=== PATIENT | male | born 1945 | race Caucasian/White ===

== ENCOUNTER → 2020-12-17 07:43 | Outpatient (CLI) | payer OTHER, MEDICARE, SELFPAY ==
--- NOTE | 2020-12-17 07:46 | CT_ITS ---
STUDY: CT SOFT TISSUE NECK WITH CONTRAST REASON FOR EXAM: Male, 75 years old. RIGHT VOCAL CORD JAKE BASE TO AP WINDOW. History of prior laryngeal carcinoma with chemotherapy and radiation. RADIATION DOSAGE (If Supplied By Facility): CTDIvol = ( 9.80 ) mGy, DLP = ( 303.67 ) mGycm TECHNIQUE: The patient was scanned in a multi-detector CT scanner. High resolution transaxial imaging was performed following intravenous administration of IV 100mL [id number]-300. Sagittal and coronal images were reconstructed. Individualized dose optimization techniques were used for this CT. COMPARISON: None. FINDINGS: Normal bilateral parotid glands. Normal bilateral solar fabrication technician spaces. Normal bilateral parapharyngeal spaces. Normal bilateral carotid spaces. Normal bilateral sublingual and submandibular glands and spaces. Normal visualized nasopharynx. Normal retropharyngeal space. Normal perivertebral space. Normal visualized bilateral faucial tonsils. The visualized tongue, tongue base and oropharynx are normal. The visualized cervical lymph nodes (levels I-) are within normal size limits, and maintain normal morphology. There is no demonstrated solid or cystic mass lesion. There is no abnormal contrast enhancement. There is a 1.2 cm x 0.9 cm nodule within the right vocal cord. A recurrent neoplastic process should be ruled out. This extends superiorly into the right piriform sinus. Normal subglottic trachea. Normal bilateral lobes of the thyroid gland. Findings suggestive of scarring in the medial right lung apex most likely secondary to prior radiation. Right stenosis at the carotid bifurcation on the right side. Normal visualized paranasal sinuses. There is multilevel degenerative changes of the cervical spine. CT/Soft Tissue Neck WITH Contrast IMPRESSION: 1.2 cm x 0.9 cm nodule in the right vocal cord with extension into the right piriform sinus. Marked degree of the sclerotic plaque and stenosis at the right carotid bifurcation. Electronically Signed: Lazaro Freedman MD at 15:37 EDT , Service support ,
[2020-12-17 08:00] LABS: CREATININE FINGERSTICK < 0.6 mg/dL (0.70-1.30); EGFR FINGERSTICK > 60.0000 mL/min (>60)
== END ==
PROVIDERS: Referring Provider Otolaryngology; Visit Provider Otolaryngology
DX: J38.01 Paralysis of vocal cords and larynx, unilateral (principal)
CPT/HCPCS: 70491; Q9967

== ENCOUNTER → 2021-01-27 14:56 | Outpatient (CLI) | payer OTHER, MEDICARE, SELFPAY ==
--- NOTE | 2021-01-27 15:00 | PET_ITS ---
EXAMINATION: FDG PET-CT INDICATIONS: A 75-year-old male with a reported history of head and neck carcinoma and evaluation of pulmonary nodularity. COMPARISON EXAMINATION: CT of the chest report dated 01/03/21. INDEX LESION SIZE SUV INTERPRETATION Right lower lung-right lower lobe 1.9 max Quantitative criteria for viable neoplasm are not fulfilled. Sequential radiologic investigation is recommended. NON-INDEX LESION SIZE SUV INTERPRETATION Right thoracic perihilum 1.9 Quantitative criteria for viable neoplasm are not fulfilled. TECHNIQUE: Following the intravenous administration of 16.85 mCi of F-18 deoxyglucose via the left antecubital fossa, multiplanar image acquisitions of the head, neck, chest, abdomen and pelvis to level of mid-thigh, lower extremities obtained at one hour post radiopharmaceutical administration contemporaneously interpreted with the current CT of the head, neck, chest, abdomen and pelvis to level of mid-thigh, lower extremities dated 01/27/[address] of the chest report dated 01/03/21 reveal: SERUM GLUCOSE LEVEL: 93 mg/dl. HEIGHT: 66 inches. WEIGHT: 110 lbs. FINDINGS: 1. Mild increased FDG distribution is defined in the right thoracic perihilum generating a calculated maximum standard uptake value of 1.9. Quantitative criteria for viable neoplasm are not fulfilled. 2. Minimal radiopharmaceutical concentration is visualized in the right lower posterolateral posteromedial lung odom and right lower lobe generating a calculated maximum standard uptake value of 1.9. 3. Normal physiologic distribution of the radiopharmaceutical is apparent in the hepatic (1.8) and splenic parenchyma, both renal units, bladder and visualized intestinal tract. The visualized portion of the cerebral cortex demonstrate symmetric and preserved glucose metabolism. Diffuse intestinal tract activity is noted throughout all four quadrants of the abdominal-pelvic retroperitoneum and mesentery consistent with normal physiologic distribution of the radiopharmaceutical. Prominent radiopharmaceutical concentration is observed in the left ventricular myocardium commensurate with the [place]. Prominent tracer uptake is observed in the oral cavity without evidence of anatomic correlate. Pertinent CT findings are as follows. CHEST: There are no additional parenchymal densities-nodules defined in the right and left hemithorax with discernable increased FDG uptake. Bronchiectatic changes noted in the right upper anteromedial lung field without evidence of increased tracer concentration. A subcentimeter ground glass density noted in the right mid lateral lung-right upper lobe is ametabolic. There is atherosclerotic calcification defined in the thoracic aorta without evidence of dilatation-aneurysm formation. Coronary arterial calcification is defined. ABDOMEN AND PELVIS: Gastrostomy tube placement is defined. Atherosclerotic calcification is defined in the abdominal aorta without evidence of dilatation, aneurysm formation. Pelvic arterial calcification is encountered. Cyst formation is noted in the left kidney with a maximum axial diameter of approximately 5.2 cm. Bilateral subcentimeter inguinal soft tissue densities are ametabolic. Colonic diverticulosis is noted without evidence of diverticulitis. SKELETAL: Degenerative changes defined in the cervical, thoracic and lumbar spine demonstrate no evidence of glucose hypermetabolism. Diffuse demineralization is noted in the axial skeletal structures. PET/PET/CT Tumor Base -Thigh Init IMPRESSION: 1. NEGATIVE EXAMINATION. There is no definitive quantitative significant evidence of recurrent-metastatic viable neoplasm. 2. Enhanced tracer uptake observed in the right thoracic perihilum does not fulfill quantitative criteria for viable neoplasm. (Amanda et al, Journal of Clinical Oncology 16:2142, 1997) 3. The right lower lung-right lower lobe increase in glucose concentration does not fulfill quantitative criteria for malignant transformation. 4. Metabolic and/or anatomic stability may be ensured in the right thoracic perihilar and right hemithorax pulmonary parenchymal abnormality with repeat FDG PET study and/or CT of the thorax in three months. (Xiu, Journal of Nuclear Medicine 45:88, P2004 [facility], Seminars in Thoracic and Cardiovascular Surgery 14:292, 2002) Electronic Signature Steve Holcomb D.O. Accurate Quantification of SUVs for this report are calculated using the exclusive [employer]. (U.S. Patent No. 10, 674, 983). Standardization and correction of the FDG SUV metric via [employer] technology allow for vendor non-specific objective quantitative examination comparison and optimization of the sensitivity and specificity of the FDG PET-CT examination. Electronically Signed: Steve Holcomb DO at 22:42 EDT Tel , Service support ,
== END ==
PROVIDERS: Referring Provider Otolaryngology; Visit Provider Otolaryngology
DX: R91.8 Other nonspecific abnormal finding of lung field (principal)
CPT/HCPCS: 78815; A9552

== ENCOUNTER 2021-05-06 09:10 | Outpatient (CLI) | payer OTHER, SELFPAY ==
--- NOTE | 2021-05-06 09:15 | RAD_ITS ---
STUDY: X-RAY - ESOPHAGUS (BARIUM SWALLOW) WITH FLUOROSCOPY REASON FOR EXAM: Male, 75 years old. DYSPHAGIA/PARALYSIS VOCAL CORDS TECHNIQUE: 23 view(s) of the esophagus were obtained following swallowing of barium. FLUOROSCOPY TIME (if supplied): (80 seconds) minutes/seconds COMPARISON: None. FINDINGS: A PEG tube is seen within the stomach. There is no demonstrated esophageal foreign body. Mild degree of circumferential narrowing of the distal esophagus at the gastroesophageal junction. No evidence of gastroesophageal reflux. The patient was unable to swallow a 12 mm tablet of barium. There is atherosclerotic tortuosity of the aortic arch and descending thoracic aorta. Normal visualized pulmonary parenchyma. There are diffuse degenerative changes of the visualized thoracic spine. RAD/Esophagus Single Contrast IMPRESSION: No evidence of gastroesophageal reflux. Mild degree of circumferential narrowing of the distal esophagus at the level of the gastroesophageal junction. Correlation with endoscopy is recommended. Electronically Signed: Lazaro Freedman MD at 14:57 EST ,
== END 2021-05-06 23:59 | disposition short-term general hospital (02) ==
LOC: RAD 09:13
PROVIDERS: Referring Provider Otolaryngology; Visit Provider Otolaryngology
DX: J38.01 Paralysis of vocal cords and larynx, unilateral (principal); R13.10 Dysphagia, unspecified; Z85.828 Personal history of other malignant neoplasm of skin
CPT/HCPCS: 74220

== ENCOUNTER 2021-09-23 12:50 | Inpatient (IN) | payer OTHER, SELFPAY ==
[2021-09-23] VITALS (16 sets, daily range): BP systolic 76–144; BP diastolic 45–84; PULSE 70–108; RESP 14–22; TEMP 36.9–37.3; O2SAT 89–96; BMI 18.6; BMI 18.7
--- NOTE | 2021-09-23 13:44 | RAD_ITS ---
STUDY: X-RAY CHEST REASON FOR EXAM: Male, 75 years old. SOB TECHNIQUE: XR Chest 1 View COMPARISON: Prior comparison studies are not available for review at this time. FINDINGS: Left sided pneumonia. There is an elevated right hemidiaphragm. Normal size heart. Normal mediastinum and tevin. Normal visualized pulmonary arteries. There is atherosclerotic calcification of the aortic arch with tortuosity. There are diffuse degenerative changes of the visualized thoracic spine. There is degenerative osteoarthritis of the bilateral shoulders. There is no demonstrated abnormality of the visualized soft tissue structures of the upper abdomen. RAD/Chest 1 View (Portable) IMPRESSION: Left sided pneumonia. Electronically Signed: Moe Medrano MD at 14:18 EDT ,
--- NOTE | 2021-09-23 14:10 | EKG12_ITS ---
Test Reason : SOB Blood Pressure : / mmHG Vent. Rate : 109 BPM Atrial Rate : 109 BPM P-R Int : 142 ms QRS Dur : 066 ms QT Int : 322 ms P-R-T Axes : 063 027 057 degrees QTc Int : 433 ms Sinus tachycardia Otherwise normal ECG Confirmed by ANJANA CUNNINGHAM, MORGAN ([id number]), supervising editor news reel [id number] JENSEN [id number]) on 09/25/2021 11:36:53 AM Referred By: JOSE M Confirmed By:MORGAN YEUNG MD
--- NOTE | 2021-09-23 14:11 | EX.ED.DYSGE1 ---
HPI History of Present Illness Chief Complaint: Shortness of Breath Detail of Chief Complaint: Shortness of breath, left rib pain, chills Informant: patient and spouse/S.O. Onset/Context/Timing Onset: Yesterday Context: Gradual Onset Current Severity: Mild Maximum Severity: Moderate Narrative Narrative: Patient presents secondary to shortness of breath with chills. He complains of left-sided rib pain. He states it feels similar to when he had pneumonia previously. He has a history of throat cancer and currently is taking all of his p.o. intake through a feeding tube. He is not currently on cancer treatment. [facility] Medical History (Updated 09/23/21 @ 15:[address] Saritha Delatorre MD) History of head or neck cancer Pulmonary emphysema Throat cancer Home Medications famotidine 40 mg/5 mL (8 mg/mL) oral suspension 5 ml feeding tube DAILY 09/23/21 [History Last Taken Unknown] tramadol 50 mg tablet 50 mg feeding tube Q8H PRN Pain 09/23/21 [History Last Taken Unknown] Allergy/AdvReac Type Severity Reaction Status Date / Time Penicillins AdvReac Other Verified 09/23/21 12:54 Social History Smoking Status: Former smoker ROS ROS ED Constitutional Constitutional ED: Reports chills; Denies fever(s) Eyes Eyes: Denies change in vision or discharge from eye(s) ENT ENT ED: Denies discharge from eye(s), rhinorrhea or sore throat Cardiovascular Cardiovascular: Reports chest pain; Denies palpitations Respiratory/Chest Respiratory/Chest: Reports cough and dyspnea Gastrointestinal Gastrointestinal: Reports nausea and vomiting; Denies abdominal pain or diarrhea Genitourinary Genitourinary ED: Denies difficulty urinating or dysuria Musculoskeletal Musculoskeletal: Reports myalgias; Denies back pain or extremity pain Integumentary Denies Abrasions or rash Neurologic Neurologic: Denies headache(s) or weakness Allergic/Immunologic Allergic/Immunologic ED: Denies lip swelling or urticaria EXAM Physical Exam Const Vital Signs: 09/23/21 12:52 09/23/21 14:20 09/23/21 14:59 Temperature 98.5 F Temperature Source Temporal Pulse Rate 93 Respiratory Rate 18 Respiratory Effort Short of Breath Respiratory Depth Respiratory Pattern Blood Pressure 128/84 H Blood Pressure Mean 98 Pulse Ox 93 95 Oxygen Delivery Method Room Air Nasal Cannula Nasal Cannula Oxygen Flow Rate (L/min) 3 3 09/23/21 14:59 09/23/21 14:53 09/23/21 14:56 Temperature 98.7 F Temperature Source Oral Pulse Rate 105 H Respiratory Rate 22 H Respiratory Effort Short of Breath Respiratory Depth Normal Respiratory Pattern Normal Blood Pressure 108/68 Blood Pressure Mean 81 Pulse Ox 94 Oxygen Delivery Method Oxygen Flow Rate (L/min) Positive well nourished and well developed General Appearance ED: well developed HEENT Reports normocephalic and head/scalp atraumatic Eyes PERRL and EOMs intact bilaterally Neck supple Chest Wall inspection of chest normal and palpation of chest normal Resp normal respiratory effort and clear to auscultation bilaterally Cardio regular rate and regular rhythm GI normal to inspection, nondistended, normoactive bowel sounds Palpation: soft Back/Spine no CVA tenderness Extremity normal to inspection Neuro oriented x3 and no sensory deficits noted Sensorium / Orientation: alert Motor Exam: strength 5/5 throughout Psych mental status grossly normal Skin no rashes or lesions noted MDM MDM MDM Narrative Medical decision making narrative: Patient's O2 sat ranged from 85% to 92% on room air. He was placed on 3 L nasal cannula for oxygen support. EKG, chest x-ray, lab work obtained. Urinalysis ordered. Blood cultures obtained. Lab Data Attestation: I reviewed the patient's lab results. Labs: Laboratory Results - last 24 hr 09/23/21 09/23/21 09/23/21 14:20 14:20 14:20 WBC 15.5 H RBC 4.32 L Hgb 13.5 Hct 40.5 MCV 93.8 MCH 31.3 MCHC 33.3 RDW Std Deviation 42.1 RDW Coeff of Livan 12.2 Plt Count 190 MPV 10.0 Immature Gran % (Auto) 0.500 Neut % (Auto) 93.0 H Lymph % (Auto) 2.8 L [place] % (Auto) 3.6 Eos % (Auto) 0.0 Baso % (Auto) 0.1 Absolute Neuts (auto) 14.4 H Absolute Lymphs (auto) 0.44 L Nucleated RBC % 0 Differential Comment COMMENT PT 13.3 INR 1.0 APTT 23.6 L D-Dimer Quant (PE/DVT) 0.49 Sodium 135 L Potassium 3.7 Chloride 96 L Carbon Dioxide 33.0 H Anion Gap 6 BUN 26 H Creatinine 0.68 L Estim Creat Clear Calc 45.16 Est GFR (MDRD) Af Amer 146 Est GFR (MDRD) Non-Af 120 BUN/Creatinine Ratio 38.3 H Glucose 123 H Calcium 9.4 Total Bilirubin 0.70 AST 19 ALT 19 Alkaline Phosphatase 77 Troponin I High Sens 4 Total Protein 8.0 Albumin 4.0 Globulin 4.0 Albumin/Globulin Ratio 1.0 Urine Color Urine Clarity Urine pH Ur Specific [place] Urine Protein Urine Glucose (UA) Urine Ketones Urine Occult Blood Urine Nitrite Urine Bilirubin Urine Urobilinogen Ur Leukocyte Esterase Urine RBC Urine WBC Ur Squamous Epith Cells Urine Bacteria Urine Mucus 09/23/21 14:26 WBC RBC Hgb Hct MCV MCH MCHC RDW Std Deviation RDW Coeff of Livan Plt Count MPV Immature Gran % (Auto) Neut % (Auto) Lymph % (Auto) [place] % (Auto) Eos % (Auto) Baso % (Auto) Absolute Neuts (auto) Absolute Lymphs (auto) Nucleated RBC % Differential Comment PT INR APTT D-Dimer Quant (PE/DVT) Sodium Potassium Chloride Carbon Dioxide Anion Gap BUN Creatinine Estim Creat Clear Calc Est GFR (MDRD) Af Amer Est GFR (MDRD) Non-Af BUN/Creatinine Ratio Glucose Calcium Total Bilirubin AST ALT Alkaline Phosphatase Troponin I High Sens Total Protein Albumin Globulin Albumin/Globulin Ratio Urine Color Yellow Urine Clarity Sl. Cloudy Urine pH 8.0 Ur Specific [place] 1.010 Urine Protein Negative Urine Glucose (UA) Normal Urine Ketones 50 H Urine Occult Blood Negative Urine Nitrite Negative Urine Bilirubin Negative Urine Urobilinogen Normal Ur Leukocyte Esterase Negative Urine RBC 0 SEEN Urine WBC 0 SEEN Ur Squamous Epith Cells 0-5 SEEN Urine Bacteria 0 SEEN Urine Mucus 0 SEEN Radiography Chest X-Ray - ED: 1 View, Read by ED Physician, Right Infiltrate and Left Infiltrate Diagnostic Testing: Clinical Impression(s) from Imaging Studies Chest X-Ray 09/23/21 13:44 IMPRESSION: Left sided pneumonia. Electronically Signed: Moe Medrano MD at 14:18 EDT Reading Location ID and State: [facility] / [place] , Service support , EKG Initial EKG: Attestation: I personally reviewed and interpreted this EKG as follows: Interpretation: Sinus Tachycardia (Sinus tach at 109 with no acute ischemia.) Treatment and Re-Evaluation Narrative: Lab work reveals elevated white count at 15.5 with left shift. D-dimer and troponin both negative. Chemistry studies unremarkable. Two-view chest x-ray per my interpretation reveals bilateral infiltrates. Radiology feels there is definitely an infiltrate on the left. Patient is treated with a dose of Levaquin. With patient having hypoxia down to 85% on room air he is currently requiring O2. He does not have home O2 and I will speak with hospitalist regarding admission. Discharge Plan Triage Chief Complaint: Shortness of Breath ED Provider: Saritha Delatorre Dx/Rx/DC Orders Clinical Impression: Pneumonia, Hypoxia Prescriptions: No Action tramadol 50 mg Tablet 50 mg feeding tube Q8H PRN (Reason: Pain) famotidine 40 mg/5 mL (8 mg/mL) suspension 5 ml feeding tube DAILY Label Comments: Take 5 ml via g-tube once a day [facility] [Primary Care Provider] - Disposition Disposition: Acute Care Hospital [facility]
[2021-09-23] MEDS: Ondansetron 4 MG/2 ML Vial IV ×2 (14:22→21:43)
[2021-09-23] MEDS: Morphine 2 MG/ML Syringe IV ×3 (14:22→18:36)
[2021-09-23 14:30] LABS: Absolute Lymphocyte Count 0.44 X10^3/uL (0.83-4.51); Absolute Neutrophil Count 14.4 X10^3/uL (2.0-7.7); Basophil# 0.02 X10^3/uL; Basophil% 0.1 % (0-1); Hematocrit 40.5 % (40-54); Hemoglobin 13.5 g/dL (13.0-16.5); Lymphocyte # 0.44 X10^3/ul (0.83-4.51); Lymphocyte % 2.8 % (19-41); Mean Corp Hgb Conc 33.3 g/dL (32-36); Mean Corpuscular Hgb 31.3 pg (27.0-32.0); Mean Corpuscular Volume 93.8 fL (80-94); Monocyte# 0.56 X10^3/uL; Monocyte% 3.6 % (0-10); NRBC Flagged by Analyzer 0 % (0-5); POSITIVE DIFFERENTIAL YES; Platelet Count 190 K/mm3 (150-450); RBC Distribution Width CV 12.2 % (11.6-14.6); RBC Distribution Width SD 42.1 fl (35.1-43.9); Red Blood Count 4.32 M/mm3 (4.6-6.2); White Blood Count 15.5 K/mm3 (4.4-11.0)
[2021-09-23 14:30] LABS: Bacteria 0 SEEN /hpf (None Seen); Mucous, Urine 0 SEEN /hpf (<or=2+); Red Blood Cells-Urine 0 SEEN /hpf (0-5); White Blood Cells 0 SEEN /hpf (0-5)
[2021-09-23 14:32] LABS: Color, Urine Yellow (Yellow); Glucose, Dipstick Normal (Normal); Ketone-Dipstick 50 mg/dl (Negative); Leukocyte Esterase-Dipstick Negative /ul (Negative); Nitrite-Dipstick Negative (Negative); Occult Blood-Urine Negative /ul (Negative); Protein-Dipstick Negative (Negative); Urine Bilirubin Dipstick Negative (Negative); Urine Clarity Sl. Cloudy (Clear); Urine Urobilinogen Normal (Normal)
[2021-09-23 14:33] LABS: Differential Indicated SCAN CRITERIA MET
[2021-09-23 14:39] LABS: Partial Thromboplast Time 23.6 Seconds (24.1-36.2); Prothrombin Time (Protime)PT. 13.3 SECONDS (11.7-14.9)
[2021-09-23 14:40] LABS: Squamous Epithelial Cells - UA 0-5 SEEN /hpf (0-5)
[2021-09-23 14:49] LABS: AST(SGOT) 19 U/L (15-37); Alanine Aminotransfer ALT/SGPT 19 U/L (16-61); Alkaline Phosphatase 77 U/L (45-117); Anion Gap 6 (5-15); BUN 26 mg/dL (7-18); BUN/Creat Ratio 38.3 RATIO (10-20); Calcium,Total 9.4 mg/dL (8.5-10.1); Chloride 96 mmol/L (98-107); Creatinine, Serum 0.68 mg/dL (0.70-1.30); EST Glomerular Filtration Rate 120 mL/min (>60); Est Glom Filt Rate - Afr Amer 146 mL/min (>60); Estimated Creatinine Clearance 45.16 ml/min; Glucose 123 mg/dL (74-106); Potassium 3.7 mmol/L (3.5-5.1); Sodium Level 135 mmol/L (136-145); Troponin-I HS 4 pg/mL (3.0-78.0)
[2021-09-23 14:50] LABS: D-Dimer Quantitative (DVT/PE) 0.49 FEU/ug/m (0.27-0.49)
[2021-09-23] MEDS: levoFLOXacin IV 750 MG/150 ML BAG 100 MG IV (14:51)
[2021-09-23 15:11] LABS: Lactic Acid 1.3 mmol/L (0.4-1.9)
--- NOTE | 2021-09-23 15:14 | NURSING ---
CALLED AND LEFT MESSAGE WITH KELLY MCDANIEL ABOUT ADMISSION INFO
[2021-09-23] MEDS: 0.9% Normal Saline 1,000 ML 150 ML IV (15:36)
--- NOTE | 2021-09-23 15:40 | NURSING ---
MED SURG OBS KOJANETTS PNEUMONIA, HYPOXIA
--- NOTE | 2021-09-23 17:01 | HP.PCM.HOS_ITS ---
HPI - General General Date of Admission: 09/23/21 HPI Narrative LORETA CHING, is a 75 M who presents with shortness of breath and left-sided chest pain. He states that he felt this for the last time he had pneumonia and chest x-ray in the ER demonstrated pneumonia. On my read looks more like his on the right side than on the left side, and he states that all of his previous pneumonias were on the right side. He does have a leukocytosis to 15 and has been intermittently hypoxic while on room air. He has a history of throat cancer and he has a G-tube in place when he takes most of his p.o. through the G-tube though he has on occasion taken some p.o. intake. [facility] Medical History (Updated 09/23/21 @ 15:[address] Saritha Delatorre MD) Former smoker History of head or neck cancer Pulmonary emphysema Throat cancer Home Medications famotidine 40 mg/5 mL (8 mg/mL) oral suspension 5 ml feeding tube DAILY stomach 09/23/21 [History Last Taken 09/23/21] lactose-reduced food with fiber 0.06 gram-1.5 kcal/mL oral liquid (Jevity 1.5 Ray) 300 ml feeding tube LUNCH supplement 09/23/21 [History Last Taken 09/22/21] lactose-reduced food with fiber 0.06 gram-1.5 kcal/mL oral liquid (Jevity 1.5 Ray) 600 ml feeding tube BREAKFAST supplement 09/23/21 [History Last Taken 09/22/21] lactose-reduced food with fiber 0.06 gram-1.5 kcal/mL oral liquid (Jevity 1.5 Ray) 600 ml feeding tube DINNER supplement 09/23/21 [History Last Taken 09/22/21] tramadol 50 mg tablet 50 mg feeding tube Q8H PRN Pain 09/23/21 [History Last Taken Unknown] Allergy/AdvReac Type Severity Reaction Status Date / Time Penicillins AdvReac Other Verified 09/23/21 12:54 no significant family history Surgical History (Updated 09/23/21 @ 17:[address] Jay Lott MD) Status post insertion of percutaneous endoscopic gastrostomy (PEG) tube Social History Smoking Status: Former smoker ROS Constitutional Constitutional: Reports chills; Denies fatigue, fever(s) or malaise Eyes Eyes: Denies blurry vision ENT HEENT: Denies headache(s) or nasal discharge Cardiovascular Cardiovascular: Denies chest pain, dyspnea on exertion or syncope Respiratory/Chest Respiratory/Chest: Reports cough and shortness of breath at rest; Denies s hortness of breath with exertion Gastrointestinal Gastrointestinal: Denies constipation, diarrhea, nausea or vomiting Genitourinary Genitourinary: Denies dysuria Neurologic Neurologic: Denies focal weakness, numbness or tremor(s) Psychiatric Psychiatric: Denies anxiety or depression Vital Signs Vital Signs Vital Signs: 09/23/21 12:52 09/23/21 14:20 09/23/21 14:59 Temperature 98.5 F Temperature Source Temporal Pulse Rate 93 Respiratory Rate 18 Respiratory Effort Short of Breath Respiratory Depth Respiratory Pattern Blood Pressure 128/84 H Blood Pressure Mean 98 Blood Pressure Source Blood Pressure Position Blood Pressure Location Pulse Ox 93 95 Oxygen Delivery Method Room Air Nasal Cannula Nasal Cannula Oxygen Flow Rate (L/min) 3 3 09/23/21 14:59 09/23/21 14:53 09/23/21 14:56 Temperature 98.7 F Temperature Source Oral Pulse Rate 105 H Respiratory Rate 22 H Respiratory Effort Short of Breath Respiratory Depth Normal Respiratory Pattern Normal Blood Pressure 108/68 Blood Pressure Mean 81 Blood Pressure Source Blood Pressure Position Blood Pressure Location Pulse Ox 94 Oxygen Delivery Method Oxygen Flow Rate (L/min) 09/23/21 15:32 09/23/21 15:57 09/23/21 16:43 Temperature 98.7 F 98.9 F Temperature Source Oral Oral Pulse Rate 104 H 100 101 H Respiratory Rate 14 21 H 18 Respiratory Effort Respiratory Depth Respiratory Pattern Blood Pressure 109/66 144/82 H 107/64 Blood Pressure Mean 80 102 78 Blood Pressure Source Monitor Blood Pressure Position Sitting Blood Pressure Location Right Arm Pulse Ox 94 95 92 Oxygen Delivery Method Nasal Cannula Nasal Cannula Nasal Cannula Oxygen Flow Rate (L/min) 3 3 4 09/23/21 16:34 Temperature Temperature Source Pulse Rate Respiratory Rate Respiratory Effort Respiratory Depth Respiratory Pattern Blood Pressure Blood Pressure Mean Blood Pressure Source Blood Pressure Position Blood Pressure Location Pulse Ox Oxygen Delivery Method Nasal Cannula Oxygen Flow Rate (L/min) 6 Weight Weight: 112 lb 10.499 oz Body Mass Index (BMI) 18.7 Physical Exam Const alert, oriented x3 and no apparent distress General Appearance: cooperative HEENT normocephalic and moist oral mucous membranes Eyes PERRL, EOMs intact bilaterally and conjunctivae normal Neck supple and no JVD Resp normal respiratory effort, no retractions and no use of accessory muscles Auscultation: crackles right base; Negative for rales, rhonchi or wheezes Cardio regular rate, regular rhythm, S1 normal heart sound, S2 normal heart sound and no murmurs GI soft to palpation, non-tender and non-distended; Negative for hepatosplenomegaly GI Narrative: G-tube in place Extremity no clubbing, cyanosis or edema Skin no rashes or lesions noted Neuro no focal motor deficits and no sensory deficits noted Psych affect normal Appearance: appropriate Results Lab / Micro Data Result Diagrams: 09/23/21 14:20 09/23/21 14:20 Labs: Laboratory Results - last 24 hr 09/23/21 14:20: PT 13.3, INR 1.0, APTT 23.6 L, D-Dimer Quant (PE/DVT) 0.49 09/23/21 14:20: WBC 15.5 H, RBC 4.32 L, Hgb 13.5, Hct 40.5, MCV 93.8, MCH 31.3, MCHC 33.3, RDW Std Deviation 42.1, RDW Coeff of Livan 12.2, Plt Count 190, MPV 10.0, Immature Gran % (Auto) 0.500, Neut % (Auto) 93.0 H, Lymph % (Auto) 2.8 L, [place] % (Auto) 3.6, Eos % (Auto) 0.0, Baso % (Auto) 0.1, Absolute Neuts (auto) 14.4 H, Absolute Lymphs (auto) 0.44 L, Nucleated RBC % 0, Differential Comment COMMENT 09/23/21 14:20: Sodium 135 L, Potassium 3.7, Chloride 96 L, Carbon Dioxide 33.0 H, Anion Gap 6, BUN 26 H, Creatinine 0.68 L, Estim Creat Clear Calc 45.16, Est GFR (MDRD) Af Amer 146, Est GFR (MDRD) Non-Af 120, BUN/Creatinine Ratio 38.3 H, Glucose 123 H, Calcium 9.4, Total Bilirubin 0.70, AST 19, ALT 19, Alkaline Phosphatase 77, Troponin I High Sens 4, Total Protein 8.0, Albumin 4.0, Globulin 4.0, Albumin/Globulin Ratio 1.0 09/23/21 14:20: Lactic Acid 1.3 09/23/21 14:26: Urine Color Yellow, Urine Clarity Sl. Cloudy, Urine pH 8.0, Ur Specific [place] 1.010, Urine Protein Negative, Urine Glucose (UA) Normal, Urine Ketones 50 H, Urine Occult Blood Negative, Urine Nitrite Negative, Urine Bilirubin Negative, Urine Urobilinogen Normal, Ur Leukocyte Esterase Negative, Urine RBC 0 SEEN, Urine WBC 0 SEEN, Ur Squamous Epith Cells 0-5 SEEN, Urine Bacteria 0 SEEN, Urine Mucus 0 SEEN Micro: Microbiology 09/23/21 13:46 Nasal Secretion SARS-CoV-2 & FLU Antigen (Rapid) - Final Radiology Impression Chest X-Ray 09/23/21 13:44 IMPRESSION: Left sided pneumonia. Electronically Signed: Moe Medrano MD at 14:18 EDT Reading Location ID and State: [facility] / [place] , Service support , Assessment & Plan Assessment/Plan (1) Pneumonia: (2) Hypoxia: PLAN: Plan 1. Acute hypoxia with pneumonia ? His hypoxia seems to be intermittent and at times when he sits still he can be 92% on room air and then on occasion when he moves he will go down to 88% and t hen come right back up. He does hemoglobin more comfortable with nasal cannula. ? Continue with Levaquin and she says that he has a previous allergy to penicillin though this was about 50 years ago in the , he does remember what the reaction was ? Dosing will have to be every 48 hours secondary to creatinine clearance 2. Throat cancer ? Denies any history of COPD or emphysema though there does appear to be emphysematous changes on the chest x-ray ? We will place him on nasal cannula as well as DuoNebs ? Not a current any treatment for his cancer ? Continue with tube feeds through his G-tube ? He does state that he never lays down flat after giving himself a feeding and denies any recent choking to indicate a possible aspiration event ? Continue with Pepcid secondary to his feeding tube DVT: Lovenox Charges/Coding Visit Charges Inpatient E&M: 78607 Init Hosp L2
[2021-09-23] MEDS: 0.9% Normal Saline 1,000 ML 100 ML IV (17:46)
[2021-09-23] MEDS: 0.9% Saline Lock 10 ML Syringe IV (18:36)
[2021-09-23] MEDS: Ipratropium/Albuterol Sulfate 3 ML AMPUL.NEB INHALATION (18:40)
[2021-09-23] MEDS: traMADol 50 MG Tablet GT (20:49)
[2021-09-23] MEDS: Jevity 1.5. 1,000 ML Bottle 600 ML GT (20:57)
[2021-09-24] VITALS (13 sets, daily range): BP systolic 82–117; BP diastolic 53–72; PULSE 80–99; RESP 16–20; TEMP 36.4–37.6; O2SAT 92–98
[2021-09-24] MEDS: 0.9% Normal Saline 1,000 ML 100 ML IV ×3 (01:39→21:31)
[2021-09-24 06:27] LABS: Absolute Lymphocyte Count 0.89 X10^3/uL (0.83-4.51); Absolute Neutrophil Count 11.3 X10^3/uL (2.0-7.7); Basophil# 0.02 X10^3/uL; Basophil% 0.2 % (0-1); Hematocrit 33.5 % (40-54); Hemoglobin 11.2 g/dL (13.0-16.5); Lymphocyte # 0.89 X10^3/ul (0.83-4.51); Mean Corp Hgb Conc 33.4 g/dL (32-36); Mean Corpuscular Hgb 31.6 pg (27.0-32.0); Mean Corpuscular Volume 94.6 fL (80-94); Mean Platelet Vol. 10.6 fl (6.2-12.0); Monocyte# 0.45 X10^3/uL; Monocyte% 3.5 % (0-10); NRBC Flagged by Analyzer 0 % (0-5); POSITIVE MORPHOLOGY YES; Platelet Count 160 K/mm3 (150-450); RBC Distribution Width CV 12.6 % (11.6-14.6); RBC Distribution Width SD 44.4 fl (35.1-43.9); Red Blood Count 3.54 M/mm3 (4.6-6.2); White Blood Count 12.7 K/mm3 (4.4-11.0)
[2021-09-24 06:41] LABS: Differential Indicated SCAN CRITERIA MET
[2021-09-24 06:42] LABS: Differential Comment SCANNED
[2021-09-24 06:53] LABS: Anion Gap 3 (5-15); BUN 23 mg/dL (7-18); BUN/Creat Ratio 38.6 RATIO (10-20); Calcium,Total 8.7 mg/dL (8.5-10.1); Chloride 100 mmol/L (98-107); EST Glomerular Filtration Rate 140 mL/min (>60); Est Glom Filt Rate - Afr Amer 169 mL/min (>60); Estimated Creatinine Clearance 45.42 ml/min; Glucose 124 mg/dL (74-106); Potassium 3.9 mmol/L (3.5-5.1); Sodium Level 134 mmol/L (136-145)
[2021-09-24] MEDS: Ipratropium/Albuterol Sulfate 3 ML AMPUL.NEB INHALATION ×4 (07:21→19:21)
[2021-09-24] MEDS: Enoxaparin 40 MG/0.4 ML Syringe SC (08:12)
[2021-09-24] MEDS: Jevity 1.5. 1,000 ML Bottle 600 ML GT (08:12)
[2021-09-24] MEDS: Famotidine 20 MG Tablet 40 MG GT (08:12)
[2021-09-24] MEDS: traMADol 50 MG Tablet GT (08:30)
[2021-09-24] MEDS: predniSONE 20 MG Tablet 40 MG PO (08:30)
--- NOTE | 2021-09-24 09:15 | PN.HOSP_ITS ---
Subjective Subjective Doing well, no issues overnight. Still on about 4 L of oxygen nasal cannula to maintain his oxygen sats. Urinary does not have a diagnosis of COPD given his emphysematous throat cancer, will start him on some oral steroids Objective Data Objective Data Vital Signs: Vital Signs Temp Pulse Resp BP Pulse Ox FiO2 97.6 F L 99 18 117/72 94 92 09/24/21 07:57 09/24/21 07:57 09/24/21 07:57 09/24/21 07:57 09/24/21 07:57 09/23/21 16:28 Oxygen Flow Rate (L/min) 4 Oxygen Delivery Method Nasal Cannula Weight: 112 lb 10.499 oz Body Mass Index (BMI) 18.7 Intake & Output: Intake and Output for Last 24 Hours 09/23/21 09/24/21 09/25/21 03:59 03:59 03:59 Intake Total 1615.83 / 1615.83 310 / 310 Output Total 500 / 500 Balance 1615.83 / 1615.83 -190 / -190 Lab / Micro Data Result Diagrams: 09/24/21 05:27 09/24/21 05:27 Labs: Laboratory Results - last 24 hr 09/23/21 14:20: PT 13.3, INR 1.0, APTT 23.6 L, D-Dimer Quant (PE/DVT) 0.49 09/23/21 14:20: WBC 15.5 H, RBC 4.32 L, Hgb 13.5, Hct 40.5, MCV 93.8, MCH 31.3, MCHC 33.3, RDW Std Deviation 42.1, RDW Coeff of Livan 12.2, Plt Count 190, MPV 10.0, Immature Gran % (Auto) 0.500, Neut % (Auto) 93.0 H, Lymph % (Auto) 2.8 L, [place] % (Auto) 3.6, Eos % (Auto) 0.0, Baso % (Auto) 0.1, Absolute Neuts (auto) 1 4.4 H, Absolute Lymphs (auto) 0.44 L, Nucleated RBC % 0, Differential Comment COMMENT 09/23/21 14:20: Sodium 135 L, Potassium 3.7, Chloride 96 L, Carbon Dioxide 33.0 H, Anion Gap 6, BUN 26 H, Creatinine 0.68 L, Estim Creat Clear Calc 45.16, Est GFR (MDRD) Af Amer 146, Est GFR (MDRD) Non-Af 120, BUN/Creatinine Ratio 38.3 H, Glucose 123 H, Calcium 9.4, Total Bilirubin 0.70, AST 19, ALT 19, Alkaline Phosphatase 77, Troponin I High Sens 4, Total Protein 8.0, Albumin 4.0, Globulin 4.0, Albumin/Globulin Ratio 1.0 09/23/21 14:20: Lactic Acid 1.3 09/23/21 14:26: Urine Color Yellow, Urine Clarity Sl. Cloudy, Urine pH 8.0, Ur Specific [place] 1.010, Urine Protein Negative, Urine Glucose (UA) Normal, Urine Ketones 50 H, Urine Occult Blood Negative, Urine Nitrite Negative, Urine Bilirubin Negative, Urine Urobilinogen Normal, Ur Leukocyte Esterase Negative, Urine RBC 0 SEEN, Urine WBC 0 SEEN, Ur Squamous Epith Cells 0-5 SEEN, Urine Bacteria 0 SEEN, Urine Mucus 0 SEEN 09/24/21 05:27: WBC 12.7 H, RBC 3.54 L, Hgb 11.2 L, Hct 33.5 L, MCV 94.6 H, MCH 31.6, MCHC 33.4, RDW Std Deviation 44.4 H, RDW Coeff of Livan 12.6, Plt Count 160, MPV 10.6, Immature Gran % (Auto) 0.300, Neut % (Auto) 89.0 H, Lymph % (Auto) 7.0 L, [place] % (Auto) 3.5, Eos % (Auto) 0.0, Baso % (Auto) 0.2, Absolute Neuts (auto) 11.3 H, Absolute Lymphs (auto) 0.89, Nucleated RBC % 0, Differential Comment SCANNED 09/24/21 05:27: Sodium 134 L, Potassium 3.9, Chloride 100, Carbon Dioxide 31.0, Anion Gap 3 L, BUN 23 H, Creatinine 0.60 L, Estim Creat Clear Calc 45.42, Est GFR (MDRD) Af Amer 169, Est GFR (MDRD) Non-Af 140, BUN/Creatinine Ratio 38.6 H, Glucose 124 H, Calcium 8.7 Micro: Microbiology 09/23/21 13:46 Nasal Secretion SARS-CoV-2 & FLU Antigen (Rapid) - Final Radiography Diagnostic Testing: Radiology Impression Chest X-Ray 09/23/21 13:44 IMPRESSION: Left sided pneumonia. Electronically Signed: Moe Medrano MD at 14:18 EDT , Physical Exam Const alert, oriented x3 and no apparent distress General Appearance: cooperative HEENT normocephalic and moist oral mucous membranes Eyes PERRL, EOMs intact bilaterally and conjunctivae normal Neck supple and no JVD Resp normal respiratory effort, no retractions and no use of accessory muscles Auscultation: crackles right base; Negative for rales, rhonchi or wheezes Cardio regular rate, regular rhythm, S1 normal heart sound, S2 normal heart sound and no murmurs GI soft to palpation, non-tender and non-distended; Negative for hepatosplenomegaly GI Narrative: G-tube in place Extremity no clubbing, cyanosis or edema Skin no rashes or lesions noted Neuro no focal motor deficits and no sensory deficits noted Psych affect normal Appearance: appropriate Assessment & Plan Assessment/Plan (1) Pneumonia: (2) Hypoxia: PLAN: Plan 1. Acute hypoxia with pneumonia ? His hypoxia seems to be intermittent and at times when he sits still he can be 92% on room air and then on occasion when he moves he will go down to 88% and then come right back up. He does feel more comfortable with nasal cannula. ? Continue with Levaquin and he says that he has a previous allergy to penicillin though this was about 50 years ago in the , he does remember what the reaction was ? Dosing will have to be every 48 hours secondary to creatinine clearance ? We will start him on p.o. prednisone secondary to his signs of emphysema on chest x-ray and his history of tobacco abuse. 2. Throat cancer ? Denies any history of COPD or emphysema though there does appear to be emphyse matous changes on the chest x-ray ? We will place him on nasal cannula as well as DuoNebs ? Not a current any treatment for his cancer ? Continue with tube feeds through his G-tube ? He does state that he never lays down flat after giving himself a feeding and denies any recent choking to indicate a possible aspiration event ? Continue with Pepcid secondary to his feeding tube DVT: Lovenox Charges/Coding Visit Charges Inpatient E&M: 24516 Subs Hosp L2
--- NOTE | 2021-09-24 11:25 | CASEMGMT ---
Addendum entered by Sylvia Judge 09/24/21 14:09: ISAC GANDARA informed Nati @ [place] transfer center inquiring about discharge plan for pt. Call placed to Nati @ [phone]. No answer. VM left informing her plan is for pt to return home @ discharge. Original Note: ISAC GANDARA ESTIMATOR [employer]OX[employer] CM to room to meet with patient for initial transition planning/care coordination assessment. ISAC GANDARA introduced self and role at [facility].? Pt voices understanding and consents to assessment at this time.? Pt resting in bed in no distress at this time.? Pt is A/O at this time and answers all questions appropriately.?? Care providers, pharmacy, and demographics verified/updated at this time. PCP: [facility] Specialists: Dr Castro-ENT. Pt states he used to see Dr Encarnacion (pulmonology), but has not seen him in a long time. Preferred Pharmacy: [facility] Retail @ d/c. Gets all routine meds through the [place]: [place], [facility] A/B Prescription Benefit: [place]. Pt is not sure if he has other Rx benefits other than the [facility] Living Will/HPOA:?Has both LW and HPOA, who is his , Brionna. LNOK: , Brionna Living Arrangements: Lives w/his , who is a retired RN, in a split-level home. No steps to enter and has functioning elevator up to main floor. Pt is independent w/ADL's. 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 and pt share home tasks. Transportation:?Pt states drives self and states no transportation concerns at this time.? also drives. DME: ?Uses no DME to ambulate. Has pulse ox. No home O2. Pt has no preference of DME co if he qualifies for Home O2 @ discharge. He is agreeable to have O2 billed through [facility]. Tube feedings: Pt has G-tube/Shaun button and administers own bolus feedings. [place] PCP manages tube feedings and pt gets enteral supplies from the [place] HHC/SNF: No hx of either. Pt denies need for HHC. Pt wishes to return home and states has no concerns with going home at time of discharge.? CM to follow for home oxygen needs and any further discharge planning/needs.? Pt voices no further concerns/needs at this time.? Advised pt to ask for CM if any further questions/concerns/needs arise.? Voices understanding. PLAN:??Home w/spousal support and discharge plans in place. Follow for any home O2 needs @ d/c. Lidya WOLFN RN CM
[2021-09-24] MEDS: Jevity 1.5. 1,000 ML Bottle 237 ML GT (12:15)
[2021-09-24] MEDS: Morphine 2 MG/ML Syringe IV ×2 (12:45→21:36)
--- NOTE | 2021-09-24 13:25 | CASEMGMT ---
Social Work SW spoke with pt regarding advance directives. Pt states he does have a living will and a health care POA naming his Brionna Case. SW informed pt that documents are not on file at [facility]. Pt states he will notify his and ask her to bring them in. MALLIKA Vizcarra
[2021-09-24] MEDS: Jevity 1.5. 1,000 ML Bottle 474 ML GT (17:40)
[2021-09-25 03:00] VITALS: BP 99/61; PULSE 84; RESP 16; TEMP 36.6; O2SAT 96
[2021-09-25 05:25] LABS: Anion Gap 6 (5-15); BUN 21 mg/dL (7-18); BUN/Creat Ratio 57.4 RATIO (10-20); Calcium,Total 8.8 mg/dL (8.5-10.1); Chloride 103 mmol/L (98-107); Creatinine, Serum 0.37 mg/dL (0.70-1.30); EST Glomerular Filtration Rate 246 mL/min (>60); Est Glom Filt Rate - Afr Amer 297 mL/min (>60); Estimated Creatinine Clearance 45.42 ml/min; Glucose 106 mg/dL (74-106); Potassium 3.7 mmol/L (3.5-5.1); Sodium Level 136 mmol/L (136-145)
[2021-09-25] MEDS: levoFLOXacin 750 MG Tablet GT (06:24)
[2021-09-25] MEDS: Morphine 2 MG/ML Syringe IV (06:29)
[2021-09-25] MEDS: Ipratropium/Albuterol Sulfate 3 ML AMPUL.NEB INHALATION (07:17)
[2021-09-25 08:10] VITALS: O2SAT 95
[2021-09-25 08:18] VITALS: BP 117/64; PULSE 90; RESP 20; TEMP 36.4; O2SAT 95
[2021-09-25] MEDS: Famotidine 20 MG Tablet 40 MG GT (08:25)
[2021-09-25] MEDS: predniSONE 20 MG Tablet 40 MG PO (08:25)
[2021-09-25] MEDS: 0.9% Normal Saline 1,000 ML 100 ML IV (08:56)
[2021-09-25 08:59] VITALS: O2SAT 88; O2SAT 90; O2SAT 95
[2021-09-25] MEDS: Jevity 1.5. 1,000 ML Bottle 474 ML GT (09:01)
--- NOTE | 2021-09-25 10:50 | PCM.DC ---
Discharge Instructions Diet Discharge Diet: No restrictions Activity Discharge Activity: Return to Normal Activity Dressing / Incision Call your doctor if you observe: Fever of 101 or Higher, Shortness of breath, Dizziness, Fainting spells, Swelling in the ankles, Chest pain and Increased palpitations (irregular heartbeat) Follow Up Care Test Results: Test results from this visit will be discussed in further detail at your follow-up appointment, if applicable. Discharge Plan Admission Admit Date/Time: 09/23/21 15:36 Attending Provider: Jay Lott Primary Care Provider: [place], [place] Discharge Orders/Prescriptions Prescriptions: New prednisone 20 mg Tablet 40 mg PO BREAKFAST 7 Days Qty: 14 0RF levofloxacin 750 mg Tablet 750 mg G-tube Q48@0600 Qty: 3 0RF Continued tramadol 50 mg Tablet 50 mg feeding tube Q8H PRN (Reason: Pain) famotidine 40 mg/5 mL (8 mg/mL) suspension 5 ml feeding tube DAILY Label Comments: Take 5 ml via g-tube once a day Jevity 1.5 Ray 0.06 gram-1.5 kcal/mL Liquid 600 ml feeding tube BREAKFAST Jevity 1.5 Ray 0.06 gram-1.5 kcal/mL Liquid 300 ml feeding tube LUNCH Jevity 1.5 Ray 0.06 gram-1.5 kcal/mL Liquid 600 ml feeding tube DINNER Referrals / Follow Up: [facility],[place] [Primary Care Provider] - Disposition Disposition (needs filled in before D/C Order can be placed): Home, Self Care
--- NOTE | 2021-09-25 11:01 | PCM.DC.SUM ---
Providers Date of Admission: 09/23/21 Primary Care Physician: [facility] Reason For Visit: PNEUMONIA Diagnosis Discharge Diagnosis (1) Pneumonia: Status: Acute Code(s): J18.9 - Pneumonia, unspecified organism (2) Hypoxia: Status: Acute Code(s): R09.02 - Hypoxemia Medications at Discharge Home Medications famotidine 40 mg/5 mL (8 mg/mL) oral suspension 5 ml feeding tube DAILY stomach 09/23/21 lactose-reduced food with fiber 0.06 gram-1.5 kcal/mL oral liquid (Jevity 1.5 Ray) 300 ml feeding tube LUNCH supplement 09/23/21 lactose-reduced food with fiber 0.06 gram-1.5 kcal/mL oral liquid (Jevity 1.5 Ray) 600 ml feeding tube BREAKFAST supplement 09/23/21 lactose-reduced food with fiber 0.06 gram-1.5 kcal/mL oral liquid (Jevity 1.5 Ray) 600 ml feeding tube DINNER supplement 09/23/21 tramadol 50 mg tablet 50 mg feeding tube Q8H PRN Pain 09/23/21 levofloxacin 750 mg tablet 750 mg G-tube Q48@0600 #3 tabs 09/25/21 prednisone 20 mg tablet 40 mg PO BREAKFAST 7 days #14 tabs 09/25/21 Hospital Course Operations None Procedures None Summary of Care Provided Minutes Spent on Discharge: 39 Hospital Course: Per HPI:LORETA CHING, is a 75 M who presents with shortness of breath and left-sided chest pain.? He states that he felt this for the last time he had pneumonia and chest x-ray in the ER demonstrated pneumonia.? On my read looks more like his on the right side than on the left side, and he states that all of his previous pneumonias were on the right side.? He does have a leukocytosis to 15 and has been intermittently hypoxic while on room air.? He has a history of throat cancer and he has a G-tube in place when he takes most of his p.o. through the G-tube though he has on occasion taken some p.o. intake. Hospital course: 1. Acute hypoxia due to pneumonia?75-year-old male status posttreatment for throat cancer with a permanent G-tube presents to the hospital with hypoxia as well as a left-sided chest pain. He was read to have a left-sided pneumonia but it does appear right side on my read. Regardless, he was started on Levaquin and feels much better today. He does not have a history of COPD however given his history of throat cancer and his smoking history, he was started on steroids which seems to have also helped get his oxygen down. He does require 2 L both with rest and activity. I discussed with him the possibility for discharge today he expressed understanding of the risk benefits of going home and he would like to go home today. Given his creatinine clearance his Levaquin will be dosed at every 48 hours with the next dose on 09/27/2021, his prednisone will be daily for 7 more days. 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 Physical Exam Narrative Const alert, oriented x3 and no apparent distress General Appearance: cooperative HEENT normocephalic and moist oral mucous membranes Eyes PERRL, EOMs intact bilaterally and conjunctivae normal Neck supple and no JVD Resp normal respiratory effort, no retractions and no use of accessory muscles Auscultation: crackles right base; Negative for rales, rhonchi or wheezes Cardio regular rate, regular rhythm, S1 normal heart sound, S2 normal heart sound and no murmurs GI soft to palpation, non-tender and non-distended; Negative for hepatosplenomegaly GI Narrative: G-tube in place Extremity no clubbing, cyanosis or edema Skin no rashes or lesions noted Neuro no focal motor deficits and no sensory deficits noted Psych affect normal Appearance: appropriate Medical Records Data Medical Nutrition Assessment Dietitian: Malnutrition Criteria Met Start: 09/24/21 09:32 Freq: Status: Active Protocol: Document 09/24/21 09:18 (Rec: 09/24/21 10:06 [id number]) Nutrition Malnutrition Evidence of Malnutrition Exists Yes Malnutrition (moderate): Chronic Evidenced By Suboptimal Energy Intake ( Moderate),Physical Changes ( Moderate) Clinical Problem Chronic Disease or Condition Related Malnutrition Etiology moderate, chronic malnutrition r/t inadequate 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 As administered, enteral nutrition provides ~ 1777 calories, 76 g protein, and 1440.6mL fluid per day which meets ~100% of estimated protein/calorie needs for wt gain. Weight / BMI Weight Weight: 112 lb 10.499 oz Body Mass Index (BMI) 18.7 ABG / Lab / Microbiology Data Result Diagrams: 09/24/21 05:27 09/25/21 04:31 Laboratory: Laboratory Results - last 24 hr 09/25/21 04:31: Sodium 136, Potassium 3.7, Chloride 103, Carbon Dioxide 27.0, Anion Gap 6, BUN 21 H, Creatinine 0.37 L, Estim Creat Clear Calc 45.42, Est GFR (MDRD) Af Amer 297, Est GFR (MDRD) Non-Af 246, BUN/Creatinine Ratio 57.4 H, Glucose 106, Calcium 8.8 Microbiology: Microbiology 09/23/21 14:26 Urine, Clean Catch Urine Culture - Final Culture exhibits no growth. 09/23/21 14:00 Blood Culture (Wb) - No Site/Description Given Blood Culture - Preliminary No growth in 48 hours. 09/23/21 14:20 Blood Culture (Wb) - Anticubital Left Blood Culture - Preliminary No growth in 48 hours. 09/23/21 13:46 Nasal Secretion SARS-CoV-2 & FLU Antigen (Rapid) - Final D/C Instructions Discharge Diet: No restrictions Call your doctor if you observe: Fever of 101 or Higher, Shortness of breath, Dizziness, Fainting spells, Swelling in the ankles, Chest pain and Increased palpitations (irregular heartbeat) Meaningful Use Info Meaningful Use Diagnoses (Choose all that apply): None applicable Discharge Plan Admission Admit Date/Time: 09/23/21 15:36 Attending Provider: Jay Lott Primary Care Provider: [facility],[place] Discharge Orders/Prescriptions Prescriptions: New prednisone 20 mg Tablet 40 mg PO BREAKFAST 7 Days Qty: 14 0RF levofloxacin 750 mg Tablet 750 mg G-tube Q48@0600 Qty: 3 0RF Continued tramadol 50 mg Tablet 50 mg feeding tube Q8H PRN (Reason: Pain) famotidine 40 mg/5 mL (8 mg/mL) suspension 5 ml feeding tube DAILY Label Comments: Take 5 ml via g-tube once a day Jevity 1.5 Ray 0.06 gram-1.5 kcal/mL Liquid 600 ml feeding tube BREAKFAST Jevity 1.5 Ray 0.06 gram-1.5 kcal/mL Liquid 300 ml feeding tube LUNCH Jevity 1.5 Ray 0.06 gram-1.5 kcal/mL Liquid 600 ml feeding tube DINNER Referrals / Follow Up: [facility] [Primary Care Provider] - Disposition Disposition (needs filled in before D/C Order can be placed): Home, Self Care Charges/Coding Visit Charges Inpatient E&M: 14622 Disch Hosp
--- NOTE | 2021-09-25 11:08 | CASEMGMT ---
Addendum entered by Natalee Jeffers 09/25/21 12:02: Faxed [employer] oxygen orders at this time. Portable tank taken from stock. Original Note: RN CM in to pt room, pt at bedside. Pt aware he will need home oxygen upon dc. He is aware to notify [employer] once home. Pt has pulse ox, discussed keeping oxygen levels at or above 90%. Pt denies need for HHC at home. Pt denies any further homegoing needs.
[2021-09-25 11:39] VITALS: BP 90/52; PULSE 95; RESP 18; O2SAT 93
== END 2021-09-25 12:03 | disposition home or self-care (01) | DRG 194 ==
LOC: ED 15:57 → MS3 16:11
PROVIDERS: Admitting Provider Family Medicine; Emergency Provider Emergency Medicine; Visit Provider Family Medicine
DX: J18.9 Pneumonia, unspecified organism (principal); E44.0 Moderate protein-calorie malnutrition; Z68.1 Body mass index [BMI] 19.9 or less, adult; Z93.1 Gastrostomy status; R09.02 Hypoxemia; Z85.21 Personal history of malignant neoplasm of larynx; Z87.891 Personal history of nicotine dependence
CPT/HCPCS: 36415; 71045; 80048; 80053; 81001; 83605; 84484; 85025; 85379; 85610; 85730; 87040; 87086; 87428; 93005; 94640; 94762; 97802; 99251; 99285; J7030; J7050; A4216; G0463; J2405

== ENCOUNTER 2021-11-20 12:52 | Emergency (ER) | payer MEDICARE, SELFPAY ==
[2021-11-20 12:53] VITALS: BP 98/74; PULSE 101; RESP 18; TEMP 37.1; O2SAT 98; BMI 18.8
--- NOTE | 2021-11-20 13:37 | EX.ED.UPPERE ---
HPI History of Present Illness Chief Complaint: Laceration Informant: patient Onset/Context/Timing Onset: Today Context: Sudden Onset Timing: Continuous Quality of Pain: - (sore) Location: R forearm Current Severity: Mild Maximum Severity: Mild Worsened by: palpation Relieved by: leaving alone Associated Symptoms Associated Symptoms: Negative for Parasthesia, Weakness or Loss of Funtion Narrative Narrative: Patient was working on an electrical box and accidentally cut his right forearm on the edge of it. Unable to stop the bleeding. On aspirin 81 mg daily. No anticoagulants. No other injuries. Tetanus Immunization: >10 years [facility] Medical History Former smoker History of head or neck cancer Pulmonary emphysema Throat cancer Home Medications famotidine 40 mg/5 mL (8 mg/mL) oral suspension 5 ml feeding tube DAILY stomach 09/23/21 [History Last Taken 09/23/21] lactose-reduced food with fiber 0.06 gram-1.5 kcal/mL oral liquid (Jevity 1.5 Ray) 300 ml feeding tube LUNCH supplement 09/23/21 [History Last Taken 09/22/21] lactose-reduced food with fiber 0.06 gram-1.5 kcal/mL oral liquid (Jevity 1.5 Ray) 600 ml feeding tube BREAKFAST supplement 09/23/21 [History Last Taken 09/22/21] lactose-reduced food with fiber 0.06 gram-1.5 kcal/mL oral liquid (Jevity 1.5 Ray) 600 ml feeding tube DINNER supplement 09/23/21 [History Last Taken 09/22/21] tramadol 50 mg tablet 50 mg feeding tube Q8H PRN Pain 09/23/21 [History Last Taken Unknown] levofloxacin 750 mg tablet 750 mg G-tube Q48@0600 #3 tabs 09/25/21 [Rx Last Taken Unknown] prednisone 20 mg tablet 40 mg PO BREAKFAST 7 days #14 tabs 09/25/21 [Rx Last Taken Unknown] Allergy/AdvReac Type Severity Reaction Status Date / Time Penicillins AdvReac Other Verified 11/20/21 12:54 Surgical History (Updated 09/23/21 @ 17:[address] Jay Lott MD) Status post insertion of percutaneous endoscopic gastrostomy (PEG) tube Social History Smoking Status: Former smoker ROS ROS ED Constitutional Constitutional ED: Denies chills or fever(s) Musculoskeletal Musculoskeletal: Reports extremity pain; Denies neck pain Integumentary Reports wounds; Denies Abrasions or rash Neurologic Neurologic: Denies paresthesias or weakness EXAM Physical Exam Const Vital Signs: 11/20/21 12:53 Temperature 98.7 F Temperature Source Temporal Pulse Rate 101 H Respiratory Rate 18 Blood Pressure 98/74 Blood Pressure Mean 82 Pulse Ox 98 Oxygen Delivery Method Room Air Positive well nourished and well developed General Appearance ED: well developed and NAD Neck full ROM and supple Back/Spine normal ROM and normal to inspection Extremity full ROM Extremity Narrative: Right mid dorsal forearm: 2 sq cm skin tear without laceration, clean without contamination, there is venous oozing from 2 different areas that both resolve with superficial firm pressure. Neurovascular intact distally. All compartments soft and nondistended. Neuro oriented x3, no focal motor deficits and no sensory deficits noted Sensorium / Orientation: alert Psych mental status grossly normal and thought process normal Skin Skin Narrative: Right forearm skin tear see above Rashes: no rashes MDM MDM MDM Narrative Medical decision making narrative: This is simply a skin tear that eroded into 2 small superficial venules. I put 2 absorbable sutures there to tie off the small venules as well as lidocaine with epinephrine, this provided good hemostasis I dressed it with bacitracin see the procedure note. Discharged home stable condition with appropriate discharge instructions for wound care. Procedures Lacerations R forearm skin tear: Depth: Skin Shape: Flap (skin tear only) Prep: Sterile Conditions and Chlorhexadine Laceration repair: Lidocaine with epi (1.5cc), Local and Subcutaneous sutures Suture Information: Vicryl, Simple and 5-0 (x2) Comment: 2 individual sutures placed around very superficial venule, 1 in each, with good hemostasis. Discharge Plan Triage Chief Complaint: Laceration ED Provider: [facility] Calvert Dx/Rx/DC Orders Clinical Impression: Skin tear of right forearm without complication, Laceration of vein at right forearm level Instructions: ED Skin Avulsion Prescriptions: No Action tramadol 50 mg Tablet 50 mg feeding tube Q8H PRN (Reason: Pain) famotidine 40 mg/5 mL (8 mg/mL) suspension 5 ml feeding tube DAILY Label Comments: Take 5 ml via g-tube once a day Jevity 1.5 Ray 0.06 gram-1.5 kcal/mL Liquid 600 ml feeding tube BREAKFAST Jevity 1.5 Ray 0.06 gram-1.5 kcal/mL Liquid 300 ml feeding tube LUNCH Jevity 1.5 Ray 0.06 gram-1.5 kcal/mL Liquid 600 ml feeding tube DINNER prednisone 20 mg Tablet 40 mg PO BREAKFAST 7 Days Qty: 14 0RF levofloxacin 750 mg Tablet 750 mg G-tube Q48@0600 Qty: 3 0RF [facility] Referrals[place] [facility] [Primary Care Provider] - As Needed Activity Restrictions/Additional Instructions: Change dressings at least daily, then as needed. Use antibiotic ointment against it. You have 2 sutures that should absorb over the next 5-7 days, you may see them fall out do not be concerned. Disposition Disposition: Home, Self Care
[2021-11-20] MEDS: Diphth,Pertuss(Acell),Tet Vac 0.5 ML Vial IM (14:00)
[2021-11-20] MEDS: Lidocaine 1% /Epi 1:100 (20ml) 20 ML Vial INFILT (15:55)
--- NOTE | 2021-11-20 16:15 | ED.RN ---
Pt. left without dishcharge paperwork.
== END 2021-11-20 16:17 | disposition home or self-care (01) ==
PROVIDERS: Emergency Provider Emergency Medicine; Visit Provider Emergency Medicine
DX: S55.211A Laceration of vein at forearm level, right arm, initial encounter (principal); W26.8XXA Contact with other sharp object(s), not elsewhere classified, initial encounter; Y93.89 Activity, other specified; Z79.82 Long term (current) use of aspirin; Z87.891 Personal history of nicotine dependence
CPT/HCPCS: 12001; 99283

== ENCOUNTER 2022-11-07 19:36 | Observation (INO) | payer OTHER, SELFPAY ==
[2022-11-07 19:37] VITALS: BP 180/120; PULSE 116; RESP 18; TEMP 38.2; O2SAT 94; BMI 19.1
[2022-11-07 19:39] VITALS: BP 180/120; PULSE 113; RESP 16; TEMP 38.2; O2SAT 94
--- NOTE | 2022-11-07 19:46 | EDS_ITS ---
HPI History of Present Illness Chief Complaint: Shortness of Breath PFSH PFSH Medical History Former smoker History of head or neck cancer Pulmonary emphysema Throat cancer Home Medications tramadol 50 mg tablet 50 mg feeding tube Q8H PRN Pain 09/23/21 [History Last Taken Unknown] nutritional supplements 0.06 gram-1.5 kcal/mL oral liquid (Osmolite 1.5 Ray) ml feeding tube TID 11/07/22 [History Last Taken 11/07/22] Allergy/AdvReac Type Severity Reaction Status Date / Time Penicillins AdvReac Other Verified 11/07/22 19:37 Surgical History Status post insertion of percutaneous endoscopic gastrostomy (PEG) tube Social History Smoking Status: Former smoker EXAM Physical Exam Const Vital Signs: 11/07/22 19:37 11/07/22 19:39 11/07/22 19:53 Temperature 100.7 F H 100.7 F H Temperature Source Temporal Temporal Pulse Rate 116 H 113 H Respiratory Rate 18 16 Respiratory Effort Short of Breath Respiratory Pattern Normal Blood Pressure 180/120 H 180/120 H Blood Pressure Mean 140 140 Pulse Ox 94 94 Oxygen Delivery Method Room Air 11/07/22 20:15 11/07/22 22:18 11/07/22 22:43 Temperature 98.3 F Temperature Source Oral Pulse Rate 24 L 89 Respiratory Rate 16 22 H Respiratory Effort Respiratory Pattern Blood Pressure 80/51 L 105/64 Blood Pressure Mean 60 77 Pulse Ox 92 95 94 Oxygen Delivery Method Room Air Room Air Room Air MDM MDM MDM Narrative Medical decision making narrative: HISTORY OF PRESENT ILLNESS: 77-year-old male here with shortness of breath, fatigue and fever for 1 week. He further states he has had chills all over. Denies focal weakness. Denies any sick contacts. He does endorse a cough that is productive of white sputum which is his baseline. The patient denies recent surgery in the last 4 weeks or immobilization in the last 3 days, denies previous diagnosis of DVT or PE, hemoptysis, unilateral leg swelling or malignancy with treatment the last 6 months. No estrogen use noted. REVIEW OF SYSTEMS: Pertinent positives: Shortness of breath Pertinent negatives: Focal weakness PHYSICAL EXAM: Nursing triage notes reviewed, Vital signs reviewed Constitutional: please see mdm HENT: MMM Eyes: Pupils equal round and reactive to light, Extraocular muscles intact Neck: No stridor, no JVD, full neck ROM Lungs: Clear to auscultation, No wheezing or rales. No increased work of breathing, no conversational dyspnea, no accessory muscle use, no nasal flaring. No respiratory distress noted Heart: Regular rate and rhythm, No murmurs, No rubs and No gallops, 2+ distal pulses (radial, femoral, posterior tibial) in all extremities Abdomen: Soft, there is no tenderness, rigidity, rebound or guarding, no obvious peritoneal signs, no palpable pulsatile abdominal masses, no auscultated abdominal bruit : No CVAT Extremities: No edema Neuro: No focal neurological deficits, cranial nerves II through XII intact, 5/5 strength in all extremities. Intact sensation to light touch in all extremities, 2+ reflexes bilateral patella tendons. Normal gait. No ataxia. Skin: No rash or lesions noted MEDICAL DECISION MAKING: Chief Complaint: Shortness of breath External records reviewed: Prior imaging reviewed: Chest x-ray from 09/23/2021 shows left-sided pneumonia Factors affecting care: Throat cancer, former smoker, status post PEG tube, hypothyroidism Social determinants of health: Elderly, tobacco abuse history History obtained from others: The patient's Consults: Internal medicine ALL IMAGES (IF OBTAINED) HAVE BEEN PERSONALLY REVIEWED AND INTERPRETED BY MYSELF. EKG with sinus tachycardia, normal axis, no intervals, no STEMI [facility] Narrative: Patient was initially hypertensive, tachycardic, febrile. No obvious source of infection on initial exam. I considered the following differential diagnosis: Pneumonia, COVID, flu, CHF, ACS, arrhythmia, anemia, electrolyte disturbance Sepsis work-up was initiated including blood and urine cultures. Lactate. I gave Toradol and Tylenol for fever control. Gave 1 L normal saline to begin his fluid resuscitation. I obtained additional labs images to look for any source of infection. Also included COVID and flu testing. Initial chest x-ray and labs showed no evidence of obvious bacterial infection. Did give broad-spectrum antibiotics given multiple SIRS criteria concern for occult infection. Did obtain a CTA of the chest to rule out occult pneumonia or PE given initial ta chycardia and shortness of breath. CTA showed evidence of probable pneumonia. Patient was already treated with antibiotics. Patient appropriate for admission to the floor. The patient and/or family, caregivers express understanding. The patient and/or family, caregivers agrees with the plan. Shared decision making: I will have a discussion with the patient and or visitors regarding risk/richie efits of further testing or admission. They will be made aware of of the risk/benefits inherent in this decision they will be given the opportunity to voice understanding. Total critical care time today provided was at least 0 minutes. This excludes separately billable procedures. Critical care time (if documented) is secondary to the patient having high probability of clinically significant/life threatening deterioration in the patient's condition which required my urgent intervention. Lab Data Attestation: I reviewed the patient's lab results. Lab results narrative: CBC with no leukocytosis to suggest systemic inflammation, mild anemia, no thrombocytopenia Coags without evidence of coagulopathy BMP with mild hyponatremia, no significant electrolyte abnormalities, no anion gap to suggest endorgan hypoperfusion, no SANTY Lactate is wnl indicating no end-organ hypoperfusion and/or hypoxia. Urinalysis shows no evidence of urinary inflammation suggestive of UTI LFTs show no evidence of hepatobiliary pathology. COVID and flu are negative Labs: Laboratory Results - last 24 hr 11/07/22 11/07/22 20:08 20:43 WBC 5.8 RBC 4.18 L Hgb 12.9 L Hct 39.7 L MCV 95.0 H MCH 30.9 MCHC 32.5 RDW Std Deviation 43.2 RDW Coeff of Livan 12.5 Plt Count 166 MPV 10.7 Immature Gran % (Auto) 0.500 Neut % (Auto) 78.2 H Lymph % (Auto) 8.9 L [place] % (Auto) 12.0 H Eos % (Auto) 0.2 Baso % (Auto) 0.2 Absolute Neuts (auto) 4.6 Absolute Lymphs (auto) 0.52 L Nucleated RBC % 0 Differential Comment PT 12.4 INR 0.9 APTT 26.6 Sodium 132 L Potassium 4.1 Chloride 93 L Carbon Dioxide 34.0 H Anion Gap 5 BUN 29 H Creatinine 0.54 L Estim Creat Clear Calc 46.40 Est GFR (MDRD) Af Amer 189 Est GFR (MDRD) Non-Af 156 BUN/Creatinine Ratio 53.7 H Glucose 110 H Lactic Acid 1.6 Calcium 8.8 Total Bilirubin 0.30 AST 36 ALT 28 Alkaline Phosphatase 97 Troponin I High Sens 13 Total Protein 7.5 Albumin 3.2 Globulin 4.3 H Albumin/Globulin Ratio 0.7 L Urine Color Yellow Urine Clarity Sl. Cloudy Urine pH 8.0 Ur Specific [place] 1.015 Urine Protein 30 H Urine Glucose (UA) Normal Urine Ketones Negative Urine Occult Blood Negative Urine Nitrite Negative Urine Bilirubin Negative Urine Urobilinogen Normal Ur Leukocyte Esterase Negative Urine RBC 0 SEEN Urine WBC 0 SEEN Ur Squamous Epith Cells 0-5 SEEN Urine Bacteria 0 SEEN Urine Mucus 0 SEEN Radiography Chest X-Ray - ED: Read by ED Physician Diagnostic Testing: Clinical Impression(s) from Imaging Studies Chest X-Ray 11/07/22 20:28 IMPRESSION: There are no acute findings. Electronically Signed: Moe Medrano MD at 20:38 EDT , Chest CTA 11/07/22 21:44 IMPRESSION: 1. No evidence of pulmonary embolus. 2. Right lower lobe consolidation may represent early pneumonia. Electronically Signed: Michele Aguilar MD at 23:14 EDT , I have personally reviewed the patient's chest x-ray. Chest x-ray is unremarkable for pulmonary edema, pneumothorax, pneumonia or focal cardiopulmonary abnormality. Discharge Plan Triage Chief Complaint: Shortness of Breath ED Provider: Seferino Pradhan Dx/Rx/DC Orders Primary Care Provider: [facility],[place]
[2022-11-07 19:53] VITALS: O2SAT 90
--- NOTE | 2022-11-07 19:56 | EKG12_ITS ---
Test Reason : DYSRHYTHMIA Blood Pressure : / mmHG Vent. Rate : 105 BPM Atrial Rate : 105 BPM P-R Int : 134 ms QRS Dur : 068 ms QT Int : 290 ms P-R-T Axes : 060 025 057 degrees QTc Int : 383 ms Sinus tachycardia Otherwise normal ECG Confirmed by BRUCE CUNNINGHAM, FLORIN ([id number]), commissioning editor YUE JENSEN ([id number]) on 11/08/2022 1:32:25 PM Referred By: Jay Lott Confirmed By:FLORIN BARRERA MD
[2022-11-07 20:15] VITALS: O2SAT 92
[2022-11-07] MEDS: Ketorolac 15 MG/ML Vial IV (20:24)
[2022-11-07] MEDS: Acetaminophen 325 MG Tablet 650 MG PO (20:25)
[2022-11-07] MEDS: 0.9% Normal Saline 1,000 ML 999 ML IV (20:25)
[2022-11-07 20:26] LABS: Absolute Lymphocyte Count 0.52 X10^3/uL (0.83-4.51); Absolute Neutrophil Count 4.6 X10^3/uL (2.0-7.7); Basophil# 0.01 X10^3/uL; Basophil% 0.2 % (0-1); Eosinophil# 0.01 X10^3/uL; Eosinophils% 0.2 % (0-5); Hematocrit 39.7 % (40-54); Hemoglobin 12.9 g/dL (13.0-16.5); Lymphocyte # 0.52 X10^3/ul (0.83-4.51); Lymphocyte % 8.9 % (19-41); Mean Corp Hgb Conc 32.5 g/dL (32-36); Mean Corpuscular Hgb 30.9 pg (27.0-32.0); Mean Platelet Vol. 10.7 fl (6.2-12.0); NRBC Flagged by Analyzer 0 % (0-5); Neutrophil # 4.57 X10^3/uL (2.7-7.7); Neutrophil % 78.2 % (47-70); POSITIVE DIFFERENTIAL YES; Platelet Count 166 K/mm3 (150-450); RBC Distribution Width CV 12.5 % (11.6-14.6); RBC Distribution Width SD 43.2 fl (35.1-43.9); Red Blood Count 4.18 M/mm3 (4.6-6.2); White Blood Count 5.8 K/mm3 (4.4-11.0)
[2022-11-07 20:27] LABS: Differential Indicated SCAN CRITERIA MET
--- NOTE | 2022-11-07 20:28 | RAD_ITS ---
STUDY: XR Chest 1 View 11/07/2022 8:22 PM REASON FOR EXAM: Male, 77 years old. SOB COMPARISON: September 23, 2021 TECHNIQUE: XR Chest 1 View FINDINGS: There is no demonstrated pleural abnormality. Normal heart size. Normal mediastinum. Normal tevin. Prominent appearing increased interstitial lung markings. Normal visualized pulmonary arteries. There is atherosclerotic calcification of the aortic arch with tortuosity. There are diffuse degenerative changes of the visualized thoracic spine. There is degenerative osteoarthritis of the bilateral shoulders. There are no acute findings of the upper abdomen. RAD/Chest 1 View (Portable) IMPRESSION: There are no acute findings. Electronically Signed: Moe Medrano MD at 20:38 EDT ,
[2022-11-07 20:39] LABS: International Normalized Ratio 0.9; Prothrombin Time (Protime)PT. 12.4 SECONDS (11.7-14.9)
[2022-11-07 20:40] LABS: Partial Thromboplast Time 26.6 Seconds (24.1-36.2)
[2022-11-07 20:45] LABS: ALB/GLOB Ratio 0.7 RATIO (0.9-2.4); AST(SGOT) 36 U/L (15-37); Alanine Aminotransfer ALT/SGPT 28 U/L (16-61); Albumin, Serum 3.2 g/dL (3.2-5.0); Alkaline Phosphatase 97 U/L (45-117); Anion Gap 5 (5-15); BUN 29 mg/dL (7-18); BUN/Creat Ratio 53.7 RATIO (10-20); Calcium,Total 8.8 mg/dL (8.5-10.1); Chloride 93 mmol/L (98-107); Creatinine, Serum 0.54 mg/dL (0.70-1.30); EST Glomerular Filtration Rate 156 mL/min (>60); Est Glom Filt Rate - Afr Amer 189 mL/min (>60); Globulin 4.3 g/dL (2.2-4.2); Glucose 110 mg/dL (74-106); Potassium 4.1 mmol/L (3.5-5.1); Protein, Total 7.5 g/dL (6.4-8.2); Sodium Level 132 mmol/L (136-145)
[2022-11-07 20:50] LABS: Lactic Acid 1.6 mmol/L (0.4-1.9)
[2022-11-07 20:52] LABS: Bacteria 0 SEEN /hpf (None Seen); Mucous, Urine 0 SEEN /hpf (<or=2+); Red Blood Cells-Urine 0 SEEN /hpf (0-5); White Blood Cells 0 SEEN /hpf (0-5)
[2022-11-07 21:02] LABS: Color, Urine Yellow (Yellow); Glucose, Dipstick Normal (Normal); Ketone-Dipstick Negative (Negative); Leukocyte Esterase-Dipstick Negative /ul (Negative); Nitrite-Dipstick Negative (Negative); Occult Blood-Urine Negative /ul (Negative); Protein-Dipstick 30 mg/dl (Negative); Specific Gravity, Urine 1.015 (1.002-1.030); Urine Bilirubin Dipstick Negative (Negative); Urine Clarity Sl. Cloudy (Clear); Urine Urobilinogen Normal (Normal)
[2022-11-07 21:04] LABS: Squamous Epithelial Cells - UA 0-5 SEEN /hpf (0-5)
[2022-11-07 21:09] LABS: Troponin-I HS 13 pg/mL (3.0-78.0)
--- NOTE | 2022-11-07 21:44 | CT_ITS ---
EXAM: CT ANGIOGRAPHY CHEST WITHOUT AND WITH INTRAVENOUS CONTRAST CLINICAL INDICATION: SOB, tachycardia TECHNIQUE: Helically acquired angiography images were obtained of the chest without and with intravenous contrast. This CT exam was performed using one or more of the following dose reduction techniques: automated exposure control, adjustment of the mA and/or kV according to patient size, and/or use of iterative reconstruction technique. MIP reconstructed images were created and reviewed. CONTRAST: IV 100mL [id number] COMPARISON: No relevant prior studies available. FINDINGS: PULMONARY ARTERIES: Unremarkable. Normal in caliber. No evidence of pulmonary embolism. AORTA: Unremarkable. Normal in caliber. No evidence of dissection. GREAT VESSELS OF AORTIC ARCH: Unremarkable. Normal in caliber. No evidence of dissection. LUNGS AND PLEURAL SPACES: Mild consolidation in the right lower lobe may represent developing pneumonia. No mass. No pleural effusion or thickening. HEART: Unremarkable. Heart size is normal. No pericardial effusion. No significant coronary artery calcifications. MEDIASTINUM: Unremarkable. No mediastinal or hilar adenopathy. Esophagus is unremarkable. No hiatal hernia. THYROID: Unremarkable. No thyroid lesions. BONES/JOINTS: Unremarkable. No suspicious lytic or blastic abnormality. CT/CTA Chest W/WO Contrast IMPRESSION: 1. No evidence of pulmonary embolus. 2. Right lower lobe consolidation may represent early pneumonia. Electronically Signed: Michele Aguilar MD at 23:14 EDT ,
--- NOTE | 2022-11-07 22:07 | PCM.HP.STD ---
HPI - General General Date of Admission: 11/07/22 HPI Narrative LORETA CHING, is a 77 M who presents to the hospital with increasing fatigue and shortness of breath as well as chills that worsened today. The symptoms started over the last 1 to 2 weeks and have progressively been getting worse. He does have a history of throat cancer and has a PEG tube and has been noticing that over this time he has been having more reflux. In the ER UA was unremarkable and initial chest x-ray was read as normal. Given the lack of findings we proceeded with CTA of his chest which was negative for PE but demonstrated a possible early right lower lobe consolidation. He received a dose of cefepime and vancomycin in the ER. [facility] Medical History (Updated 11/08/22 @ 00:34 by Adarsh Thibodeaux) Former smoker History of head or neck cancer Pulmonary emphysema Rotator cuff arthropathy Throat cancer Home Medications tramadol 50 mg tablet 50 mg feeding tube Q8H PRN Pain 09/23/21 [History Last Taken Unknown] nutritional supplements 0.06 gram-1.5 kcal/mL oral liquid (Osmolite 1.5 Ray) 710 ml feeding tube TID nutrition 11/07/22 [History Last Taken 11/07/22] Allergy/AdvReac Type Severity Reaction Status Date / Time Penicillins AdvReac Other Verified 11/07/22 19:37 Family History (Updated 11/08/22 @ 00:[address] Jay Lott MD) Other Heart disease Surgical History Status post insertion of percutaneous endoscopic gastrostomy (PEG) tube Social History Smoking Status: Former smoker ROS Constitutional Constitutional: Reports chills, fatigue and fever(s); Denies malaise Eyes Eyes: Denies blurry vision ENT HEENT: Denies headache(s) or nasal discharge Cardiovascular Cardiovascular: Denies chest pain, dyspnea on exertion or syncope Respiratory/Chest Respiratory/Chest: Reports cough; Denies shortness of breath at rest or shortness of breath with exertion Gastrointestinal Gastrointestinal: Denies constipation, diarrhea, nausea or vomiting Genitourinary Genitourinary: Denies dysuria Neurologic Neurologic: Denies focal weakness, numbness or tremor(s) Psychiatric Psychiatric: Denies anxiety or depression Vital Signs Vital Signs Vital Signs: 11/07/22 19:37 11/07/22 19:39 11/07/22 19:53 Temperature 100.7 F H 100.7 F H Temperature Source Temporal Temporal Pulse Rate 116 H 113 H Respiratory Rate 18 16 Respiratory Effort Short of Breath Respiratory Pattern Normal Blood Pressure 180/120 H 180/120 H Blood Pressure Mean 140 140 Pulse Ox 94 94 Oxygen Delivery Method Room Air 11/07/22 20:15 Temperature Temperature Source Pulse Rate Respiratory Rate Respiratory Effort Respiratory Pattern Blood Pressure Blood Pressure Mean Pulse Ox 92 Oxygen Delivery Method Room Air Weight Weight: 118 lb 12.8 oz Body Mass Index (BMI) 19.1 Physical Exam Narrative General: Alert, Oriented x3, Cooperative, No apparent distress HEENT: Atraumatic, PERRLA, EOMI, Normocephalic Oral: Moist Mucosa Neck: Supple, No JVD Lungs: Diminished, Normal air movement, No rhonchi, No wheeze, No rales Cardiovascular: Tachycardic, regular Rhythm, Normal S1, Normal S2, No murmurs Abdomen: Soft, Non Tender, Non-Distended, No Hepato-splenomegaly, G-tube in place Extremities: No edema, Capillary Refill Less than 3 Seconds Skin: No rashes, No breakdown Musculoskeletal: No Tenderness to Palpation of Joints or Extremities Neurological: Cranial nerves II-XII grossly intact, Motor Exam 5/5 strength throughout, Sensory exam intact to light touch and pain Psych/Mental Status: Normal Affect, Appropriate Results Lab / Micro Data 11/07/22 20:08 11/07/22 20:08 Labs: Laboratory Results - last 24 hr 11/07/22 20:08: WBC 5.8, RBC 4.18 L, Hgb 12.9 L, Hct 39.7 L, MCV 95.0 H, MCH 30.9, MCHC 32.5, RDW Std Deviation 43.2, RDW Coeff of Livan 12.5, Plt Count 166, MPV 10.7, Immature Gran % (Auto) 0.500, Neut % (Auto) 78.2 H, Lymph % (Auto) 8.9 L, [place] % (Auto) 12.0 H, Eos % (Auto) 0.2, Baso % (Auto) 0.2, Absolute Neuts (auto) 4.6, Absolute Lymphs (auto) 0.52 L, Nucleated RBC % 0, Differential Comment , PT 12.4, INR 0.9, APTT 26.6, Sodium 132 L, Potassium 4.1, Chloride 93 L, Carbon Dioxide 34.0 H, Anion Gap 5, BUN 29 H, Creatinine 0.54 L, Estim Creat Clear Calc 46.40, Est GFR (MDRD) Af Amer 189, Est GFR (MDRD) Non-Af 156, BUN/Creatinine Ratio 53.7 H, Glucose 110 H, Lactic Acid 1.6, Calcium 8.8, Total Bilirubin 0.30, AST 36, ALT 28, Alkaline Phosphatase 97, Troponin I High Sens 13, Total Protein 7.5, Albumin 3.2, Globulin 4.3 H, Albumin/Globulin Ratio 0.7 L 11/07/22 20:43: Urine Color Yellow, Urine Clarity Sl. Cloudy, Urine pH 8.0, Ur Specific [place] 1.015, Urine Protein 30 H, Urine Glucose (UA) Normal, Urine Ketones Negative, Urine Occult Blood Negative, Urine Nitrite Negative, Urine Bilirubin Negative, Urine Urobilinogen Normal, Ur Leukocyte Esterase Negative, Urine RBC 0 SEEN, Urine WBC 0 SEEN, Ur Squamous Epith Cells 0-5 SEEN, Urine Bacteria 0 SEEN, Urine Mucus 0 SEEN Micro: Microbiology 11/07/22 20:43 Nasal Secretion SARS-CoV-2 & FLU Antigen (Rapid) - Final Radiology Impression Chest X-Ray 11/07/22 20:28 IMPRESSION: There are no acute findings. Electronically Signed: Moe Medrano MD at 20:38 EDT Reading Location ID and State: Formerly named [facility] / [place] , Service support , Assessment & Plan Assessment/Plan (1) Pneumonia: PLAN: Plan 1. Right lower lobe pneumonia ? This does appear to be early and could be related to his possible aspiration given his history of reflux with his tube feeds ? Continue with Rocephin and azithromycin, can clarify in the morning what his allergy is to penicillins ? Respiratory panel is pending ? Urine culture and blood cultures are pending 2. History of throat cancer ? No history of COPD but he does have a history of tobacco abuse so this may be playing a role ? Would recommend outpatient follow-up with pulmonology for pulmonary function testing next DVT: Lovenox 75 minutes was spent on direct patient care, including documentation as well as chart review and collaboration with colleagues Charges/Coding Visit Charges Inpatient E&M: 83195 Init Hosp L3
[2022-11-07 22:18] VITALS: BP 80/51; PULSE 24; RESP 16; TEMP 36.8; O2SAT 95
[2022-11-07 22:43] VITALS: BP 105/64; PULSE 89; RESP 22; O2SAT 94
[2022-11-08] VITALS (9 sets, daily range): BP systolic 83–173; BP diastolic 59–97; PULSE 86–111; RESP 16–18; TEMP 36.3–36.9; O2SAT 93–98; BMI 18.8
[2022-11-08 06:16] LABS: Absolute Lymphocyte Count 0.45 X10^3/uL (0.83-4.51); Absolute Neutrophil Count 11.1 X10^3/uL (2.0-7.7); Basophil# 0.02 X10^3/uL; Basophil% 0.2 % (0-1); Hematocrit 35.4 % (40-54); Hemoglobin 12.2 g/dL (13.0-16.5); Lymphocyte # 0.45 X10^3/ul (0.83-4.51); Lymphocyte % 3.7 % (19-41); Mean Corp Hgb Conc 34.5 g/dL (32-36); Mean Corpuscular Hgb 31.4 pg (27.0-32.0); Mean Corpuscular Volume 91.2 fL (80-94); Mean Platelet Vol. 10.5 fl (6.2-12.0); Monocyte# 0.67 X10^3/uL; Monocyte% 5.5 % (0-10); NRBC Flagged by Analyzer 0 % (0-5); Neutrophil # 11.08 X10^3/uL (2.7-7.7); Neutrophil % 90.2 % (47-70); POSITIVE DIFFERENTIAL YES; Platelet Count 168 K/mm3 (150-450); RBC Distribution Width CV 12.7 % (11.6-14.6); Red Blood Count 3.88 M/mm3 (4.6-6.2); White Blood Count 12.3 K/mm3 (4.4-11.0)
[2022-11-08 06:26] LABS: Differential Indicated SCAN CRITERIA MET
[2022-11-08] MEDS: Acetaminophen 650 MG/20 ML UDC GT ×2 (06:33→17:44)
[2022-11-08 06:43] LABS: Anion Gap 5 (5-15); BUN 21 mg/dL (7-18); BUN/Creat Ratio 38.2 RATIO (10-20); Calcium,Total 8.7 mg/dL (8.5-10.1); Chloride 96 mmol/L (98-107); Creatinine, Serum 0.55 mg/dL (0.70-1.30); EST Glomerular Filtration Rate 153 mL/min (>60); Est Glom Filt Rate - Afr Amer 185 mL/min (>60); Estimated Creatinine Clearance 45.64 ml/min; Glucose 130 mg/dL (74-106); Potassium 3.8 mmol/L (3.5-5.1); Sodium Level 131 mmol/L (136-145)
[2022-11-08] MEDS: Ondansetron 4 MG/2 ML Vial IV ×2 (07:05→18:21)
[2022-11-08] MEDS: 0.9% Normal Saline 1,000 ML 1000 ML IV (09:00)
[2022-11-08] MEDS: Vital AF 1.2 Cal Liquid 1,000 ML 710 ML GT (09:01)
[2022-11-08] MEDS: Enoxaparin 40 MG/0.4 ML Syringe SC (09:56)
[2022-11-08] MEDS: Ceftriaxone 1 GM/50 ML BAG IV (09:56)
--- NOTE | 2022-11-08 12:08 | PN_ITS ---
Subjective Subjective Patient seen and examined. He felt well today and had no complaints. He felt much better. His blood pressure was running a bit low in the 80s systolic this morning. Review of systems otherwise negative. Objective Data Objective Data Vital Signs: Vital Signs Temp Pulse Resp BP Pulse Ox O2 Del Method 97.6 F L 96 18 84/64 L 96 Room Air 11/08/22 10:00 11/08/22 10:00 11/08/22 10:00 11/08/22 10:00 11/08/22 10:00 11/08/22 10:00 Oxygen Delivery Method Room Air Weight: 116 lb 13.52 oz Body Mass Index (BMI) 18.8 Intake & Output: Intake and Output for Last 24 Hours 11/06/22 11/07/22 11/08/22 23:59 23:59 23:59 Intake Total 1100 / 1100 1515 / 1515 Balance 1100 / 1100 1515 / 1515 Lab / Micro Data 11/08/22 05:55 11/08/22 05:55 Labs: Laboratory Results - last 24 hr 11/07/22 20:08: WBC 5.8, RBC 4.18 L, Hgb 12.9 L, Hct 39.7 L, MCV 95.0 H, MCH 30.9, MCHC 32.5, RDW Std Deviation 43.2, RDW Coeff of Livan 12.5, Plt Count 166, MPV 10.7, Immature Gran % (Auto) 0.500, Neut % (Auto) 78.2 H, Lymph % (Auto) 8.9 L, [place] % (Auto) 12.0 H, Eos % (Auto) 0.2, Baso % (Auto) 0.2, Absolute Neuts (auto) 4.6, Absolute Lymphs (auto) 0.52 L, Nucleated RBC % 0, Differential Comment , PT 12.4, INR 0.9, APTT 26.6, Sodium 132 L, Potassium 4.1, Chloride 93 L, Carbon Dioxide 34.0 H, Anion Gap 5, BUN 29 H, Creatinine 0.54 L, Estim Creat Clear Calc 46.40, Est GFR (MDRD) Af Amer 189, Est GFR (MDRD) Non-Af 156, BUN/Creatinine Ratio 53.7 H, Glucose 110 H, Lactic Acid 1.6, Calcium 8.8, Total Bilirubin 0.30, AST 36, ALT 28, Alkaline Phosphatase 97, Troponin I High Sens 13, Total Protein 7.5, Albumin 3.2, Globulin 4.3 H, Albumin/Globulin Ratio 0.7 L 11/07/22 20:43: Urine Color Yellow, Urine Clarity Sl. Cloudy, Urine pH 8.0, Ur Specific [place] 1.015, Urine Protein 30 H, Urine Glucose (UA) Normal, Urine Ketones Negative, Urine Occult Blood Negative, Urine Nitrite Negative, Urine Bilirubin Negative, Urine Urobilinogen Normal, Ur Leukocyte Esterase Negative, Urine RBC 0 SEEN, Urine WBC 0 SEEN, Ur Squamous Epith Cells 0-5 SEEN, Urine Bacteria 0 SEEN, Urine Mucus 0 SEEN 11/08/22 05:55: WBC 12.3 H, RBC 3.88 L, Hgb 12.2 L, Hct 35.4 L, MCV 91.2, MCH 31.4, MCHC 34.5 D, RDW Std Deviation 42.0, RDW Coeff of Livan 12.7, Plt Count 168, MPV 10.5, Immature Gran % (Auto) 0.400, Neut % (Auto) 90.2 H, Lymph % (Auto) 3.7 L, [place] % (Auto) 5.5, Eos % (Auto) 0.0, Baso % (Auto) 0.2, Absolute Neuts (auto) 11.1 H, Absolute Lymphs (auto) 0.45 L, Nucleated RBC % 0, Sodium 131 L, Potassium 3.8, Chloride 96 L, Carbon Dioxide 30.0, Anion Gap 5, BUN 21 H, Creatinine 0.55 L, Estim Creat Clear Calc 45.64, Est GFR (MDRD) Af Amer 185, Est GFR (MDRD) Non-Af 153, BUN/Creatinine Ratio 38.2 H, Glucose 130 H, Calcium 8.7 Micro: Microbiology 11/07/22 22:15 Mucosa - Nose Respiratory Panel (PCR) - Final 11/07/22 20:43 Nasal Secretion SARS-CoV-2 & FLU Antigen (Rapid) - Final Radiography Diagnostic Testing: Radiology Impression Chest X-Ray 11/07/22 20:28 IMPRESSION: There are no acute findings. Electronically Signed: Moe Medrano MD at 20:38 EDT , Chest CTA 11/07/22 21:44 IMPRESSION: 1. No evidence of pulmonary embolus. 2. Right lower lobe consolidation may represent early pneumonia. Electronically Signed: Michele Aguilar MD at 23:14 EDT , Physical Exam Const alert, oriented x3 and no apparent distress General Appearance: cooperative and well developed HEENT normocephalic, head/scalp atraumatic, moist oral mucous membranes and oropharynx normal Eyes PERRL and EOMs intact bilaterally Neck supple General: trachea midline Lymph Lymphatic: no lymphadenopathy noted Resp Resp Narrative: Mildly diminished breath sounds bibasally. No wheezes or crackles. On room air. Cardio regular rate, regular rhythm, S1 normal heart sound, S2 normal heart sound and no murmurs GI normal to inspection, nondistended, normoactive bowel sounds, soft to palpation, non-tender and non-distended Extremity normal capillary refill, no clubbing, cyanosis or edema and no calf tenderness Skin General Skin Exam: no breakdown Neuro CN's II-XII intact bilaterally, no focal motor deficits, no sensory deficits noted and deep tendon reflexes 2+ bilaterally Motor Exam: strength 5/5 throughout and general weakness Psych thought process normal and cooperative Appearance: appropriate Assessment & Plan Assessment/Plan (1) Pneumonia: (2) Hypoxia: PLAN: Plan #RIght lower lobe pneumonia * on IV ceftriaxone and azithromycin * urine for strep and legionella are negaitve * Was a concern for possible aspiration pneumonia in light of him being on tube feeds and having a history of throat cancer. Respiratory culture and blood culture pending. Breathing treatments with bronchodilators. Titrate oxygen to maintain saturation above 90%. * #Hypotension: * Blood pressure in the 80s systolic today. * Not on any blood pressure medications. * He states his blood pressure fluctuates from being very high to being very low. * Hydrate with IV fluids and monitor BP. * #Hyponatremia: Sodium is 131. This is chronic. Will monitor. #History of throat cancer, stable. Follow-up with oncology on outpatient basis. DVT prophylaxis: Lovenox * Charges/Coding Visit Charges Inpatient E&M: 49684 Subs Hosp L3
--- NOTE | 2022-11-08 14:00 | CASEMGMT ---
ISAC GANDARA Discharge Planning Assessment: Face to Face with patient for initial transition planning/care coordination assessment.?ISAC GANDARA introduced self and role at [facility], pt sitting on the edge of the bed, alert, answering questions appropriately, voices understanding and is agreeable to participating in assessment with spouse at bedside.? Care providers, pharmacy,?and demographics verified. ? Admitting Dx: Pneumonia PCP: [facility] Specialists: Maxwell (GI), Nazia Staples ([facility]monology) Preferred Pharmacy: [facility] in [place] Insurance: [place], [facility] Prescription Benefit:?no, uses [facility]: spouse Brionna Living Arrangements: Pt lives with his in a split level home with power lift between the two floors. This is described as big enough for a w/c and powered but not an elevator. They removed the steps to install the lift. Pt is independent with ADLs including self care and household tasks. 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 Transportation: Pt drives DME: pulse oximeter, BP monitor, PEG feeding supplies SNF/HHC: pt denies any previous providers Plan: Pt plans to return home with the support of his . Pt performs his own bolus feeding via his Shaun button/Peg. Pt and deny and needs or concerns at this time. TIMMONS form reviewed with pt and his . Pt signed form, original placed in chart and copy provided to pt. Pt voiced understanding and denied any questions. Will continue to monitor and assist with further dc needs as identified. Jl Levine RN CM
[2022-11-08] MEDS: 0.9% Normal Saline 1,000 ML 100 ML IV (14:41)
[2022-11-08] MEDS: 0.9% Saline Lock 10 ML Syringe IV (18:21)
[2022-11-09] MEDS: 0.9% Normal Saline 1,000 ML 100 ML IV (00:43)
[2022-11-09 02:21] VITALS: BP 108/71; PULSE 87; RESP 18; TEMP 36.4; O2SAT 94
[2022-11-09 05:53] VITALS: BP 113/74; PULSE 91; RESP 20; TEMP 36.2; O2SAT 93
[2022-11-09] MEDS: Acetaminophen 650 MG/20 ML UDC GT (06:22)
[2022-11-09] MEDS: Vital AF 1.2 Cal Liquid 1,000 ML 710 ML GT (06:22)
[2022-11-09 08:22] LABS: Absolute Lymphocyte Count 0.84 X10^3/uL (0.83-4.51); Absolute Neutrophil Count 3.9 X10^3/uL (2.0-7.7); Basophil# 0.01 X10^3/uL; Basophil% 0.2 % (0-1); Eosinophil# 0.02 X10^3/uL; Eosinophils% 0.4 % (0-5); Hematocrit 35.3 % (40-54); Hemoglobin 11.9 g/dL (13.0-16.5); Lymphocyte # 0.84 X10^3/ul (0.83-4.51); Lymphocyte % 15.2 % (19-41); Mean Corp Hgb Conc 33.7 g/dL (32-36); Mean Corpuscular Hgb 31.7 pg (27.0-32.0); Mean Corpuscular Volume 94.1 fL (80-94); Mean Platelet Vol. 10.5 fl (6.2-12.0); Monocyte# 0.77 X10^3/uL; Monocyte% 13.9 % (0-10); NRBC Flagged by Analyzer 0 % (0-5); Neutrophil # 3.87 X10^3/uL (2.7-7.7); Neutrophil % 69.9 % (47-70); Platelet Count 168 K/mm3 (150-450); RBC Distribution Width CV 12.8 % (11.6-14.6); RBC Distribution Width SD 44.1 fl (35.1-43.9); Red Blood Count 3.75 M/mm3 (4.6-6.2); White Blood Count 5.5 K/mm3 (4.4-11.0)
[2022-11-09 08:59] LABS: Anion Gap 3 (5-15); BUN 17 mg/dL (7-18); BUN/Creat Ratio 29.4 RATIO (10-20); Calcium,Total 8.5 mg/dL (8.5-10.1); Chloride 102 mmol/L (98-107); Creatinine, Serum 0.58 mg/dL (0.70-1.30); EST Glomerular Filtration Rate 144 mL/min (>60); Est Glom Filt Rate - Afr Amer 175 mL/min (>60); Estimated Creatinine Clearance 45.64 ml/min; Glucose 148 mg/dL (74-106); Potassium 3.4 mmol/L (3.5-5.1); Sodium Level 135 mmol/L (136-145)
[2022-11-09 09:31] VITALS: BP 96/66; PULSE 78; RESP 18; TEMP 36.3; O2SAT 95
[2022-11-09] MEDS: Ceftriaxone 1 GM/50 ML BAG IV (09:42)
[2022-11-09] MEDS: Enoxaparin 40 MG/0.4 ML Syringe SC (09:42)
--- NOTE | 2022-11-09 09:51 | PN_ITS ---
Subjective Subjective Patient seen and examined. He had no complaints. HE says he didnt take the tube feeds because he has been put on Kaelyn AF, which he reacts to. He wants to be placed back on his Jevity. HE requests for a gastroenterology consult o/a of his persistent diarrhea and abdominal pain. He was due to see GI on outpatient basis tomorrow, but says he wants to see GI whilst here. Objective Data Objective Data Vital Signs: Vital Signs Temp Pulse Resp BP Pulse Ox O2 Del Method 97.4 F L 78 18 96/66 95 Room Air 11/09/22 09:31 11/09/22 09:31 11/09/22 09:31 11/09/22 09:31 11/09/22 09:31 11/09/22 09:37 Oxygen Delivery Method Room Air Weight: 116 lb 13.52 oz Body Mass Index (BMI) 18.8 Intake & Output: Intake and Output for Last 24 Hours 11/07/22 11/08/22 11/09/22 23:59 23:59 23:59 Intake Total 1100 / 1100 2270 / 2270 1901.67 / 1901.67 Balance 1100 / 1100 2270 / 2270 1901.67 / 1901.67 Lab / Micro Data 11/09/22 08:10 11/09/22 08:10 Labs: Laboratory Results - last 24 hr 11/09/22 08:10: WBC 5.5, RBC 3.75 L, Hgb 11.9 L, Hct 35.3 L, MCV 94.1 H, MCH 31.7, MCHC 33.7, RDW Std Deviation 44.1 H, RDW Coeff of Livan 12.8, Plt Count 168, MPV 10.5, Immature Gran % (Auto) 0.400, Neut % (Auto) 69.9, Lymph % (Auto) 15.2 L, [place] % (Auto) 13.9 H, Eos % (Auto) 0.4, Baso % (Auto) 0.2, Absolute Neuts (auto) 3.9, Absolute Lymphs (auto) 0.84, Nucleated RBC % 0, Sodium 135 L, Potassium 3.4 L, Chloride 102, Carbon Dioxide 30.0, Anion Gap 3 L, BUN 17, Creatinine 0.58 L, Estim Creat Clear Calc 45.64, Est GFR (MDRD) Af Amer 175, Est GFR (MDRD) Non-Af 144, BUN/Creatinine Ratio 29.4 H, Glucose 148 H, Calcium 8.5 Micro: Microbiology 11/07/22 20:43 Urine, Clean Catch Urine Culture - Final Culture exhibits no growth. 11/07/22 22:15 Mucosa - Nose Respiratory Panel (PCR) - Final 11/07/22 20:43 Nasal Secretion SARS-CoV-2 & FLU Antigen (Rapid) - Final Physical Exam Const alert, oriented x3 and no apparent distress General Appearance: cooperative and well developed HEENT normocephalic, head/scalp atraumatic, moist oral mucous membranes and oropharynx normal Eyes PERRL and EOMs intact bilaterally Neck supple General: trachea midline Lymph Lymphatic: no lymphadenopathy noted Resp Resp Narrative: Mildly diminished breath sounds bibasally. No wheezes or crackles. On room air. Cardio regular rate, regular rhythm, S1 normal heart sound, S2 normal heart sound and no murmurs GI normal to inspection, nondistended, normoactive bowel sounds, soft to palpation, non-tender and non-distended GI Narrative: PEG tube in place Extremity normal capillary refill, no clubbing, cyanosis or edema and no calf tenderness Skin General Skin Exam: no breakdown Neuro CN's II-XII intact bilaterally, no focal motor deficits, no sensory deficits noted and deep tendon reflexes 2+ bilaterally Motor Exam: strength 5/5 throughout and general weakness Psych thought process normal and cooperative Appearance: appropriate Assessment & Plan Assessment/Plan (1) Pneumonia: (2) Hypoxia: PLAN: Plan #RIght lower lobe pneumonia * on IV ceftriaxone and azithromycin * urine for strep and legionella are negaitve * Was a concern for possible aspiration pneumonia in light of him being on tube feeds and having a history of throat cancer. Respiratory culture and blood culture pending. Breathing treatments with bronchodilators. Titrate oxygen to maintain saturation above 90%. * #Hypotension: * improved after receiving IVF. * will monitor * #Hypokalemia: K is 3.4. Will replace and trend. #Hyponatremia: sodium is up to 135. Has chronic hyponatremia. #History of throat cancer, stable. Follow-up with oncology on outpatient basis. #Dysphagia * due to throat cancer,. Currently nPO * uses Jevity at home; says he has been placed on Kaelyn AF here. * patient says he doesnt tolerate Kaelyn AF. He would want to be placed back on his JEvity. * Dietitian on board * DVT prophylaxis: Lovenox Charges/Coding Visit Charges Inpatient E&M: 34896 Subs Hosp L2
--- NOTE | 2022-11-09 11:21 | CASEMGMT ---
Social Work SW met with pt and inquired about advance directives. Pt states he has completed a living will and a health care POA naming his Felisha Case. SW updated that documents are not on file and requested they be brought in for scanning into EMR. MALLIKA Vizcarra
[2022-11-09] MEDS: Pivot 1.5 Cal 1,000 ML BOTTLE 200 ML GT ×4 (12:31→21:56)
[2022-11-09] MEDS: Pivot 1.5 Cal 1,000 ML BOTTLE 1 ML GT (12:32)
[2022-11-09 15:00] VITALS: BP 91/58; PULSE 83; RESP 18; TEMP 36.4; O2SAT 98
--- NOTE | 2022-11-09 17:10 | CON.PCM.GI_ITS ---
HPI Consult Data Date of Consult: 11/09/22 HPI Narrative Reason for Consultation: Aspiration pneumonia HPI Narrative: LORETA CHING, is a 77 M who presents to the hospital with increasing fatigue and shortness of breath as well as chills that worsened today. 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 This is his first episode of aspiration pneumonia that he believes is secondary to liquids that he was taken by mouth. The symptoms started over the last 1 to 2 weeks and have progressively been getting worse. He does have a history of throat cancer and has a PEG tube and has been noticing that over this time he has been having more reflux. In the ER UA was unremarkable and initial chest x-ray was read as normal. Given the lack of findings we proceeded with CTA of his chest which was negative for PE but demonstrated a possible early right lower lobe consolidation. He received a dose of cefepime and vancomycin in the ER. [facility] Medical History (Updated 11/09/22 @ 17:[address] Steele Friend, DO) Former smoker History of head or neck cancer Pulmonary emphysema Rotator cuff arthropathy Throat cancer Home Medications tramadol 50 mg tablet 50 mg feeding tube Q8H PRN Pain 09/23/21 [History Last Taken Unknown] nutritional supplements 0.06 gram-1.5 kcal/mL oral liquid (Osmolite 1.5 Ray) 710 ml feeding tube TID nutrition 11/07/22 [History Last Taken 11/07/22] Allergy/AdvReac Type Severity Reaction Status Date / Time Penicillins AdvReac Other Verified 11/07/22 19:37 Family History (Updated 11/08/22 @ 00:[address] Jay Lott MD) Other Heart disease Surgical History Status post insertion of percutaneous endoscopic gastrostomy (PEG) tube Social History Smoking Status: Former smoker ROS Constitutional Constitutional: Reports chills, fatigue and fever(s); Denies malaise Eyes Eyes: Denies blurry vision ENT HEENT: Denies headache(s) or nasal discharge Cardiovascular Cardiovascular: Denies chest pain, dyspnea on exertion or syncope Respiratory/Chest Respiratory/Chest: Reports cough; Denies shortness of breath at rest or shortness of breath with exertion Gastrointestinal Gastrointestinal: Denies constipation, diarrhea, nausea or vomiting Genitourinary Genitourinary: Denies dysuria Neurologic Neurologic: Denies focal weakness, numbness or tremor(s) Psychiatric Psychiatric: Denies anxiety or depression Physical Exam Const alert, oriented x3 and no apparent distress General Appearance: cooperative and well developed HEENT normocephalic, head/scalp atraumatic, moist oral mucous membranes and oropharynx normal Eyes PERRL and EOMs intact bilaterally Neck supple General: trachea midline Lymph Lymphatic: no lymphadenopathy noted Resp Resp Narrative: Mildly diminished breath sounds bibasally. No wheezes or crackles. On room air. Cardio regular rate, regular rhythm, S1 normal heart sound, S2 normal heart sound and no murmurs GI normal to inspection, nondistended, normoactive bowel sounds, soft to palpation, non-tender and non-distended GI Narrative: PEG tube in place Extremity normal capillary refill, no clubbing, cyanosis or edema and no calf tenderness Skin General Skin Exam: no breakdown Neuro CN's II-XII intact bilaterally, no focal motor deficits, no sensory deficits noted and deep tendon reflexes 2+ bilaterally Motor Exam: strength 5/5 throughout and general weakness Psych thought process normal and cooperative Appearance: appropriate Lab / Micro Data 11/09/22 08:10 11/09/22 08:10 Labs: Laboratory Results - last 24 hr 11/09/22 08:10: WBC 5.5, RBC 3.75 L, Hgb 11.9 L, Hct 35.3 L, MCV 94.1 H, MCH 31.7, MCHC 33.7, RDW Std Deviation 44.1 H, RDW Coeff of Livan 12.8, Plt Count 168, MPV 10.5, Immature Gran % (Auto) 0.400, Neut % (Auto) 69.9, Lymph % (Auto) 15.2 L, [place] % (Auto) 13.9 H, Eos % (Auto) 0.4, Baso % (Auto) 0.2, Absolute Neuts (auto) 3.9, Absolute Lymphs (auto) 0.84, Nucleated RBC % 0, Sodium 135 L, Potassium 3.4 L, Chloride 102, Carbon Dioxide 30.0, Anion Gap 3 L, BUN 17, Creatinine 0.58 L, Estim Creat Clear Calc 45.64, Est GFR (MDRD) Af Amer 175, Est GFR (MDRD) Non-Af 144, BUN/Creatinine Ratio 29.4 H, Glucose 148 H, Calcium 8.5 Micro: Microbiology 11/07/22 20:43 Urine, Clean Catch Urine Culture - Final Culture exhibits no growth. Assessment & Plan Assessment/Plan (1) Pneumonia: QUALIFIERS: Pneumonia type: aspiration pneumonia Aspiration pneumonia type: due to vomit Laterality: right Lung location: lower lobe of lung Qualified Code(s): J69.0 - Pneumonitis due to inhalation of food and vomit (2) Hypoxia: PLAN: Plan 77-year-old gentleman with history of laryngeal cancer status post laryngectomy status post radiation with esophageal dysphagia and placement of a PEG tube. He was discovered to have pneumonia. #RIght lower lobe pneumonia * on IV ceftriaxone and azithromycin * urine for strep and legionella are negaitve * I discussed with him the possibility of putting a J-tube which he is amenable to. He does not want to have it while he is in the hospital and would rather come as an outpatient because he believes that he experienced aspiration ammonia secondary to liquid that he was taken orally and it may not be secondary to his PEG tube. r. Respiratory culture and blood culture pending. Breathing treatments with bronchodilators. Titrate oxygen to maintain saturation above 90%. Recommend keep n.p.o. #Dysphagia * due to throat cancer,. Currently nPO * uses Jevity at home; says he has been placed on Kaelyn AF here. * As patient is improving and wants to go home tomorrow if he is stable he can be discharged to home with outpatient follow-up. Charges/Coding Visit Charges Inpatient E&M: 45985 Init Hosp L3
[2022-11-09 21:00] VITALS: BP 135/78; PULSE 91; RESP 20; TEMP 36.6; O2SAT 98
[2022-11-09] MEDS: 0.9% Saline Lock 10 ML Syringe IV (22:00)
[2022-11-10 03:57] VITALS: BP 73/46; PULSE 85; RESP 16; TEMP 36.4; O2SAT 95
[2022-11-10] MEDS: 0.9% Saline Lock 10 ML Syringe IV (04:09)
[2022-11-10 05:07] VITALS: BP 133/91; PULSE 89
[2022-11-10] MEDS: Pivot 1.5 Cal 1,000 ML BOTTLE 200 ML GT ×2 (06:40→09:00)
[2022-11-10 07:03] LABS: Absolute Lymphocyte Count 0.84 X10^3/uL (0.83-4.51); Absolute Neutrophil Count 3.7 X10^3/uL (2.0-7.7); Eosinophil# 0.04 X10^3/uL; Eosinophils% 0.8 % (0-5); Hematocrit 33.2 % (40-54); Lymphocyte # 0.84 X10^3/ul (0.83-4.51); Lymphocyte % 16.7 % (19-41); Mean Corp Hgb Conc 33.1 g/dL (32-36); Mean Corpuscular Hgb 30.7 pg (27.0-32.0); Mean Corpuscular Volume 92.7 fL (80-94); Mean Platelet Vol. 10.5 fl (6.2-12.0); Monocyte# 0.46 X10^3/uL; Monocyte% 9.1 % (0-10); NRBC Flagged by Analyzer 0 % (0-5); Neutrophil # 3.68 X10^3/uL (2.7-7.7); Neutrophil % 73.2 % (47-70); Platelet Count 190 K/mm3 (150-450); RBC Distribution Width CV 12.8 % (11.6-14.6); RBC Distribution Width SD 43.6 fl (35.1-43.9); Red Blood Count 3.58 M/mm3 (4.6-6.2)
[2022-11-10 07:33] LABS: Anion Gap 5 (5-15); BUN 23 mg/dL (7-18); BUN/Creat Ratio 49.1 RATIO (10-20); Calcium,Total 8.6 mg/dL (8.5-10.1); Chloride 103 mmol/L (98-107); Creatinine, Serum 0.47 mg/dL (0.70-1.30); EST Glomerular Filtration Rate 185 mL/min (>60); Est Glom Filt Rate - Afr Amer 223 mL/min (>60); Estimated Creatinine Clearance 45.64 ml/min; Glucose 142 mg/dL (74-106); Potassium 3.2 mmol/L (3.5-5.1); Sodium Level 138 mmol/L (136-145)
[2022-11-10] MEDS: Ceftriaxone 1 GM/50 ML BAG IV (09:07)
--- NOTE | 2022-11-10 09:37 | PCM.DC ---
Discharge Instructions Diet Discharge Diet: - (NPO, continue tube feeding) Activity Discharge Activity: Return to Normal Activity Weight Bearing Status: Weight bearing as tolerated Dressing / Incision Call your doctor if you observe: Fever of 101 or Higher, Shortness of breath, Dizziness, Swelling in the ankles and Chest pain Follow Up Care Test Results: Test results from this visit will be discussed in further detail at your follow-up appointment, if applicable. Discharge Plan Admission Admit Date/Time: 11/07/22 22:05 Primary Reason for Your Visit: pneumonia Attending Provider: Juliette Cárdenas Primary Care Provider: [place] Consulting Providers: Jay Lott Instructions Patient Instructions: Dysphagia Aspiration Discharge Orders/Prescriptions Prescriptions: New doxycycline hyclate 100 mg capsule 100 mg PO BID Qty: 10 0RF Continued tramadol 50 mg Tablet 50 mg feeding tube Q8H PRN (Reason: Pain) Osmolite 1.5 Ray 0.06 gram-1.5 kcal/mL liquid 710 ml feeding tube TID Rx Instructions: Pt takes 2 bottles per feed three times a day 355ml/ bottle Referrals / Follow Up: Cedric Machado DO [Med Staff - Active Staff] - Within 2 Weeks [facility] [Primary Care Provider] - Within 2 Weeks Disposition Disposition (needs filled in before D/C Order can be placed): Home, Self Care
--- NOTE | 2022-11-10 09:38 | PCM.DC.SUM ---
Providers Date of Admission: 11/07/22 Date of Discharge: 11/10/22 Primary Care Physician: [facility] Consultations 11/09/22 07:24 Consult: Gastroenterology Routine Consulting Provider: [facility] Reason for Consult: abdominal pain, persistent diarrhea EMERGENT Consult: No MD Notified: Yes Date Notified: 11/09/22 Time Notified: 07:24 Method of Notification: Text Reason For Visit: GENERAL ILLNESS Diagnosis Discharge Diagnosis (1) Pneumonia: Status: Acute Code(s): J18.9 - Pneumonia, unspecified organism Qualifiers: Aspiration pneumonia type: due to vomit Laterality: right Lung location: lower lobe of lung Pneumonia type: aspiration pneumonia Qualified Code(s): J69.0 - Pneumonitis due to inhalation of food and vomit (2) Hypoxia: Status: Acute Code(s): R09.02 - Hypoxemia Plan #RIght lower lobe pneumonia on IV ceftriaxone and azithromycin urine for strep and legionella are negaitve Was a concern for possible aspiration pneumonia in light of him being on tube feeds and having a history of throat cancer. Respiratory culture and blood culture pending. Breathing treatments with bronchodilators. Titrate oxygen to maintain saturation above 90%. #Hypotension: improved after receiving IVF. will monitor #Hypokalemia: K is 3.4. Will replace and trend. #Hyponatremia: sodium is up to 135. Has chronic hyponatremia. #History of throat cancer, stable. Follow-up with oncology on outpatient basis. #Dysphagia due to throat cancer,. Currently nPO uses Jevity at home; says he has been placed on Kaelyn AF here. patient says he doesnt tolerate Kaelyn AF. He would want to be placed back on his JEvity. Dietitian on board DVT prophylaxis: Lovenox Medications at Discharge Home Medications tramadol 50 mg tablet 50 mg feeding tube Q8H PRN Pain 09/23/21 nutritional supplements 0.06 gram-1.5 kcal/mL oral liquid (Osmolite 1.5 Ray) 710 ml feeding tube TID nutrition 11/07/22 doxycycline hyclate 100 mg capsule 100 mg PO BID #10 caps 11/10/22 Hospital Course Operations None Procedures None Summary of Care Provided Minutes Spent on Discharge: 45 Hospital Course: Patient is a 77-year-old male with past medical history as outlined was admitted through the ED with a complaint of fever and shortness of breath as well as chills which started 1 to 2 weeks prior to admission and gradually worsened. Patient had a history of throat cancer and was n.p.o. and had a PEG tube in place. Review systems otherwise negative. Urinalysis was negative for any evidence of infection and chest x-ray was read as normal. CT of the chest was negative for PE but showed a possible early right lower lobe consolidation. He was admitted and managed for pneumonia probably aspiration pneumonia and started on vancomycin and cefepime. Sputum cultures were negative. Patient symptoms resolved and he felt better. Antibiotics were transitioned to IV ceftriaxone and azithromycin. Per patient's request gastroenterology was consulted on account of his history of diarrhea and reflux. GI recommended NG tube but patient wanted to follow-up on outpatient basis to decide about whether he wanted this. He remained stable and was on room air. He was discharged home on 11/10/2022. He was discharged on p.o. doxycycline milligrams twice daily for 5 days. He is continue remaining n.p.o. and to be on tube feeds via the PEG tube and is follow-up with gastroenterology on outpatient basis for decision to be made about PEG tube. Consulted follow-up with his PCP within 1 to 2 weeks. Patient seen and examined prior to discharge. He felt much better and had no active complaints. Review of systems otherwise negative. Labs and vitals reviewed. Home medication reviewed and reconciled. Physical Exam Const alert, oriented x3 and no apparent distress General Appearance: cooperative, comfortable, well kempt and well developed HEENT normocephalic, head/scalp atraumatic, hearing grossly normal bilaterally, moist oral mucous membranes and oropharynx normal Mouth: oral and palatal mucosa normal Eyes PERRL and EOMs intact bilaterally Neck no lymphadenopathy and supple General: trachea midline Lymph Lymphatic: no lymphadenopathy noted and no lymphedema noted Resp Resp Narrative: Mildly diminished breath sounds bibasally. No wheezes or crackles. On room air. Cardio regular rate, regular rhythm, S1 normal heart sound, S2 normal heart sound and no murmurs GI normal to inspection, nondistended, normoactive bowel sounds, soft to palpation, non-tender and non-distended GI Narrative: PEG tube in place Extremity normal to inspection, full ROM, normal capillary refill, no clubbing, cyanosis or edema and no calf tenderness Skin no rashes or lesions noted General Skin Exam: no breakdown Neuro oriented x3, CN's II-XII intact bilaterally, moves all extremities, no focal motor deficits, no sensory deficits noted and deep tendon reflexes 2+ bilaterally Sensorium / Orientation: awake and alert Motor Exam: strength 5/5 throughout and general weakness Psych thought process normal and cooperative Appearance: appropriate Weight / BMI Weight Weight: 116 lb 13.52 oz Body Mass Index (BMI) 18.8 ABG / Lab / Microbiology Data 11/10/22 06:33 11/10/22 06:33 Laboratory: Laboratory Results - last 24 hr 11/10/22 06:33: WBC 5.0, RBC 3.58 L, Hgb 11.0 L, Hct 33.2 L, MCV 92.7, MCH 30.7, MCHC 33.1, RDW Std Deviation 43.6, RDW Coeff of Livan 12.8, Plt Count 190, MPV 10.5, Immature Gran % (Auto) 0.200, Neut % (Auto) 73.2 H, Lymph % (Auto) 16.7 L, [place] % (Auto) 9.1, Eos % (Auto) 0.8, Baso % (Auto) 0.0, Absolute Neuts (auto) 3.7, Absolute Lymphs (auto) 0.84, Nucleated RBC % 0, Sodium 138, Potassium 3.2 L, Chloride 103, Carbon Dioxide 30.0, Anion Gap 5, BUN 23 H, Creatinine 0.47 L, Estim Creat Clear Calc 45.64, Est GFR (MDRD) Af Amer 223, Est GFR (MDRD) Non-Af 185, BUN/Creatinine Ratio 49.1 H, Glucose 142 H, Calcium 8.6 Microbiology: Microbiology 11/07/22 20:20 Blood Culture (Wb) - Anticubital Right Blood Culture - Preliminary No growth in 48 hours. 11/07/22 20:08 Blood Culture (Wb) - Anticubital Left Blood Culture - Preliminary No growth in 48 hours. 11/07/22 20:43 Urine, Clean Catch Urine Culture - Final Culture exhibits no growth. 11/07/22 22:15 Mucosa - Nose Respiratory Panel (PCR) - Final 11/07/22 20:43 Nasal Secretion SARS-CoV-2 & FLU Antigen (Rapid) - Final D/C Instructions Discharge Diet: - (NPO, continue tube feeding) Weight Bearing Status: Weight bearing as tolerated Call your doctor if you observe: Fever of 101 or Higher, Shortness of breath, Dizziness, Swelling in the ankles and Chest pain Meaningful Use Info Meaningful Use Diagnoses (Choose all that apply): None applicable Discharge Plan Admission Admit Date/Time: 11/07/22 22:05 Primary Reason for Your Visit: pneumonia Attending Provider: Juliette Cárdenas Primary Care Provider: [facility] Consulting Providers: Jay Lott Instructions Patient Instructions: Dysphagia Aspiration Discharge Orders/Prescriptions Prescriptions: New doxycycline hyclate 100 mg capsule 100 mg PO BID Qty: 10 0RF Continued tramadol 50 mg Tablet 50 mg feeding tube Q8H PRN (Reason: Pain) Osmolite 1.5 Ray 0.06 gram-1.5 kcal/mL liquid 710 ml feeding tube TID Rx Instructions: Pt takes 2 bottles per feed three times a day 355ml/ bottle Referrals / Follow Up: Cedric Machado DO [Med Staff - Active Staff] - Within 2 Weeks (I called Dr. Machado's office and left a message on the answer machine to have the office call to set up appointment.) [facility] [Primary Care Provider] - Within 2 Weeks (Pt needs to call [facility] and set up his appointment. I have know number to call.) Disposition Disposition (needs filled in before D/C Order can be placed): Home, Self Care Charges/Coding Visit Charges Inpatient E&M: 46583 Disch Hosp >30min
--- NOTE | 2022-11-10 09:50 | CASEMGMT ---
ISAC GANDARA Follow-up: ISAC GANDARA to pt's bedside. Pt dressed and states he is ready to be discharged. Pt denies any discharge needs at this time. Plan: Return home with support of . Jl Levine RN CM
[2022-11-10 10:10] VITALS: BP 122/76; PULSE 88; RESP 18; TEMP 36.6; O2SAT 98
--- NOTE | 2022-11-10 10:38 | PHA.DC.MC.R ---
Pharmacy [facility] has performed discharge medication reconciliation and counseling for this patient. 1. DOXYCYCLINE 100MG PO BID X 5 DAYS The patient's discharge medication list was reviewed for discrepancies and discrepancies were resolved. The patient was counseled on the following discharge medications and changes in medications for homegoing were reviewed. The Reason for Use, instructions for use, and potential side effects were reviewed for all new medications. The patient's questions regarding all of their medications were answered. The patient was able to verbally demonstrate an understanding of their discharge medications. Patient counseled by compounding pharmacy technicianMaite. Medications at Discharge Home Medications tramadol 50 mg tablet 50 mg feeding tube Q8H PRN Pain 09/23/21 nutritional supplements 0.06 gram-1.5 kcal/mL oral liquid (Osmolite 1.5 Ray) 710 ml feeding tube TID nutrition 11/07/22 doxycycline hyclate 100 mg capsule 100 mg PO BID #10 caps 11/10/22
--- NOTE | 2022-11-10 11:34 | CASEMGMT ---
ISAC GANDARA NOTE: Received call from pt re: new Rx @ [facility] Retail pharmacy, stating he was informed by the retail pharmacy that he needs to pay for the new Rx and that he is requesting to have [facility]. RN NICHOL informed pt that the [facility] does not cover for/pay for any medications unless he gets it from the [facility] and that they also do not accept any Rx's from any other prescriber than from the [facility]. He states he does have another insurance but does not have prescription benefits through them. 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 Pt made aware ISAC GANDARA would contact [facility] to have rx transferred from [facility] retail pharmacy to [facility] and ISAC GANDARA informed pt to contact this RN CM if any issues arise w/getting Rx. Pt voiced understanding. Call to [facility] and spoke w/Carmen and requested for her to call [facility] retail pharmacy to have Rx for doxycycline be transferred to [facility] per pt request. Lidya HATFIELD RN CM
--- NOTE | 2022-11-10 12:11 | PN.GI_ITS ---
Subjective Subjective Patient is doing a lot better today. He is not having any problems or regurgitation or cough. He has been n.p.o. except for his tube feedings. Objective Data Objective Data Vital Signs: Vital Signs Temp Pulse Resp BP Pulse Ox O2 Del Method 97.9 F 88 18 122/76 H 98 Room Air 11/10/22 10:10 11/10/22 10:10 11/10/22 10:10 11/10/22 10:10 11/10/22 10:10 11/10/22 10:10 Oxygen Delivery Method Room Air Weight: 116 lb 13.52 oz Body Mass Index (BMI) 18.8 Intake & Output: Intake and Output for Last 24 Hours 11/08/22 11/09/22 11/10/22 23:59 23:59 23:59 Intake Total 2270 / 2270 3248.34 / 3248.34 880 / 880 Balance 2270 / 2270 3248.34 / 3248.34 880 / 880 Lab / Micro Data 11/10/22 06:33 11/10/22 06:33 Labs: Laboratory Results - last 24 hr 11/10/22 06:33: WBC 5.0, RBC 3.58 L, Hgb 11.0 L, Hct 33.2 L, MCV 92.7, MCH 30.7, MCHC 33.1, RDW Std Deviation 43.6, RDW Coeff of Livan 12.8, Plt Count 190, MPV 10.5, Immature Gran % (Auto) 0.200, Neut % (Auto) 73.2 H, Lymph % (Auto) 16.7 L, [place] % (Auto) 9.1, Eos % (Auto) 0.8, Baso % (Auto) 0.0, Absolute Neuts (auto) 3.7, Absolute Lymphs (auto) 0.84, Nucleated RBC % 0, Sodium 138, Potassium 3.2 L , Chloride 103, Carbon Dioxide 30.0, Anion Gap 5, BUN 23 H, Creatinine 0.47 L, Estim Creat Clear Calc 45.64, Est GFR (MDRD) Af Amer 223, Est GFR (MDRD) Non-Af 185, BUN/Creatinine Ratio 49.1 H, Glucose 142 H, Calcium 8.6 Micro: Microbiology 11/07/22 20:20 Blood Culture (Wb) - Anticubital Right Blood Culture - Prelim inary No growth in 48 hours. 11/07/22 20:08 Blood Culture (Wb) - Anticubital Left Blood Culture - Preliminary No growth in 48 hours. 11/07/22 20:43 Urine, Clean Catch Urine Culture - Final Culture exhibits no growth. 11/07/22 22:15 Mucosa - Nose Respiratory Panel (PCR) - Final 11/07/22 20:43 Nasal Secretion SARS-CoV-2 & FLU Antigen (Rapid) - Final Physical Exam Const alert, oriented x3 and no apparent distress General Appearance: cooperative and well developed HEENT normocephalic, head/scalp atraumatic, moist oral mucous membranes and oropharynx normal Eyes PERRL and EOMs intact bilaterally Neck supple General: trachea midline Lymph Lymphatic: no lymphadenopathy noted Resp Resp Narrative: Mildly diminished breath sounds bibasally. No wheezes or crackles. On room air. Cardio regular rate, regular rhythm, S1 normal heart sound, S2 normal heart sound and no murmurs GI normal to inspection, nondistended, normoactive bowel sounds, soft to palpation, non-tender and non-distended GI Narrative: PEG tube in place Extremity normal capillary refill, no clubbing, cyanosis or edema and no calf tenderness Skin General Skin Exam: no breakdown Neuro CN's II-XII intact bilaterally, no focal motor deficits, no sensory deficits noted and deep tendon reflexes 2+ bilaterally Motor Exam: strength 5/5 throughout and general weakness Psych thought process normal and cooperative Appearance: appropriate Assessment & Plan Assessment/Plan (1) Pneumonia: QUALIFIERS: Pneumonia type: aspiration pneumonia Aspiration pneumonia type: due to vomit Laterality: right Lung location: lower lobe of lung Qualified Code(s): J69.0 - Pneumonitis due to inhalation of food and vomit (2) Hypoxia: PLAN: Plan 77-year-old gentleman with history of laryngeal cancer status post laryngectomy status post radiation with esophageal dysphagia and placement of a PEG tube. He was discovered to have pneumonia. #RIght lower lobe pneumonia * on IV ceftriaxone and azithromycin * urine for strep and legionella are negaitve * I discussed with him the possibility of putting a J-tube which he is amenable to. He does not want to have it while he is in the hospital and would rather come as an outpatient because he believes that he experienced aspiration ammonia secondary to liquid that he was taken orally and it may not be secondary to his PEG tube. r. Respiratory culture and blood culture pending. Breathing treatments with bronchodilators. Titrate oxygen to maintain saturation above 90%. Recommend keep n.p.o. #Dysphagia * due to throat cancer,. Currently NPO * uses Jevity at home; says he has been placed on Kaelyn AF here. * he can be discharged to home with outpatient follow-up. Charges/Coding Visit Charges Inpatient E&M: 48762 Subs Hosp L3
== END 2022-11-10 11:00 | disposition home or self-care (01) ==
LOC: ED 19:59 → MS3 11-08 01:21
PROVIDERS: Admitting Provider Family Medicine; Emergency Provider Emergency Medicine; Referring Provider Family Medicine; Visit Provider Student in an Organized Health Care Education/Training Program
DX: J69.0 Pneumonitis due to inhalation of food and vomit (principal); Z93.1 Gastrostomy status; J43.9 Emphysema, unspecified; Z87.891 Personal history of nicotine dependence; R11.10 Vomiting, unspecified; E87.1 Hypo-osmolality and hyponatremia; R19.7 Diarrhea, unspecified; E87.6 Hypokalemia; R09.02 Hypoxemia; Z79.899 Other long term (current) drug therapy; I95.9 Hypotension, unspecified; Z85.89 Personal history of malignant neoplasm of other organs and systems; R13.10 Dysphagia, unspecified
CPT/HCPCS: 36415; 71045; 71275; 80048; 80053; 81001; 83605; 84484; 85025; 85610; 85730; 87040; 87086; 87428; 87633; 92526; 92610; 93005; 96361; 96365; 96366; 96367; 96372; 96375; 96376; 97802; 97803; 99221; 99285; J7030; J7040; J7050; Q9967; A4216; G0378; J2405

== ENCOUNTER → 2022-11-22 | Outpatient (CLI) | payer OTHER, SELFPAY ==
--- NOTE | 2022-11-22 14:40 | RAD_ITS ---
INDICATION: shortness of breath EXAMINATION/TECHNIQUE: X-RAY - XR Chest 2 Views COMPARISON: Prior studies dated: November 07, 2022 FINDINGS: LINES/DEVICES: None. LUNGS: The lungs are hyperinflated. There are right basilar streaky opacities, slightly less pronounced than the prior examination. No pneumothorax. MEDIASTINUM AND CARDIOVASCULAR STRUCTURES: Cardiac silhouette not enlarged. Central airways and mediastinal contour are unremarkable. BONES AND SOFT TISSUES: Unremarkable. RAD/Chest PA and Lateral IMPRESSION: COPD. Minimal right basilar atelectasis, less pronounced than the prior examination. Electronically Signed: Isabelle Rosario MD at 12:05 EDT ,
== END | disposition home or self-care (01) ==
LOC: RAD 14:40
PROVIDERS: Referring Provider Internal Medicine Gastroenterology; Visit Provider Internal Medicine Gastroenterology
DX: R06.02 Shortness of breath (principal)
CPT/HCPCS: 71046

== ENCOUNTER 2023-02-01 16:09 | Inpatient (IN) | payer OTHER, SELFPAY ==
[2023-02-01] VITALS (12 sets, daily range): BP systolic 82–135; BP diastolic 54–81; PULSE 88–124; RESP 18–26; TEMP 36.7–38.2; O2SAT 87–98; BMI 19.0; BMI 18.7
--- NOTE | 2023-02-01 16:26 | EKG12_ITS ---
Test Reason : WEAKNES Blood Pressure : / mmHG Vent. Rate : 114 BPM Atrial Rate : 114 BPM P-R Int : 132 ms QRS Dur : 068 ms QT Int : 300 ms P-R-T Axes : 063 012 059 degrees QTc Int : 413 ms Sinus tachycardia Right atrial enlargement Borderline ECG Confirmed by BRUCE CUNNINGHAM, FLORIN ([id number]), digital editor DEANA DUPONT ([id number]) on 02/02/2023 1:58:14 PM Referred By: Confirmed By:FLORIN BARRERA MD
--- NOTE | 2023-02-01 16:27 | EX.ED.DYSGE1 ---
HPI History of Present Illness Chief Complaint: General Illness Informant: patient and spouse/S.O. Onset/Context/Timing Onset: Days (4 days) Narrative Narrative: Patient presents secondary to fever, cough, vomiting, and diarrhea. Symptoms been ongoing for the past 4 days. He states anytime he tries to take any tube feeds either vomits or has diarrhea. His doctor at the [facility] had given him a prescription for Zithromax and clindamycin to use if he gets sick. He started taking this on Tuesday but has not had significant proved in his symptoms. He noted fever today. [facility] Medical History Former smoker History of head or neck cancer Pulmonary emphysema Rotator cuff arthropathy Throat cancer Home Medications tramadol 50 mg tablet 50 mg feeding tube Q8H PRN Pain 09/23/21 [History Last Taken Unknown] nutritional supplements 0.06 gram-1.5 kcal/mL oral liquid (Osmolite 1.5 Ray) 710 ml feeding tube TID nutrition 11/07/22 [History Last Taken 11/07/22] Allergy/AdvReac Type Severity Reaction Status Date / Time Penicillins AdvReac Other Verified 02/01/23 16:12 Family History Other Heart disease Social History Smoking Status: Former smoker ROS ROS ED Constitutional Constitutional ED: Reports fever(s) Eyes Eyes: Denies change in vision ENT ENT ED: Reports sore throat Cardiovascular Cardiovascular: Denies chest pain Respiratory/Chest Respiratory/Chest: Reports cough and dyspnea Gastrointestinal Gastrointestinal: Reports diarrhea, nausea and vomiting Genitourinary Genitourinary ED: Denies dysuria Musculoskeletal Musculoskeletal: Reports myalgias Neurologic Neurologic: Reports weakness Psychiatric Psychiatric: Denies anxiety or depression Allergic/Immunologic Allergic/Immunologic ED: Denies mouth swelling or tongue swelling EXAM Physical Exam Const Vital Signs: 02/01/23 16:12 02/01/23 16:29 02/01/23 16:30 Temperature 100.8 F H Temperature Source Temporal Pulse Rate 124 H Respiratory Rate 18 Respiratory Effort Respiratory Pattern Blood Pressure 135/80 H Blood Pressure Mean 98 Pulse Ox 90 87 94 Oxygen Delivery Method Room Air Room Air Nasal Cannula Oxygen Flow Rate (L/min) 2 02/01/23 17:04 02/01/23 17:05 02/01/23 17:50 Temperature Temperature Source Pulse Rate 104 H Respiratory Rate 24 H Respiratory Effort Short of Breath Respiratory Pattern Tachypnea Blood Pressure 111/75 82/54 L Blood Pressure Mean 87 63 Pulse Ox 93 Oxygen Delivery Method Nasal Cannula Oxygen Flow Rate (L/min) 2 02/01/23 18:06 Temperature 98.2 F Temperature Source Oral Pulse Rate 93 Respiratory Rate 22 H Respiratory Effort Respiratory Pattern Blood Pressure 89/56 L Blood Pressure Mean 67 Pulse Ox 94 Oxygen Delivery Method Nasal Cannula Oxygen Flow Rate (L/min) 2 Positive cachectic General Appearance ED: cachectic Nutritional Appearance: cachectic HEENT Reports dry mucous membranes Mouth ED: Yes dry mucous membranes Mouth: dry mucous membranes Eyes EOMs intact bilaterally Chest Wall inspection of chest normal and palpation of chest normal Resp normal respiratory effort and clear to auscultation bilaterally Cardio Rate: tachycardic GI GI Narrative: Abdomen soft with hypoactive bowel sounds. PEG tube in place. Extremity normal to inspection Neuro oriented x3 Neuro Narrative: No focal neurologic deficits. Skin no rashes or lesions noted MDM MDM MDM Narrative Medical decision making narrative: Patient placed on radiation monitor. During my evaluation patient's O2 sat dropped to 87% on room air and he was placed on 2 L nasal cannula. IV line established. Labwork obtained to evaluate for leukocytosis, anemia, and electrolyte derangement. Urinalysis obtained to evaluate for infection/hematuria. Blood and urine cultures obtained. Swab for COVID and influenza obtained. Chest x-ray obtained to evaluate for acute lung pathology, cardiac size, or mediastinal abnormality. Patient given Tylenol via PEG tube for fever. History & Record Review Discussion w/independent historian: Patient and Significant other Additional record(s) reviewed:: Prior inpatient record, Prior ED visit and Prior labs Lab Data Attestation: I reviewed the patient's lab results. Labs: Laboratory Results - last 24 hr 02/01/23 16:30 WBC 16.7 H RBC 4.34 L Hgb 13.6 Hct 41.5 MCV 95.6 H MCH 31.3 MCHC 32.8 RDW Std Deviation 42.7 RDW Coeff of Livan 12.2 Plt Count 229 MPV 11.0 Immature Gran % (Auto) 0.500 Neut % (Auto) 91.7 H Lymph % (Auto) 2.6 L [place] % (Auto) 5.0 Eos % (Auto) 0.0 Baso % (Auto) 0.2 Absolute Neuts (auto) 15.3 H Absolute Lymphs (auto) 0.43 L Nucleated RBC % 0 Differential Comment SCANNED PT 13.6 INR 1.0 APTT 23.7 L Sodium 135 L Potassium 3.7 Chloride 96 L Carbon Dioxide 35.0 H Anion Gap 4 L BUN 34 H Creatinine 0.79 Estim Creat Clear Calc 46.09 Est GFR (MDRD) Af Amer 121 Est GFR (MDRD) Non-Af 100 BUN/Creatinine Ratio 42.9 H Glucose 196 H Lactic Acid 1.4 Calcium 9.5 Total Bilirubin 0.50 AST 18 ALT 23 Alkaline Phosphatase 117 Total Protein 8.1 Albumin 3.3 Globulin 4.8 H Albumin/Globulin Ratio 0.7 L Radiography Chest X-Ray - ED: 1 View, Read by ED Physician and - (Hyperinflation with right-sided infiltrate which appears new compared to prior study.) Diagnostic Testing: Clinical Impression(s) from Imaging Studies Chest X-Ray 02/01/23 16:55 IMPRESSION: Findings consistent with acute interstitial filtrate in the right upper and lower lobes possibly due to viral pneumonia. Clinical correlation recommended Electronically Signed: Aime Luo MD at 17:30 EDT , EKG Initial EKG: Attestation: I personally reviewed and interpreted this EKG as follows: Interpretation: Sinus Tachycardia (Sinus tachycardia at 114. No acute ST change.) Treatment and Re-Evaluation :: CBC was elevated white count at 16.7 with 92% neutrophils. Hemoglobin is 13.6. Chemistry studies reveal a bicarb of 35. BUN is 34 and creatinine 0.79. Glucose is 196. LFTs are unremarkable. Lactic acid is 1.4. Coags are unremarkable. Portable chest x-ray per my interpretation reveals hyperinflation with a right-sided infiltrate that is new when compared to prior. Radiology interpretation is reviewed. EKG is sinus tach at 114 with no acute ischemia. I did review patient's admission from November when he was here with aspiration pneumonia and similar presentation. He did well with Rocephin and Zithromax on that admission and those antibiotics are given again. Blood cultures are pending. Patient states that Dr. Machado had thought about extending the length of his PEG tube so I will speak with Dr. Machado to make him aware that the patient will be admitted. I will also speak with hospitalist as patient is currently requiring oxygen and is not on oxygen at home. Patient's blood pressure did drop to 89/56. Repeat blood pressure at this time is 99/66. He is still receiving his IV fluid bolus. Discharge Plan Dx/Rx/DC Orders Clinical Impression: History of throat cancer, Hypoxia, Pneumonia, Dehydration Disposition Disposition: Acute Care Hospital [facility]
[2023-02-01] MEDS: 0.9% Normal Saline (1000mL) 1,000 ML 999 ML IV (16:31)
[2023-02-01] MEDS: Acetaminophen 650 MG/20 ML UDC GT (16:43)
[2023-02-01 16:47] LABS: Absolute Lymphocyte Count 0.43 X10^3/uL (0.83-4.51); Absolute Neutrophil Count 15.3 X10^3/uL (2.0-7.7); Basophil# 0.04 X10^3/uL; Basophil% 0.2 % (0-1); Hematocrit 41.5 % (40-54); Hemoglobin 13.6 g/dL (13.0-16.5); Lymphocyte # 0.43 X10^3/ul (0.83-4.51); Lymphocyte % 2.6 % (19-41); Mean Corp Hgb Conc 32.8 g/dL (32-36); Mean Corpuscular Hgb 31.3 pg (27.0-32.0); Mean Corpuscular Volume 95.6 fL (80-94); Monocyte# 0.84 X10^3/uL; NRBC Flagged by Analyzer 0 % (0-5); Neutrophil # 15.29 X10^3/uL (2.7-7.7); Neutrophil % 91.7 % (47-70); POSITIVE DIFFERENTIAL YES; Platelet Count 229 K/mm3 (150-450); RBC Distribution Width CV 12.2 % (11.6-14.6); RBC Distribution Width SD 42.7 fl (35.1-43.9); Red Blood Count 4.34 M/mm3 (4.6-6.2); White Blood Count 16.7 K/mm3 (4.4-11.0)
[2023-02-01 16:48] LABS: Differential Indicated SCAN CRITERIA MET
--- NOTE | 2023-02-01 16:55 | RAD_ITS ---
STUDY: X-RAY CHEST REASON FOR EXAM: Male, 77 years old. cough TECHNIQUE: AP portable COMPARISON: November 22, 2022 FINDINGS: Mild reticulonodular interstitial thickening in both the right upper and lower lobes which is new finding possibly due to acute inflammatory changes. There is no demonstrated pleural abnormality. Normal size heart. Normal mediastinum and tevin. Normal visualized pulmonary arteries. Normal visualized aortic arch and descending thoracic aorta. Dorsal spine demonstrates degenerative changes. Normal visualized ribs, clavicles, and shoulders. There is no demonstrated abnormality of the visualized soft tissue structures of the upper abdomen. RAD/Chest 1 View (Portable) IMPRESSION: Findings consistent with acute interstitial filtrate in the right upper and lower lobes possibly due to viral pneumonia. Clinical correlation recommended Electronically Signed: Aime Luo MD at 17:30 EDT ,
[2023-02-01 17:06] LABS: Prothrombin Time (Protime)PT. 13.6 SECONDS (11.7-14.9)
[2023-02-01 17:07] LABS: ALB/GLOB Ratio 0.7 RATIO (0.9-2.4); AST(SGOT) 18 U/L (15-37); Alanine Aminotransfer ALT/SGPT 23 U/L (16-61); Albumin, Serum 3.3 g/dL (3.2-5.0); Alkaline Phosphatase 117 U/L (45-117); Anion Gap 4 (5-15); BUN 34 mg/dL (7-18); BUN/Creat Ratio 42.9 RATIO (10-20); Calcium,Total 9.5 mg/dL (8.5-10.1); Chloride 96 mmol/L (98-107); Creatinine, Serum 0.79 mg/dL (0.70-1.30); EST Glomerular Filtration Rate 100 mL/min (>60); Est Glom Filt Rate - Afr Amer 121 mL/min (>60); Estimated Creatinine Clearance 46.09 ml/min; Globulin 4.8 g/dL (2.2-4.2); Glucose 196 mg/dL (74-106); Partial Thromboplast Time 23.7 Seconds (24.1-36.2); Potassium 3.7 mmol/L (3.5-5.1); Protein, Total 8.1 g/dL (6.4-8.2); Sodium Level 135 mmol/L (136-145)
[2023-02-01 17:18] LABS: Lactic Acid 1.4 mmol/L (0.4-1.9)
[2023-02-01 17:19] LABS: Differential Comment SCANNED
[2023-02-01] MEDS: Ceftriaxone 1 GM/50 ML BAG IV (17:36)
[2023-02-01] MEDS: 0.9% Normal Saline (500mL Bag) 500 ML 999 ML IV (18:05)
[2023-02-01] MEDS: Azithromycin 500 MG in Dextrose 5%-Water (250mL Bag) 250 ML 250 MG IV (18:13)
[2023-02-01 18:29] LABS: Bacteria 0 SEEN /hpf (None Seen); Mucous, Urine 0 SEEN /hpf (<or=2+); Red Blood Cells-Urine 0 SEEN /hpf (0-5); Squamous Epithelial Cells - UA 0 SEEN /hpf (0-5); White Blood Cells 0 SEEN /hpf (0-5)
[2023-02-01 18:36] LABS: Color, Urine Yellow (Yellow); Glucose, Dipstick 250 mg/dl (Normal); Ketone-Dipstick Negative (Negative); Leukocyte Esterase-Dipstick Negative /ul (Negative); Nitrite-Dipstick Negative (Negative); Occult Blood-Urine 10 /ul (Negative); Protein-Dipstick 30 mg/dl (Negative); Urine Bilirubin Dipstick Negative (Negative); Urine Clarity Clear (Clear); Urine Urobilinogen 1 mg/dl (Normal)
[2023-02-01] MEDS: 0.9% Normal Saline (500mL Bag) 250 ML 999 ML IV (18:41)
--- NOTE | 2023-02-01 18:42 | PCM.HP.STD ---
HPI - General General Date of Admission: 02/01/23 Date of Service: 02/01/23 Chief Complaint: Nausea and vomiting, chills, shortness of breath, malaise HPI Narrative LORETA CHING, is a 77 M who presents to the emergency room at [facility] with complaints of persistent nausea and vomiting after tube feeds, fever and chills at home over the past couple of days, increasing shortness of breath over the last 3 days and malaise. Patient has a history of throat cancer and is n.p.o., he uses a LARY-LAZO tube for his tube feeds. Patient had Zithromax and clindamycin at home and was told to take them for presumed pneumonia by the [facility] as needed for illness, he has been taking these antibiotics since last Tuesday. Patient has been also complaining of diarrhea also. Work-up in the emergency room included a CBC which showed an elevated white blood cell count at 16.7, chemistry profile showed an elevated BUN at 34, glucose was 196. Chest x-ray showed infiltrates in the right upper and lower lung, patient required oxygen at 2 L to maintain his pulse ox above 90%. Gastroenterology was contacted by the ER physician, they recommended admission and consultation with them to replace the present tube with a J-tube. Patient was given IV Zithromax and Rocephin in the ER, I will change him to Zosyn for anaerobic coverage. It is possible the pneumonia secondary to aspiration. Patient will be admitted to [address] Medical History Former smoker History of head or neck cancer Pulmonary emphysema Rotator cuff arthropathy Throat cancer Home Medications tramadol 50 mg tablet 50 mg feeding tube Q8H PRN Pain 09/23/21 [History Last Taken Unknown] nutritional supplements 0.06 gram-1.5 kcal/mL oral liquid (Osmolite 1.5 Ray) 710 ml feeding tube TID nutrition 11/07/22 [History Last Taken 11/07/22] Allergy/AdvReac Type Severity Reaction Status Date / Time Penicillins AdvReac Other Verified 02/01/23 16:12 Family History Other Heart disease Social History Smoking Status: Former smoker ROS Constitutional Constitutional: Reports chills, fever(s), malaise and weakness; Denies anorexia, change in weight or night sweats Eyes Eyes: Denies blurry vision, change in vision, discharge from eye(s) or eye pain Cardiovascular Cardiovascular: Reports dyspnea on exertion; Denies chest pain, claudication, edema or palpitations Respiratory/Chest Respiratory/Chest: Reports shortness of breath at rest and shortness of breath with exertion; Denies cough or hemoptysis Gastrointestinal Gastrointestinal: Reports diarrhea, nausea and vomiting; Denies abdominal pain, constipation, hematemesis, hematochezia or melena Genitourinary Genitourinary: Denies dysuria, hematuria, urinary frequency, urinary hesitancy, urinary incontinence or urinary urgency Musculoskeletal Musculoskeletal: Denies back pain, joint pain, joint stiffness, joint swelling, myalgias or neck pain Neurologic Neurologic: Denies abnormal gait, abnormal speech, dizziness, focal weakness, headache(s), loss of vision, numbness, other visual disturbances, paresthesias, syncope or tingling Psychiatric Psychiatric: Denies anxiety, cognitive impairment, depression, irritability, mood swings or suicidal ideation Endocrine Endocrinology: Denies change in body appearance, cold intolerance, excessive sweating, heat intolerance, polydipsia or polyuria Hematologic/Lymphatic Hematologic/Lymphatic: Denies none, anemia, easy bleeding, easy bruising or lymphadenopathy Allergic/Immunologic Allergic/Immunologic: Denies rhinitis, urticaria, eczemia or asthma Vital Signs Vital Signs Vital Signs: 02/01/23 16:12 02/01/23 16:29 02/01/23 16:30 Temperature 100.8 F H Temperature Source Temporal Pulse Rate 124 H Respiratory Rate 18 Respiratory Effort Respiratory Pattern Blood Pressure 135/80 H Blood Pressure Mean 98 Pulse Ox 90 87 94 Oxygen Delivery Method Room Air Room Air Nasal Cannula Oxygen Flow Rate (L/min) 2 02/01/23 17:04 02/01/23 17:05 02/01/23 17:50 Temperature Temperature Source Pulse Rate 104 H Respiratory Rate 24 H Respiratory Effort Short of Breath Respiratory Pattern Tachypnea Blood Pressure 111/75 82/54 L Blood Pressure Mean 87 63 Pulse Ox 93 Oxygen Delivery Method Nasal Cannula Oxygen Flow Rate (L/min) 2 02/01/23 18:06 02/01/23 18:24 02/01/23 18:42 Temperature 98.2 F 98.2 F Temperature Source Oral Pulse Rate 93 93 95 Respiratory Rate 22 H 26 H 20 H Respiratory Effort Respiratory Pattern Blood Pressure 89/56 L 99/66 95/63 Blood Pressure Mean 67 77 73 Pulse Ox 94 94 91 Oxygen Delivery Method Nasal Cannula Room Air Oxygen Flow Rate (L/min) 2 Weight Weight: 53.524 kg Body Mass Index (BMI) 19.0 Physical Exam Const alert, oriented x3, no apparent distress and average body habitus Constitutional Narrative: Patient has hoarse speech General Appearance: cooperative, well kempt and well developed Orientation / Consciousness: awake, oriented to person, oriented to place and oriented to time HEENT normocephalic and moist oral mucous membranes Eyes PERRL, EOMs intact bilaterally and conjunctivae normal Neck supple, no JVD, thyroid normal and no carotid bruits General: trachea midline Resp normal respiratory effort, no retractions and no use of accessory muscles Resp Narrative: Breath sounds were diminished bilaterally, there were inspiratory rales noted at the left lung base Auscultation: rales left lower; Negative for rhonchi or wheezes Cardio regular rate, regular rhythm, S1 normal heart sound, S2 normal heart sound, no murmurs, no rub and no gallops GI normal to inspection, nondistended, normoactive bowel sounds, soft to palpation, non-tender and non-distended GI Narrative: LARY-Lazo feeding tube is in place Extremity no clubbing, cyanosis or edema Skin no rashes or lesions noted General Skin Exam: no breakdown Neuro oriented x3, CN's II-XII intact bilaterally, moves all extremities, no focal motor deficits and no sensory deficits noted Sensorium / Orientation: awake, alert, oriented to person, oriented to place and oriented to time Speech: speech normal Psych affect normal Results Lab / Micro Data 02/01/23 16:30 02/01/23 16:30 Labs: Laboratory Results - last 24 hr 02/01/23 16:30: WBC 16.7 H, RBC 4.34 L, Hgb 13.6, Hct 41.5, MCV 95.6 H, MCH 31.3, MCHC 32.8, RDW Std Deviation 42.7, RDW Coeff of Livan 12.2, Plt Count 229, MPV 11.0, Immature Gran % (Auto) 0.500, Neut % (Auto) 91.7 H, Lymph % (Auto) 2.6 L, [place] % (Auto) 5.0, Eos % (Auto) 0.0, Baso % (Auto) 0.2, Absolute Neuts (auto) 15.3 H, Absolute Lymphs (auto) 0.43 L, Nucleated RBC % 0, Differential Comment SCANNED, PT 13.6, INR 1.0, APTT 23.7 L, Sodium 135 L, Potassium 3.7, Chloride 96 L, Carbon Dioxide 35.0 H, Anion Gap 4 L, BUN 34 H, Creatinine 0.79, Estim Creat Clear Calc 46.09, Est GFR (MDRD) Af Amer 121, Est GFR (MDRD) Non-Af 100, BUN/Creatinine Ratio 42.9 H, Glucose 196 H, Lactic Acid 1.4, Calcium 9.5, Total Bilirubin 0.50, AST 18, ALT 23, Alkaline Phosphatase 117, Total Protein 8.1, Albumin 3.3, Globulin 4.8 H, Albumin/Globulin Ratio 0.7 L Micro: Microbiology 02/01/23 16:34 Nasal Secretion SARS-CoV-2 & FLU Antigen (Rapid) - Final Radiology Impression Chest X-Ray 02/01/23 16:55 IMPRESSION: Findings consistent with acute interstitial filtrate in the right upper and lower lobes possibly due to viral pneumonia. Clinical correlation recommended Electronically Signed: Aime Luo MD at 17:30 EDT Reading Location ID and State: [address] [place] [address] Tel , Service support , Assessment & Plan Assessment/Plan (1) Pneumonia: PLAN: Plan 1. Right multilobular pneumonia-presumed to be secondary to aspiration-patient will be admitted to [facility], he will be placed on IV Zosyn, labs will be monitored #2 nausea and vomiting-possibly secondary to tube feeds or recent usage of clindamycin-GI will see the patient in consultation and replace the present tube with a J-tube #3 dehydration-patient will be given IV fluids #4 past history of throat cancer-complicates care, medical course, recovery, and prognosis Clinical time spent by myself addressing the patient's medical issues, reviewing all of his data, and collaborating with patient's care team: 55 minutes Charges/Coding Visit Charges Inpatient E&M: 16886 Init Hosp L2
[2023-02-01] MEDS: 0.9% Normal Saline (1000mL) 1,000 ML 125 ML IV (20:35)
[2023-02-01] MEDS: 0.9% Normal Saline (250mL Bag) 250 ML 15 ML IV (20:38)
[2023-02-01] MEDS: Piperacil/Tazobactam 3.375 GM in 0.9% Normal Saline (50mL MB+) 50 ML IV (20:47)
[2023-02-01] MEDS: Heparin Injection (Vial) 5,000 UNIT/ML VIAL 5000 UNIT SC (20:49)
--- NOTE | 2023-02-01 21:28 | NURSING ---
Pt was told he is npo. Pt said no way he can go without water. Pt refused to have his own cup of water taken away.
[2023-02-02] VITALS (14 sets, daily range): BP systolic 99–180; BP diastolic 53–104; PULSE 88–117; RESP 18–26; TEMP 36.6–37.4; O2SAT 85–96
[2023-02-02] MEDS: 0.9% Normal Saline (1000mL) 1,000 ML 125 ML IV ×3 (03:41→18:31)
[2023-02-02] MEDS: Piperacil/Tazobactam 3.375 GM in 0.9% Normal Saline (50mL MB+) 50 ML IV ×3 (04:30→23:17)
[2023-02-02 06:47] LABS: Absolute Lymphocyte Count 1.05 X10^3/uL (0.83-4.51); Absolute Neutrophil Count 9.3 X10^3/uL (2.0-7.7); Basophil# 0.02 X10^3/uL; Basophil% 0.2 % (0-1); Eosinophil# 0.01 X10^3/uL; Eosinophils% 0.1 % (0-5); Hemoglobin 11.1 g/dL (13.0-16.5); Lymphocyte # 1.05 X10^3/ul (0.83-4.51); Lymphocyte % 9.2 % (19-41); Mean Corp Hgb Conc 32.6 g/dL (32-36); Mean Corpuscular Hgb 31.4 pg (27.0-32.0); Mean Corpuscular Volume 96.3 fL (80-94); Mean Platelet Vol. 10.9 fl (6.2-12.0); Monocyte# 0.99 X10^3/uL; Monocyte% 8.7 % (0-10); NRBC Flagged by Analyzer 0 % (0-5); Neutrophil # 9.28 X10^3/uL (2.7-7.7); Neutrophil % 81.3 % (47-70); Platelet Count 174 K/mm3 (150-450); RBC Distribution Width CV 12.4 % (11.6-14.6); RBC Distribution Width SD 43.4 fl (35.1-43.9); Red Blood Count 3.53 M/mm3 (4.6-6.2); White Blood Count 11.4 K/mm3 (4.4-11.0)
[2023-02-02] MEDS: Ipratropium/Albuterol Sulfate 3 ML AMPUL.NEB INHALATION ×3 (06:48→19:25)
[2023-02-02 07:14] LABS: Anion Gap 2 (5-15); BUN 21 mg/dL (7-18); BUN/Creat Ratio 41.2 RATIO (10-20); Calcium,Total 8.3 mg/dL (8.5-10.1); Chloride 104 mmol/L (98-107); Creatinine, Serum 0.51 mg/dL (0.70-1.30); EST Glomerular Filtration Rate 167 mL/min (>60); Est Glom Filt Rate - Afr Amer 202 mL/min (>60); Estimated Creatinine Clearance 45.38 ml/min; Glucose 109 mg/dL (74-106); Potassium 3.5 mmol/L (3.5-5.1); Sodium Level 137 mmol/L (136-145)
--- NOTE | 2023-02-02 10:25 | CASEMGMT ---
ISAC GANDARA Assessment: Face to Face with pt for initial transition planning/care coordination assessment. ISAC GANDARA introduced self and role at [facility], pt voices understanding and consents to assessment. Pt's and SOFIYA are also at the bedside per pt's permission. Pt is A&O x4 and answers all questions appropriately at this time. Care providers, pharmacy, and demographics verified/updated. Admitting Dx: Multilobular Pneumonia, Dehydration, Nausea PCP: [facility] (through the [facility]) Specialists: Jhoan (Program Director Substance Abuse), Friend (Automotive Porter) Preferred Pharmacy: [facility] ([place]) Insurance: [place] (Secondary is [employer]) Prescription Benefit: yes (through [place]) LNOK: , Brionna Living Will/HCPOA: Yes and Yes: HCPOA is Living Arrangements: Pt lives with his in a 2 story home. [employer]. Pt. states the stairs inside the home were replaced by an elevator and that he often how it enters the house (through the basement and then the elevator). 10 steps with railing to enter home on outside. Prior to this admission, pt. states he did well ambulating the steps. Pt. states he is I in all ADLs and IADLs. Transportation: self DME: Pulse ox, BP cuff, tube feeding supplies provided though [facility] (pt. states he does his own feeding) and it is Osmolite. Denies need for additional DME. Pt. declines to receive information about medical alert systems. HHC/SNF: Denies any previous SNF or HHC. Pt states no concerns with going home at time of dc. Pt states no further concerns/needs. CM to follow. Advised pt to ask CM if any further question/concerns/needs arise, voices understanding. Pt Goal: Home. Pt. states, concerning a possible change in his feeding tube, that he wants to remain and independent as possible and the boluses worked well for him. Plan: Home with family support and follow-up plans in place. Follow GI.
--- NOTE | 2023-02-02 12:00 | CASEMGMT ---
Social Work SW met with pt to discuss advance directives.? Pt confirms he has completed a living will and health care POA naming his Brionna Case.? Pt notified that documents are not on file at [facility] and SW requested they be brought in for scanning into the EMR. MALLIKA Vizcarra
[2023-02-02] MEDS: Flu Vacc QS2023-24(65YR UP)/PF 240 MCG/0.7 ML Syringe IM (12:21)
[2023-02-02] MEDS: 0.9% Saline Lock 10 ML Syringe IV ×4 (12:32→23:21)
[2023-02-02] MEDS: Morphine 2 MG/ML Syringe IV (12:32)
[2023-02-02] MEDS: Heparin Injection (Vial) 5,000 UNIT/ML VIAL 5000 UNIT SC ×2 (13:23→23:17)
--- NOTE | 2023-02-02 14:34 | PN_ITS ---
Subjective Subjective Patient seen and examined. He had no active complaints and had an uneventful night. HE was admitted with a complaint of abdominal pain, shortness of breath, nausea and vomiting as well as general malaise. HE has a history of throat cancer and is npo, on tube feeds via a Shaun tube. He had been given oral clindamycin and zithromax for presumptive pneumonia . However, his symptoms didnt improve and so he came in to the ED. He is being managed for right multilobar pneumonia. He says he doesnt want a J tube as he cant tolerate continuous tube feeds. He wants his Shaun tube replaced so he can resume his bolus tube feeds. He has remained hemodynamically stable. Objective Data Objective Data Vital Signs: Vital Signs Temp Pulse Resp BP Pulse Ox O2 Del Method O2 Flow Rate 99 F 104 H 20 H 161/95 H 94 Nasal Cannula 2 02/02/23 13:35 02/02/23 13:35 02/02/23 13:35 02/02/23 13:35 02/02/23 13:35 02/02/23 13:40 02/02/23 13:40 Oxygen Flow Rate (L/min) 2 Oxygen Delivery Method Nasal Cannula Weight: 116 lb 2.938 oz Body Mass Index (BMI) 18.7 Intake & Output: Intake and Output for Last 24 Hours 01/31/23 02/01/23 02/02/23 23:59 23:59 23:59 Intake Total 2057. / 2057. 1860.42 / 1860.42 Balance 2057. / 2057. 1860.42 / 1860.42 Lab / Micro Data 02/02/23 06:17 02/02/23 06:17 Labs: Laboratory Results - last 24 hr 02/01/23 16:30: WBC 16.7 H, RBC 4.34 L, Hgb 13.6, Hct 41.5, MCV 95.6 H, MCH 31.3, MCHC 32.8, RDW Std Deviation 42.7, RDW Coeff of Livan 12.2, Plt Count 229, MPV 11.0, Immature Gran % (Auto) 0.500, Neut % (Auto) 91.7 H, Lymph % (Auto) 2.6 L, [place] % (Auto) 5.0, Eos % (Auto) 0.0, Baso % (Auto) 0.2, Absolute Neuts (auto) 15.3 H, Absolute Lymphs (auto) 0.43 L, Nucleated RBC % 0, Differential Comment SCANNED, PT 13.6, INR 1.0, APTT 23.7 L, Sodium 135 L, Potassium 3.7, Chloride 96 L, Carbon Dioxide 35.0 H, Anion Gap 4 L, BUN 34 H, Creatinine 0.79, Estim Creat Clear Calc 46.09, Est GFR (MDRD) Af Amer 121, Est GFR (MDRD) Non-Af 100, BUN/Creatinine Ratio 42.9 H, Glucose 196 H, Lactic Acid 1.4, Calcium 9.5, Total Bilirubin 0.50, AST 18, ALT 23, Alkaline Phosphatase 117, Total Protein 8.1, Albumin 3.3, Globulin 4.8 H, Albumin/Globulin Ratio 0.7 L 02/01/23 18:21: Urine Color Yellow, Urine Clarity Clear, Urine pH 7.0, Ur Specific [place] 1.010, Urine Protein 30 H, Urine Glucose (UA) 250 H, Urine Ketones Negative, Urine Occult Blood 10 H, Urine Nitrite Negative, Urine Bilirubin Negative, Urine Urobilinogen 1 H, Ur Leukocyte Esterase Negative, Urine RBC 0 SEEN, Urine WBC 0 SEEN, Ur Squamous Epith Cells 0 SEEN, Urine Bacteria 0 SEEN, Urine Mucus 0 SEEN 02/02/23 06:17: WBC 11.4 H, RBC 3.53 L, Hgb 11.1 L, Hct 34.0 L, MCV 96.3 H, MCH 31.4, MCHC 32.6, RDW Std Deviation 43.4, RDW Coeff of Livan 12.4, Plt Count 174, MPV 10.9, Immature Gran % (Auto) 0.500, Neut % (Auto) 81.3 H, Lymph % (Auto) 9.2 L, [place] % (Auto) 8.7, Eos % (Auto) 0.1, Baso % (Auto) 0.2, Absolute Neuts (auto) 9.3 H, Absolute Lymphs (auto) 1.05, Nucleated RBC % 0, Sodium 137, Potassium 3.5, Chloride 104, Carbon Dioxide 31.0, Anion Gap 2 L, BUN 21 H, Creatinine 0.51 L, Estim Creat Clear Calc 45.38, Est GFR (MDRD) Af Amer 202, Est GFR (MDRD) Non- Af 167, BUN/Creatinine Ratio 41.2 H, Glucose 109 H, Calcium 8.3 L Micro: Microbiology 02/01/23 16:34 Nasal Secretion SARS-CoV-2 & FLU Antigen (Rapid) - Final Radiography Diagnostic Testing: Radiology Impression Chest X-Ray 02/01/23 16:55 IMPRESSION: Findings consistent with acute interstitial filtrate in the right upper and lower lobes possibly due to viral pneumonia. Clinical correlation recommended Electronically Signed: Aime Luo MD at 17:30 EDT Reading Location ID and State: [facility] / [place] Tel , Service support , Physical Exam Const alert, oriented x3 and no apparent distress General Appearance: cooperative HEENT normocephalic, head/scalp atraumatic, moist oral mucous membranes and oropharynx normal Eyes PERRL and EOMs intact bilaterally Neck no lymphadenopathy, supple and no JVD Lymph Lymphatic: no lymphadenopathy noted and no lymphedema noted Resp Resp Narrative: mildly diminished breath sounds bibasally, no wheezes or crackles. On room air. Cardio regular rate, regular rhythm, S1 normal heart sound, S2 normal heart sound and no murmurs GI normal to inspection, nondistended, normoactive bowel sounds, soft to palpation, non-tender and non-distended GI Narrative: Shaun button in place Extremity normal capillary refill, no clubbing, cyanosis or edema and no calf tenderness Skin General Skin Exam: no breakdown Neuro CN's II-XII intact bilaterally, no focal motor deficits, no sensory deficits noted and deep tendon reflexes 2+ bilaterally Motor Exam: strength 5/5 throughout and general weakness Psych thought process normal and cooperative Appearance: appropriate Assessment & Plan Assessment/Plan (1) Pneumonia: (2) Hypoxia: (3) Dehydration: PLAN: Plan #RIght multilobar pneumonia, likely due to aspiration * on IV zosyn * on room air * breathing treatment with bronchodilators. * titrate oxygen to maintain sats >90% * sputum cultures pending * #Dysphagia due to history of throat cancer * He is on nothing by mouth and has a PEG tube in place. Appears it is more functional scale we have radiology before beeping. He was also recently on clindamycin for possible aspiration pneumonia. * GI consulted. No suggestion about G-tube but patient does not want G-tube as he does not want to be on continuous tube feeds but is okay with bolus tube feeds. * await GI rec's * he is usually on Jevity DVT prophylaxis: heparin Charges/Coding Visit Charges Inpatient E&M: 49733 Subs Hosp L2
[2023-02-02] MEDS: Morphine 4 MG/ML Syringe IV (15:42)
--- NOTE | 2023-02-02 19:09 | EX.PCM.CON.G ---
HPI Consult Data Date of Consult: 02/02/23 HPI Narrative Reason for Consultation: Aspiration pneumonia HPI Narrative: LORETA CHING, is a 77 M who presents to the hospital with increasing fatigue and shortness of breath as well as chills that worsened today. 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 He has had other episodes of aspiration pneumonia that he believes is secondary to liquids that he was taken by mouth. The symptoms started over the last 1 to 2 weeks and have progressively been getting worse. He does have a history of throat cancer and has a PEG tube and has been noticing that over this time he has been having more reflux. Symptoms been ongoing for the past 4 days. He states anytime he tries to take any tube feeds either vomits or has diarrhea. [place] had given him [place] prescription for Zithromax and clindamycin to use if he gets sick. He started taking this on Tuesday but has not had significant proved in his symptoms. [facility] Medical History Former smoker History of head or neck cancer Pulmonary emphysema Rotator cuff arthropathy Throat cancer Home Medications tramadol 50 mg tablet 50 mg feeding tube Q8H PRN Pain 09/23/21 [History Last Taken 01/30/23] nutritional supplements 0.06 gram-1.5 kcal/mL oral liquid (Osmolite 1.5 Ray) 710 ml feeding tube TID nutrition 11/07/22 [History Last Taken 02/01/23] Allergy/AdvReac Type Severity Reaction Status Date / Time Penicillins AdvReac Other Verified 02/01/23 16:12 Family History Other Heart disease Social History Smoking Status: Former smoker ROS Constitutional Constitutional: Reports chills, fever(s), malaise and weakness; Denies anorexia, change in weight or night sweats Eyes Eyes: Denies blurry vision, change in vision, discharge from eye(s) or eye pain Cardiovascular Cardiovascular: Reports dyspnea on exertion; Denies chest pain, claudication, edema or palpitations Respiratory/Chest Respiratory/Chest: Reports shortness of breath at rest and shortness of breath with exertion; Denies cough or hemoptysis Gastrointestinal Gastrointestinal: Reports diarrhea, nausea and vomiting; Denies abdominal pain, constipation, hematemesis, hematochezia or melena Genitourinary Genitourinary: Denies dysuria, hematuria, urinary frequency, urinary hesitancy, urinary incontinence or urinary urgency Musculoskeletal Musculoskeletal: Denies back pain, joint pain, joint stiffness, joint swelling, myalgias or neck pain Neurologic Neurologic: Denies abnormal gait, abnormal speech, dizziness, focal weakness, headache(s), loss of vision, numbness, other visual disturbances, paresthesias, syncope or tingling Psychiatric Psychiatric: Denies anxiety, cognitive impairment, depression, irritability, mood swings or suicidal ideation Endocrine Endocrinology: Denies change in body appearance, cold intolerance, excessive sweating, heat intolerance, polydipsia or polyuria Hematologic/Lymphatic Hematologic/Lymphatic: Denies none, anemia, easy bleeding, easy bruising or lymphadenopathy Allergic/Immunologic Allergic/Immunologic: Denies rhinitis, urticaria, eczemia or asthma Physical Exam Const alert, oriented x3 and no apparent distress General Appearance: cooperative HEENT normocephalic, head/scalp atraumatic, moist oral mucous membranes and oropharynx normal Eyes PERRL and EOMs intact bilaterally Neck no lymphadenopathy, supple and no JVD Lymph Lymphatic: no lymphadenopathy noted and no lymphedema noted Resp Resp Narrative: mildly diminished breath sounds bibasally, no wheezes or crackles. On room air. Cardio regular rate, regular rhythm, S1 normal heart sound, S2 normal heart sound and no murmurs GI normal to inspection, nondistended, normoactive bowel sounds, soft to palpation, non-tender and non-distended GI Narrative: Shaun button in place Extremity normal capillary refill, no clubbing, cyanosis or edema and no calf tenderness Skin General Skin Exam: no breakdown Neuro CN's II-XII intact bilaterally, no focal motor deficits, no sensory deficits noted and deep tendon reflexes 2+ bilaterally Motor Exam: strength 5/5 throughout and general weakness Psych thought process normal and cooperative Appearance: appropriate Lab / Micro Data 02/02/23 06:17 02/02/23 06:17 Labs: Laboratory Results - last 24 hr 02/02/23 06:17: WBC 11.4 H, RBC 3.53 L, Hgb 11.1 L, Hct 34.0 L, MCV 96.3 H, MCH 31.4, MCHC 32.6, RDW Std Deviation 43.4, RDW Coeff of Livan 12.4, Plt Count 174, MPV 10.9, Immature Gran % (Auto) 0.500, Neut % (Auto) 81.3 H, Lymph % (Auto) 9.2 L, [place] % (Auto) 8.7, Eos % (Auto) 0.1, Baso % (Auto) 0.2, Absolute Neuts (auto) 9.3 H, Absolute Lymphs (auto) 1.05, Nucleated RBC % 0, Sodium 137, Potassium 3.5, Chloride 104, Carbon Dioxide 31.0, Anion Gap 2 L, BUN 21 H, Creatinine 0.51 L, Estim Creat Clear Calc 45.38, Est GFR (MDRD) Af Amer 202, Est GFR (MDRD) Non-Af 167, BUN/Creatinine Ratio 41.2 H, Glucose 109 H, Calcium 8.3 L Micro: Microbiology 02/01/23 16:34 Nasal Secretion SARS-CoV-2 & FLU Antigen (Rapid) - Final Assessment & Plan Assessment/Plan (1) Pneumonia: QUALIFIERS: Pneumonia type: aspiration pneumonia Aspiration pneumonia type: unspecified Laterality: right Lung location: lower lobe of lung Qualified Code(s): J69.0 - Pneumonitis due to inhalation of food and vomit PLAN: Plan 77-year-old gentleman with history of throat cancer status post surgery and radiation with upper airway stricture and esophageal stricture status post PEG tube placement with frequent aspiration pneumonia. - Right multilobular pneumonia-presumed to be secondary to aspiration-patient is currently on IV therapy - nausea and vomiting-likely secondary to gastroparesis associated with PEG tube. I discussed possibly placing a J-tube or GJ tube and he would require continuous feedings. He does not want that but he does want his PEG tube exchanged so we will do that tomorrow and look in his stomach to see if there is any signs of gastric outlet obstruction that may be contributing to aspiration. Charges/Coding Visit Charges Inpatient E&M: 44354 Init Hosp L3
--- NOTE | 2023-02-02 20:14 | NURSING ---
Patient educated about NPO status. Patient said he is taking orally less than a sip of water. This RN stressed to patient that he is not supposed to have anything by mouth. No swallowing of water. He already has aspiration pneumonia and taking PO is likely the cause. Patient said, If I don't [take in small amounts of oral fluids], I can't talk. This RN discussed thinking about potentially changing his code status to DNR-CC in order to have what he wanted. Patient is aware of that option, but does not want to go that route.
[2023-02-02] MEDS: NON-FORMULARY GT (20:21)
[2023-02-03] VITALS (17 sets, daily range): BP systolic 65–141; BP diastolic 48–85; PULSE 85–108; RESP 16–24; TEMP 36.4–36.8; O2SAT 90–100; BMI 18.7
[2023-02-03] MEDS: Morphine 4 MG/ML Syringe IV (00:44)
[2023-02-03] MEDS: 0.9% Normal Saline (1000mL) 1,000 ML 125 ML IV ×3 (03:18→17:19)
[2023-02-03] MEDS: 0.9% Normal Saline (250mL Bag) 250 ML 15 ML IV (05:36)
[2023-02-03] MEDS: Piperacil/Tazobactam 3.375 GM in 0.9% Normal Saline (50mL MB+) 50 ML IV ×3 (05:36→21:42)
[2023-02-03 06:20] LABS: Absolute Lymphocyte Count 1.05 X10^3/uL (0.83-4.51); Absolute Neutrophil Count 8.2 X10^3/uL (2.0-7.7); Basophil# 0.03 X10^3/uL; Basophil% 0.3 % (0-1); Eosinophil# 0.03 X10^3/uL; Eosinophils% 0.3 % (0-5); Hematocrit 33.5 % (40-54); Hemoglobin 10.8 g/dL (13.0-16.5); Lymphocyte # 1.05 X10^3/ul (0.83-4.51); Lymphocyte % 10.2 % (19-41); Mean Corp Hgb Conc 32.2 g/dL (32-36); Mean Corpuscular Volume 96.3 fL (80-94); Mean Platelet Vol. 10.7 fl (6.2-12.0); Monocyte# 0.94 X10^3/uL; Monocyte% 9.1 % (0-10); NRBC Flagged by Analyzer 0 % (0-5); Neutrophil # 8.18 X10^3/uL (2.7-7.7); Neutrophil % 79.3 % (47-70); Platelet Count 188 K/mm3 (150-450); RBC Distribution Width CV 12.3 % (11.6-14.6); RBC Distribution Width SD 42.8 fl (35.1-43.9); Red Blood Count 3.48 M/mm3 (4.6-6.2); White Blood Count 10.3 K/mm3 (4.4-11.0)
[2023-02-03 06:34] LABS: Partial Thromboplast Time 35.3 Seconds (24.1-36.2)
[2023-02-03 06:57] LABS: Anion Gap 6 (5-15); BUN 16 mg/dL (7-18); BUN/Creat Ratio 33.3 RATIO (10-20); Calcium,Total 8.2 mg/dL (8.5-10.1); Chloride 102 mmol/L (98-107); Creatinine, Serum 0.48 mg/dL (0.70-1.30); EST Glomerular Filtration Rate 179 mL/min (>60); Est Glom Filt Rate - Afr Amer 217 mL/min (>60); Estimated Creatinine Clearance 45.38 ml/min; Glucose 101 mg/dL (74-106); Potassium 3.3 mmol/L (3.5-5.1); Sodium Level 137 mmol/L (136-145)
[2023-02-03] MEDS: Ipratropium/Albuterol Sulfate 3 ML AMPUL.NEB INHALATION ×2 (07:34→19:42)
--- NOTE | 2023-02-03 09:02 | CT_ITS ---
STUDY: CTA CHEST REASON FOR EXAM: Male, 77 years old. Rule out PE. RADIATION DOSAGE (If Supplied By Facility): CTDIvol = ( 4.80 ) mGy, DLP = ( 134.72 ) mGycm TECHNIQUE: The examination was performed with the intravenous administration of IV 100mL Isovue-370. Post-processing of the angiographic images was performed, with multiplanar reformation and 3D reconstruction. Individualized dose optimization techniques were used for this CT. COMPARISON: Comparison is made with prior study dated November 07, 2022 and prior chest radiograph dated February 01, 2023. FINDINGS: Normal enhancement of the main pulmonary artery and right and left pulmonary arteries. Normal enhancement of the bilateral peripheral pulmonary arteries. There is no demonstrated pulmonary embolism. There is atherosclerotic calcification of the aortic arch with tortuosity. There is no demonstrated aortic dissection. There are calcifications of the coronary arteries. Normal mediastinum. Mildly enlarged right hilar lymph node. The largest lymph node measures 1.9 cm. Normal visualized trachea and bronchi. There is elevation of the right hemidiaphragm. Infiltration in the posterior aspect of the right upper lobe. Consolidation in the right middle lobe as well as in the right lower lobe with a small right pleural effusion. There is volume loss in the right hemithorax. Mild degree of linear atelectasis at the left lung base. Normal chest wall structures. Normal osseous structures. A PEG tube is seen within the body of the stomach. Mildly dilated gallbladder. 5 cm x 4.5 cm cyst in the upper pole of the left kidney. CT/CTA Chest W/WO Contrast IMPRESSION: No evidence of bone embolism. Consolidation in the posterior aspect of the right upper lobe as well as the right middle lobe and right lower lobes. Small right pleural effusion. Mildly enlarged right hilar lymph nodes. Electronically Signed: Lazaro Freedman MD at 9:22 EDT ,
--- NOTE | 2023-02-03 09:07 | CASEMGMT ---
[facility] to [facility], left message for Maximo pt CM on pt status.
--- NOTE | 2023-02-03 09:43 | PN_ITS ---
Subjective Subjective Patient seen and examined. He complains of some left sided chest pain which he describes as pleuritic. He had no other active complaints. Review of systems is otherwise negative. He is for EGD today to evaluate for gastric outlet obstruction and also to have his Shaun button changed today. He has remained hemodynamically stable. Objective Data Objective Data Vital Signs: Vital Signs Temp Pulse Resp BP Pulse Ox O2 Del Method O2 Flow Rate 97.5 F L 94 20 H 136/85 H 96 Nasal Cannula 4 02/03/23 08:27 02/03/23 08:27 02/03/23 08:27 02/03/23 08:27 02/03/23 05:40 02/03/23 08:27 02/03/23 08:27 Oxygen Flow Rate (L/min) 4 Oxygen Delivery Method Nasal Cannula Weight: 116 lb 2.938 oz Body Mass Index (BMI) 18.7 Intake & Output: Intake and Output for Last 24 Hours 02/01/23 02/02/23 02/03/23 23:59 23:59 23:59 Intake Total 2057.25 / 2057. 2891.67 / 2891.67 1078 / 1078 Output Total 250 / 250 300 / 300 Balance 2057.25 / 2057.25 2641.67 / 2641.67 778 / 778 Lab / Micro Data 02/03/23 05:40 02/03/23 05:40 Labs: Laboratory Results - last 24 hr 02/03/23 05:40: WBC 10.3, RBC 3.48 L, Hgb 10.8 L, Hct 33.5 L, MCV 96.3 H, MCH 31.0, MCHC 32.2, RDW Std Deviation 42.8, RDW Coeff of Livan 12.3, Plt Count 188, MPV 10.7, Immature Gran % (Auto) 0.800, Neut % (Auto) 79.3 H, Lymph % (Auto) 10.2 L, [place] % (Auto) 9.1, Eos % (Auto) 0.3, Baso % (Auto) 0.3, Absolute Neuts (auto) 8.2 H, Absolute Lymphs (auto) 1.05, Nucleated RBC % 0, APTT 35.3, Sodium 137, Potassium 3.3 L, Chloride 102, Carbon Dioxide 29.0, Anion Gap 6, BUN 16, Creatinine 0.48 L, Estim Creat Clear Calc 45.38, Est GFR (MDRD) Af Amer 217, Est GFR (MDRD) Non-Af 179, BUN/Creatinine Ratio 33.3 H, Glucose 101, Calcium 8.2 L Micro: Microbiology 02/01/23 18:21 Urine, Clean Catch Urine Culture - Final Culture exhibits no growth. 02/01/23 16:34 Nasal Secretion SARS-CoV-2 & FLU Antigen (Rapid) - Final Radiography Diagnostic Testing: Radiology Impression Chest CTA 02/03/23 09:02 IMPRESSION: No evidence of bone embolism. Consolidation in the posterior aspect of the right upper lobe as well as the right middle lobe and right lower lobes. Small right pleural effusion. Mildly enlarged right hilar lymph nodes. Electronically Signed: Lazaro Freedman MD at 9:22 EDT , Physical Exam Const alert, oriented x3, no apparent distress and average body habitus Constitutional Narrative: Patient has hoarse speech General Appearance: cooperative, well kempt and well developed Orientation / Consciousness: awake, oriented to person, oriented to place and oriented to time HEENT normocephalic, head/scalp atraumatic, moist oral mucous membranes and oropharynx normal Eyes PERRL, EOMs intact bilaterally and conjunctivae normal Neck no lymphadenopathy, supple, no JVD, thyroid normal and no carotid bruits General: trachea midline Lymph Lymphatic: no lymphadenopathy noted and no lymphedema noted Resp normal respiratory effort, no retractions and no use of accessory muscles Resp Narrative: mildly diminished breath sounds bibasally, no wheezes or crackles. On 4L of oxygen Auscultation: rales left lower; Negative for rhonchi or wheezes Cardio regular rate, regular rhythm, S1 normal heart sound, S2 normal heart sound, no murmurs, no rub and no gallops GI normal to inspection, nondistended, normoactive bowel sounds, soft to palpation, non-tender and non-distended GI Narrative: Shaun button in place Extremity normal capillary refill, no clubbing, cyanosis or edema and no calf tenderness Skin no rashes or lesions noted General Skin Exam: no breakdown Neuro oriented x3, CN's II-XII intact bilaterally, moves all extremities, no focal motor deficits, no sensory deficits noted and deep tendon reflexes 2+ bilaterally Sensorium / Orientation: awake, alert, oriented to person, oriented to place and oriented to time Speech: speech normal Motor Exam: strength 5/5 throughout and general weakness Psych thought process normal, cooperative and affect normal Appearance: appropriate Assessment & Plan Assessment/Plan (1) Pneumonia: QUALIFIERS: Aspiration pneumonia type: unspecified Laterality: right Lung location: lower lobe of lung Pneumonia type: aspiration pneumonia Qualified Code(s): J69.0 - Pneumonitis due to inhalation of food and vomit (2) Hypoxia: (3) Dehydration: PLAN: Plan #RIght multilobar pneumonia, likely due to aspiration * on IV zosyn * on 4L of oxygen by nasal canula. Usually doesn't wear oxygen. * hes also complaining of some pleuritic chest pain on the left. Will get CTA chest to rule out a PE * CT of the chest was negative for PE but showed consolidation in the posterior aspect of the right upper lobe as well as the right middle and right lower lobes and small right pleural effusion with mildly enlarged right hilar lymph nodes. * Is a likely due to the aspiration pneumonia. Continue IV Zosyn. Breathing treatments bronchodilators. Titrate oxygen to maintain saturation above 90%. * breathing treatment with bronchodilators. * titrate oxygen to maintain sats >90% * sputum cultures pending * #Dysphagia due to history of throat cancer * He is on nothing by mouth and has a PEG tube in place. Appears it is more functional scale we have radiology before beeping. He was also recently on clindamycin for possible aspiration pneumonia. * Patient doesnt want a J tube as he doesnt want to be on continuous tube feed. GI on board. and wants to do EGD today to evaluate for gastric outlet obstruction, then to get the Shaun button changed. * he is usually on Jevity DVT prophylaxis: heparin Charges/Coding Visit Charges Inpatient E&M: 09637 Subs Hosp L2
[2023-02-03] MEDS: Potassium Chloride 10mEq/100mL 10 MEQ/100 ML IV.SOLN. 100 MEQ IV BOLUS ×3 (10:35→12:47)
--- NOTE | 2023-02-03 13:17 | OP.EGD_ITS ---
Patient Name: Chandrakant Case Procedure Date: 02/03/2023 12:52 PM Date of : 1945 Age: 77 Procedure: Upper GI endoscopy Indications: Dysphagia Providers: Cedric Machado DO Medicines: Monitored Anesthesia Care Patient Profile: This is a 77 year old male. Refer to note in patient chart for documentation of history and physical. Patient has symptoms of dysphagia with both liquids and solids. Complications: No immediate complications. Procedure: Pre-Anesthesia Assessment: - Prior to the procedure, a History and Physical was performed, and patient medications and allergies were reviewed. The patient is competent. The risks and benefits of the procedure and the sedation options and risks were discussed with the patient. All questions were answered and informed consent was obtained. Patient identification and proposed procedure were verified by the physician in the pre-procedure area. Mental Status Examination: alert and oriented. Airway Examination: normal oropharyngeal airway and neck mobility. Respiratory Examination: clear to auscultation. CV Examination: normal. Prophylactic Antibiotics: The patient does not require prophylactic antibiotics. Prior Anticoagulants: The patient has taken no anticoagulant or antiplatelet agents. ASA Grade Assessment: III - A patient with severe systemic disease. After reviewing the risks and benefits, the patient was deemed in satisfactory condition to undergo the procedure. The anesthesia plan was to use monitored anesthesia care (MAC). Immediately prior to administration of medications, the patient was re-assessed for adequacy to receive sedatives. The heart rate, respiratory rate, oxygen saturations, blood pressure, adequacy of pulmonary ventilation, and response to care were monitored throughout the procedure. The physical status of the patient was re-assessed after the procedure. After obtaining informed consent, the endoscope was passed under direct vision. Throughout the procedure, the patient's blood pressure, pulse, and oxygen saturations were monitored continuously. The gastroscope was introduced through the mouth, and advanced to the second part of duodenum. The upper GI endoscopy was accomplished without difficulty. The patient tolerated the procedure well. Scope In: 1:02:39 PM Scope Out: 1:07:06 PM Total Procedure Duration Time 0 hours 4 minutes 27 seconds Findings: Abnormal motility was noted at the cricopharyngeus. The cricopharyngeus was abnormal. There is a decrease in motility of the esophageal body. The distal esophagus/lower esophageal sphincter is spastic, but gives up passage to the endoscope. Tertiary peristaltic waves are noted. A guidewire was placed and the scope was withdrawn. Dilation was performed with a Savary dilator with no resistance at 54 Fr. The dilation site was examined following endoscope reinsertion and showed moderate improvement in luminal narrowing. Estimated blood loss was minimal. The Z-line was irregular and was found 40 cm from the incisors. Biopsies were taken with a cold forceps for histology. Verification of patient identification for the specimen was done. Estimated blood loss was minimal. The entire examined stomach was normal. Diffuse severe mucosal changes characterized by discoloration were found in the entire duodenum. Impression: - Abnormal esophageal motility. Dilated. - Z-line irregular, 40 cm from the incisors. Biopsied. - Normal stomach. 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 Recommendation: - [facility]. - Full liquid diet today. - Continue present medications. - Await pathology results. Procedure Code(s): --- Professional --- 32459, Esophagogastroduodenoscopy, flexible, transoral; with insertion of guide wire followed by passage of dilator(s) through esophagus over guide wire 66084, 59, Esophagogastroduodenoscopy, flexible, transoral; with biopsy, single or multiple CPT copyright 2021 [employer]. All rights reserved. The codes documented in this report are preliminary and upon pants closer review may be revised to meet current compliance requirements. Cedric Machado DO 02/03/2023 1:16:57 PM This report has been signed electronically. Number of Addenda: 1 Note Initiated On: 02/03/2023 12:52 PM Addendum Number: 1 Addendum Date: 02/22/2023 2:27:37 PM This is an addendum to the procedure that was done on 02/03/2023. We did take out his previous place PEG tube which was malfunctioning and replaced it with a 20 [place] Shaun PEG tube. Cedric Machado DO 02/22/2023 2:28:22 PM This report has been signed electronically.
--- NOTE | 2023-02-03 13:17 | OP.CCLET_ITS ---
02/22/2023 [facility] Re : Upper GI endoscopy procedure for Chandrakant [facility] This procedure was performed on February. My impressions and recommendations are as follows: Impressions : - Abnormal esophageal motility. Dilated. - Z-line irregular, 40 cm from the incisors. Biopsied. - Normal stomach. 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 Recommendations : - [facility]. - Full liquid diet today. - Continue present medications. - Await pathology results. My findings are described in the full procedure note, which is enclosed. If I can be of further assistance, please feel free to contact me at . Sincerely, Cedric Machado, 02/03/2023 1:16:57 PM This report has been signed electronically.
[2023-02-03] MEDS: 0.9% Saline Lock 10 ML Syringe IV ×2 (14:37→21:42)
[2023-02-03] MEDS: NON-FORMULARY GT ×2 (14:38→21:41)
[2023-02-03] MEDS: Heparin Injection (Vial) 5,000 UNIT/ML VIAL 5000 UNIT SC (21:47)
[2023-02-04] VITALS (16 sets, daily range): BP systolic 85–124; BP diastolic 55–83; PULSE 93–98; RESP 16–24; TEMP 36.6–36.9; O2SAT 75–98
[2023-02-04] MEDS: 0.9% Normal Saline (1000mL) 1,000 ML 125 ML IV ×2 (00:56→09:37)
[2023-02-04] MEDS: Piperacil/Tazobactam 3.375 GM in 0.9% Normal Saline (50mL MB+) 50 ML IV (05:41)
[2023-02-04] MEDS: NON-FORMULARY GT ×2 (05:42→09:44)
[2023-02-04 07:10] LABS: Absolute Lymphocyte Count 0.83 X10^3/uL (0.83-4.51); Absolute Neutrophil Count 5.5 X10^3/uL (2.0-7.7); Basophil# 0.02 X10^3/uL; Basophil% 0.3 % (0-1); Eosinophil# 0.08 X10^3/uL; Eosinophils% 1.1 % (0-5); Hematocrit 33.9 % (40-54); Lymphocyte # 0.83 X10^3/ul (0.83-4.51); Lymphocyte % 11.9 % (19-41); Mean Corp Hgb Conc 32.4 g/dL (32-36); Mean Corpuscular Hgb 31.1 pg (27.0-32.0); Mean Corpuscular Volume 95.8 fL (80-94); Mean Platelet Vol. 10.9 fl (6.2-12.0); Monocyte# 0.49 X10^3/uL; NRBC Flagged by Analyzer 0 % (0-5); Neutrophil # 5.48 X10^3/uL (2.7-7.7); Neutrophil % 78.3 % (47-70); Platelet Count 208 K/mm3 (150-450); RBC Distribution Width SD 42.5 fl (35.1-43.9); Red Blood Count 3.54 M/mm3 (4.6-6.2)
[2023-02-04] MEDS: Ipratropium/Albuterol Sulfate 3 ML AMPUL.NEB INHALATION ×2 (07:23→13:34)
[2023-02-04 07:43] LABS: Anion Gap 8 (5-15); BUN 14 mg/dL (7-18); BUN/Creat Ratio 29.7 RATIO (10-20); Calcium,Total 8.1 mg/dL (8.5-10.1); Chloride 102 mmol/L (98-107); Creatinine, Serum 0.47 mg/dL (0.70-1.30); EST Glomerular Filtration Rate 183 mL/min (>60); Est Glom Filt Rate - Afr Amer 221 mL/min (>60); Estimated Creatinine Clearance 45.38 ml/min; Glucose 155 mg/dL (74-106); Potassium 2.9 mmol/L (3.5-5.1); Sodium Level 136 mmol/L (136-145)
[2023-02-04] MEDS: Potassium Chloride 10mEq/100mL 10 MEQ/100 ML IV.SOLN. 80 MEQ IV BOLUS ×4 (09:37→13:27)
--- NOTE | 2023-02-04 10:06 | NURSING ---
pt tolerating the diluted krider
--- NOTE | 2023-02-04 11:17 | DCINST_ITS ---
Discharge Instructions Diet Discharge Diet: Low fat / Low cholesterol Activity Discharge Activity: Return to Normal Activity Weight Bearing Status: Weight bearing as tolerated Dressing / Incision Call your doctor if you observe: Fever of 101 or Higher, Shortness of breath, Dizziness, Swelling in the ankles, Chest pain and Increased palpitations (irregular heartbeat) Follow Up Care Test Results: Test results from this visit will be discussed in further detail at your follow- up appointment, if applicable. Discharge Plan Admission Admit Date/Time: 02/01/23 18:54 Primary Reason for Your Visit: aspiration pneumonia, Shaun button Attending Provider: Juliette Cárdenas Primary Care Provider: [facility] Consulting Providers: Hever Kimball Discharge Orders/Prescriptions Prescriptions: New amoxicillin-pot clavulanate 875-125 mg tablet 1 tab feeding tube Q12H Qty: 14 0RF Rx Instructions: crush meds and administer via the Shaun button PEG ube Continued tramadol 50 mg Tablet 50 mg feeding tube Q8H PRN (Reason: Pain) Osmolite 1.5 Ray 0.06 gram-1.5 kcal/mL liquid 710 ml feeding tube TID Rx Instructions: Pt takes 2 bottles per feed three times a day 355ml/ bottle Referrals / Follow Up: [facility] [Primary Care Provider] - Within 2 Weeks Disposition Disposition (needs filled in before D/C Order can be placed): Home, Self Care
--- NOTE | 2023-02-04 11:18 | DS.PCM_ITS ---
Providers Date of Admission: 02/01/23 Date of Discharge: 02/04/23 Primary Care Physician: [facility] Consultations 02/01/23 19:52 Consult: Gastroenterology Routine Consulting Provider: [facility] Reason for Consult: N/V EMERGENT Consult: No MD Notified: Yes Date Notified: 02/01/23 Time Notified: 18:57 Method of Notification: Verbal Reason For Visit: MULTILOBULAR PNEUMONIA,DEHYDRATION,NAUSEA Diagnosis Discharge Diagnosis (1) Pneumonia: Status: Acute Code(s): J18.9 - Pneumonia, unspecified organism Qualifiers: Aspiration pneumonia type: unspecified Laterality: right Lung location: lower lobe of lung Pneumonia type: aspiration pneumonia Qualified Code(s): J69.0 - Pneumonitis due to inhalation of food and vomit (2) Hypoxia: Status: Acute Code(s): R09.02 - Hypoxemia (3) Dehydration: Status: Acute Code(s): E86.0 - Dehydration Plan #RIght multilobar pneumonia, likely due to aspiration * on IV zosyn * on 4L of oxygen by nasal canula. Usually doesn't wear oxygen. * hes also complaining of some pleuritic chest pain on the left. Will get CTA chest to rule out a PE * CT of the chest was negative for PE but showed consolidation in the posterior aspect of the right upper lobe as well as the right middle and right lower lobes and small right pleural effusion with mildly enlarged right hilar lymph nodes. * Is a likely due to the aspiration pneumonia. Continue IV Zosyn. Breathing treatments bronchodilators. Titrate oxygen to maintain saturation above 90%. * breathing treatment with bronchodilators. * titrate oxygen to maintain sats >90% * sputum cultures pending * #Dysphagia due to history of throat cancer * He is on nothing by mouth and has a PEG tube in place. Appears it is more functional scale we have radiology before beeping. He was also recently on clindamycin for possible aspiration pneumonia. * Patient doesnt want a J tube as he doesnt want to be on continuous tube feed. GI on board. and wants to do EGD today to evaluate for gastric outlet obstruction, then to get the Shaun button changed. * he is usually on Jevity DVT prophylaxis: heparin Medications at Discharge Home Medications tramadol 50 mg tablet 50 mg feeding tube Q8H PRN Pain 09/23/21 nutritional supplements 0.06 gram-1.5 kcal/mL oral liquid (Osmolite 1.5 Ray) 710 ml feeding tube TID nutrition 11/07/22 amoxicillin 875 mg-potassium clavulanate 125 mg tablet 1 tab feeding tube Q12H #14 tabs 02/04/23 Hospital Course Operations None Procedures None and Peg tube placement Summary of Care Provided Minutes Spent on Discharge: 55 Hospital Course: Patient is a 77-year-old male with a past medical history as outlined which includes throat cancer status posttreatment. Patient is n.p.o. and has a Shaun tube in for his tube feeds. He came in with a complaint of persistent nausea and vomiting after tube feeds with fever and chills for several days prior to admission. He had assisted shortness of breath. He had been placed on antibiotics by his PEG tube for several days prior to admission by [facility] PCP [facility]. However his symptoms have persisted so he came in because he was concerned about aspiration pneumonia which she has had several times in the past. On admission he had elevated white cell count of 16.7. Chest x-ray showed infiltrates in the right upper and lower lung. He was on 2 L of oxygen. He was admitted and managed for hypoxia due to recurrent aspiration pneumonia and malfunctioning Shaun button. Gastroenterology was consulted. Patient was placed on ceftriaxone and azithromycin initially but this was switched to IV Zosyn for broader coverage due to concerns about aspiration pneumonia. Gastroenterology reviewed him. Initial recommendation was for J-tube but patient did not want to be on continuous tube feeds which would be required with a G-tube in place. 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 There was no evidence of gastric outlet obstruction. Patient's Shaun button was changed. He was resumed on his tube feeds which he administered himself successfully. Patient felt much better and was white cell count trended downwards. He was discharged home on 02/04/2023. He was discharged on oral Augmentin to be administered via his PEG tube. He was to crush the medications and mix it with some fluid and administered via the PEG tube. He was discharged on a 10-day course of Augmentin. He also required 2 L of oxygen and was discharged home with this. He is to follow-up with his primary care doctor within 1 to 2 weeks. He is also to follow-up with gastroenterology. Patient seen and examined prior to discharge. He felt well and had no complaints. He had an uneventful night. Review of symptoms otherwise negative. Labs and vitals reviewed. Medication reviewed and reconciled. Physical Exam Const alert, oriented x3, no apparent distress and average body habitus Constitutional Narrative: Patient has hoarse speech General Appearance: cooperative, comfortable, well kempt and well developed Orientation / Consciousness: awake, oriented to person, oriented to place and oriented to time HEENT normocephalic, head/scalp atraumatic, hearing grossly normal bilaterally, moist oral mucous membranes and oropharynx normal Mouth: oral and palatal mucosa normal Eyes PERRL, EOMs intact bilaterally and conjunctivae normal Neck no lymphadenopathy, supple, no JVD, thyroid normal and no carotid bruits General: trachea midline Lymph Lymphatic: no lymphadenopathy noted and no lymphedema noted Resp normal respiratory effort, no retractions and no use of accessory muscles Resp Narrative: mildly diminished breath sounds bibasally, no wheezes or crackles. On 1L of oxygen Auscultation: rales left lower; Negative for rhonchi or wheezes Cardio regular rate, regular rhythm, S1 normal heart sound, S2 normal heart sound, no murmurs, no rub and no gallops GI normal to inspection, nondistended, normoactive bowel sounds, soft to palpation, non-tender and non-distended GI Narrative: Shaun button in place Extremity normal capillary refill, no clubbing, cyanosis or edema and no calf tenderness Skin no rashes or lesions noted General Skin Exam: no breakdown Neuro oriented x3, CN's II-XII intact bilaterally, moves all extremities, no focal motor deficits, no sensory deficits noted and deep tendon reflexes 2+ bilaterally Sensorium / Orientation: awake, alert, oriented to person, oriented to place and oriented to time Speech: speech normal Motor Exam: strength 5/5 throughout and general weakness Psych thought process normal, cooperative and affect normal Appearance: appropriate Weight / BMI Weight Weight: 116 lb 2.938 oz Body Mass Index (BMI) 18.7 ABG / Lab / Microbiology Data 02/04/23 06:05 02/04/23 06:05 Laboratory: Laboratory Results - last 24 hr 02/04/23 06:05: WBC 7.0, RBC 3.54 L, Hgb 11.0 L, Hct 33.9 L, MCV 95.8 H, MCH 31.1, MCHC 32.4, RDW Std Deviation 42.5, RDW Coeff of Livan 12.0, Plt Count 208, MPV 10.9, Immature Gran % (Auto) 1.400 H, Neut % (Auto) 78.3 H, Lymph % (Auto) 11.9 L, [place] % (Auto) 7.0, Eos % (Auto) 1.1, Baso % (Auto) 0.3, Absolute Neuts (auto) 5.5, Absolute Lymphs (auto) 0.83, Nucleated RBC % 0, Sodium 136, Potassium 2.9 L, Chloride 102, Carbon Dioxide 26.0, Anion Gap 8, BUN 14, Creatinine 0.47 L, Estim Creat Clear Calc 45.38, Est GFR (MDRD) Af Amer 221, Est GFR (MDRD) Non-Af 183, BUN/Creatinine Ratio 29.7 H, Glucose 155 H, Calcium 8.1 L Microbiology: Microbiology 02/01/23 18:21 Urine, Clean Catch Urine Culture - Final Culture exhibits no growth. 02/01/23 16:34 Nasal Secretion SARS-CoV-2 & FLU Antigen (Rapid) - Final D/C Instructions Discharge Diet: Low fat / Low cholesterol Discharge Activity: Return to Normal Activity Weight Bearing Status: Weight bearing as tolerated Call your doctor if you observe: Fever of 101 or Higher, Shortness of breath, Dizziness, Swelling in the ankles, Chest pain and Increased palpitations (irregular heartbeat) Meaningful Use Info Meaningful Use Diagnoses (Choose all that apply): None applicable Discharge Plan Admission Admit Date/Time: 02/01/23 18:54 Primary Reason for Your Visit: aspiration pneumonia, Shaun button Attending Provider: Juliette Cárdenas [facility] Provider[facility] Consulting Providers: Hever Kimball Discharge Orders/Prescriptions Prescriptions: New amoxicillin-pot clavulanate 875-125 mg tablet 1 tab feeding tube Q12H Qty: 14 0RF Rx Instructions: crush meds and administer via the Shaun button PEG ube Continued tramadol 50 mg Tablet 50 mg feeding tube Q8H PRN (Reason: Pain) Osmolite 1.5 Ray 0.06 gram-1.5 kcal/mL liquid 710 ml feeding tube TID Rx Instructions: Pt takes 2 bottles per feed three times a day 355ml/ bottle Referrals / Follow Up: [facility] [Primary Care Provider] - Within 2 Weeks Disposition Disposition (needs filled in before D/C Order can be placed): Home, Self Care Charges/Coding Visit Charges Inpatient E&M: 51535 Disch Hosp >30min
--- NOTE | 2023-02-04 11:34 | CASEMGMT ---
Addendum entered by Natalee Jeffers 02/04/23 14:46: ISAC GANDARA into pt room, he and aware that [facility] will be bringing a portable tank for his oxygen. Pt and deny further needs. Addendum entered by Natalee Jeffers 02/04/23 13:59: Pt qualifies for home oxygen. ISAC GANDARA into pt room. Pt states he would like his oxygen through [facility] after being provided a local in network list of DME companies. Then pt changed his mind and states he would like it through the [facility]. TC to [facility], spoke with Em. She states the referral needed to be there by 1:50pm for delivery today. Reviewed the entire contract with pt and pt signed all aspects. Unable to get rx signed in time. Referal sent to [facility] via [facility] at this time. TC to [place] and she is aware that referral was sent via [facility]. Pt does have a pox at home. Addendum entered by Natalee Jeffers 02/04/23 12:16: Spoke with pt nurse who states pt is fine with oxygen when he is awake. She has discussed possible sleep study with him. Original Note: ISAC GANDARA into pt room, pt sitting up in bed in no distress. Pt states he feels safe and strong enough to go home. Pt states he has been doing his feedings for 2 years. Pt on oxygen currently but planned to be weaned off. ISAC GANDARA to follow for oxygen, otherwise pt denies any homegoing needs.
--- NOTE | 2023-02-04 13:50 | PHA.DC_ITS ---
Pharmacy [facility] Pharmacy Service has performed discharge medication reconciliation and counseling for this patient. The patient's discharge medication list was reviewed for discrepancies and discrepancies were resolved. The patient was counseled on the following discharge medications and changes in medications for homegoing were reviewed. The Reason for Use, instructions for use, and potential side effects were reviewed for all new medications. The patient's questions regarding all of their medications were answered. 1. Augmentin 875 BID x 7 days The patient was able to verbally demonstrate an understanding of their discharge medications. Medications at Discharge Home Medications tramadol 50 mg tablet 50 mg feeding tube Q8H PRN Pain 09/23/21 nutritional supplements 0.06 gram-1.5 kcal/mL oral liquid (Osmolite 1.5 Ray) 710 ml feeding tube TID nutrition 11/07/22 amoxicillin 875 mg-potassium clavulanate 125 mg tablet 1 tab feeding tube Q12H #14 tabs 02/04/23
== END 2023-02-04 15:55 | disposition home or self-care (01) | DRG 178 ==
LOC: ED 19:13 → MS3 19:27
PROVIDERS: Anesthesiology; Internal Medicine Gastroenterology; Admitting Provider Internal Medicine; Emergency Provider Emergency Medicine; Visit Provider Student in an Organized Health Care Education/Training Program
PROC: 0DJ08ZZ Inspection of Upper Intestinal Tract, Via Natural or Artificial Opening Endoscopic (ICD-10-PCS; CPT 43235; principal; 2023-02-03 13:00)
DX: J69.0 Pneumonitis due to inhalation of food and vomit (principal); K94.23 Gastrostomy malfunction; E86.0 Dehydration; K22.4 Dyskinesia of esophagus; K31.89 Other diseases of stomach and duodenum; R09.02 Hypoxemia; Z85.21 Personal history of malignant neoplasm of larynx; Z87.891 Personal history of nicotine dependence; Z23 Encounter for immunization
CPT/HCPCS: 36415; 71045; 71275; 80048; 80053; 81001; 83605; 85025; 85610; 85730; 87040; 87086; 87428; 93005; 94640; 94762; 97802; 97803; 99252; 99285; Q9967; 90662; A4216; G0463; J2405

== ENCOUNTER 2023-05-25 09:57 | Day surgery (SDC) | payer OTHER, SELFPAY ==
[2023-05-25] VITALS (7 sets, daily range): BP systolic 72–182; BP diastolic 55–95; PULSE 17–73; RESP 16–85; TEMP 36.4–36.6; O2SAT 95–99; BMI 18.8
[2023-05-25] MEDS: Lactated Ringers 1,000 ML 15 ML IV (10:18)
--- NOTE | 2023-05-25 10:34 | HP.PCM_ITS ---
History and Physical Date of Admission: 05/25/23 77 M who presents to the office today for Prior imaging: ? Barium swallow 05.06.21 mild circumferential narrowing of distal esophagus at GE junction with inability to pass tablet; tortuous aortic arch and descending thoracic aorta. *[facility] hospitalization 8.09.24-8 History of laryngeal caner s/p radiation and surgery with placement of PEG tube (sole source of nutrition) with aspiration pneumonia and hypoxia requiring hospitalization; GI consulted 11.09.22 for management of loose stools, abdominal pain and dysphagia. Endoscopy not performed as he was improving and wished to discharge home. ? CTA chest mild consolidation R lower lung. OV 11.22.22 doing well since discharge, he is still recovering. There are no GI concerns at this time. He does well with tube feeds and keeps head elevated following feed. Start reglan and doxycycline. ? CXR 11.22.22 right atelectasis; less pronounced than previously [facility] hospitalization 02.01.23-11 for pneumonia, hypoxia and dehydration with dysphagia. PEG presence noted. EGD 02.03.23 abnormal cricopharyngeus motility, decreased with tertiary peristaltic waves, Savary dilator 54F; irregular Zline; severe duodenal mucosal changes with discoloration, melanosis duodenitis OV 05.18.23 continues to have severe dysphagia, drinks water PRN. PEG is primary source of nutrition. Notes excess phlegm in esophagus that is expelled with cough; enteral feed with gravity feed over 15 minutes, one carton every two hours, with increased abdominal pressure he will experience regurgitation of feed. ROS Const Constitutional: No anorexia, fatigue, fever(s), weight change or sleep problems Eyes Eyes: No change in vision ENT ENT: No abnormal hearing, difficulty swallowing, mouth lesions, tongue swelling or throat swelling Resp Respiratory: No cough or shortness of breath Cardio Cardiology: No chest pain at rest, chest pain with exertion, shortness of breath or dyspnea on exertion Gastro GI: No difficulty swallowing Genitourinary Male: No difficulty urinating or burning urination Musc Musculoskeletal: No joint pain, joint swelling, muscle weakness or decreased muscle mass Skin Skin: No hair loss in leg, yellowing of the eye, itchy eyes, rash, skin ulcer or skin swelling Neuro Neurology: No abnormal hearing, abnormal movements, confusion, unsteady gait/balance or memory loss Psych Psychiatric: No anxiety, No confusion and No memory loss Endo Endocrine: No fatigue or weight change Aller/Imm Allergy/Immunologic: No itchy eyes, throat swelling or tongue swelling Sameer/Lymp Hematologic/Lymphatic: No easy bleeding, easy bruising or enlarged lymph nodes Exam Const General: cooperative and comfortable Nutritional Appearance: average body habitus and well nourished HENMT Head: normal to inspection Ears: hearing grossly normal bilaterally Nose: external nose normal Face and sinus: normal facial exam Mouth: oral mucosae normal Throat: posterior oropharynx normal Eyes General: appearance normal, both eyes and all related structures Neck Neck: normal visual inspection Chest Chest palpation & inspection: normal inspection of the chest and normal palpation of entire chest wall Resp Effort & Inspection: normal respiratory effort Auscultation: Bilateral: Clear to Auscultation Cardio Palpation: normal PMI Rate: regular rate Rhythm: regular rhythm GI Inspection: normal to inspection Auscultation: normal bowel sounds Percussion: normal to percussion Palpation: no hepatosplenomegaly Skin General: no rashes or lesions noted Neuro General: patient alert Extrem General: normal to inspection Psych Affect: normal affect Quality Reporting Tobacco Screening ([facility] 138) Smoking Status: Former smoker Assessment and Plan Assessment and Plan (1) Status post insertion of percutaneous endoscopic gastrostomy (PEG) tube: Status: Chronic (2) History of pleural effusion: Status: Chronic Plan: 77-year-old gentleman with history of laryngeal cancer status post laryngectomy status post radiation with esophageal dysphagia and placement of a PEG tube. He was discovered to have recurrent aspiration pneumonia. #RIght lower lobe pneumonia * treated with azithromycin * urine for strep and legionella are negaitve * I discussed with him the possibility of putting a J-tube which he is amenable to. He does not want to have it changed to a LARY-J tube because he believes that he experienced aspiration ammonia secondary to liquid that he was taken orally and it may not be secondary to his PEG tube. * He does not want to undergo GJ tube placement at this time #Dysphagia * due to throat cancer,. Currently NPO except for occasional liquids * uses Jevity and has increased the feedings to Q3hrs * We will have him undergo an upper endoscopy to evaluate his upper GI tract for dilation of his upper esophageal sphincter which causes oropharyngeal and esophageal dysphagia. I have examined the patient and the H&P has been reviewed. There are no clinical changes since date of exam.
--- NOTE | 2023-05-25 11:00 | EGD_PTH ---
PATHOLOGY RESULTS PATIENT: LORETA CHING LOC: EN U#:[id number] AGE/SX: 77/M ROOM: RE05/25/[address]: Dr. Cedric Machado DO : 1945 BED: DIS: 05/25/2023 SPEC #: [id number] RECD: 05/25/23 12:50 STATUS: OSBALDORex FIGUEROA #: [id number] DAYAN: 05/25/23 11:[address]: Cedric Machado DEPT: SURGICAL PATHOLOGY RECD BY: Deneen Saab ENTERED: 05/25/23 12:50 SP TYPE: EGD BIOPSY OTHR DR: [facility] Tissues: Esophagus, NOS Procedures: Surgery Specimen Level IV HEADER OPERATION: EGD with biopsy and bougie dilation PRE-OP DIAGNOSIS: Status post insertion of PEG tube TISSUE SUBMITTED: Proximal esophagus MICROSCOPIC DIAGNOSIS Proximal esophagus, biopsy: Fragments of benign squamous mucosa. No evidence of inflammation. AM:kari 05/26/2023 MICROSCOPIC DESCRIPTION Slides are reviewed. GROSS DESCRIPTION Received in fixative is one container labeled with the patient's name and designated proximal esophagus. The specimen consists of multiple irregular fragments of light garza soft tissue that in aggregate measure 1.0 x 0.5 x 0.1 cm. The specimen is totally submitted in one cassette. / SJ:kari 05/25/2023 TC:5 CPT: 41871
--- NOTE | 2023-05-25 11:33 | OP.EGD_ITS ---
Patient Name: Chandrakant Case Procedure Date: 05/25/2023 11:02 AM Date of : 1945 Age: 77 Procedure: Upper GI endoscopy Indications: Dysphagia Providers: Cedric Machado DO Referring MD: Cedric Machado DO Medicines: Monitored Anesthesia Care Patient Profile: This is a 77 year old male. Refer to note in patient chart for documentation of history and physical. Patient has symptoms of chronic dysphagia. Complications: No immediate complications. Procedure: Pre-Anesthesia Assessment: - Prior to the procedure, a History and Physical was performed, and patient medications and allergies were reviewed. The patient is competent. The risks and benefits of the procedure and the sedation options and risks were discussed with the patient. All questions were answered and informed consent was obtained. Patient identification and proposed procedure were verified by the physician in the pre-procedure area. Mental Status Examination: alert and oriented. Airway Examination: normal oropharyngeal airway and neck mobility. Respiratory Examination: clear to auscultation. CV Examination: normal. Prophylactic Antibiotics: The patient does not require prophylactic antibiotics. Prior Anticoagulants: The patient has taken no anticoagulant or antiplatelet agents. ASA Grade Assessment: III - A patient with severe systemic disease. After reviewing the risks and benefits, the patient was deemed in satisfactory condition to undergo the procedure. The anesthesia plan was to use monitored anesthesia care (MAC). Immediately prior to administration of medications, the patient was re-assessed for adequacy to receive sedatives. The heart rate, respiratory rate, oxygen saturations, blood pressure, adequacy of pulmonary ventilation, and response to care were monitored throughout the procedure. The physical status of the patient was re-assessed after the procedure. After obtaining informed consent, the endoscope was passed under direct vision. Throughout the procedure, the patient's blood pressure, pulse, and oxygen saturations were monitored continuously. The Endoscope was introduced through the mouth, and advanced to the second part of duodenum. The upper GI endoscopy was accomplished without difficulty. The patient tolerated the procedure well. Scope In: 11:17:38 AM Scope Out: 11:26:22 AM Total Procedure Duration Time 0 hours 8 minutes 44 seconds Findings: One benign-appearing, intrinsic severe stenosis was found 17 to 22 cm from the incisors. The stenosis was traversed. A guidewire was placed and the scope was withdrawn. Dilation was performed with a Savary dilator with no resistance at 60 Fr. The dilation site was examined following endoscope reinsertion and showed moderate improvement in luminal narrowing. Estimated blood loss was minimal. Biopsies were taken with a cold forceps for histology. Verification of patient identification for the specimen was done. Estimated blood loss was minimal. There was evidence of an intact gastrostomy with a patent G-tube present in the gastric body. This was characterized by healthy appearing mucosa. The first portion of the duodenum was normal. Impression: - Benign-appearing esophageal stenosis. Dilated. Biopsied. - Intact gastrostomy with a patent G-tube present characterized by healthy appearing mucosa. - Normal first portion of the duodenum. Recommendation: - Discharge patient to home. - Resume previous diet. - Continue present medications. - Await pathology results. Procedure Code(s): --- Professional --- 60775, Esophagogastroduodenoscopy, flexible, transoral; with insertion of guide wire followed by passage of dilator(s) through esophagus over guide wire 29043, 59,51, Esophagogastroduodenoscopy, flexible, transoral; with biopsy, single or multiple CPT copyright 2021 [employer]. All rights reserved. The codes documented in this report are preliminary and upon direct marketing representative review may be revised to meet current compliance requirements. Cedric Machado DO 05/25/2023 11:32:53 AM This report has been signed electronically. Number of Addenda: 0 Note Initiated On: 05/25/2023 11:02 AM
--- NOTE | 2023-05-25 11:33 | OP.CCLET_ITS ---
05/25/2023 [facility] Re : Upper GI endoscopy procedure for Chandrakant [facility] This procedure was performed on Thursday, May 25, 2023. My impressions and recommendations are as follows: Impressions : - Benign-appearing esophageal stenosis. Dilated. Biopsied. - Intact gastrostomy with a patent G-tube present characterized by healthy appearing mucosa. - Normal first portion of the duodenum. Recommendations : - Discharge patient to home. - Resume previous diet. - Continue present medications. - Await pathology results. My findings are described in the full procedure note, which is enclosed. If I can be of further assistance, please feel free to contact me at . Sincerely, Cedric Machado, 05/25/2023 11:32:53 AM This report has been signed electronically.
== END 2023-05-25 12:12 | disposition home or self-care (01) ==
LOC: EN 09:57 → AC 09:59
PROVIDERS: Visit Provider Internal Medicine Gastroenterology
PROC: 0DJ08ZZ Inspection of Upper Intestinal Tract, Via Natural or Artificial Opening Endoscopic (ICD-10-PCS; CPT 43235; principal; 2023-05-25 10:55)
DX: K22.2 Esophageal obstruction (principal); Z93.1 Gastrostomy status; Z90.02 Acquired absence of larynx; Z85.21 Personal history of malignant neoplasm of larynx; Z87.891 Personal history of nicotine dependence
CPT/HCPCS: 43248; 43239; 88305; J7120; C1769; J2405

== ENCOUNTER 2023-06-01 10:47 | Inpatient (IN) | payer OTHER, SELFPAY ==
[2023-06-01] VITALS (13 sets, daily range): BP systolic 87–152; BP diastolic 54–97; PULSE 84–111; RESP 14–20; TEMP 36.6–37.1; O2SAT 90–100; BMI 42.3; BMI 20.4; BMI 19.1
--- NOTE | 2023-06-01 10:58 | ED.VIS.DYS ---
HPI History of Present Illness Chief Complaint: Shortness of Breath Informant: patient Onset/Context/Timing Onset: Yesterday Context: gradual Timing: Continuous Quality: Positive for Dyspnea on exertion Worsened by: Exertion Relieved by: Nothing Associated Symptoms cough, rhinorrhea, fever and clear sputum; Negative for post nasal drip, ear pain, sore throat, chills, white sputum, yellow sputum or green sputum Chest Pain: Positive for None Narrative Narrative: Patient presents with shortness of breath that began last night. Patient states it is gotten progressively worse. Patient states he has had some recent nausea and vomiting. Patient states he has a history of throat and tongue cancer and is susceptible to aspiration pneumonia. Patient states that 1 week ago he had esophageal dilatation. Patient states that since that time he has been having some more nausea and vomiting. Patient admits to a cough with some clear sputum. Patient also admits to some rhinorrhea. Patient admits to a low-grade fever of 100.2. Patient denies any chest pain. [facility] Medical History Cancer Difficulty swallowing Former smoker History of head or neck cancer History of throat cancer Leg cramps Pulmonary emphysema Rotator cuff arthropathy Throat cancer Wears dentures Wears glasses Wears hearing aid Home Medications tramadol 50 mg tablet 50 mg feeding tube Q8H PRN Pain 09/23/21 [History Last Taken 05/24/23] nutritional supplements 0.06 gram-1.5 kcal/mL oral liquid (Osmolite 1.5 Ray) 710 ml feeding tube TID nutrition 11/07/22 [History Last Taken 05/24/23] Lactobacillus acidophilus 10 billion cell capsule (Probiotic) 100 mmu cells PO QODAY 05/20/23 [History Last Taken 05/24/23] Allergy/AdvReac Type Severity Reaction Status Date / Time No Known Allergies Allergy Verified 06/01/23 10:48 Family History Other Heart disease Surgical History History of esophagogastroduodenoscopy (EGD) History of rotator cuff surgery History of surgical procedure on mouth Social History Smoking Status: Former smoker ROS ROS ED Constitutional Constitutional ED: Reports fever(s); Denies chills Eyes Eyes: Reports blurry vision; Denies diplopia ENT ENT ED: Reports rhinorrhea; Denies sore throat Cardiovascular Cardiovascular: Denies chest pain or palpitations Respiratory/Chest Respiratory/Chest: Reports cough and dyspnea Gastrointestinal Gastrointestinal: Reports nausea and vomiting Genitourinary Genitourinary ED: Denies dysuria or hematuria Musculoskeletal Musculoskeletal: Reports back pain; Denies neck pain Integumentary Denies abscess or rash Neurologic Neurologic: Reports headache(s); Denies weakness Allergic/Immunologic Allergic/Immunologic ED: Denies mouth swelling or urticaria EXAM Physical Exam Const Vital Signs: 06/01/23 10:48 06/01/23 11:35 06/01/23 10:50 Temperature 98.7 F 98 F Temperature Source Temporal Temporal Pulse Rate 111 H 109 H Respiratory Rate 20 H 16 Respiratory Effort Respiratory Depth Respiratory Pattern Blood Pressure 152/97 H 139/87 H Blood Pressure Mean 115 104 Pulse Ox 90 100 100 Oxygen Delivery Method Room Air Nasal Cannula Nasal Cannula Oxygen Flow Rate (L/min) 4 4 06/01/23 11:45 06/01/23 11:50 06/01/23 12:00 Temperature 98 F 98.7 F Temperature Source Temporal Oral Pulse Rate 99 87 Respiratory Rate 18 17 Respiratory Effort Normal Non-Labored Respiratory Depth Normal Respiratory Pattern Normal Blood Pressure 139/74 H 93/73 Blood Pressure Mean 95 79 Pulse Ox 97 96 Oxygen Delivery Method Nasal Cannula Nasal Cannula Nasal Cannula Oxygen Flow Rate (L/min) 4 4 4 06/01/23 12:38 06/01/23 13:13 Temperature Temperature Source Pulse Rate 89 84 Respiratory Rate 18 17 Respiratory Effort Respiratory Depth Respiratory Pattern Blood Pressure 87/54 L 108/74 Blood Pressure Mean 65 85 Pulse Ox 95 96 Oxygen Delivery Method Nasal Cannula Nasal Cannula Oxygen Flow Rate (L/min) 4 4 Positive well nourished and well developed General Appearance ED: well developed and NAD HEENT Reports moist mucous membranes Neck supple, no meningeal signs and no JVD Resp normal respiratory effort Auscultation: diminished lung sounds diffuse Cardio regular rhythm Rate: tachycardic GI non-tender and non-distended Palpation: soft Extremity normal to inspection General Extremety ED: Negative for edema or tenderness General Extremity: Negative for edema Neuro oriented x3, CN's II-XII intact bilaterally and no sensory deficits noted Reginald Coma Scale: document GCS findings Spontaneous Obeys Commands Oriented 15 Sensorium / Orientation: alert Motor Exam: strength 5/5 throughout Psych mental status grossly normal MDM MDM MDM Narrative Medical decision making narrative: Differential diagnosis includes aspiration pneumonia, cardiac dysrhythmia, cardiac ischemia, pulmonary embolism, viral infection, and anxiety. Chest x-ray will be obtained to assess for pneumonia. EKG will be obtained to assess for cardiac dysrhythmia and cardiac ischemia. CBC will be obtained to assess for leukocytosis and anemia. Basic metabolic profile will be obtained to assess for electrolyte abnormality and renal function. D-dimer will be obtained to assess for pulmonary embolism. High-sensitivity troponin will be obtained to assess for cardiac ischemia. Lab Data Attestation: I reviewed the patient's lab results. Lab results narrative: CBC was reviewed. There is a leukocytosis of 14.3. Hemoglobin was 11.7 and hematocrit 36.1. Platelets were normal. Basic metabolic profile was reviewed and was within normal limits. D-dimer was reviewed and was normal. High-sensitivity troponin was reviewed and was normal. Serum lactate was reviewed and was normal. Labs: Laboratory Results - last 24 hr 06/01/23 06/01/23 11:15 12:55 WBC 14.3 H RBC 3.63 L Hgb 11.7 L Hct 36.1 L MCV 99.4 H MCH 32.2 H MCHC 32.4 RDW Std Deviation 46.5 H RDW Coeff of Livan 12.6 Plt Count 178 MPV 11.3 Immature Gran % (Auto) 0.500 Neut % (Auto) 88.8 H Lymph % (Auto) 5.8 L Faulkner % (Auto) 4.8 Eos % (Auto) 0.0 Baso % (Auto) 0.1 Absolute Neuts (auto) 12.7 H Absolute Lymphs (auto) 0.83 Nucleated RBC % 0 D-Dimer Quant (PE/DVT) 0.43 Sodium 135 L Potassium 4.1 Chloride 99 Carbon Dioxide 32.0 Anion Gap 4 L BUN 39 H Creatinine 0.73 Estim Creat Clear Calc 92.48 Est GFR (MDRD) Af Amer 134 Est GFR (MDRD) Non-Af 111 BUN/Creatinine Ratio 53.5 H Glucose 136 H Lactic Acid 1.0 Calcium 9.3 Troponin I High Sens 12 Radiography Diagnostic Testing: Clinical Impression(s) from Imaging Studies Chest X-Ray 06/01/23 11:35 IMPRESSION: Patchy airspace disease is seen in the right lower lobe. Pneumonic infiltrate should be rule out. Radiographic follow-up is recommended. Electronically Signed: Lazaro Freedman MD at 11:51 EST , Brain CT 06/01/23 11:44 IMPRESSION: Chronic involutional changes of the brain. Mild degree of mucosal thickening of the right maxillary sinus and ethmoid sinuses. Electronically Signed: Lazaro Freedman MD at 12:15 EST , PA and lateral chest x-ray was obtained. There are 2 views. On my independent interpretation, there is a right lower lobe infiltrate. Bony thorax is normal. There is no pneumothorax. There is no cardiomegaly noted. Radiologist also interpreted the x-ray and agrees. CT scan of the brain was obtained. There is no acute bleed or infarct. There are chronic involutional changes noted. There is mild degree of mucosal thickening of the right maxillary sinus and ethmoid sinuses. This was interpreted by the radiologist was also dependently reviewed by myself. Additional Tests and Interventions Additional Tests or Interventions: Patient developed a sudden onset of sharp pain in his head. Because of this, CT scan of the brain was obtained to assess for intracranial bleeding. Treatment and Re-Evaluation :: Patient's blood pressure did drop and triggered a sepsis alert. Because of this, patient was given 30 cc/kg bolus of normal saline. Patient is feeling better after this. Patient was started on Zosyn. Case was discussed with the hospitalist. He will admit the patient to his service. Patient understood and was agreeable with the plan. All questions were answered. Discharge Plan Triage Chief Complaint: Shortness of Breath ED Provider: Hernan Syed Dx/Rx/DC Orders Clinical Impression: Aspiration pneumonia, History of head or neck cancer, Hypoxia Prescriptions: No Action tramadol 50 mg Tablet 50 mg feeding tube Q8H PRN (Reason: Pain) Osmolite 1.5 Ray 0.06 gram-1.5 kcal/mL liquid 710 ml feeding tube TID Rx Instructions: Pt takes 2 bottles per feed three times a day 355ml/ bottle Probiotic 10 billion cell capsule 100 mmu cells PO QODAY [facility] Care Provider: [facility] [facility] [Primary Care Provider] - Disposition Disposition: Acute Care Hospital [facility]
[2023-06-01] MEDS: 0.9% Normal Saline (1000mL) 1,000 ML 1000 ML IV (11:21)
--- NOTE | 2023-06-01 11:30 | ED.RN ---
Pt spo2 level reading 26 with a good wave form. Pt more lethargic, not answering questions. Pt's skin tone remained pink, no discoloration noted. O2 applied, Spo2 sensor moved to ear, RT and MD to room. Spo2 level up to 100% on non-rebreather after several minutes. Pt now more responsive.
[2023-06-01 11:31] LABS: Absolute Lymphocyte Count 0.83 X10^3/uL (0.83-4.51); Absolute Neutrophil Count 12.7 X10^3/uL (2.0-7.7); Basophil# 0.02 X10^3/uL; Basophil% 0.1 % (0-1); Hematocrit 36.1 % (40-54); Hemoglobin 11.7 g/dL (13.0-16.5); Lymphocyte # 0.83 X10^3/ul (0.83-4.51); Lymphocyte % 5.8 % (19-41); Mean Corp Hgb Conc 32.4 g/dL (32-36); Mean Corpuscular Hgb 32.2 pg (27.0-32.0); Mean Corpuscular Volume 99.4 fL (80-94); Mean Platelet Vol. 11.3 fl (6.2-12.0); Monocyte# 0.69 X10^3/uL; Monocyte% 4.8 % (0-10); NRBC Flagged by Analyzer 0 % (0-5); Neutrophil # 12.72 X10^3/uL (2.7-7.7); Neutrophil % 88.8 % (47-70); Platelet Count 178 K/mm3 (150-450); RBC Distribution Width CV 12.6 % (11.6-14.6); RBC Distribution Width SD 46.5 fl (35.1-43.9); Red Blood Count 3.63 M/mm3 (4.6-6.2); White Blood Count 14.3 K/mm3 (4.4-11.0)
--- NOTE | 2023-06-01 11:35 | RAD_ITS ---
STUDY: X-RAY CHEST REASON FOR EXAM: Male, 77 years old. Shortness of breath and weakness. History of throat and tongue cancer. TECHNIQUE: PA and lateral views of the chest. COMPARISON: Comparison is made with prior study February 01, 2023. FINDINGS: EKG electrodes are seen. Stable scarring in the medial aspect of the right lung apex most likely secondary to prior radiation therapy. Increased airspace disease in the right lower lobe. Pneumonic infiltrates should be ruled out. Normal size heart. Normal mediastinum and tevin. Normal visualized pulmonary arteries. There is atherosclerotic calcification of the aortic arch with tortuosity. There is demineralization of the osseous structures. Possible subluxation of the right shoulder joint. There is no demonstrated abnormality of the visualized soft tissue structures of the upper abdomen. RAD/Chest PA and Lateral IMPRESSION: Patchy airspace disease is seen in the right lower lobe. Pneumonic infiltrate should be rule out. Radiographic follow-up is recommended. Electronically Signed: Lazaro Freedman MD at 11:51 EST ,
[2023-06-01 11:41] LABS: D-Dimer Quantitative (DVT/PE) 0.43 FEU/ug/m (0.27-0.49)
[2023-06-01 11:43] LABS: Anion Gap 4 (5-15); BUN 39 mg/dL (7-18); BUN/Creat Ratio 53.5 RATIO (10-20); Calcium,Total 9.3 mg/dL (8.5-10.1); Chloride 99 mmol/L (98-107); Creatinine, Serum 0.73 mg/dL (0.70-1.30); EST Glomerular Filtration Rate 111 mL/min (>60); Est Glom Filt Rate - Afr Amer 134 mL/min (>60); Estimated Creatinine Clearance 92.48 ml/min; Glucose 136 mg/dL (74-106); Potassium 4.1 mmol/L (3.5-5.1); Sodium Level 135 mmol/L (136-145); Troponin-I HS 12 pg/mL (3.0-78.0)
--- NOTE | 2023-06-01 11:44 | CT_ITS ---
STUDY: CT BRAIN WITHOUT CONTRAST REASON FOR EXAM: Male, 77 years old. Headache. Weakness. History of head and neck carcinoma. RADIATION DOSAGE (If Supplied By Facility): CTDIvol = ( 44.99 ) mGy, DLP = ( 796.11 ) mGycm TECHNIQUE: Transaxial CT imaging of the brain was performed without administration of intravenous contrast material. Individualized dose optimization techniques were used for this CT. COMPARISON: No relevant priors. FINDINGS: Normal soft tissue structures. Normal calvarium. There is mild cerebral atrophy with widening of the extra-axial spaces and ventricular dilatation. There are areas of decreased attenuation within the white matter tracts of the supratentorial brain, consistent with microvascular disease changes. There are small punctate calcifications of the basal ganglia which are seen in the aging brain as a normal variant. Normal brainstem. Normal cerebellum. There is no intracranial hemorrhage. There are no findings of an acute ischemic infarction. Atherosclerotic calcification of the vertebral arteries and cavernous portions of the internal carotid arteries bilaterally. Mild degree of mucosal thickening of the right maxillary sinus as well as the ethmoid sinuses. CT/Brain/Head without Contrast IMPRESSION: Chronic involutional changes of the brain. Mild degree of mucosal thickening of the right maxillary sinus and ethmoid sinuses. Electronically Signed: Lazaro Freedman MD at 12:15 [facility] ,
[2023-06-01] MEDS: Morphine 4 MG/ML Syringe IV (11:51)
[2023-06-01] MEDS: 0.9% Normal Saline (1000mL) 1,000 ML 999 ML IV ×2 (12:53→14:24)
[2023-06-01] MEDS: Piperacil/Tazobactam 4.5 GM in 0.9% Normal Saline (100mL MB+) 100 ML IV (13:15)
--- NOTE | 2023-06-01 14:02 | HP.PCM.HOS_ITS ---
HPI - General General Date of Admission: 06/01/23 Date of Service: 06/01/23 Chief Complaint: Shortness of breath HPI Narrative LORETA CHING, is a 77 M who presents to the emergency room at [facility] complaining of shortness of breath since last night, patient had several episodes of vomiting last night and feels he may have aspirated. Patient is n.p.o. usually except for sips of water because of a history of head neck cancer, he has a G-tube in place and receives his nutrition through that. He recently had an esophageal dilation. Labs obtained in the emergency room showed an elevated white blood cell count of 14.3, hemoglobin was 11.7. Chemistry profile was unremarkable. Patient had a chest x-ray performed which showed an infiltrate in the right lower lung. Patient required 4 L of oxygen via nasal cannula to maintain pulse ox above 90%. Patient will be admitted to [facility], pulse ox will be monitored, he will be placed on Zosyn, labs will be monitored, he will be given aerosol treatments. [facility] Medical History Cancer Difficulty swallowing Former smoker History of head or neck cancer History of throat cancer Leg cramps Pulmonary emphysema Rotator cuff arthropathy Throat cancer Wears dentures Wears glasses Wears hearing aid Home Medications tramadol 50 mg tablet 50 mg feeding tube Q8H PRN Pain 09/23/21 [History Last Taken 05/24/23] nutritional supplements 0.06 gram-1.5 kcal/mL oral liquid (Osmolite 1.5 Ray) 710 ml feeding tube TID nutrition 11/07/22 [History Last Taken 05/24/23] Lactobacillus acidophilus 10 billion cell capsule (Probiotic) 100 mmu cells PO QODAY 05/20/23 [History Last Taken 05/24/23] Allergy/AdvReac Type Severity Reaction Status Date / Time No Known Allergies Allergy Verified 06/01/23 10:48 Family History Other Heart disease Surgical History History of esophagogastroduodenoscopy (EGD) History of rotator cuff surgery History of surgical procedure on mouth Social History Smoking Status: Former smoker ROS Constitutional Constitutional: Denies anorexia, change in weight, chills, fatigue, fever(s), night sweats or weakness Eyes Eyes: Denies blurry vision, change in vision, discharge from eye(s) or eye pain Cardiovascular Cardiovascular: Reports dyspnea on exertion; Denies chest pain, claudication, edema or palpitations Respiratory/Chest Respiratory/Chest: Reports dyspnea, shortness of breath at rest and shortness of breath with exertion; Denies cough or hemoptysis Gastrointestinal Gastrointestinal: Denies abdominal pain, constipation, diarrhea, hematemesis, hematochezia, melena, nausea or vomiting Genitourinary Genitourinary: Denies dysuria, hematuria, urinary frequency, urinary hesitancy, urinary incontinence or urinary urgency Musculoskeletal Musculoskeletal: Denies back pain, joint pain, joint stiffness, joint swelling, myalgias or neck pain Neurologic Neurologic: Denies abnormal gait, abnormal speech, dizziness, focal weakness, headache(s), loss of vision, numbness, other visual disturbances, paresthesias, syncope or tingling Psychiatric Psychiatric: Denies anxiety, cognitive impairment, depression, irritability, mood swings or suicidal ideation Endocrine Endocrinology: Denies change in body appearance, cold intolerance, excessive sweating, heat intolerance, polydipsia or polyuria Hematologic/Lymphatic Hematologic/Lymphatic: Denies none, anemia, easy bleeding, easy bruising or lymphadenopathy Allergic/Immunologic Allergic/Immunologic: Denies rhinitis, urticaria, eczemia or asthma Vital Signs Vital Signs Vital Signs: 06/01/23 10:48 06/01/23 11:35 06/01/23 10:50 Temperature 98.7 F 98 F Temperature Source Temporal Temporal Pulse Rate 111 H 109 H Respiratory Rate 20 H 16 Respiratory Effort Respiratory Depth Respiratory Pattern Blood Pressure 152/97 H 139/87 H Blood Pressure Mean 115 104 Pulse Ox 90 100 100 Oxygen Delivery Method Room Air Nasal Cannula Nasal Cannula Oxygen Flow Rate (L/min) 4 4 06/01/23 11:45 06/01/23 11:50 06/01/23 12:00 Temperature 98 F 98.7 F Temperature Source Temporal Oral Pulse Rate 99 87 Respiratory Rate 18 17 Respiratory Effort Normal Non-Labored Respiratory Depth Normal Respiratory Pattern Normal Blood Pressure 139/74 H 93/73 Blood Pressure Mean 95 79 Pulse Ox 97 96 Oxygen Delivery Method Nasal Cannula Nasal Cannula Nasal Cannula Oxygen Flow Rate (L/min) 4 4 4 06/01/23 12:38 06/01/23 13:13 06/01/23 13:43 Temperature 98.2 F Temperature Source Pulse Rate 89 84 86 Respiratory Rate 18 17 14 Respiratory Effort Respiratory Depth Respiratory Pattern Blood Pressure 87/54 L 108/74 99/69 Blood Pressure Mean 65 85 79 Pulse Ox 95 96 97 Oxygen Delivery Method Nasal Cannula Nasal Cannula Oxygen Flow Rate (L/min) 4 4 Weight Weight: 57.4 kg Body Mass Index (BMI) 20.4 Physical Exam Const alert, oriented x3 and no apparent distress General Appearance: cooperative, well kempt and well developed Orientation / Consciousness: awake, oriented to person, oriented to place and oriented to time HEENT normocephalic HEENT Narrative: Patient has evidence of head and neck [id number] he has a tracheostomy, patient has dry mucous membranes Eyes PERRL, EOMs intact bilaterally and conjunctivae normal Neck supple, no JVD, thyroid normal and no carotid bruits General: trachea midline Resp normal respiratory effort, no retractions and no use of accessory muscles Resp Narrative: Breath sounds are diminished bilaterally, occasional expiratory rhonchi are noted bilaterally Auscultation: Negative for rales, rhonchi or wheezes Cardio regular rate, regular rhythm, S1 normal heart sound, S2 normal heart sound, no murmurs, no rub and no gallops GI normal to inspection, nondistended, normoactive bowel sounds, soft to palpation, non-tender and non-distended Extremity no clubbing, cyanosis or edema Skin no rashes or lesions noted General Skin Exam: no breakdown Neuro oriented x3, CN's II-XII intact bilaterally, moves all extremities, no focal motor deficits and no sensory deficits noted Sensorium / Orientation: awake and alert Speech: speech normal Psych affect normal Results Lab / Micro Data 06/01/23 11:15 06/01/23 11:15 Labs: Laboratory Results - last 24 hr 06/01/23 11:15: WBC 14.3 H, RBC 3.63 L, Hgb 11.7 L, Hct 36.1 L, MCV 99.4 H, MCH 32.2 H, MCHC 32.4, RDW Std Deviation 46.5 H, RDW Coeff of Livan 12.6, Plt Count 178, MPV 11.3, Immature Gran % (Auto) 0.500, Neut % (Auto) 88.8 H, Lymph % (Auto) 5.8 L, [place] % (Auto) 4.8, Eos % (Auto) 0.0, Baso % (Auto) 0.1, Absolute Neuts (auto) 12.7 H, Absolute Lymphs (auto) 0.83, Nucleated RBC % 0, D-Dimer Quant (PE/DVT) 0.43, Sodium 135 L, Potassium 4.1, Chloride 99, Carbon Dioxide 32.0, Anion Gap 4 L, BUN 39 H, Creatinine 0.73, Estim Creat Clear Calc 92.48, Est GFR (MDRD) Af Amer 134, Est GFR (MDRD) Non-Af 111, BUN/Creatinine Ratio 53.5 H, Glucose 136 H, Calcium 9.3, Troponin I High Sens 12 06/01/23 12:55: Lactic Acid 1.0 Micro: Microbiology 06/01/23 11:10 Mucosa - Nose SARS-CoV-2, Influenza & RSV (PCR) - Final Imaging Radiology Impression Chest X-Ray 06/01/23 11:35 IMPRESSION: Patchy airspace disease is seen in the right lower lobe. Pneumonic infiltrate should be rule out. Radiographic follow-up is recommended. Electronically Signed: Lazaro Freedman MD at 11:51 EST , Brain CT 06/01/23 11:44 IMPRESSION: Chronic involutional changes of the brain. Mild degree of mucosal thickening of the right maxillary sinus and ethmoid sinuses. Electronically Signed: Lazaro Freedman MD at 12:15 EST , Assessment & Plan Assessment/Plan (1) Aspiration pneumonia: PLAN: Plan 1. Aspiration pneumonia right lower lobe-patient will be admitted to [facility], h e will be monitored on telemetry, pulse ox will be monitored, labs will be repeated, he will receive IV antibiotics and aerosol treatments. #2 hypoxia secondary to #1-oxygen but will be weaned if possible, patient is on no home O2. #3 oropharyngeal dysphagia secondary to previous history of head and neck cancer-patient is n.p.o. except for small sips of water which she uses to moisten his mouth so he can talk, patient receives nutrition through his PEG tube and his medications for his PEG tube. Total clinical time spent by myself addressing the patient's medical issues, reviewing all of his data, and collaborating with patient's care team: 55 minutes Charges/Coding Visit Charges Inpatient E&M: 73860 Init Hosp L2
--- NOTE | 2023-06-01 14:50 | ED.RN ---
CALLED [facility] TO MAKE THEM AWARE OF PT BEING ADMITTED. I WAS NOT ABLE TO REACH ANYONE OR LEAVE A CONFIDENTIAL VOICEMAIL, SO I LEFT A CALLBACK NUMBER TO REACH US FOR MORE INFORMATION.
[2023-06-01] MEDS: 0.9% Normal Saline (1000mL) 1,000 ML 125 ML IV ×2 (15:27→23:38)
[2023-06-01] MEDS: Ipratropium/Albuterol Sulfate 3 ML AMPUL.NEB INHALATION (19:56)
[2023-06-01] MEDS: Heparin Injection (Vial) 5,000 UNIT/ML VIAL 5000 UNIT SC (20:32)
[2023-06-01] MEDS: Piperacil/Tazobactam 3.375 GM in 0.9% Normal Saline (50mL MB+) 50 ML IV (20:32)
[2023-06-01] MEDS: traMADol 50 MG Tablet GT (20:37)
--- OUTSIDE RECORDS SUMMARY | 2023-06-01 21:47 | XMS RPT_ITS | CCD ---
Author Name Unknown Address [address] [place] [address] Organization [facility] Care Team Providers Care Manager Care Management Name Role Phone GARDINER, VU Unavailable Unavailable GARDINER, VU Unavailable Unavailable THEO RODRÍGUEZ Unavailable Unavailable CRISTOPHER PIERRE Unavailable Unavailable THEO RODRÍGUEZ Unavailable Unavailable JAMMOCARLEY ADHAM Unavailable Unavailable LATANYA TELLY Unavailable Unavailable ELISEO, DR CHUY Meyers Primary Care Unavailable ELISEO, DR CHUY Meyers Admitting Unavailable ELISEO, DR CHUY Meyers Attending Unavailable VIOLETTE CASSIDY DO Admitting Unavailable THEO RODRÍGUEZ Referring Unavailable THEO RODRÍGUEZ Consulting Unavailable VIOLETTE CASSIDY DO Attending Unavailable VIOLETTE CASSIDY DO Primary Care Unavailable PROVIDER, UNKNOWN Consulting Unavailable PROVIDER, UNKNOWN Consulting Unavailable PROVIDER, UNKNOWN Consulting Unavailable RAMAKRISHNA BARGER MD Attending Unavailable RAMAKRISHNA BARGER MD Primary Care Unavailable RAMAKRISHNA BARGER MD Admitting Unavailable THEO RODRÍGUEZ Consulting Unavailable CONRADO AGUILAR MD Attending Unavailable CONRADO AGUILAR MD Primary Care Unavailable CONRADO AGUILAR MD Admitting Unavailable PROVIDER, UNKNOWN Consulting Unavailable PROVIDER, UNKNOWN Consulting Unavailable PROVIDER, UNKNOWN Consulting Unavailable Theo Rodríguez Primary Care Provider Theo Rodríguez Primary Care Provider Ramakrishna Barger MD Primary Care Provider [phone] Theo Rodríguez Primary Care Provider NAZIA STAPLES Attending Unavailable RAMAKRISHNA BARGER Primary Care Unavailable THEO RODRÍGUEZ Primary Care Unavailable SARITHA MUSTAFA Attending Unavailable NAZIA STAPLES Referring Unavailable THEO RODRÍGUEZ Primary Care Unavailable NAZIA STAPLES Referring Unavailable RAMAKRISHNA BARGER Primary Care Unavailable NAZIA STAPLES Referring Unavailable NAZIA STAPLES Attending Unavailable RAMAKRISHNA BARGER Primary Care Unavailable RAMAKRISHNA BARGER Primary Care Unavailable SARITHA MUSTAFA Attending Unavailable NAZIA STAPLES Referring Unavailable RAMAKRISHNA BARGER Primary Care Unavailable NAZIA STAPLES Referring Unavailable Allergies Allergy Classification Reported Allergen(s) Allergy Type Date of Onset Reaction(s) Facility (1 source) Penicillin Drug Allergy [facility] Repository (14 sources) Penicillins; 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: [PENICILLINS] Drug Allergy 1 Other: See Comments [facility] Medications Current Medications Medication Drug Class(es) Dates Sig (Normalized) Sig (Original) azithromycin 40 mg/ml oral suspension (1 source) Macrolide Antimicrobial Start: 03-18-2022 End: 03-23-2022 azithromycin (ZITHROMAX) 200 mg/5 mL suspension Indications: Aspiration pneumonia of right upper lobe, unspecified aspiration pneumonia type (HCC) 12.5 mL by PEG route once daily for 5 days. 62.5 mL 0 03/18/2022 03/23/2022 Active Completed/Discontinued Medications Medication Drug Class(es) Dates Sig (Normalized) Sig (Original) [id number] 200 actuat albuterol 0.09 mg/actuat metered dose inhaler (14 sources) beta2-Adrenergic Agonist Start: 12-20-2022 End: 12-20-2022 take 8 puff(s) by inhalation every six hours as needed for wheezing albuterol HFA (PROVENTIL HFA) inhaler Inhale 8 Puffs as instructed every 6 hours as needed for wheezing/shortnes s of breath. 0 12/20/2022 Active Problems Active Problems Problem Classification Problem Date Documented Da te Episodic/Chronic Aspiration pneumonitis; food/vomitus (4 sources) Aspiration pneumonia; 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: [Pneumonitis due to inhalation of food and vomit] Onset: 02-11-2023 Episodic Cancer of head and neck (20 sources) Malignant tumor of tongue; 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: [Malignant neoplasm of tongue, unspecified] Onset: 03-04-2011 Chronic Chronic obstructive pulmonary disease and bronchiectasis (18 sources) Bronchiectasis; 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: [Bronchiectasis, uncomplicated] Onset: 11-27-2021 Chronic Other injuries and conditions due to external causes (3 sources) Pulmonary aspiration of fluid; 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: [Other foreign object in respiratory tract, part unspecified causing other injury, sequela] Episodic Other injuries and conditions due to external causes (1 source) Other foreign object in respiratory tract, part unspecified causing other injury, sequela; 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: [Aspiration of liquid, sequela] Onset: 12-15-2022 Episodic Other lower respiratory disease (5 sources) Multiple nodules of lung; 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: [Other nonspecific abnormal finding of lung field] Episodic Other screening for suspected conditions (not mental disorders or infectious disease) (1 source) Plain X-ray result abnormal; 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: [Abnormal findings on diagnostic imaging of other specified body structures] Chronic Pneumonia (except that caused by tuberculosis or sexually transmitted disease) (3 sources) Infective pneumonia; 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: [Pneumonia, unspecified organism] Episodic Past or Other Problems Problem Classification Problem Date Documented Da te Episodic/Chronic Cancer of head and neck (13 sources) History of malignant neoplasm of tongue; 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: [Personal history of malignant neoplasm of tongue] Onset: 10-13-2011 10-13-2011 Episodic Complication of device; implant or graft (13 sources) Pain finding at anatomical site; 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: [Pain due to other internal prosthetic devices, implants and grafts, initial encounter] Onset: 08-27-2011 08-27-2011 Episodic Other aftercare (13 sources) Long-term current use of anticoagulant; 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: [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] Onset: 10-14-2011 10-14-2011 Episodic Other lower respiratory disease (1 source) Other nonspecific abnormal finding of lung field; 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: [Lung nodules] Onset: 03-16-2022 Episodic Other non-epithelial cancer of skin (13 sources) Squamous cell carcinoma of skin; 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: [Squamous cell carcinoma of skin, unspecified] Onset: 03-04-2011 03-04-2011 Episodic Phlebitis; thrombophlebitis and thromboembolism (13 sources) Thromboembolism of vein; 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: [Acute embolism and thrombosis of unspecified deep veins of unspecified lower extremity] Onset: 10-14-2011 10-14-2011 Episodic Screening and history of mental health and substance abuse codes (17 sources) Ex-cigarette smoker; 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: [Personal history of nicotine dependence] Onset: 11-27-2021 Episodic Results Test Name Value Interpretation Reference Range Facil ity Vital Signs Date Time Vital Sign Value Performing Clinician Joel wahl 12-20-2022 09:25-0400 Body height 167.6 cm Saritha Nehal PA-C Work Phone: [facility] 12-20-2022 09:25-0400 Body weight 53.25 kg Saritha Nehal PA-C Work Phone: [facility] 12-20-2022 09:25-0400 Diastolic blood pressure 72 mm[Hg] Saritha Nehal PA-C Work Phone: [facility] 12-20-2022 09:25-0400 Heart rate 70 /min Saritha Nehal PA-C Work Phone: [facility] 12-20-2022 09:25-0400 Respiratory rate 16 /min Saritha Nehal PA-C Work Phone: [facility] 12-20-2022 09:25-0400 SaO2% (BldA) [Mass fraction] 95 % Saritha Nehal PA-C Work Phone: [facility] 12-20-2022 09:25-0400 Systolic blood pressure 120 mm[Hg] Saritha Nehal PA-C Work Phone: [facility] 06-17-2022 11:34-0400 Body weight 53.52 kg Nazia Staples MD Work Phone: [facility] 06-17-2022 11:34-0400 Diastolic blood pressure 80 mm[Hg] Nazia Staples MD Work Phone: [facility] 06-17-2022 11:34-0400 Heart rate 89 /min Nazia Staples MD Work Phone: [facility] 06-17-2022 11:34-0400 Respiratory rate 15 /min Nazia Staples MD Work Phone: [facility] 06-17-2022 11:34-0400 SaO2% (BldA) [Mass fraction] 100 % Nazia Staples MD Work Phone: [facility] 06-17-2022 11:34-0400 Systolic blood pressure 116 mm[Hg] Nazia Staples MD Work Phone: [facility] 03-18-2022 10:22-0500 Body weight 53.98 kg Saritha Nehal FONG Work Phone: [facility] 11-27-2021 08:41-0400 Body height 167.6 cm Nazia Staples MD Work Phone: [facility] 11-27-2021 08:41-0400 Body temperature 98.4 [degF] Nazia Staples MD Work Phone: [facility] 11-27-2021 08:41-0400 Body weight 51.26 kg Nazia Staples MD Work Phone: [facility] 11-27-2021 08:41-0400 Diastolic blood pressure 82 mm[Hg] Nazia Staples MD Work Phone: [facility] 11-27-2021 08:41-0400 Heart rate 99 /min Nazia Staples MD Work Phone: [facility] 11-27-2021 08:41-0400 Respiratory rate 14 /min Nazia Staples MD Work Phone: [facility] 11-27-2021 08:41-0400 SaO2% (BldA) [Mass fraction] 97 % Nazia Staples MD Work Phone: [facility] 11-27-2021 08:41-0400 Systolic blood pressure 150 mm[Hg] Nazia Staples MD Work Phone: [facility] Encounters Encounter Date Encounter Type Care Provider Facility Start: 03-07-2023 ambulatory Nazia Staples MD Work Phone: Pulmonary Medicine Procedures Date Procedure Procedure Detail Performing Clinician Start: 12-15-2022 Ct thorax w/o contra st material Nazia Staples MD Work Phone: Start: 03-16-2022 Ct thorax w/o contra st material Nazia Staples MD Work Phone: Start: 11-27-2021 Radiologic exam ches t 2 views Nazia Staples MD Work Phone: Start: 07-25-[address] CHUY KENT Plan of Treatment Date Care Activity Detail Author Start: 11-21-2031 Urine microalbumin profile DTaP,Tdap,Td Vaccine (3 - Td or Tdap) [facility] Start: 01-21-2025 Pneumococcal Vaccine: 65+ (3 - PPSV23 or PCV20) Pneumococcal Vaccine: 65+ (3 - PPSV23 or PCV20) [facility] Start: 03-16-2023 Influenza vaccination LUNG CANCER SCREENING [facility] Start: 12-11-2022 Influenza vaccination LUNG CANCER SCREENING [facility] Start: 12-03-2022 Covid-19 Vaccine () Covid-19 Vaccine () [facility] Start: 12-03-2022 Influenza vaccination Influenza Vaccine (#1) [facility] Start: 09-27-2022 End: 07-17-2023 Ct thorax w/o contrast material CT CHEST WO IVCON Radiology Routine Lung nodules Aspiration of liquid, sequela Tongue cancer (HCC) Expected: 09/27/2022, Expires: 07/17/2023 [facility] Work Phone: Immunizations Immunization Date Immunization Notes Care Provider Joey garcía 02-02-2022 influenza, high dose seasonal, preservative-free Saritha Mustafa PA-C Work Phone: [facility] Work Phone: 02-02-2022 influenza virus vacc ine, unspecified formulation Saritha Mustafa PA-C Work Phone: [facility] 02-25-2021 influenza, high dose seasonal, preservative-free Saritha Mustafa PA-C Work Phone: [facility] Work Phone: 01-03-2021 influenza, high dose seasonal, preservative-free Nazia Staples MD Work Phone: [facility] Work Phone: 06-10-2020 COVID-19 vaccine, fu ll dose (MODERNA) Nazia Staples MD Work Phone: [facility] Work Phone: 05-25-2020 COVID-19 vaccine, fu ll dose (MODERNA) Nazia Staples MD Work Phone: [facility] Work Phone: 01-22-2020 pneumococcal conjuga te vaccine, 13 valdorothy Staples MD Work Phone: [facility] Work Phone: 01-19-2005 pneumococcal polysaccharide vaccine, 23 valdorothy Staples MD Work Phone: [facility] Work Phone: Payers Date Payer Category Payer Unknown [id number] 2021 Unknown [id number] 2020 Medicare [id number] 2020 Medicare HUMANA MEDICARE HUMANA MEDICARE PPO [id number] 2020-Present [phone] [address] [address] [place] [address] PPO [id number] 2018 Unknown [id number] 2011 Private Health Insurance [id number] 1944 Unknown [id number] 1944 Unknown [id number] 1944 Unknown [id number] 1944 Unknown [id number] 1944 Unknown [id number] Social History Date Type Detail Facility Start: 11-27-2021 Tobacco smoking stat us NHIS Ex-smoker [facility] End: 01-29-2011 History of tobacco use Current smoker [facility] End: 01-29-2011 History of tobacco use Cigarette Smoker [facility] Start: 11-27-2021 End: 12-20-2022 Cigarettes smoked current (pack per day) - Reported 1.5 [facility] Start: 11-27-2021 Tobacco use and exposure Smoke less tobacco non-user [facility] Start: 11-27-2021 End: 02-11-2023 Alcohol intake Current non-drinker of alcohol (finding) [facility] Start: 03-04-2011 History SDOH Alcohol Comment recovering alcoholic- quit 1987 [facility] Start: 1945 Sex Assigned At Not on file [facility] Start: 11-17-2021 End: 12-04-2021 Exposure to SARS-CoV-2 (event) Not sure [facility] Start: 12-20-2022 End: 02-11-2023 Tobacco use panel [facility] National Score (1-10 0), lower number is lower risk 80 [facility] Clinical Notes 07-30-2020 to 03-07-2023 Nazia Staples MD - 03/07/2023 4:32 PM Saritha Davidson PA-C - 12/20/2022 9:30 AM Joy Alva RT(R) - 12/15/2022 9:20 AM Dyana Staples MD - 11/27/2021 8:45 AM EDT Note Date & Type Note Facility 03-07-2023 Note HNO ID: [id number] Author: Nazia Staples MD Service: ? Author Type: Physician Type: Progress Notes Filed: 03/07/2023 4:34 PM Note Text: Overnight oximetry performed on 02/25/2023 Total recording time 4 hours and 3 minutes SpO2 less than 88% 12 minutes and 36 seconds Lowest SpO2 74% Performed on room air Patient still requires supplemental oxygen at night [facility] 03-07-2023 History of Presen t illness Narrative Overnight oximetry performed on 02/25/2023 Total recording time 4 hours and 3 minutes SpO2 less than 88% 12 minutes and 36 seconds Lowest SpO2 74% Performed on room air Patient still requires supplemental oxygen at night documented in this encounter [facility] 02-11-2023 Note HNO ID: [id number] Author: mAber Staton RT(R) Service: ? Author Type: Air Dispatcher Type: Progress Notes Filed: 02/11/2023 1:37 PM Note Text: Radiology Service Progress Note PATIENT NAME: Loreta Ching DATE OF SERVICE: February 11, 2023 TIME: 1:29 PM PATIENT IDENTITY VERIFICATION COMPLETED USING TWO (2) IDENTIFIERS: Name and Date of confirmed by patient verbally. FALL SCREENING: Has the patient had 2 falls in the last year or 1 fall with injury or currently using an Ambulatory Assistive Device (Walker, Cane, Wheelchair, Crutches, etc.)? No PATIENT GENDER DATA: Male PATIENT RELEVANT IMPLANT DATA REVIEWED: Yes RADIOLOGY DEPARTMENT: General X-ray: Exam(s) Completed: Chest X-Ray PERIPHERAL IV DATA: Not applicable SIGNED BY: RT Leticia(R) February 11, 2023 1:29 PM [facility] 02-11-2023 Note HNO ID: [id number] Author: Nazia Staples MD Service: ? Author Type: Physician Type: Progress Notes Filed: 02/11/2023 1:09 PM Note Text: . Respiratory [facility] Note Patient name: Loreta Ching PCP: Ramakrishna Barger MD CC: Hospital follow-up/patient wants to discontinue oxygen HPI: Loreta Ching 77 year old male former [id number] smoker, quitting 2010 with PMH significant for COPD, bronchiectasis, recurrent aspiration pneumonia, oral cancer status post partial glossectomy/radiation/chemother apy, DVT, PEG tube placement. Patient has persistent aspiration despite PEG tube as he continues to drink sips of water due to mouth dryness from prior radiation. Hospitalized at [facility] in 11/07 - 11/10 with aspiration pneumonia and hypoxemia and again 02/01-02/04, but this last admission required 2 L oxygen at discharge. Today he states he is feeling much better. Initial symptoms consisted of fevers and chills, cough and shortness of breath. Concomitant with his last pneumonia, he was having issues with large volume emesis of tube feeds. Endoscopy performed during causation showed malpositioning of his PEG tube. He had a new tube replaced and is doing much better. His oxygen saturations have been normal. He has not been wearing his oxygen since discharge from the hospital. He currently denies any significant dyspnea, cough, chest pain, wheezing. DME: Patricia DATA: Imaging / Diagnostic Studies: DATE OF EXAM: Dec 15 2022 9:22AM [facility] [id number] - CT CHEST WO IVCON / CLINICAL HISTORY: Lung nodules Aspiration of liquid, sequela Tongue cancer (HCC) Comparison: 03/16/2022 CT chest RESULT: Lung parenchyma, airways, and pleural: Interval improvement without complete resolution of bilateral lower and right middle lobe infiltrates and bronchial wall thickening. No residual or new discrete nodules. Stable bilateral upper lobe paramediastinal post radiation fibrosis and volume loss. Emphysematous changes. Lower neck, lymph nodes, and mediastinum: The imaged thyroid gland is normal. No lymphadenopathy in the supraclavicular, axillary, mediastinal, or hilar regions. Heart, pericardium, and thoracic vessels: No pericardial effusion. Atherosclerotic calcification of the thoracic aorta and coronary arteries. Bones and soft tissues: Chest wall is unremarkable. Degenerative changes of the thoracic spine. Upper abdomen: No abnormality in the imaged upper abdomen. IMPRESSION: Interval improvement without complete resolution of bilateral lower and right middle lobe infiltrates and bronchial wall thickening. No residual or new discrete nodules. Stable bilateral upper lobe paramediastinal post radiation fibrosis and volume loss. Emphysematous changes. I personally reviewed the images and agree with the above assessment [facility] 01/2023: I personally reviewed images of his chest CT from [facility] which is pertinent for extensive right lower lobe consolidation and small pleural effusion PAST MEDICAL HISTORY Diagnosis Date Acute venous embolism and thrombosis of unspecified deep vessels of lower extremity pt is not aware of every having a DVT Aspiration pneumonia (HCC) Bronchiectasis (HCC) Cancer (HCC) tongue and neck COPD with chronic bronchitis Normal spirometry [facility] 08/2020. Seroma, postoperative Skin cancer Left ear Status post insertion of percutaneous endoscopic gastrostomy (PEG) tube (HCC) ALLERGIES Allergen Reactions Penicillins Other: See Comments passed out nutritional supplements (OSMOLITE 1.5 AGUSTINA) 0.06 gram-1.5 kcal/mL liqd TAKE THE CONTENTS OF 2 CANS BY G-TUBE THREE TIMES A DAY metoclopramide HCl (REGLAN) 5 mg tablet Take 1 tablet by mouth three times daily. albuterol HFA (PROVENTIL HFA) inhaler Inhale 8 Puffs as instructed every 6 hours as needed for wheezing/shortness of breath. traMADol (ULTRAM) 50 mg tablet Take 50 mg by mouth every 6 hours as needed for pain. As needed- states he only takes once or twice a week generally ibuprofen 200 mg tablet Take 400 mg by mouth every 8 hours as needed. Social History Tobacco Use Smoking status: Former Packs/day: 1.50 Years: 50.00 Additional pack years: 0.00 Total pack years: 75.00 Types: Cigarettes Quit date: 01/29/2011 Years since quittin.0 Smokeless tobacco: Never Vaping Use Vaping Use: Never used Substance Use Topics Alcohol use: No Comment: recovering alcoholic- quit 1987 Drug use: No FAMILY HISTORY Problem Relation Age of Onset other (old age) Mother Cancer Brother melanoma Cancer Brother bladder PAST SURGICAL HISTORY Procedure Laterality Date CHANGE GASTRONOMY TUBE 01/03/2012 Removal PEG tube DEBRIDEMENT OPEN WOUND 20 SQ CM/< 08/27/2011 Debridement at PEG site EGD PERCUTANEOUS PLACEMENT GASTROSTOMY TUBE 03/16/2011 NECK 02/05/2011 jugular vein PAST SURGICAL HIST (more content not included)... [facility] 12-20-2022 Note HNO ID: [id number] Author: Saritha Mustafa PA-C Service: ? Author Type: Physician Search Advertising Strategist Type: Progress Notes Filed: 12/20/2022 10:35 AM Note Text: Patient: Loreta Ching PCP: Ramakrishna Barger MD CC: follow up HPI: Loreta Ching 77 year old male former [id number] smoker having quit in 2010 with PMH significant for history of COPD (PFT from [place] normal), oral cancer (status post partial glossectomy, radiation and chemotherapy), DVT, status post PEG tube, recurrent aspiration, bronchiectasis, and bilobed lung nodule. Patient recently admitted to [facility] from 11/07 - 11/10 secondary to aspiration pneumonia and hypoxia. Treated with IV Ceftriaxone and Azithromycin. CT chest negative for PE but demonstrated possible early right lower lobe consolidation. Discharged home on Doxycycline for 5 days and follow up with GI to discuss further options. Today, patient states he is doing well. GI started him on Reglan and is currently not aspirating tube feeds or having any reflux symptoms. Taking small sips of water. No fevers, chills or night sweats. Denies chest pain, palpitations, or wheezing. Minimal cough productive of phlegm. No hemoptysis. Exertional dyspnea with working more than 6 hours. 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 Is not using Albuterol. 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 Seroma, postoperative Skin cancer Left ear Allergies: Penicillins Other: See Comments Comment: passed out Bifidobacterium infantis (ALIGN) 10.5 mg (10 million cell) chew Take by mouth. albuterol HFA (PROVENTIL HFA) inhaler Inhale 8 Puffs as instructed every 6 hours as needed for wheezing/shortness of breath. traMADol (ULTRAM) 50 mg tablet Take 50 mg by mouth every 6 hours as needed for pain. As needed- states he only takes once or twice a week generally ibuprofen 200 mg tablet Take 400 mg by mouth every 8 hours as needed. Social History Tobacco Use Smoking status: Former Packs/day: 1.50 Years: 50.00 Additional pack years: 0.00 Total pack years: 75.00 Types: Cigarettes Quit date: 01/29/2011 Years since quittin.8 Smokeless tobacco: Never Vaping Use Vaping Use: Never used Substance Use Topics Alcohol use: No Comment: recovering alcoholic- quit 1987 Drug use: No Family History Problem Relation Age of Onset other (old age) Mother Cancer Brother melanoma Cancer Brother bladder PAST SURGICAL HISTORY Procedure Laterality Date CHANGE GASTRONOMY TUBE 01/03/2012 Removal PEG tube DEBRIDEMENT OPEN WOUND 20 SQ CM/< 08/27/2011 Debridement at PEG site EGD PERCUTANEOUS PLACEMENT GASTROSTOMY TUBE 03/16/2011 NECK 02/05/2011 jugular vein PAST SURGICAL HISTORY OF 04/08/2015 Skin cancer removed from left ear PEG TUBE 02/13/2011 RECONSTRUCTION ROTATOR CUFF AVULSION CHRONIC 04/04/2004 left I reviewed the past medical history, family history, social history and surgical history with changes noted above and updated in EMR. IMMUNIZATIONS Prevnar 13 - 01/22/2020 Pneumovax 23 - 01/19/2005 Influenza - 2021 COVID-19 - most recent 09/2022 ROS: CONSTITUTIONAL: No fevers, chills, nightsweats, unintended weight loss HEENT: Dry mouth. CARDIOVASCULAR: No chest pain, dyspnea, palpitations, edema. PULM: See HPI GI: Persistent aspiration. PEG tube NEURO: No new balance problems, peripheral weakness/paresthesias or numbness of concern. INTEGUMENTARY: No new skin changes or rashes PHYSICAL EXAMINATION: BP 120/72 Pulse 70 Resp 16 Ht 167.6 cm (5' 6 ) Wt 53.3 kg (117 lb 6.4 oz) SpO2 95% BMI 18.95 kg/m? Gen: No acute distress. Cooperative with examination. HEENT: Normocephalic. Sclera, conjunctiva clear. Dry mouth. Resp: No stridor, accessory respiratory muscle use, supra-sternal or intercostal retractions. No wheezes, crackles. CV: Regular rythm. Heart tones normal. Radial pulses normal. MSK: No kyphoscoliosis. Ext: Warm and well perfused. No clubbing, cyanosis, edema. Skin: No rash, ecchymoses. Neuro: Mental status normal. Affect normal. No tremor. DATA: CT chest, 12/15/2022 IMPRESSION: Interval improvement without complete resolution of bilateral lower and right middle lobe infiltrates and bronchial wall thickening. No residual or new discrete nodules. Stable bilateral upper lobe paramediastinal post radiation fibrosis and volume loss. Emphysematous changes. Comparison: 03/16/2022 CT chest RESULT: Lung parenchyma, airways, and pleural: Interval improvement without complete resolution of bilateral lower and right middle lobe infiltrates and (more content not included)... [facility] 12-20-2022 History of Presen t illness Narrative Patient: Loreta Ching PCP: Ramakrishna Barger MD CC: follow up HPI: Loreta Ching 77 year old male former [id number] smoker having quit in 2010 with PMH significant for history of COPD (PFT from [facility]), oral cancer (status post partial glossectomy, radiation and chemotherapy), DVT, status post PEG tube, recurrent aspiration, bronchiectasis, and bilobed lung nodule. Patient recently admitted to [facility] from 11/07 - 11/10 secondary to aspiration pneumonia and hypoxia. Treated with IV Ceftriaxone and Azithromycin. CT chest negative for PE but demonstrated possible early right lower lobe consolidation. Discharged home on Doxycycline for 5 days and follow up with GI to discuss further options. Today, patient states he is doing well. GI started him on Reglan and is currently not aspirating tube feeds or having any reflux symptoms. Taking small sips of water. No fevers, chills or night sweats. Denies chest pain, palpitations, or wheezing. Minimal cough productive of phlegm. No hemoptysis. Exertional dyspnea with working more than 6 hours. 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 Is not using Albuterol. 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 Seroma, postoperative Skin cancer Left ear Allergies: Penicillins Other: See Comments Comment: passed out Bifidobacterium infantis (ALIGN) 10.5 mg (10 million cell) chew Take by mouth. albuterol HFA (PROVENTIL HFA) inhaler Inhale 8 Puffs as instructed every 6 hours as needed for wheezing/shortness of breath. traMADol (ULTRAM) 50 mg tablet Take 50 mg by mouth every 6 hours as needed for pain. As needed- states he only takes once or twice a week generally ibuprofen 200 mg tablet Take 400 mg by mouth every 8 hours as needed. Social History Tobacco Use Smoking status: Former Packs/day: 1.50 Years: 50.00 Additional pack years: 0.00 Total pack years: 75.00 Types: Cigarettes Quit date: 01/29/2011 Years since quittin.8 Smokeless tobacco: Never Vaping Use Vaping Use: Never used Substance Use Topics Alcohol use: No Comment: recovering alcoholic- quit 1987 Drug use: No Family History Problem Relation Age of Onset other (old age) Mother Cancer Brother melanoma Cancer Brother bladder PAST SURGICAL HISTORY Procedure Laterality Date CHANGE GASTRONOMY TUBE 01/03/2012 Removal PEG tube DEBRIDEMENT OPEN WOUND 20 SQ CM/< 08/27/2011 Debridement at PEG site EGD PERCUTANEOUS PLACEMENT GASTROSTOMY TUBE 03/16/2011 NECK 02/05/2011 jugular vein PAST SURGICAL HISTORY OF 04/08/2015 Skin cancer removed from left ear PEG TUBE 02/13/2011 RECONSTRUCTION ROTATOR CUFF AVULSION CHRONIC 04/04/2004 left I reviewed the past medical history, family history, social history and surgical history with changes noted above and updated in EMR. IMMUNIZATIONS Prevnar - 01/22/2020 Pneumovax - 01/19/2005 Influenza - 2021 COVID-19 - most recent 09/2022 ROS: CONSTITUTIONAL: No fevers, chills, nightsweats, unintended weight loss HEENT: Dry mouth. CARDIOVASCULAR: No chest pain, dyspnea, palpitations, edema. PULM: See HPI GI: Persistent aspiration. PEG tube NEURO: No new balance problems, peripheral weakness/paresthesias or numbness of concern. INTEGUMENTARY: No new skin changes or rashes PHYSICAL EXAMINATION: BP 120/72 Pulse 70 Resp 16 Ht 167.6 cm (5' 6 ) Wt 53.3 kg (117 lb 6.4 oz) SpO2 95% BMI 18.95 kg/m Gen: No acute distress. Cooperative with examination. HEENT: Normocephalic. Sclera, conjunctiva clear. Dry mouth. Resp: No stridor, accessory respiratory muscle use, supra-sternal or intercostal retractions. No wheezes, crackles. CV: Regular rythm. Heart tones normal. Radial pulses normal. MSK: No kyphoscoliosis. Ext: Warm and well perfused. No clubbing, cyanosis, edema. Skin: No rash, ecchymoses. Neuro: Mental status normal. Affect normal. No tremor. DATA: CT chest, 12/15/2022 IMPRESSION: Interval improvement without complete resolution of bilateral lower and right middle lobe infiltrates and bronchial wall thickening. No residual or new discrete nodules. Stable bilateral upper lobe paramediastinal post radiation fibrosis and volume loss. Emphysematous changes. Comparison: 03/16/2022 CT chest RESULT: Lung parenchyma, airways, and pleural: Interval improvement without complete resolution of bilateral lower and right middle lobe infiltrates and bronchial wall thickening. No residual or new discrete nodules. Stable bilateral upper lobe paramediastinal post radiation fibrosis and volume loss. Emphysematous changes. Lower neck, lymph nodes, and mediastinum: The imaged thyroid gland is normal. No lymphadenopathy in the supraclavicular, axillary, mediastinal, or hilar regions. Heart, pericardium, and thoracic vessels: No pericardial effusion. Atherosclerotic calcification of the thoracic aorta and coronary arteries. Bones and soft tissues: Chest wall is unremarkable. Degenerative changes of the thoracic spine. Upper abdomen: No abnormality in the imaged upper abdomen. Claims Service Representative (topogram) images: No additional findings. ASSESSMENT/PLAN: 1. Aspiration pneumonia of right upper lobe, unspecified aspiration pneumonia type (HCC) - ICD9: 507.0, ICD10: J69.0 (primary diagnosis) Recently hospitalized secondary to aspiration pneumonia. GI started him on Reglan and he seems to be doing better. However, he continues to sip water. 2. Bronchiectasis without complication (HCC) - ICD9: 494.0, ICD10: J47.9 Secondary to recurrent aspiration Albuterol as needed. Mucus clearance techniques 3. Lung nodules - ICD9: 793.19, ICD10: R91.8 CT chest reviewed with patient today. Lung nodules stable and most consistent with chronic aspiration. Next CT chest in 1 year. 4. Aspiration of liquid, sequela - ICD9: 908.5, ICD10: T17.998S Patient has been instructed to not sip water Has a follow up appointment with GI to discuss possible NG tube per discharge summary. However, Reglan seems to be beneficial. 5. Former cigarette smoker - ICD9: V15.82, ICD10: Z87.891 Former 60 pack year smoker having quit in 2010 6. Cancer, tongue (HCC) - ICD9: 141.9, ICD10: C02.9 No evidence of recurrence. Follows at the [place] Portions of this documentation were copied and pasted from previous office visit notes in order to provide a cohesive continuity of the history. The note has been reviewed and edited and updated as necessary. Saritha Mustafa PA-C documented in this encounter [facility] 12-15-2022 Note HNO ID: [id number] Author: Joy Kebede RT(R) Service: ? Author Type: Air Dispatcher Type: Progress Notes Filed: 12/15/2022 4:00 PM Note Text: Radiology Service Progress Note PATIENT NAME: Loreta Ching DATE OF SERVICE: December 15, 2022 TIME: 3:59 PM PATIENT IDENTITY VERIFICATION COMPLETED USING TWO (2) IDENTIFIERS: Name and Date of confirmed by patient verbally. FALL SCREENING: Has the patient had 2 falls in the last year or 1 fall with injury or currently using an Ambulatory Assistive Device (Walker, Cane, Wheelchair, Crutches, etc.)? No PATIENT GENDER DATA: Male PATIENT RELEVANT IMPLANT DATA REVIEWED: Yes RADIOLOGY DEPARTMENT: CT; Exam(s) Completed: Chest PERIPHERAL IV DATA: Not applicable SIGNED BY: RT Ernestina(Adrian) December 15, 2022 3:59 PM [facility] 12-15-2022 History of Presen t illness Narrative Radiology Service Progress Note PATIENT NAME: Loreta Ching DATE OF SERVICE: December 15, 2022 TIME: 3:59 PM PATIENT IDENTITY VERIFICATION COMPLETED USING TWO (2) IDENTIFIERS: Name and Date of confirmed by patient verbally. FALL SCREENING: Has the patient had 2 falls in the last year or 1 fall with injury or currently using an Ambulatory Assistive Device (Walker, Cane, Wheelchair, Crutches, etc.)? No PATIENT GENDER DATA: Male PATIENT RELEVANT IMPLANT DATA REVIEWED: Yes RADIOLOGY DEPARTMENT: CT; Exam(s) Completed: Chest PERIPHERAL IV DATA: Not applicable SIGNED BY: RT Ernestina(Adrian) December 15, 2022 3:59 PM documented in this encounter [facility] 06-17-2022 Note HNO ID: [id number] Author: Nazia Staples MD Service: ? Author Type: Physician Type: Progress Notes Filed: 06/17/2022 12:55 PM Note Text: . [facility] Note Patient name: Loreta Ching PCP: Ramakrishna Barger MD CC: Follow-up bronchiectasis HPI: Loreta Ching 76 year old male former [id number] smoker having quit in 2010 with PMH significant for history of [facility] ([facility]), oral cancer (status post partial glossectomy, radiation and chemotherapy), DVT, status post PEG tube, recurrent aspiration, bronchiectasis, and new bilobed lung nodule. At last office visit with TAMMY, repeat CT of the chest showed resolution of the new nodule in his left lower lobe but increased patchy opacifications in his right upper lobe consistent with aspiration. She recommended n.p.o. and possible change of PEG to PEJ, and treated him with antibiotics. Today he states he continues to cough up tube feeds. He is still sipping water due to his dry mouth from prior radiation. No current chest pain, SOB, wheezing, fevers or chills. No recent hospitalizations. No need for albuterol. DATA: Labs: Labs 03/2022 [place]: CBC normal, HgbA1c elevated at 5.7%, liver panel normal BMP normal including calcium Imaging / Diagnostic Studies: DATE OF EXAM: Mar 16 2022 10:47AM [facility] 0541 - CT CHEST WO IVCON / HISTORY: Clinical information: Lung nodules Tongue cancer (HCC) Hx tongue cancer, lung nodules, smoker,post rad tx to tongue,chemo Tongue cancer Comparison: 12/11/2021 RESULT: Limitations: None. Lines, tubes, and devices: None. Lung parenchyma and airways: * Paramediastinal radiation fibrosis adjacent to the superior mediastinum bilaterally * There is again noted be extensive peribronchial wall thickening in the RIGHT lower lobe and moderate patchy infiltrate similar to the previous study * Tree-in-bud type densities in the RIGHT midlung field in the RIGHT upper lobe. * There is a 0.8 cm nodular density with several surrounding smaller nodularities in the LEFT lower lobe image 155. Several other areas of nodularity in the LEFT lower lobe more inferior medially. These changes are probably on an inflammatory basis. However these should be followed to exclude other etiologies. * The bilobulated density in the LEFT lower lobe noted on the previous study has resolved. Pleural space: No pleural effusion. No pleural thickening. Lower neck, lymph nodes, and mediastinum: The imaged thyroid gland is normal. There is a 1.2 cm lymph node in the precarinal region similar to the previous study 4No lymphadenopathy in the supraclavicular, axillary, mediastinal, or hilar regions. Heart, pericardium, and thoracic vessels: The thoracic aorta and main pulmonary artery are normal in caliber. The cardiac chambers are normal in size. No coronary artery atherosclerotic calcifications are noted, although the study is not optimized for coronary assessment. No pericardial effusion or thickening. Bones and soft tissues: No destructive bone lesion. Chest wall is unremarkable. Upper abdomen: No abnormality in the imaged upper abdomen. IMPRESSION: 1. Extensive changes throughout both lungs most likely on an infectious or inflammatory basis as discussed. There has been an increase in the changes since previous study. 2. 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 Seroma, postoperative Skin cancer Left ear ALLERGIES Allergen Reactions Penicillins Other: See Comments passed out Bifidobacterium infantis (ALIGN) 10.5 mg (10 million cell) chew Take by mouth. albuterol HFA (PROVENTIL HFA) inhaler Inhale 8 Puffs as instructed every 6 hours as needed for wheezing/shortness of breath. traMADol (ULTRAM) 50 mg tablet Take 50 mg by mouth every 6 hours as needed for pain. As needed- states he only takes once or twice a week generally ibuprofen 200 mg tablet Take 400 mg by mouth every 8 hours as needed. Social History Tobacco Use Smoking status: Former Packs/day: 1.50 Years: 50.00 Pack years: 75.00 Types: Cigarettes Quit date: 01/29/2011 Years since quittin.3 Smokeless tobacco: Never Vaping Use Vaping Use: Never used Substance Use Topics Alcohol use: No Comment: recovering alcoholic- quit 1987 Drug use: No FAMILY HISTORY Problem Relation Age of Onset other (old age) Mother Cancer Brother melanoma Cancer Brother bladder PAST SURGICAL HISTORY Procedure Laterality Date CHANGE GASTRONOMY TUBE 01/03/2012 Remova (more content not included)... [facility] 06-17-2022 History of Presen t illness Narrative . [facility] Patient name: Loreta Ching PCP: Ramakrishna Barger MD CC: Follow-up bronchiectasis HPI: Loreta Ching 76 year old male former [id number] smoker having quit in 2010 with PMH significant for history of COPD ([facility]), oral cancer (status post partial glossectomy, radiation and chemotherapy), DVT, status post PEG tube, recurrent aspiration, bronchiectasis, and new bilobed lung nodule. At last office visit with TAMMY, repeat CT of the chest showed resolution of the new nodule in his left lower lobe but increased patchy opacifications in his right upper lobe consistent with aspiration. She recommended n.p.o. and possible change of PEG to PEJ, and treated him with antibiotics. Today he states he continues to cough up tube feeds. He is still sipping water due to his dry mouth from prior radiation. No current chest pain, SOB, wheezing, fevers or chills. No recent hospitalizations. No need for albuterol. DATA: Labs: Labs 03/2022 [facility]: CBC normal, HgbA1c elevated at 5.7%, liver panel normal BMP normal including calcium Imaging / Diagnostic Studies: DATE OF EXAM: Mar 16 2022 10:47AM [facility] 0541 - CT CHEST WO IVCON / HISTORY: Clinical information: Lung nodules Tongue cancer (HCC) Hx tongue cancer, lung nodules, smoker,post rad tx to tongue,chemo Tongue cancer Comparison: 12/11/2021 RESULT: Limitations: None. Lines, tubes, and devices: None. Lung parenchyma and airways: * Paramediastinal radiation fibrosis adjacent to the superior mediastinum bilaterally * There is again noted be extensive peribronchial wall thickening in the RIGHT lower lobe and moderate patchy infiltrate similar to the previous study * Tree-in-bud type densities in the RIGHT midlung field in the RIGHT upper lobe. * There is a 0.8 cm nodular density with several surrounding smaller nodularities in the LEFT lower lobe image 155. Several other areas of nodularity in the LEFT lower lobe more inferior medially. These changes are probably on an inflammatory basis. However these should be followed to exclude other etiologies. * The bilobulated density in the LEFT lower lobe noted on the previous study has resolved. Pleural space: No pleural effusion. No pleural thickening. Lower neck, lymph nodes, and mediastinum: The imaged thyroid gland is normal. There is a 1.2 cm lymph node in the precarinal region similar to the previous study 4No lymphadenopathy in the supraclavicular, axillary, mediastinal, or hilar regions. Heart, pericardium, and thoracic vessels: The thoracic aorta and main pulmonary artery are normal in caliber. The cardiac chambers are normal in size. No coronary artery atherosclerotic calcifications are noted, although the study is not optimized for coronary assessment. No pericardial effusion or thickening. Bones and soft tissues: No destructive bone lesion. Chest wall is unremarkable. Upper abdomen: No abnormality in the imaged upper abdomen. IMPRESSION: 1. Extensive changes throughout both lungs most likely on an infectious or inflammatory basis as discussed. There has been an increase in the changes since previous study. 2. 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 Seroma, postoperative Skin cancer Left ear ALLERGIES Allergen Reactions Penicillins Other: See Comments passed out Bifidobacterium infantis (ALIGN) 10.5 mg (10 million cell) chew Take by mouth. albuterol HFA (PROVENTIL HFA) inhaler Inhale 8 Puffs as instructed every 6 hours as needed for wheezing/shortness of breath. traMADol (ULTRAM) 50 mg tablet Take 50 mg by mouth every 6 hours as needed for pain. As needed- states he only takes once or twice a week generally ibuprofen 200 mg tablet Take 400 mg by mouth every 8 hours as needed. Social History Tobacco Use Smoking status: Former Packs/day: 1.50 Years: 50.00 Pack years: 75.00 Types: Cigarettes Quit date: 01/29/2011 Years since quittin.3 Smokeless tobacco: Never Vaping Use Vaping Use: Never used Substance Use Topics Alcohol use: No Comment: recovering alcoholic- quit 1987 Drug use: No FAMILY HISTORY Problem Relation Age of Onset other (old age) Mother Cancer Brother melanoma Cancer Brother bladder PAST SURGICAL HISTORY Procedure Laterality Date CHANGE GASTRONOMY TUBE 01/03/2012 Removal PEG tube DEBRIDEMENT OPEN WOUND 20 SQ CM/< 08/27/2011 Debridement at PEG site EGD PERCUTANEOUS PLACEMENT GASTROSTOMY TUBE 03/16/2011 NECK 02/05/2011 jugular vein PAST SURGICAL HISTORY OF 04/08/2015 Skin cancer removed from left ear PEG TUBE 02/13/2011 RECONSTRUCTION ROTATOR CUFF AVULSION CHRONIC 04/04/2004 left PMH, Social history, family history and surgical history reviewed and updated in EMR REVIEW OF SYSTEMS: CONSTITUTIONAL: No fevers, chills, nightsweats, unintended weight loss HEENT: Dry mouth. CARDIOVASCULAR: No chest pain, dyspnea, palpitations, edema. PULM: See HPI GI: Persistent aspiration. NEURO: No new balance problems, peripheral weakness/paresthesias or numbness of concern. PSY: No concerns regarding depression, anxiety INTEGUMENTARY: No new skin changes or rashes PHYSICAL EXAMINATION: BP 116/80 Pulse 89 Resp 15 Wt 118 lb (53.5kg) SpO2 100% General Appearance: Thin male, NAD Skin: Skin color, texture, turgor normal, no suspicious rashes or lesions. Head: Normocephalic, no masses, lesions, tenderness or abnormalities. Eyes: Sclera, conjunctiva normal Neck: No masses or adenopathy Lungs: Not labored, normal to percussion, crackles at right base Heart: Regular rate and rhythm, no murmurs gallops Extremities: No edema, no clubbing Assessment/Plan: 1. Bronchiectasis -Due to recurrent aspiration -Albuterol as needed -Mucus clearance techniques 2. Lung nodules -Consistent with chronic aspiration -Needs surveillance due to past cancer history 3. Chronic aspiration -Should not sip water -J-tube may be preferable -[facility] 4. Former cigarette smoker -Former 60 pack year smoker having quit in 2010 -Lung cancer surveillance 5. Tongue cancer -No evidence of recurrence. [facility] Nazia Staples MD [facility] documented in this encounter [facility] 03-18-2022 Note HNO ID: [id number] Author: Saritha Mustafa PA-C Service: ? Author Type: Physician Search Advertising Strategist Type: Progress Notes Filed: 03/18/2022 11:17 AM Note Text: Patient: Loreta Ching PCP: Theo Rodríguez MD CC: aspiration pneumonia HPI: Loreta Cihng 76 year old male former smoker, 75 pack years (quitting 2010) with PMH significant for COPD (PFTs from [place] normal), cancer of the tongue (partial glossectomy and radiation therapy and chemotherapy), DVT, status post PEG tube, and history of aspiration pneumonia. Re-established care with Dr. Staples in November. He has been hospitalized multiple times at [facility] for aspiration pneumonia, imaging suggestive of either mucous plugging versus endobronchial tumor, s/p bronchoscopy at [place]. No endobronchial tumor. Most recently treated for cough in September with Levaquin and Steroids. CT chest 12/11 consistent with chronic aspiration and there was a new nodule in left lower lung. Most recent CT chest 03/16 demonstrated resolution of bilobulated density in left lower lung. There has been an increase in the patchy infiltrates especially in RUL consistent with aspiration pna. Since the last Pulmonary Clinic visit 11/27/2021, the patient has not required ED care for exacerbation. There has been no hospital admission for exacerbation. Previously prescribed Spiriva, but did not notice a difference in symptoms. Very rarely uses rescue bronchodilator. Increased cough over the last couple days. States that he expels tube feeds. No hemoptysis. No dyspnea. No fevers, but having chills. States he has recently been eating mashed potatoes and broth. I feel like I usually do before I get pneumonia . 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 Seroma, postoperative Skin cancer Left ear Allergies: Penicillins Other: See Comments Comment: passed out albuterol HFA (PROVENTIL HFA) inhaler Inhale 8 Puffs as instructed every 6 hours as needed for wheezing/shortness of breath. traMADol (ULTRAM) 50 mg tablet Take 50 mg by mouth every 6 hours as needed for pain. As needed- states he only takes once or twice a week generally famotidine (PEPCID) 0.25 mg/mL syrg 5 mg once daily. PEG tube inhaler, assist devices (INHALER COMPANIONS [facility] [place]) Unsure of what the medication is tiotropium bromide (SPIRIVA RESPIMAT) 1.25 mcg/actuation mist Inhale 2 Puffs as instructed once daily. (Patient not taking: Reported on 11/27/2021) ibuprofen 200 mg tablet Take 400 mg by mouth every 8 hours as needed. Social History Tobacco Use Smoking status: Former Packs/day: 1.50 Years: 50.00 Pack years: 75.00 Types: Cigarettes Quit date: 01/29/2011 Years since quittin.1 Smokeless tobacco: Never Vaping Use Vaping Use: Never used Substance Use Topics Alcohol use: No Comment: recovering alcoholic- quit 1987 Drug use: No Family History Problem Relation Age of Onset other (old age) Mother Cancer Brother melanoma Cancer Brother bladder PAST SURGICAL HISTORY Procedure Laterality Date CHANGE GASTRONOMY TUBE 01/03/2012 Removal PEG tube DEBRIDEMENT OPEN WOUND 20 SQ CM/< 08/27/2011 Debridement at PEG site EGD PERCUTANEOUS PLACEMENT GASTROSTOMY TUBE 03/16/2011 NECK 02/05/2011 jugular vein PAST SURGICAL HISTORY OF 04/08/2015 Skin cancer removed from left ear PEG TUBE 02/13/2011 RECONSTRUCTION ROTATOR CUFF AVULSION CHRONIC 04/04/2004 left I reviewed the past medical history, family history, social history and surgical history with changes noted above and updated in EMR. IMMUNIZATIONS Prevnar 13 - 01/22/2020 Pneumovax - 01/19/2005 Influenza - 02/02/2022 COVID-19 - 01/26/2022 ROS: General: Generally feels like he is getting sick. Eyes, Ears, nose, throat: No post nasal drip, rhinorrhea, purulent nasal discharge, epistaxis. Hoarseness. Vision stable. Cardiac: No angina, edema, orthopnea. Resp: See HPI. GI: See HPI. Musculoskeletal: No pain. Neuro: No headache, focal weakness, tremor. Skin: No rash. Otherwise negative. PHYSICAL EXAMINATION: BP (P) 112/70 Pulse (P) 65 Resp (P) 15 Wt 54 kg (119 lb) SpO2 (P) 97% BMI 19.21 kg/m? Gen: No acute distress. Cooperative with examination. HEENT: Normocephalic, no masses or lesions. Sclera, conjunctiva normal. Resp: No stridor, accessory respiratory muscle use, supra-sternal or intercostal retractions. No wheezes, crackles. CV: Regular rythm. Heart tones normal. Radial pulses normal. Ext: Warm and well perfused. No clubbing, cyanosis, edema. Skin: No rash, ecchymoses. Neuro: Mental status normal. Affect normal. No tremor. DATA: CT chest, 03/16/2022 I (more content not included)... [facility] 03-18-2022 History of Presen t illness Narrative Patient: Loreta Ching PCP: Theo Rodríguez MD CC: aspiration pneumonia HPI: Loreta Ching 76 year old male former smoker, 75 pack years (quitting 2010) with PMH significant for COPD (PFTs from [place] normal), cancer of the tongue (partial glossectomy and radiation therapy and chemotherapy), DVT, status post PEG tube, and history of aspiration pneumonia. Re-established care with Dr. Staples in November. He has been hospitalized multiple times at [facility] for aspiration pneumonia, imaging suggestive of either mucous plugging versus endobronchial tumor, s/p bronchoscopy at [place]. No endobronchial tumor. Most recently treated for cough in September with Levaquin and Steroids. CT chest 12/11 consistent with chronic aspiration and there was a new nodule in left lower lung. Most recent CT chest 03/16 demonstrated resolution of bilobulated density in left lower lung. There has been an increase in the patchy infiltrates especially in RUL consistent with aspiration pna. Since the last Pulmonary Clinic visit 11/27/2021, the patient has not required ED care for exacerbation. There has been no hospital admission for exacerbation. Previously prescribed Spiriva, but did not notice a difference in symptoms. Very rarely uses rescue bronchodilator. Increased cough over the last couple days. States that he expels tube feeds. No hemoptysis. No dyspnea. No fevers, but having chills. States he has recently been eating mashed potatoes and broth. I feel like I usually do before I get pneumonia . 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 Seroma, postoperative Skin cancer Left ear Allergies: Penicillins Other: See Comments Comment: passed out albuterol HFA (PROVENTIL HFA) inhaler Inhale 8 Puffs as instructed every 6 hours as needed for wheezing/shortness of breath. traMADol (ULTRAM) 50 mg tablet Take 50 mg by mouth every 6 hours as needed for pain. As needed- states he only takes once or twice a week generally famotidine (PEPCID) 0.25 mg/mL syrg 5 mg once daily. PEG tube inhaler, assist devices (INHALER COMPANIONS [facility] [place]) Unsure of what the medication is tiotropium bromide (SPIRIVA RESPIMAT) 1.25 mcg/actuation mist Inhale 2 Puffs as instructed once daily. (Patient not taking: Reported on 11/27/2021) ibuprofen 200 mg tablet Take 400 mg by mouth every 8 hours as needed. Social History Tobacco Use Smoking status: Former Packs/day: 1.50 Years: 50.00 Pack years: 75.00 Types: Cigarettes Quit date: 01/29/2011 Years since quittin.1 Smokeless tobacco: Never Vaping Use Vaping Use: Never used Substance Use Topics Alcohol use: No Comment: recovering alcoholic- quit 1987 Drug use: No Family History Problem Relation Age of Onset other (old age) Mother Cancer Brother melanoma Cancer Brother bladder PAST SURGICAL HISTORY Procedure Laterality Date CHANGE GASTRONOMY TUBE 01/03/2012 Removal PEG tube DEBRIDEMENT OPEN WOUND 20 SQ CM/< 08/27/2011 Debridement at PEG site EGD PERCUTANEOUS PLACEMENT GASTROSTOMY TUBE 03/16/2011 NECK 02/05/2011 jugular vein PAST SURGICAL HISTORY OF 04/08/2015 Skin cancer removed from left ear PEG TUBE 02/13/2011 RECONSTRUCTION ROTATOR CUFF AVULSION CHRONIC 04/04/2004 left I reviewed the past medical history, family history, social history and surgical history with changes noted above and updated in EMR. IMMUNIZATIONS Prevnar 13 - 01/22/2020 Pneumovax 23 - 01/19/2005 Influenza - 02/02/2022 COVID- - 01/26/2022 ROS: General: Generally feels like he is getting sick. Eyes, Ears, nose, throat: No post nasal drip, rhinorrhea, purulent nasal discharge, epistaxis. Hoarseness. Vision stable. Cardiac: No angina, edema, orthopnea. Resp: See HPI. GI: See HPI. Musculoskeletal: No pain. Neuro: No headache, focal weakness, tremor. Skin: No rash. Otherwise negative. PHYSICAL EXAMINATION: BP (P) 112/70 Pulse (P) 65 Resp (P) 15 Wt 54 kg (119 lb) SpO2 (P) 97% BMI 19.21 kg/m Gen: No acute distress. Cooperative with examination. HEENT: Normocephalic, no masses or lesions. Sclera, conjunctiva normal. Resp: No stridor, accessory respiratory muscle use, supra-sternal or intercostal retractions. No wheezes, crackles. CV: Regular rythm. Heart tones normal. Radial pulses normal. Ext: Warm and well perfused. No clubbing, cyanosis, edema. Skin: No rash, ecchymoses. Neuro: Mental status normal. Affect normal. No tremor. DATA: CT chest, 03/16/2022 IMPRESSION: 1. Extensive changes throughout both lungs most likely on an infectious or inflammatory basis as discussed. There has been an increase in the changes since previous study. 2. Post radiation changes in the paramediastinal region again noted Comparison: 12/11/2021 RESULT: Limitations: None. Lines, tubes, and devices: None. Lung parenchyma and airways: * Paramediastinal radiation fibrosis adjacent to the superior mediastinum bilaterally * There is again noted be extensive peribronchial wall thickening in the RIGHT lower lobe and moderate patchy infiltrate similar to the previous study * Tree-in-bud type densities in the RIGHT midlung field in the RIGHT upper lobe. * There is a 0.8 cm nodular density with several surrounding smaller nodularities in the LEFT lower lobe image 155. Several other areas of nodularity in the LEFT lower lobe more inferior medially. These changes are probably on an inflammatory basis. However these should be followed to exclude other etiologies. * The bilobulated density in the LEFT lower lobe noted on the previous study has resolved. Pleural space: No pleural effusion. No pleural thickening. Lower neck, lymph nodes, and mediastinum: The imaged thyroid gland is normal. There is a 1.2 cm lymph node in the precarinal region similar to the previous study 4No lymphadenopathy in the supraclavicular, axillary, mediastinal, or hilar regions. Heart, pericardium, and thoracic vessels: The thoracic aorta and main pulmonary artery are normal in caliber. The cardiac chambers are normal in size. No coronary artery atherosclerotic calcifications are noted, although the study is not optimized for coronary assessment. No pericardial effusion or thickening. Bones and soft tissues: No destructive bone lesion. Chest wall is unremarkable. Upper abdomen: No abnormality in the imaged upper abdomen. Claims Service Representative (topogram) images: No additional findings. CT chest, 12/11/2021 IMPRESSION: Groundglass and centrilobular nodules in the right lung, most likely representing inflammatory/infectious process. 1.6 x 1 cm bilobed solid nodule in the left lower lobe. Follow-up study is suggested in this patient with history of tongue cancer. Postradiation changes/fibrosis in the bilateral upper lungs. No CT evidence of lymphadenopathy in the chest. Abdominal findings as described above. ASSESSMENT/PLAN: 1. Aspiration pneumonia of right upper lobe, unspecified aspiration pneumonia type (HCC) - ICD9: 507.0, ICD10: J69.0 (primary diagnosis) Reviewed CT chest with patient and in the office today. Advised patient he should not be taking anything by mouth secondary to risk of aspiration. I also encouraged him to speak to his doctors at the [place] regarding the possibility of changing to a J-tube to possibly minimize aspiration risk. Azithromycin via PEG for 5 days. - AZITHROMYCIN 200 MG/5 ML ORAL SUSPENSION 2. Bronchiectasis without complication (HCC) - ICD9: 494.0, ICD10: J47.9 Due to recurrent pneumonia and aspiration. Albuterol as needed. 3. Former cigarette smoker - ICD9: V15.82, ICD10: Z87.891 Former 75-pack year smoker without evidence of COPD/emphysema. Discontinue spiriva. Does not meet LDCT chest for lung cancer screening based on duration of smoking. 4. Tongue cancer (HCC) - ICD9: 141.9, ICD10: C02.9 No obvious recurrence. Saritha Mustafa PA-C documented in this encounter [facility] 03-16-2022 Note HNO ID: [id number] Author: RT Roula(Adrian) Service: ? Author Type: Air Dispatcher Type: Progress Notes Filed: 03/16/2022 12:50 PM Note Text: Radiology Service Progress Note PATIENT NAME: Loreta Ching DATE OF SERVICE: March 16, 2022 TIME: 12:50 PM PATIENT IDENTITY VERIFICATION COMPLETED USING TWO (2) IDENTIFIERS: Name and Date of confirmed by patient verbally. FALL SCREENING: Has the patient had 2 falls in the last year or 1 fall with injury or currently using an Ambulatory Assistive Device (Walker, Cane, Wheelchair, Crutches, etc.)? No PATIENT GENDER DATA: Male PATIENT RELEVANT IMPLANT DATA REVIEWED: Yes RADIOLOGY DEPARTMENT: CT; Exam(s) Completed: Chest PERIPHERAL IV DATA: Not applicable SIGNED BY: RT Ernestina(R) March 16, 2022 12:50 PM [facility] 03-16-2022 History of Presen t illness Narrative Radiology Service Progress Note PATIENT NAME: Loreta Ching DATE OF SERVICE: March 16, 2022 TIME: 12:50 PM PATIENT IDENTITY VERIFICATION COMPLETED USING TWO (2) IDENTIFIERS: Name and Date of confirmed by patient verbally. FALL SCREENING: Has the patient had 2 falls in the last year or 1 fall with injury or currently using an Ambulatory Assistive Device (Walker, Cane, Wheelchair, Crutches, etc.)? No PATIENT GENDER DATA: Male PATIENT RELEVANT IMPLANT DATA REVIEWED: Yes RADIOLOGY DEPARTMENT: CT; Exam(s) Completed: Chest PERIPHERAL IV DATA: Not applicable SIGNED BY: RT Ernestina(R) March 16, 2022 12:50 PM documented in this encounter [facility] 01-08-2022 Miscellaneous Notes Patient returned call and was previously scheduled for his chest CT scan. Phone numbers have been updated. 1st attempt left message to return call to schedule Ct of Chest in 2021. Please update phone numbers also. Sending my chart message. documented in this encounter [facility] 12-15-2021 Miscellaneous Notes Called and left a voicemail message that port of her chest CT is available. Instructed her to open her eReplicantt message. CT of the chest shows chronic changes in her right lower lobe consistent with previous aspiration. Note of a 1.6 cm bilobed nodule in her left lower lobe which may be an area of scar although metastatic carcinoma cannot be excluded. She will need an short interim chest CT. documented in this encounter [facility] 12-01-2021 Miscellaneous Notes I spoke to patient regarding results of her recent chest x-ray which shows markings consistent with bronchiectasis and right lower lobe infiltrate. She needs chest CT for further delineation. Order placed. documented in this encounter [facility] 11-27-2021 History of Presen t illness Narrative Images from the original note were not included. . [facility] Note Patient name: Loreta Chnig PCP: Theo Rodríguez MD CC: Re-establish care for pneumonia HPI: Loreta Ching 76 year old male former [id number] smoker, quit in 2010 with PMH significant for h/o COPD ([facility]), cancer of the tongue (partial glossectomy and radiation therapy and chemotherapy), DVT, status post PEG tube, last seen by Dr. Huertas 02/2021 aspiration pneumonia. Hospitalized several times at [facility] for aspiration pneumonia, imaging suggestive of either mucous plugging versus endobronchial tumor, status post bronchoscopy at [place]. No endobronchial tumor. State he had been doing well until September when he developed increased cough and SOB. No fevers or chills or chest pain. Treated with Levaquin and a course of steroids. He does not take in anything oral except for sips of water due to severe dry mouth, a complication of previous radiation therapy. He was prescribed Spiriva and albuterol for COPD but he does not use, doesn't feel that he needs inhaled therapy. Despite his past smoking history, he does not have evidence of emphysema on chest imaging and no obstruction on PFTs from the [facility]. Denies choking. No current respiratory symptoms of SOB, wheezing, cough, chest pain. Will occasionally cough if stomach too full with tube feeds. DATA: Reviewed EMR from last hospitalization Labs: 09/2021 [facility]: Normal CMP, WBC increased 12.7, normal D-dimer Imaging / Diagnostic Studies: CXR 09/23/21 [facility]: reviewed and shows RLL increased interstitial markings, no consolidation PET 01/2021: Reviewed. Lung windows do not show evidence of emphysema. RLL chronic changes with peripheral infiltrate, groundglass nodule, bronchiectasis PAST MEDICAL HISTORY Diagnosis Date Acute venous embolism and thrombosis of unspecified deep vessels of lower extremity pt is not aware of every having a DVT Aspiration pneumonia (HCC) Bronchiectasis (HCC) Cancer (HCC) tongue and neck COPD with chronic bronchitis ([facility]) Normal spirometry [facility] 08/2020. Seroma, postoperative Skin cancer Left ear ALLERGIES Allergen Reactions Penicillins Other: See Comments passed out albuterol HFA (PROVENTIL HFA) inhaler Inhale 8 Puffs as instructed every 6 hours as needed for wheezing/shortness of breath. traMADol (ULTRAM) 50 mg tablet Take 50 mg by mouth every 6 hours as needed for pain. As needed- states he only takes once or twice a week generally famotidine (PEPCID) 0.25 mg/mL syrg 5 mg once daily. PEG tube inhaler, assist devices (INHALER COMPANIONS [facility] [place]) Unsure of what the medication is ibuprofen 200 mg tablet Take 400 mg by mouth every 8 hours as needed. tiotropium bromide (SPIRIVA RESPIMAT) 1.25 mcg/actuation mist Inhale 2 Puffs as instructed once daily. 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 FAMILY HISTORY Problem Relation Age of Onset other (old age) Mother Cancer Brother melanoma Cancer Brother bladder PAST SURGICAL HISTORY Procedure Laterality Date CHANGE GASTRONOMY TUBE 01/03/2012 Removal PEG tube DEBRIDEMENT OPEN WOUND 20 SQ CM/< 08/27/2011 Debridement at PEG site EGD PERCUTANEOUS PLACEMENT GASTROSTOMY TUBE 03/16/2011 NECK 02/05/2011 jugular vein PAST SURGICAL HISTORY OF 04/08/2015 Skin cancer removed from left ear PEG TUBE 02/13/2011 RECONSTRUCTION ROTATOR CUFF AVULSION CHRONIC 04/04/2004 left PMH, Social history, family history and surgical history reviewed and updated in EMR REVIEW OF SYSTEMS: CONSTITUTIONAL: No fevers, chills, nightsweats, unintended weight loss HEENT: Denies nasal congestion/sinus symptoms, allergy problems. CARDIOVASCULAR: No chest pain, dyspnea, palpitations, orthopnea, edema. PULM: See HPI GI: No dysphagia/odynophagia. Occasional reflux NEURO: No new balance problems, peripheral weakness/paresthesias or numbness of concern. MUSC-SKEL: No new joint pain, swelling, or erythema. INTEGUMENTARY: No new skin changes or rashes. Thin skin with easy bruising PHYSICAL EXAMINATION: BP 150/82 Pulse 99 Temp (Src) 98.4 (Temporal) Resp 14 Ht 5' 6 (1.68m) Wt 113 lb (51.3kg) SpO2 97% BMI 18.25 kg/(m^2). General Appearance: Thin elderly male, NAD Skin: Skin color, turgor normal, no suspicious rashes or lesions. Thin skin with UE ecchymoses Head: Normocephalic, no masses, lesions, tenderness or abnormalities. Eyes: Sclera, conjunctiva normal Neck: No masses, no adenopathy Lungs: Not labored, normal to percussion, no crackles. Inspiratory squeaks in RLL Heart: RRR, no murmur Extremities: No edema, no clubbing Neurologic: Alert and oriented, no focal findings Assessment/Plan: Bronchiectasis -Due to recurrent pneumonia and aspiration -Bronchopulmonary hygiene -Discontinue Spiriva -Albuterol as needed RLL pneumonia -Updated CXR. May need chest CT -Recurrent pneumonia likely due to aspiration -Would probably do better if did not swallow water Former cigarette smoker -Former 75 pack year smoker without COPD/emphysema -Does not meet criteria for LDCT chest for lung cancer screening based on duration of smoking cessation Cancer of the tongue -No obvious recurrence Nazia Staples MD [facility] documented in this encounter [facility] 07-30-2020 Note [facility] DISCHARGE SUMMARY NAME ACCOUNT SEX AGE ADMIT DISCHARGE PT MED. RECORD# NUMBER DATE DATE TYPE JEANE [id number] Bandar 74 07/25/20 07/27/20 Cristina Mccarty [id number] ROOM: 319 DATE OF : 1945 ATTENDING PHYSICIAN: [facility] COURSE: For a full history and physical, please see chart. For a brief summary see below. This is a 74-year-old male with a history of throat cancer, chemotherapy, radiation, otherwise was doing well. About a month ago, he was diagnosed with pneumonia. He was given IV antibiotics and then p.o. antibiotics as well as steroids as an outpatient. He was not feeling well and became more short of breath. He was weak, fatigued, had chills, body aches. He came into the emergency room. He was tachycardic. X-ray revealed right lower lobe infiltrate. He had adventitious lung sounds, severe leukocytosis with left shift. Blood cultures and lactate were completed. He was admitted on broad spectrum IV antibiotics. He continued to improve. Today, on the date of discharge he was requesting to go home. He is afebrile. Oxygen saturation is 93-96% on room air. Blood pressure is 117/83, heart rate 94, respirations 18, temperature 98.6. This is a thin, well-developed male in no acute distress who is alert, pleasant and cooperative. HEENT reveals hoarse voice, otherwise unremarkable. Neck is supple. No JVD. Lungs have normal respiratory effort. Equal lung expansion, diminished in the bases, otherwise clear. Heart has regular rate and rhythm. Discharge instructions were discussed with him in detail. He was discharged home in stable condition with the above instructions. DISPOSITION: Condition upon discharge is improved. MEDICATIONS ON DISCHARGE: (1) Acetaminophen 650 mg q4h p.r.n. (2) Ceftin 250 mg b.i.d. x7 days. (3) Continue Proventil inhaler q4-6h p.r.n. as at home. DISCHARGE INSTRUCTIONS/PLAN: Discharge destination is home. Discharge diagnosis is acute community acquired pneumonia. No smoking or alcoholic beverages. Regular diet. Incentive spirometry q1h while awake. Increase activity as tolerated. Follow up with family doctor. Call for appointment this week. I evaluated the patient myself the above E&M is accurate and done by me Jenaro Zapata dictating for Dr. Conrado Aguilar. 07/27/20 13:04 JOB #: [id number] Transcribed By: sp 07/28/20 04:37 Page 1 of 2 LORETA CHING Discharge Summary LORETA CHING : 1945 Electronically signed by: E-Sign: CONRADO AGUILAR MD 07/30/20 12:39 Page 2 of 2 LORETA CHING Discharge Summary [facility] 07-30-2020 Note [facility] PROGRESS NOTE NAME ACCOUNT SEX AGE ADMIT DISCHARGE PT MED. RECORD# NUMBER DATE DATE TYPE JEANE [id number] M 74 07/25/20 2 LORETA Mccarty [id number] ROOM: 319 DATE OF : 1945 DICTATING PHYSICIAN: Conrado Aguilar DATE OF SERVICE: July 26, 2020 SUBJECTIVE: He continues with a nonproductive cough, some shortness of breath and just some general fatigue, but it is starting to feel better. He was weaned off oxygen support today. No chest pain. He is tolerating p.o. intake well. Update from nursing staff. OBJECTIVE: Blood pressure is 113/52, heart rate 101, respirations 18, temperature 97.7, and oxygen saturation 91% on 2 liters. He is now on room air, awaiting a pulse oximetry. This is a thin, well-developed male with a BMI below 18. HEENT reveals a hoarse voice. Neck is supple. No JVD. Lungs with normal respiratory effort, equal lung expansion with rhonchi on the right side, and diminished breath sounds. Heart is a tachycardic rate with a regular rhythm. Extremities are free of edema. Neurologic: He is alert and oriented. Mood, affect and memory are within normal limits. DIAGNOSTIC DATA: White count is 21.5, hemoglobin 11.4, and hematocrit 33.8. ASSESSMENT/PLAN: 1. Acute community-acquired pneumonia, slowly improving on IV Rocephin and Zithromax. Encouraged incentive spirometry every one hour while awake and ambulation as tolerated. 2. Leukocytosis secondary to infection. It is slowly improving. 3. Mild anemia. He needs outpatient work-up. 4. BMI of under 18. He is tolerating p.o. intake and will need outpatient follow-up at discharge. The above was discussed with the patient. All of his questions were answered, and he verbalized understanding of the plan. I evaluated the patient myself the above E&M is accurate and done by me Jenaro Bobo MD Dictated by kody Null for Dr. Aguilar. Dictated By: Conrado Aguilar MD 07/26/20 13:34 JOB #: [id number] Transcribed By: vicente 07/26/20 15:12 Electronically signed by: E-Sign: CONRADO AGUILAR MD 07/30/20 12:37 Page 1 of 1 LORETA CHING Progress Note [facility] Pneumonia of right lower lobe due to infectious organism [facility] Diagnosis Abnormal x-ray- Primary Other nonspecific (abnormal) findings on radiological and other examinations of body structure Pneumonia of right lower lobe due to infectious organism Tongue cancer (HCC) Malignant neoplasm of tongue, unspecified site Bronchiectasis without complication (HCC) Bronchiectasis without acute exacerbation [facility] Lung nodules- Primary Other nonspecific abnormal finding of lung field Tongue cancer (HCC) Malignant neoplasm of tongue, unspecified site [facility] Diagnosis Aspiration pneumonia of right upper lobe, unspecified aspiration pneumonia type (HCC)- Primary Bronchiectasis without complication (HCC) Bronchiectasis without acute exacerbation Former cigarette smoker Personal history of tobacco use, presenting hazards to health Tongue cancer (HCC) Malignant neoplasm of tongue, unspecified site [facility] Diagnosis Bronchiectasis without complication (HCC)- Primary Bronchiectasis without acute exacerbation Lung nodules Other nonspecific abnormal finding of lung field Aspiration of liquid, sequela Former cigarette smoker Personal history of tobacco use, presenting hazards to health Tongue cancer (HCC) Malignant neoplasm of tongue, unspecified site [facility] note* Diagnosis Aspiration pneumonia of right upper lobe, unspecified aspiration pneumonia type (HCC)- Primary Bronchiectasis without complication (HCC) Bronchiectasis without acute exacerbation Lung nodules Other nonspecific abnormal finding of lung field Aspiration of liquid, sequela Former cigarette smoker Personal history of tobacco use, presenting hazards to health Cancer, tongue (HCC) [facility] Lung nodules Other nonspecific abnormal finding of lung field Aspiration of liquid, sequela Tongue cancer (HCC) Malignant neoplasm of tongue, unspecified site [facility] Diagnosis Lung nodules Other nonspecific abnormal finding of lung field Tongue cancer (HCC) Malignant neoplasm of tongue, unspecified site [facility] Diagnosis Aspiration pneumonia of right lower lobe due to regurgitated food (HCC) documented in this encounter [facility] Summary Purpose Family History No Family History Records FoundNo Family History Records FoundNo Family History Records Found Advance Directives No Advanced Directives Records FoundDocuments on File Type Date Recorded Patient Network Manager Expl anation Advance Directive(s) 04/14/2011 1:45 PM Documents on File Type Date Recorded Patient Network Manager Expl anation Advance Directive(s) 04/14/2011 1:45 PM Reason for Referral Specialty Diagnoses / Procedures Referred By Contac t Referred To Contact CT IMAGING Diagnoses Abnormal x-ray Tongue cancer (HCC) Bronchiectasis without complication (HCC) Procedures CT CHEST WO IVCON DIAGNOSTIC COMPUTED TOMOGRAPHY THORAX W/O Nazia Crandall MD [address] [facility] [place] [address] Ct Imaging Referral ID Status Reason Start Date Expiration Date Visits Requested Visits Authorized [id number] Pending Review Auto-Generat ed Referral 12/01/2021 12/31/2022 1 1 Specialty Diagnoses / Procedures Referred By Contac t Referred To Contact CT IMAGING Diagnoses Lung nodules Tongue cancer (HCC) Procedures CT CHEST WO IVCON DIAGNOSTIC COMPUTED TOMOGRAPHY THORAX W/O Nazia Crandall MD [address] [place] [address] Ct Imaging Referral ID Status Reason Start Date Expiration Date Visits Requested Visits Authorized [id number] Pending Review Auto-Generat ed Referral 01/14/2023 1 1 Specialty Diagnoses / Procedures Referred By Contac t Referred To Contact CT IMAGING Diagnoses Lung nodules Aspiration of liquid, sequela Tongue cancer (HCC) Procedures CT CHEST WO IVCON DIAGNOSTIC COMPUTED TOMOGRAPHY THORAX W/O Nazia Crandall MD [address] [place] [address] Ct Imaging Referral ID Status Reason Start Date Expiration Date Visits Requested Visits Authorized [id number] Authorized Auto-Generat ed Referral 09/27/2022 07/17/2023 1 1 Specialty Diagnoses / Procedures Referred By Contac t Referred To Contact CT IMAGING Diagnoses Lung nodules Aspiration of liquid, sequela Tongue cancer (HCC) Procedures CT CHEST WO IVCON DIAGNOSTIC COMPUTED TOMOGRAPHY THORAX W/O Nazia Crandall MD [address] [place] [address] [place] [id number] Referral ID Status Reason Start Date Expiration Date V isits Requested Visits Authorized [id number] Closed Auto-Generate d Referral 09/27/2022 07/17/2023 1 1 Specialty Diagnoses / Procedures Referred By Contac t Referred To Contact CT IMAGING Diagnoses Lung nodules Tongue cancer (HCC) Procedures CT CHEST WO IVCON DIAGNOSTIC COMPUTED TOMOGRAPHY THORAX W/O Nazia Crandall MD [address] [place] [address] [place] [address] Referral ID Status Reason Start Date Expiration Date V isits Requested Visits Authorized [id number] Closed Auto-Generate d Referral 10/08/2021 05/26/2022 1 1 Additional Source Comments (unrecognized sect ion and content) No Status Records FoundNo Status Records FoundNo Status Records Found INFORMATION SOURCE (unrecogn ized section and content) DATE CREATED AUTHOR AUTHOR'S ORGANIZ ATION 01/17/2021 [facility] DATE CREATED AUTHOR AUTHOR'S ORGANIZ ATION 03/09/2023 [facility] Source Comments (unrecognize d section and content) In the event this informatio n is protected by the Federal Confidentiality of Alcohol and Drug Abuse Patient Records regulations: The Federal rules restrict any use of the information to criminally investigate or prosecute any alcohol or drug abuse patient.[facility] the event this information is protected by the Federal Confidentiality of Alcohol and Drug Abuse Patient Records regulations: The Federal rules restrict any use of the information to criminally investigate or prosecute any alcohol or drug abuse patient.[facility] the event this information is protected by the Federal Confidentiality of Alcohol and Drug Abuse Patient Records regulations: The Federal rules restrict any use of the information to criminally investigate or prosecute any alcohol or drug abuse patient.[facility] the event this information is protected by the Federal Confidentiality of Alcohol and Drug Abuse Patient Records regulations: The Federal rules restrict any use of the information to criminally investigate or prosecute any alcohol or drug abuse patient.[facility] the event this information is protected by the Federal Confidentiality of Alcohol and Drug Abuse Patient Records regulations: The Federal rules restrict any use of the information to criminally investigate or prosecute any alcohol or drug abuse patient.[facility] the event this information is protected by the Federal Confidentiality of Alcohol and Drug Abuse Patient Records regulations: The Federal rules restrict any use of the information to criminally investigate or prosecute any alcohol or drug abuse patient.[facility] the event this information is protected by the Federal Confidentiality of Alcohol and Drug Abuse Patient Records regulations: The Federal rules restrict any use of the information to criminally investigate or prosecute any alcohol or drug abuse patient.[facility] the event this information is protected by the Federal Confidentiality of Alcohol and Drug Abuse Patient Records regulations: The Federal rules restrict any use of the information to criminally investigate or prosecute any alcohol or drug abuse patient.[facility] the event this information is protected by the Federal Confidentiality of Alcohol and Drug Abuse Patient Records regulations: The Federal rules restrict any use of the information to criminally investigate or prosecute any alcohol or drug abuse patient.[facility] the event this information is protected by the Federal Confidentiality of Alcohol and Drug Abuse Patient Records regulations: The Federal rules restrict any use of the information to criminally investigate or prosecute any alcohol or drug abuse patient.[facility] the event this information is protected by the Federal Confidentiality of Alcohol and Drug Abuse Patient Records regulations: The Federal rules restrict any use of the information to criminally investigate or prosecute any alcohol or drug abuse patient.[facility] the event this information is protected by the Federal Confidentiality of Alcohol and Drug Abuse Patient Records regulations: The Federal rules restrict any use of the information to criminally investigate or prosecute any alcohol or drug abuse patient.[facility] the event this information is protected by the Federal Confidentiality of Alcohol and Drug Abuse Patient Records regulations: The Federal rules restrict any use of the information to criminally investigate or prosecute any alcohol or drug abuse patient.[facility] Reason for Visit (unrecogniz ed section and content) Reason Comments Results CXR Reason Comments Results Reason Comments Established Patient CT results Specialty Diagnoses / Procedures Referred By Contac t Referred To Contact Pulmonary and Critical Care Medicine / PULMONARY MEDICINE Diagnoses Follow-up exam ct results Procedures OFFICE/OUTPATIENT EST PT MAY NOT REQ PHYS/QHP OFFICE/OUTPATIENT ESTABLISHED HIGH MDM 40-54 MIN RI EST PULNazia Patel MD [address] [place] [address] Saritha Mustafa PA-C [address] [place] [address] Referral ID Status Reason Start Date Expiration Date Visits Re quested Visits Authorized [id number] Closed 03/05/2022 04/03/2022 1 1 Reason Comments Established Patient 3 month follow up Reason Comments Nodule Follow up Ct scan Specialty Diagnoses / Procedures Referred By Contac t Referred To Contact Pulmonary and Critical Care Medicine / PULMONARY MEDICINE Diagnoses Lung nodules LUNG NODULES Procedures OFFICE/OUTPATIENT ESTABLISHED HIGH MDM 40-54 MIN RI EST Nazia Case MD [address] [place] [address] Saritha Mustafa PA-C [address] [place] [address] Referral ID Status Reason Start Date Expiration Date V isits Requested Visits Authorized [id number] Denied Clearance Not Met - Admin/Chairm an/Director Advise to Postpone/Res chedule or Not Proceed 12/20/2022 03/20/2023 [address] Specialty Diagnoses / Procedures Referred By Contac t Referred To Contact CT IMAGING Diagnoses Lung nodules Aspiration of liquid, sequela Tongue cancer (HCC) Procedures CT CHEST WO IVCON DIAGNOSTIC COMPUTED TOMOGRAPHY THORAX W/O Nazia Crandall MD [address] [place] [address] [place] [address] Referral ID Status Reason Start Date Expiration Date V isits Requested Visits Authorized [id number] Closed Auto-Generate d Referral 09/27/2022 07/17/2023 1 1 Specialty Diagnoses / Procedures Referred By Contac t Referred To Contact CT IMAGING Diagnoses Lung nodules Tongue cancer (HCC) Procedures CT CHEST WO IVCON DIAGNOSTIC COMPUTED TOMOGRAPHY THORAX W/O Nazia Crandall MD [address] [place] [address] [place] [address] Referral ID Status Reason Start Date Expiration Date V isits Requested Visits Authorized [id number] Closed Auto-Generate d Referral 10/08/2021 05/26/2022 1 1 Reason Comments results Care Teams (unrecognized sec tion and content) Manager Care Management Relationship Specialty Start Date End Date Theo Rodríguez [address] [facility] [address] [place] [id number] PCP - General Family Practice 02/16/11 Manager Care Management Relationship Specialty Start Date End Date Theo Rodríguez [address] [place] [address] [phone] PCP - General Family Practice 02/16/11 Manager Care Management Relationship Specialty Start Date End Date Theo Rodríguez [address] [place] [address] [phone] PCP - General Family Practice 02/16/11 Manager Care Management Relationship Specialty Start Date End Date Theo Rodríguez [address] [place] [phone] PCP - General Family Practice 02/16/11 Manager Care Management Relationship Specialty Start Date End Date Theo Rodríguez [address] [phone] PCP - General Family Medicine 02/16/11 Manager Care Management Relationship Specialty Start Date End Date Ramakrishna Barger MD [address] [place] [id number] PCP - General Internal Medicine 03/18/22 Manager Care Management Relationship Specialty Start Date End Date Ramakrishna Barger MD [address] [place] [id number] PCP - General Internal Medicine 03/18/22 Manager Care Management Relationship Specialty Start Date End Date Ramakrishna Barger MD [address] [place] [phone] PCP - General Internal Medicine 03/18/22 Manager Care Management Relationship Specialty Start Date End Date Ramakrishna aBrger MD [address] [place] [phone] PCP - General Internal Medicine 03/18/22 Manager Care Management Relationship Specialty Start Date End Date Theo Rodríguez [address] [place] [id number] PCP - General Family Medicine 02/16/11 03/17/22 Manager Care Management Relationship Specialty Start Date End Date Ramakrishna Barger MD [address] [place] [phone] PCP - General Internal Medicine 03/18/22 FOR RECORDS PERTAINING TO PATIENTS WHO ARE OR HAVE BEEN ENROLLED IN A CHEMICAL DEPENDENCY/SUBSTANCEABUSE PROGRAM, SOME INFORMATION MAY BE OMITTED. This clinical summary was aggregated from multiple sources. Caution should be exercised in using it in the provision of clinical care. This summary normalizes information from multiple sources, and as a consequence, information in this document may materially change the coding, format and clinical context of patient data. In addition, data may be omitted in some cases. CLINICAL DECISIONS SHOULD BE BASED ON THE PRIMARY CLINICAL RECORDS. [employer] [facility] provides no warranty or guarantee of the accuracy or completeness of information in this document.
--- OUTSIDE RECORDS SUMMARY | 2023-06-01 23:34 | XMS RPT_ITS | CCD ---
Author Name Unknown Address [address] [place] [address] Organization [facility] Care Team Providers Care Benefits Sales Consultant Name Role Phone GARDINER, VU Unavailable Unavailable [...] Provider Ramakrishna Barger MD Primary Care Provider Theo Rodríguez Primary Care Provider NAZIA STAPLES [...] Reaction(s) Facility (1 source) Penicillin Drug Allergy [facility] Repository (14 sources) Penicillins; 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: [PENICILLINS] Drug Allergy 1 Other: See Comments [facility] Medications Current Medications Medication Drug Class(es) Dates [...] Drug Class(es) Dates Sig (Normalized) Sig (Original) [id number] 200 actuat albuterol 0.09 mg/actuat metered dose [...] sources) Long-term current use of anticoagulant; 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: [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 (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 of anticoagulants] Onset: 10-14-2011 10-14-2011 [...] 167.6 cm Saritha Nehal PA-C Work Phone: [facility] 12-20-2022 09:25-0400 Body weight 53.25 kg Saritha Nehal PA-C Work Phone: [facility] 12-20-2022 09:25-0400 Diastolic blood pressure 72 mm[Hg] Saritha Nehal PA-C Work Phone: [facility] 12-20-2022 09:25-0400 Heart rate 70 /min Saritha Nehal PA-C Work Phone: [facility] 12-20-2022 09:25-0400 Respiratory rate 16 /min Saritha Nehal PA-C Work Phone: [facility] 12-20-2022 09:25-0400 SaO2% (BldA) [Mass fraction] 95 % Saritha Nehal PA-C Work Phone: [facility] 12-20-2022 09:25-0400 Systolic blood pressure 120 mm[Hg] Saritha Nehal PA-C Work Phone: [facility] 06-17-2022 11:34-0400 Body weight 53.52 kg Nazia Staples MD Work Phone: [facility] 06-17-2022 11:34-0400 Diastolic blood pressure 80 mm[Hg] Nazia Staples MD Work Phone: [facility] 06-17-2022 11:34-0400 Heart rate 89 /min Nazia Staples MD Work Phone: [facility] 06-17-2022 11:34-0400 Respiratory rate 15 /min Nazia Staples MD Work Phone: [facility] 06-17-2022 11:34-0400 SaO2% (BldA) [Mass fraction] 100 % Nazia Staples MD Work Phone: [facility] 06-17-2022 11:34-0400 Systolic blood pressure 116 mm[Hg] Nazia Staples MD Work Phone: [facility] 03-18-2022 10:22-0500 Body weight 53.98 kg Saritha Nehal FONG Work Phone: [facility] 11-27-2021 08:41-0400 Body height 167.6 cm Nazia Staples MD Work Phone: [facility] 11-27-2021 08:41-0400 Body temperature 98.4 [degF] Nazia Staples MD Work Phone: [facility] 11-27-2021 08:41-0400 Body weight 51.26 kg Nazia Staples MD Work Phone: [facility] 11-27-2021 08:41-0400 Diastolic blood pressure 82 mm[Hg] Nazia Staples MD Work Phone: [facility] 11-27-2021 08:41-0400 Heart rate 99 /min Nazia Staples MD Work Phone: [facility] 11-27-2021 08:41-0400 Respiratory rate 14 /min Nazia Staples MD Work Phone: [facility] 11-27-2021 08:41-0400 SaO2% (BldA) [Mass fraction] 97 % Nazia Staples MD Work Phone: [facility] 11-27-2021 08:41-0400 Systolic blood pressure 150 mm[Hg] Nazia Staples MD Work Phone: [facility] Encounters Encounter Date Encounter Type Care Provider [...] DTaP,Tdap,Td Vaccine (3 - Td or Tdap) [facility] Start: 01-21-2025 Pneumococcal Vaccine: 65+ (3 - PPSV23 or PCV20) Pneumococcal Vaccine: 65+ (3 - PPSV23 or PCV20) [facility] Start: 03-16-2023 Influenza vaccination LUNG CANCER SCREENING [facility] Start: 12-11-2022 Influenza vaccination LUNG CANCER SCREENING [facility] Start: 12-03-2022 Covid-19 Vaccine () Covid-19 Vaccine () [facility] Start: 12-03-2022 Influenza vaccination Influenza Vaccine (#1) [facility] Start: 09-27-2022 End: 07-17-2023 Ct thorax w/o contrast material CT CHEST WO IVCON Radiology Routine Lung nodules Aspiration of liquid, sequela Tongue cancer (HCC) Expected: 09/27/2022, Expires: 07/17/2023 [facility] Work Phone: Immunizations Immunization Date Immunization Notes Care Provider Joey garcía 02-02-2022 influenza, high dose seasonal, preservative-free Saritha Mustafa PA-C Work Phone: [facility] Work Phone: 02-02-2022 influenza virus vacc ine, unspecified formulation Saritha Mustafa PA-C Work Phone: [facility] 02-25-2021 influenza, high dose seasonal, preservative-free Saritha Mustafa PA-C Work Phone: [facility] Work Phone: 01-03-2021 influenza, high dose seasonal, preservative-free Nazia Staples MD Work Phone: [facility] Work Phone: 06-10-2020 COVID-19 vaccine, fu ll dose (MODERNA) Nazia Staples MD Work Phone: [facility] Work Phone: 05-25-2020 COVID-19 vaccine, fu ll dose (MODERNA) Nazia Staples MD Work Phone: [facility] Work Phone: 01-22-2020 pneumococcal conjuga te vaccine, 13 valdorothy Staples MD Work Phone: [facility] Work Phone: 01-19-2005 pneumococcal polysaccharide vaccine, 23 valdorothy Staples MD Work Phone: [facility] Work Phone: Payers Date Payer Category Payer Unknown [id number] 2021 Unknown [id number] 2020 Medicare [id number] 2020 Medicare HUMANA MEDICARE HUMANA MEDICARE PPO [id number] 2020-Present [phone] [address] [address] [place] [address] PPO [id number] 2018 Unknown [id number] 2011 Private Health Insurance [id number] 1945 Unknown [id number] 1945 Unknown [id number] 1945 Unknown [id number] 1945 Unknown [id number] 1945 Unknown [id number] Social History Date Type Detail Facility Start: 11-27-2021 Tobacco smoking stat us NHIS Ex-smoker [facility] End: 01-29-2011 History of tobacco use Current smoker [facility] End: 01-29-2011 History of tobacco use Cigarette Smoker [facility] Start: 11-27-2021 End: 12-20-2022 Cigarettes smoked current (pack per day) - Reported 1.5 [facility] Start: 11-27-2021 Tobacco use and exposure Smoke less tobacco non-user [facility] Start: 11-27-2021 End: 02-11-2023 Alcohol intake Current non-drinker of alcohol (finding) [facility] Start: 03-04-2011 History SDOH Alcohol Comment recovering alcoholic- quit 1987 [facility] Start: 1945 Sex Assigned At Not on file [facility] Start: 11-17-2021 End: 12-04-2021 Exposure to SARS-CoV-2 (event) Not sure [facility] Start: 12-20-2022 End: 02-11-2023 Tobacco use panel [facility] National Score (1-10 0), lower number is lower risk 80 [facility] Clinical Notes 07-30-2020 to 03-07-2023 Nazia Staples MD - 03/07/2023 4:32 PM Saritha Davidson PA-C - 12/20/2022 9:30 AM Joy Alva RT(R) - 12/15/2022 9:20 AM Dyana Staples MD - 11/27/2021 8:45 AM EDT Note Date & Type Note Facility 03-07-2023 Note HNO ID: [id number] Author: Nazia Staples MD Service: ? Author Type: Physician Type: Progress Notes Filed: 03/07/2023 4:34 PM Note Text: Overnight oximetry performed on 02/25/2023 Total recording time 4 hours and 3 minutes SpO2 less than 88% 12 minutes and 36 seconds Lowest SpO2 74% Performed on room air Patient still requires supplemental oxygen at night [facility] 03-07-2023 History of Presen t illness Narrative Overnight oximetry performed on 02/25/2023 Total recording time 4 hours and 3 minutes SpO2 less than 88% 12 minutes and 36 seconds Lowest SpO2 74% Performed on room air Patient still requires supplemental oxygen at night documented in this encounter [facility] 02-11-2023 Note HNO ID: [id number] Author: Amber Staton RT(R) Service: ? Author Type: Resort Desk Clerk Type: Progress Notes Filed: 02/11/2023 1:37 PM [...] RT Leticia(R) February 11, 2023 1:29 PM [facility] 02-11-2023 Note HNO ID: [id number] Author: Nazia Staples MD Service: ? Author Type: Physician Type: Progress Notes Filed: 02/11/2023 1:09 PM Note Text: . [facility] [place] Note Patient name: Loreta Ching PCP: Ramakrishna Barger MD CC: Hospital follow-up/patient wants to discontinue oxygen HPI: Loreta Ching 77 year old male former [id number] smoker, quitting 2010 with PMH significant for COPD, bronchiectasis, recurrent aspiration pneumonia, oral cancer status post partial glossectomy/radiation/chemother apy, DVT, PEG tube placement. Patient has persistent aspiration despite PEG tube as he continues to drink sips of water due to mouth dryness from prior radiation. Hospitalized at [facility] in 11/07 - 11/10 with aspiration pneumonia [...] DATE OF EXAM: Dec 15 2022 9:22AM [facility] 0541 - CT CHEST WO IVCON / [...] images and agree with the above assessment [facility] 01/2023: I personally reviewed images of his chest CT from [facility] which is pertinent for extensive right lower lobe consolidation and small pleural effusion PAST MEDICAL HISTORY Diagnosis Date Acute venous embolism and thrombosis of unspecified deep vessels of lower extremity pt is not aware of every having a DVT Aspiration pneumonia (HCC) Bronchiectasis (HCC) Cancer (HCC) tongue and neck COPD with chronic bronchitis Normal spirometry [facility] 08/2020. Seroma, postoperative Skin cancer Left ear [...] PAST SURGICAL HIST (more content not included)... [facility] 12-20-2022 Note HNO ID: [id number] Author: Saritha Mustafa PA-C Service: ? Author Type: Physician Criminal Justice Lawyer Type: Progress Notes Filed: 12/20/2022 10:35 AM Note Text: Patient: Loreta Ching PCP: Ramakrishna Barger MD CC: follow up HPI: Loreta Ching 77 year old male former [id number] smoker having quit in 2010 with PMH significant for history of COPD (PFT from [facility] normal), oral cancer (status post partial glossectomy, radiation and chemotherapy), DVT, status post PEG tube, recurrent aspiration, bronchiectasis, and bilobed lung nodule. Patient recently admitted to [facility] from 11/07 - 11/10 secondary to aspiration [...] more than 6 hours. 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 Is not using Albuterol. PAST MEDICAL HISTORY Diagnosis Date Acute venous embolism and thrombosis of unspecified deep vessels of lower extremity pt is not aware of every having a DVT Aspiration pneumonia (HCC) Bronchiectasis (HCC) Cancer (HCC) tongue and neck COPD with chronic bronchitis (HCC) Normal spirometry [facility] 08/2020. Seroma, postoperative Skin cancer Left ear [...] lobe infiltrates and (more content not included)... [facility] 12-20-2022 History of Presen t illness Narrative Patient: Loreta Ching PCP: Ramakrishna Barger MD CC: follow up HPI: Loreta Ching 77 year old male former [id number] smoker having quit in 2010 with PMH significant for history of COPD (PFT from [facility]), oral cancer (status post partial glossectomy, radiation and chemotherapy), DVT, status post PEG tube, recurrent aspiration, bronchiectasis, and bilobed lung nodule. Patient recently admitted to [facility] from 11/07 - 11/10 secondary to aspiration [...] more than 6 hours. 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 Is not using Albuterol. PAST MEDICAL HISTORY Diagnosis Date Acute venous embolism and thrombosis of unspecified deep vessels of lower extremity pt is not aware of every having a DVT Aspiration pneumonia (HCC) Bronchiectasis (HCC) Cancer (HCC) tongue and neck COPD with chronic bronchitis (HCC) Normal spirometry [facility] 08/2020. Seroma, postoperative Skin cancer Left ear [...] No abnormality in the imaged upper abdomen. Chalk Extruding Machine Operator (topogram) images: No additional findings. ASSESSMENT/PLAN: 1. [...] No evidence of recurrence. Follows at the [facility] Portions of this documentation were copied and pasted from previous office visit notes in order to provide a cohesive continuity of the history. The note has been reviewed and edited and updated as necessary. Saritha Mustafa PA-C documented in this encounter [facility] 12-15-2022 Note HNO ID: [id number] Author: Joy Kebede RT(R) Service: ? Author Type: Resort Desk Clerk Type: Progress Notes Filed: 12/15/2022 4:00 PM [...] RT Ernestina(Adrian) December 15, 2022 3:59 PM [facility] 12-15-2022 History of Presen t illness [...] 2022 3:59 PM documented in this encounter [facility] 06-17-2022 Note HNO ID: [id number] Author: Nazia Staples MD Service: ? Author Type: Physician Type: Progress Notes Filed: 06/17/2022 12:55 PM Note Text: . [facility] [place] [facility] Patient name: Loreta Ching PCP: Ramakrishna Barger MD CC: Follow-up bronchiectasis HPI: Loreta Ching 76 year old male former [id number] smoker having quit in 2010 with PMH [...] need for albuterol. DATA: Labs: Labs 03/2022 [facility]: CBC normal, HgbA1c elevated at 5.7%, liver panel normal BMP normal including calcium Imaging / Diagnostic Studies: DATE OF EXAM: Mar 16 2022 10:47AM [facility] 0541 - CT CHEST WO IVCON / [...] COPD with chronic bronchitis (HCC) Normal spirometry [facility] 08/2020. Seroma, postoperative Skin cancer Left ear [...] TUBE 01/03/2012 Remova (more content not included)... [facility] 06-17-2022 History of Presen t illness Narrative . [facility] [place] [facility] Patient name: Loreta Ching PCP: Ramakrishna Barger MD CC: Follow-up bronchiectasis HPI: Loreta Ching 76 year old male former 48-[id number] smoker having quit in 2010 with PMH [...] DATE OF EXAM: Mar 16 2022 10:47AM [facility] 0541 - CT CHEST WO IVCON / [...] COPD with chronic bronchitis (HCC) Normal spirometry [facility] 08/2020. Seroma, postoperative Skin cancer Left ear [...] [facility] [place] documented in this encounter [facility] 03-18-2022 Note HNO ID: [id number] Author: Saritha Mustafa PA-C Service: ? Author Type: Physician Criminal Justice Lawyer Type: Progress Notes Filed: 03/18/2022 11:17 AM Note Text: Patient: Loreta Ching PCP: Theo Rodríguez MD CC: aspiration pneumonia HPI: Loreta Ching 76 year old male former smoker, 75 pack years (quitting 2010) with PMH significant for COPD (PFTs from [facility] normal), cancer of the tongue (partial glossectomy and radiation therapy and chemotherapy), DVT, status post PEG tube, and history of aspiration pneumonia. Re-established care with Dr. Staples in November. He has been hospitalized multiple times at [facility] for aspiration pneumonia, imaging suggestive of either mucous plugging versus endobronchial tumor, s/p bronchoscopy at [facility]. No endobronchial tumor. Most recently treated for [...] COPD with chronic bronchitis (HCC) Normal spirometry [facility] 08/2020. Seroma, postoperative Skin cancer Left ear [...] PEG tube inhaler, assist devices ([facility]) Unsure of what the medication is tiotropium [...] chest, 03/16/2022 I (more content not included)... [facility] 03-18-2022 History of Presen t illness Narrative Patient: Loreta Ching PCP: Theo Rodríguez MD CC: aspiration pneumonia HPI: Loreta Ching 76 year old male former smoker, 75 pack years (quitting 2010) with PMH significant for COPD (PFTs from [facility] normal), cancer of the tongue (partial glossectomy and radiation therapy and chemotherapy), DVT, status post PEG tube, and history of aspiration pneumonia. Re-established care with Dr. Staples in November. He has been hospitalized multiple times at [facility] for aspiration pneumonia, imaging suggestive of either mucous plugging versus endobronchial tumor, s/p bronchoscopy at [facility]. No endobronchial tumor. Most recently treated for [...] COPD with chronic bronchitis (HCC) Normal spirometry [facility] 08/2020. Seroma, postoperative Skin cancer Left ear [...] PEG tube inhaler, assist devices ([facility]) Unsure of what the medication is tiotropium [...] No abnormality in the imaged upper abdomen. Chalk Extruding Machine Operator (topogram) images: No additional findings. CT chest, [...] to speak to his doctors at the [facility] regarding the possibility of changing to a [...] Saritha Mustafa PA-C documented in this encounter [facility] 03-16-2022 Note HNO ID: [id number] Author: RT Roula(Adrian) Service: ? Author Type: Resort Desk Clerk Type: Progress Notes Filed: 03/16/2022 12:50 PM [...] RT Ernestina(R) March 16, 2022 12:50 PM [facility] 03-16-2022 History of Presen t illness [...] 2022 12:50 PM documented in this encounter [facility] 01-08-2022 Miscellaneous Notes Patient returned call and was previously scheduled for his chest CT scan. Phone numbers have been updated. 1st attempt left message to return call to schedule Ct of Chest in 2021. Please update phone numbers also. Sending my chart message. documented in this encounter [facility] 12-15-2021 Miscellaneous Notes Called and left a voicemail message that port of her chest CT is available. Instructed her to open her [employer] message. CT of the chest shows chronic changes in her right lower lobe consistent with previous aspiration. Note of a 1.6 cm bilobed nodule in her left lower lobe which may be an area of scar although metastatic carcinoma cannot be excluded. She will need an short interim chest CT. documented in this encounter [facility] 12-01-2021 Miscellaneous Notes I spoke to patient regarding results of her recent chest x-ray which shows markings consistent with bronchiectasis and right lower lobe infiltrate. She needs chest CT for further delineation. Order placed. documented in this encounter [facility] 11-27-2021 History of Presen t illness Narrative Images from the original note were not included. . [facility] [place] [facility] Patient name: Loreta Ching PCP: Theo Rodríguez MD CC: Re-establish care for pneumonia HPI: Loreta Ching 76 year old male former 16-qqua-bgmm smoker, quit in 2010 with PMH significant for h/o [facility] cancer of the tongue (partial glossectomy and radiation therapy and chemotherapy), DVT, status post PEG tube, last seen by Dr. Huertas 02/2021 aspiration pneumonia. Hospitalized several times at [facility] for aspiration pneumonia, imaging suggestive of either mucous plugging versus endobronchial tumor, status post bronchoscopy at [facility]. No endobronchial tumor. State he had been [...] and no obstruction on PFTs from the [facility]. Denies choking. No current respiratory symptoms of SOB, wheezing, cough, chest pain. Will occasionally cough if stomach too full with tube feeds. DATA: Reviewed EMR from last hospitalization Labs: 09/2021 [facility]: Normal CMP, WBC increased 12.7, normal D-dimer Imaging / Diagnostic Studies: CXR 09/23/21 [facility]: reviewed and shows RLL increased interstitial markings, [...] tongue and neck COPD with chronic bronchitis ([facility]) Normal spirometry [facility] 08/2020. Seroma, postoperative Skin cancer Left ear [...] PEG tube inhaler, assist devices ([facility]) Unsure of what the medication is ibuprofen [...] -No obvious recurrence Nazia Staples MD [facility] [place] documented in this encounter [facility] 07-30-2020 Note [facility] DISCHARGE SUMMARY NAME ACCOUNT SEX AGE ADMIT DISCHARGE PT MED. RECORD# NUMBER DATE DATE TYPE JEANE [id number] [place] 74 07/25/20 07/27/20 Cristina Mccarty [id number] ROOM: 319 DATE OF : 1945 ATTENDING PHYSICIAN: [facility] COURSE: For a full history and [...] Dr. Conrado Aguilar. 07/27/20 13:04 JOB #: [id number] Transcribed By: sp 07/28/20 04:37 Page 1 of 2 LORETA CHING Discharge Summary LORETA CHING : 1945 Electronically signed by: E-Sign: CONRADO AGUILAR MD 07/30/20 12:39 Page 2 of 2 LORETA CHING Discharge Summary [facility] 07-30-2020 Note [facility] PROGRESS NOTE NAME ACCOUNT SEX AGE ADMIT DISCHARGE PT MED. RECORD# NUMBER DATE DATE TYPE JEANE [id number] M 74 07/25/20 2 LORETA Mccarty [id number] ROOM: 319 DATE OF : 1945 DICTATING [...] Conrado Aguilar MD 07/26/20 13:34 JOB #: [id number] Transcribed By: vicente 07/26/20 15:12 Electronically signed by: E-Sign: CONRADO AGUILAR MD 07/30/20 12:37 Page 1 of 1 LORETA CHING Progress Note [facility] Pneumonia of right lower lobe due to infectious organism [facility] [place] [facility] Diagnosis Abnormal x-ray- Primary Other nonspecific (abnormal) findings on radiological and other examinations of body structure Pneumonia of right lower lobe due to infectious organism Tongue cancer (HCC) Malignant neoplasm of tongue, unspecified site Bronchiectasis without complication (HCC) Bronchiectasis without acute exacerbation [facility] Diagnosis Lung nodules- Primary Other nonspecific abnormal finding of lung field Tongue cancer (HCC) Malignant neoplasm of tongue, unspecified site [facility] [place] [facility] Diagnosis Aspiration pneumonia of right upper lobe, unspecified aspiration pneumonia type (HCC)- Primary Bronchiectasis without complication (HCC) Bronchiectasis without acute exacerbation Former cigarette smoker Personal history of tobacco use, presenting hazards to health Tongue cancer (HCC) Malignant neoplasm of tongue, unspecified site [facility] [place] [facility] Diagnosis Bronchiectasis without complication (HCC)- Primary Bronchiectasis without acute exacerbation Lung nodules Other nonspecific abnormal finding of lung field Aspiration of liquid, sequela Former cigarette smoker Personal history of tobacco use, presenting hazards to health Tongue cancer (HCC) Malignant neoplasm of tongue, unspecified site [facility] Diagnosis Aspiration pneumonia of right upper lobe, unspecified aspiration pneumonia type (HCC)- Primary Bronchiectasis without complication (HCC) Bronchiectasis without acute exacerbation Lung nodules Other nonspecific abnormal finding of lung field Aspiration of liquid, sequela Former cigarette smoker Personal history of tobacco use, presenting hazards to health Cancer, tongue (HCC) [facility] Diagnosis Lung nodules Other nonspecific abnormal finding of lung field Aspiration of liquid, sequela Tongue cancer (HCC) Malignant neoplasm of tongue, unspecified site [facility] [place] [facility] Diagnosis Lung nodules Other nonspecific abnormal finding of lung field Tongue cancer (HCC) Malignant neoplasm of tongue, unspecified site [facility] [place] [facility] Diagnosis Aspiration pneumonia of right lower lobe due to regurgitated food (HCC) documented in this encounter [facility] Summary Purpose Family History No Family History Records FoundNo Family History Records FoundNo Family History Records Found Advance Directives No Advanced Directives Records FoundDocuments on File Type Date Recorded 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 Advance Directive(s) 04/14/2011 1:45 PM Documents on File Type Date Recorded 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 anation Advance Directive(s) 04/14/2011 1:45 PM Reason for Referral Specialty Diagnoses / Procedures Referred By Contac t Referred To Contact CT IMAGING Diagnoses Abnormal x-ray Tongue cancer (HCC) Bronchiectasis without complication (HCC) Procedures CT CHEST WO IVCON DIAGNOSTIC COMPUTED TOMOGRAPHY THORAX W/O Nazia Crandall MD [address] [address] Ct Imaging Referral ID Status Reason Start Date Expiration Date Visits Requested Visits Authorized [id number] Pending Review Auto-Generat ed Referral 12/01/2021 12/31/2022 1 1 Specialty Diagnoses / Procedures Referred By Contac t Referred To Contact CT IMAGING Diagnoses Lung nodules Tongue cancer (HCC) Procedures CT CHEST WO IVCON DIAGNOSTIC COMPUTED TOMOGRAPHY THORAX W/O Nazia Crandall MD [address] [place] [address] Ct Imaging Referral ID Status Reason Start Date Expiration Date Visits Requested Visits Authorized [id number] Pending Review Auto-Generat ed Referral 01/14/2023 1 1 Specialty Diagnoses / Procedures Referred By Contac t Referred To Contact CT IMAGING Diagnoses Lung nodules Aspiration of liquid, sequela Tongue cancer (HCC) Procedures CT CHEST WO IVCON DIAGNOSTIC COMPUTED TOMOGRAPHY THORAX W/O Nazia Crandall MD [address] [place] [address] Ct Imaging Referral ID Status Reason Start Date Expiration Date Visits Requested Visits Authorized [id number] Authorized Auto-Generat ed Referral 09/27/2022 07/17/2023 1 1 Specialty Diagnoses / Procedures Referred By Contac t Referred To Contact CT IMAGING Diagnoses Lung nodules Aspiration of liquid, sequela Tongue cancer (HCC) Procedures CT CHEST WO IVCON DIAGNOSTIC COMPUTED TOMOGRAPHY THORAX W/O Nazia Crandall MD [address] [place] [address] [place] [id number] Referral ID Status Reason Start Date Expiration Date V isits Requested Visits Authorized [id number] Closed Auto-Generate d Referral 09/27/2022 07/17/2023 1 1 Specialty Diagnoses / Procedures Referred By Contac t Referred To Contact CT IMAGING Diagnoses Lung nodules Tongue cancer (HCC) Procedures CT CHEST WO IVCON DIAGNOSTIC COMPUTED TOMOGRAPHY THORAX W/O Nazia Crandall MD [address] [place] [address] [place] [id number] Referral ID Status Reason Start Date Expiration Date V isits Requested Visits Authorized [id number] Closed Auto-Generate d Referral 10/08/2021 05/26/2022 1 1 Additional Source Comments (unrecognized sect ion and content) No Status Records FoundNo Status Records FoundNo Status Records Found INFORMATION SOURCE (unrecogn ized section and content) DATE CREATED AUTHOR AUTHOR'S ORGANIZ ATION 01/17/2021 [facility] DATE CREATED AUTHOR AUTHOR'S ORGANIZ ATION 03/09/2023 [facility] Source Comments (unrecognize d section and content) In the event this informatio n is protected by the Federal Confidentiality of Alcohol and Drug Abuse Patient Records regulations: The Federal rules restrict any use of the information to criminally investigate or prosecute any alcohol or drug abuse patient.[facility] the event this information is protected by the Federal Confidentiality of Alcohol and Drug Abuse Patient Records regulations: The Federal rules restrict any use of the information to criminally investigate or prosecute any alcohol or drug abuse patient.[facility] HospitalIn the event this information is protected by the Federal Confidentiality of Alcohol and Drug Abuse Patient Records regulations: The Federal rules restrict any use of the information to criminally investigate or prosecute any alcohol or drug abuse patient.[facility] Hospital[facility] the event this information is protected by the Federal Confidentiality of Alcohol and Drug Abuse Patient Records regulations: The Federal rules restrict any use of the information to criminally investigate or prosecute any alcohol or drug abuse patient.[facility] HospitalIn the event this information is protected by the Federal Confidentiality of Alcohol and Drug Abuse Patient Records regulations: The Federal rules restrict any use of the information to criminally investigate or prosecute any alcohol or drug abuse patient.[facility] HospitalIn the event this information is protected by the Federal Confidentiality of Alcohol and Drug Abuse Patient Records regulations: The Federal rules restrict any use of the information to criminally investigate or prosecute any alcohol or drug abuse patient.[facility] HospitalIn the event this information is protected by the Federal Confidentiality of Alcohol and Drug Abuse Patient Records regulations: The Federal rules restrict any use of the information to criminally investigate or prosecute any alcohol or drug abuse patient.[facility] HospitalIn the event this information is protected by the Federal Confidentiality of Alcohol and Drug Abuse Patient Records regulations: The Federal rules restrict any use of the information to criminally investigate or prosecute any alcohol or drug abuse patient.[facility] HospitalIn the event this information is protected by the Federal Confidentiality of Alcohol and Drug Abuse Patient Records regulations: The Federal rules restrict any use of the information to criminally investigate or prosecute any alcohol or drug abuse patient.[facility] HospitalIn the event this information is protected by the Federal Confidentiality of Alcohol and Drug Abuse Patient Records regulations: The Federal rules restrict any use of the information to criminally investigate or prosecute any alcohol or drug abuse patient.[facility] HospitalIn the event this information is protected by the Federal Confidentiality of Alcohol and Drug Abuse Patient Records regulations: The Federal rules restrict any use of the information to criminally investigate or prosecute any alcohol or drug abuse patient.[facility] HospitalIn the event this information is protected by the Federal Confidentiality of Alcohol and Drug Abuse Patient Records regulations: The Federal rules restrict any use of the information to criminally investigate or prosecute any alcohol or drug abuse patient.[facility] HospitalIn the event this information is protected by the Federal Confidentiality of Alcohol and Drug Abuse Patient Records regulations: The Federal rules restrict any use of the information to criminally investigate or prosecute any alcohol or drug abuse patient.[facility] Reason for Visit (unrecogniz ed section and [...] PULNazia Patel MD [address] [place] [address] Saritha Mustafa PA-C [address] [place] [address] Referral ID Status Reason Start Date Expiration Date Visits Re quested Visits Authorized [id number] Closed 03/05/2022 04/03/2022 1 1 Reason Comments Established Patient 3 month follow up Reason Comments Nodule Follow up Ct scan Specialty Diagnoses / Procedures Referred By Contac t Referred To Contact Pulmonary and Critical Care Medicine / PULMONARY MEDICINE Diagnoses Lung nodules LUNG NODULES Procedures OFFICE/OUTPATIENT ESTABLISHED HIGH MDM 40-54 MIN RI EST Nazia Case MD [address] [place] [address] Saritha Mustafa PA-C [address] [place] [address] Referral ID Status Reason Start Date Expiration Date V isits Requested Visits Authorized [id number] Denied Clearance Not Met - Admin/Chairm an/Director Advise to Postpone/Res chedule or Not Proceed 12/20/2022 03/20/2023 [address] Specialty Diagnoses / Procedures Referred By Contac t Referred To Contact CT IMAGING Diagnoses Lung nodules Aspiration of liquid, sequela Tongue cancer (HCC) Procedures CT CHEST WO IVCON DIAGNOSTIC COMPUTED TOMOGRAPHY THORAX W/O Nazia Crandall MD [address] [place] [address] [place] [id number] Referral ID Status Reason Start Date Expiration Date V isits Requested Visits Authorized [id number] Closed Auto-Generate d Referral 09/27/2022 07/17/2023 1 1 Specialty Diagnoses / Procedures Referred By Contac t Referred To Contact CT IMAGING Diagnoses Lung nodules Tongue cancer (HCC) Procedures CT CHEST WO IVCON DIAGNOSTIC COMPUTED TOMOGRAPHY THORAX W/O Nazia Crandall MD [address] [place] [address] [place] [address] Referral ID Status Reason Start Date Expiration Date V isits Requested Visits Authorized [id number] Closed Auto-Generate d Referral 10/08/2021 05/26/2022 1 1 Reason Comments results Care Teams (unrecognized sec tion and content) Benefits Sales Consultant Relationship Specialty Start Date End Date Theo Rodríguez [address] [facility] [address] [place] [id number] PCP - General Family Practice 02/16/11 Benefits Sales Consultant Relationship Specialty Start Date End Date Theo Rodríguez [address] [place] [address] [phone] PCP - General Family Practice 02/16/11 Benefits Sales Consultant Relationship Specialty Start Date End Date Theo Rodríguez [address] [place] [address] [phone] PCP - General Family Practice 02/16/11 Benefits Sales Consultant Relationship Specialty Start Date End Date Theo Rodríguez [address] [place] [address] [id number] PCP - General Family Practice 02/16/11 Benefits Sales Consultant Relationship Specialty Start Date End Date Theo Rodríguez [address] [phone] PCP - General Family Medicine 02/16/11 Benefits Sales Consultant Relationship Specialty Start Date End Date Ramakrishna Barger MD [address] [place] [id number] PCP - General Internal Medicine 03/18/22 Benefits Sales Consultant Relationship Specialty Start Date End Date Ramakrishna Barger MD [address] [place] [id number] PCP - General Internal Medicine 03/18/22 Benefits Sales Consultant Relationship Specialty Start Date End Date Ramakrishna Barger MD [address] [place] [id number] PCP - General Internal Medicine 03/18/22 Benefits Sales Consultant Relationship Specialty Start Date End Date Ramakrishna Barger MD [address] [place] [id number] PCP - General Internal Medicine 03/18/22 Benefits Sales Consultant Relationship Specialty Start Date End Date Theo Rodríguez [address] [place] [id number] PCP - General Family Medicine 02/16/11 03/17/22 Benefits Sales Consultant Relationship Specialty Start Date End Date Ramakrishna Barger MD [address] [place] [id number] PCP - General Internal Medicine 03/18/22 FOR [...] BE BASED ON THE PRIMARY CLINICAL RECORDS. [facility]. provides no warranty or guarantee of the accuracy or completeness of information in this document.
[2023-06-02] VITALS (7 sets, daily range): BP systolic 105–151; BP diastolic 61–103; PULSE 86–99; RESP 16–18; TEMP 36.6–36.8; O2SAT 94–95
[2023-06-02] MEDS: Piperacil/Tazobactam 3.375 GM in 0.9% Normal Saline (50mL MB+) 50 ML IV ×3 (05:30→20:08)
[2023-06-02] MEDS: 0.9% Saline Lock 10 ML Syringe IV (07:59)
[2023-06-02] MEDS: Ondansetron 4 MG/2 ML Vial IV (07:59)
[2023-06-02] MEDS: Ipratropium/Albuterol Sulfate 3 ML AMPUL.NEB INHALATION ×3 (07:59→20:34)
[2023-06-02] MEDS: traMADol 50 MG Tablet GT (07:59)
[2023-06-02] MEDS: ENTERAL NUTRITION FORMULA 237 ML GT ×4 (08:00→20:09)
[2023-06-02] MEDS: 0.9% Normal Saline (1000mL) 1,000 ML 125 ML IV ×2 (08:02→11:35)
--- NOTE | 2023-06-02 08:30 | PN.HOSP_ITS ---
Reason for Visit Reason for Visit: Diagnoses Pneumonitis due to inhalation of food and vomit (06/01/23) Subjective Subjective Had dyspnea this AM. Improved. Had been having N/V for about 1 week. Has had N/V intermittently, but never protracted as this Objective Data Objective Data Vital Signs: Vital Signs Temp Pulse Resp BP Pulse Ox O2 Del Method O2 Flow Rate 36.6 C 99 18 151/87 H 94 Nasal Cannula 5 06/02/23 07:42 06/02/23 07:42 06/02/23 07:42 06/02/23 07:42 06/02/23 07:42 06/02/23 07:42 06/02/23 07:42 Oxygen Flow Rate (L/min) 5 Oxygen Delivery Method Nasal Cannula Weight: 53.6 kg Body Mass Index (BMI) 19.1 Intake & Output: Intake and Output for Last 24 Hours 05/31/23 06/01/23 06/02/23 23:59 23:59 23:59 Intake Total 4100 / 4340 1292.08 / 1292.08 Balance 4100 / 4340 1292.08 / 1292.08 Lab / Micro Data 06/02/23 08:15 06/01/23 11:15 Labs: Laboratory Results - last 24 hr 06/01/23 11:15: WBC 14.3 H, RBC 3.63 L, Hgb 11.7 L, Hct 36.1 L, MCV 99.4 H, MCH 32.2 H, MCHC 32.4, RDW Std Deviation 46.5 H, RDW Coeff of Livan 12.6, Plt Count 178, MPV 11.3, Immature Gran % (Auto) 0.500, Neut % (Auto) 88.8 H, Lymph % (Auto) 5.8 L, Warren % (Auto) 4.8, Eos % (Auto) 0.0, Baso % (Auto) 0.1, Absolute Neuts (auto) 12.7 H, Absolute Lymphs (auto) 0.83, Nucleated RBC % 0, D-Dimer Quant (PE/DVT) 0.43, Sodium 135 L, Potassium 4.1, Chloride 99, Carbon Dioxide 32.0, Anion Gap 4 L, BUN 39 H, Creatinine 0.73, Estim Creat Clear Calc 92.48, Est GFR (MDRD) Af Amer 134, Est GFR (MDRD) Non-Af 111, BUN/Creatinine Ratio 53.5 H, Glucose 136 H, Calcium 9.3, Troponin I High Sens 12 06/01/23 12:55: Lactic Acid 1.0 Micro: Microbiology 06/01/23 11:10 Mucosa - Nose SARS-CoV-2, Influenza & RSV (PCR) - Final Radiography Diagnostic Testing: Radiology Impression Chest X-Ray 06/01/23 11:35 IMPRESSION: Patchy airspace disease is seen in the right lower lobe. Pneumonic infiltrate should be rule out. Radiographic follow-up is recommended. Electronically Signed: Lazaro Freedman MD at 11:51 EST , Brain CT 06/01/23 11:44 IMPRESSION: Chronic involutional changes of the brain. Mild degree of mucosal thickening of the right maxillary sinus and ethmoid sinuses. Electronically Signed: Lazaro Freedman MD at 12:15 EST , Physical Exam Const alert Constitutional Narrative: weak voice. non-toxic. no respiratory distress. no conversational dyspnea. cachectic. HEENT head/scalp atraumatic Neck no lymphadenopathy Resp Resp Narrative: bibasilar crackles. Cardio regular rate, regular rhythm, S1 normal heart sound and S2 normal heart sound GI normal to inspection, nondistended, normoactive bowel sounds, soft to palpation, non-tender and non-distended Extremity normal to inspection and no clubbing, cyanosis or edema Neuro Sensorium / Orientation: awake and alert Psych affect normal Assessment & Plan Assessment/Plan (1) Aspiration pneumonia: PLAN: Plan Aspiration pneumonia right lower lobe * on pip/tazo * BDs * PEP hypoxia * 2/2 aspiration * oxygen but will be weaned if possible, patient is on no home O2. Intractable N/V * now resolved. * I am concerned pt may have had an ileus v SBO v gastroenteritis. * check abdominal xray. 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 except for small sips of water which she uses to moisten his mouth so he can talk, patient receives nutrition through his PEG tube and his medications for his PEG tube. * protein calorie malnutrition: BM 19.1. continue enteral nutrition. VTE prophylaxis: LMWH. Charges/Coding Visit Charges Inpatient E&M: 28095 Subs Hosp L2
[2023-06-02 08:38] LABS: Absolute Lymphocyte Count 1.56 X10^3/uL (0.83-4.51); Absolute Neutrophil Count 14.5 X10^3/uL (2.0-7.7); Basophil# 0.03 X10^3/uL; Basophil% 0.2 % (0-1); Eosinophil# 0.02 X10^3/uL; Eosinophils% 0.1 % (0-5); Hematocrit 34.2 % (40-54); Hemoglobin 10.9 g/dL (13.0-16.5); Lymphocyte # 1.56 X10^3/ul (0.83-4.51); Lymphocyte % 9.1 % (19-41); Mean Corp Hgb Conc 31.9 g/dL (32-36); Mean Corpuscular Hgb 32.1 pg (27.0-32.0); Mean Corpuscular Volume 100.6 fL (80-94); Mean Platelet Vol. 10.9 fl (6.2-12.0); Monocyte# 1.02 X10^3/uL; Monocyte% 5.9 % (0-10); NRBC Flagged by Analyzer 0 % (0-5); Neutrophil # 14.51 X10^3/uL (2.7-7.7); Neutrophil % 84.2 % (47-70); Platelet Count 175 K/mm3 (150-450); RBC Distribution Width CV 12.9 % (11.6-14.6); RBC Distribution Width SD 47.5 fl (35.1-43.9); White Blood Count 17.2 K/mm3 (4.4-11.0)
--- NOTE | 2023-06-02 10:40 | CASEMGMT ---
ISAC GANDARA Face to Face with patient for initial transition planning/care coordination assessment. ISAC GANDARA introduced self and role at [facility]. Patient lying in bed, alert and oriented. Patient willing to participate in assessment and is able to answer all questions appropriately. Care providers, pharmacy, and demographics verified. Patient wishes to discharge home, denies need for home health at this time. Patient states he has no further needs or concerns at this time. CM to follow for discharge planning needs that may arise. 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 Patient states he is independent at home. Transportation: self, DME/HHC: Patient states he has pusle ox and grab bars. ISAC GANDARA discussed possible oxygen at discharge. Patient states [facility] Patient states he had [employer] previously and it took 2 months to get equipment out of house after it was discontinued. Will monitor for home oxygen at discharge. Disposition Plan: Patient to discharge home with family support and follow-up plans in place. Will monitor for home oxygen Rosaura HATFIELD, RN, CM
--- NOTE | 2023-06-02 12:05 | RAD_ITS ---
STUDY: X-RAY - ABDOMEN/PELVIS REASON FOR EXAM: Male, 77 years old. Nausea and vomiting. TECHNIQUE: Single AP view of the abdomen / pelvis on 2 images. COMPARISON: None. FINDINGS: Patchy opacities at both lung bases, right greater than left with elevation of the right hemidiaphragm. Normal bowel gas pattern with air seen to the rectosigmoid without disproportionate dilatation of bowel. Moderate amount of feces in colon. Apparent gastrostomy. Vascular calcification. 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 RAD/Abdomen Single View (Portable) IMPRESSION: Gastrostomy. Osteoarthritic changes. No acute abnormality. Electronically Signed: Solitario Vasques MD at 13:22 EST ,
--- NOTE | 2023-06-02 12:45 | CHAPLAIN ---
Type of Pastoral Visit _x__ Initial Visit ___ Follow-up Visit ___ On-call Visit ___ General Patient Visit ___ Spiritual Assessment ___ Family Conference ___ Bereavement ___ Rapid Response ___ Code Blue ___ Other (describe below) Pastoral Care Referral From _x__ Patient ___ Family ___ Nurse ___ Physician ___ Steno Pool Supervisor ___ Signal Inspector ___ Other (describe below) Sacrament/Intervention _x__ Active listening ___ Anointing ___ Sabianist ___ Bereavement ___ Communion ___ Holly exploration ___ _x__ Life review _x__ Prayer ___ Reconciliation ___ Sacrament of Sick ___ Supportive presence ___ Wedding ___ Other (describe below) Pastoral Comments patient is welcoming and easy to speak with as he details some of his health history and his reliance on holly in God for getting through those times; pt speaks of good family support, pt admits that he is not feeling well but would like prayer and ongoing support as available
[2023-06-02] MEDS: Acetaminophen 650 MG/20 ML UDC GT (13:53)
[2023-06-02] MEDS: Heparin Injection (Vial) 5,000 UNIT/ML VIAL 5000 UNIT SC (20:08)
[2023-06-03] VITALS (10 sets, daily range): BP systolic 74–144; BP diastolic 53–88; PULSE 85–100; RESP 12–20; TEMP 36.4–36.9; O2SAT 86–97
[2023-06-03] MEDS: Piperacil/Tazobactam 3.375 GM in 0.9% Normal Saline (50mL MB+) 50 ML IV ×3 (05:19→20:24)
[2023-06-03 06:58] LABS: Absolute Lymphocyte Count 0.76 X10^3/uL (0.83-4.51); Basophil# 0.01 X10^3/uL; Basophil% 0.1 % (0-1); Eosinophil# 0.03 X10^3/uL; Eosinophils% 0.3 % (0-5); Hematocrit 30.6 % (40-54); Hemoglobin 9.8 g/dL (13.0-16.5); Lymphocyte # 0.76 X10^3/ul (0.83-4.51); Mean Corpuscular Hgb 31.5 pg (27.0-32.0); Mean Corpuscular Volume 98.4 fL (80-94); Mean Platelet Vol. 11.3 fl (6.2-12.0); Monocyte# 0.71 X10^3/uL; Monocyte% 7.5 % (0-10); NRBC Flagged by Analyzer 0 % (0-5); Neutrophil # 7.97 X10^3/uL (2.7-7.7); Neutrophil % 83.6 % (47-70); Platelet Count 175 K/mm3 (150-450); RBC Distribution Width CV 12.9 % (11.6-14.6); RBC Distribution Width SD 46.2 fl (35.1-43.9); Red Blood Count 3.11 M/mm3 (4.6-6.2); White Blood Count 9.5 K/mm3 (4.4-11.0)
[2023-06-03] MEDS: Ipratropium/Albuterol Sulfate 3 ML AMPUL.NEB INHALATION ×3 (07:17→19:35)
[2023-06-03 07:32] LABS: Anion Gap 4 (5-15); BUN 21 mg/dL (7-18); BUN/Creat Ratio 42.5 RATIO (10-20); Calcium,Total 8.9 mg/dL (8.5-10.1); Chloride 105 mmol/L (98-107); Creatinine, Serum 0.49 mg/dL (0.70-1.30); EST Glomerular Filtration Rate 173 mL/min (>60); Est Glom Filt Rate - Afr Amer 209 mL/min (>60); Estimated Creatinine Clearance 57.69 ml/min; Glucose 112 mg/dL (74-106); Potassium 3.2 mmol/L (3.5-5.1); Sodium Level 139 mmol/L (136-145)
--- NOTE | 2023-06-03 07:50 | PN.HOSP_ITS ---
Reason for Visit Reason for Visit: Diagnoses Pneumonitis due to inhalation of food and vomit (06/01/23) Subjective Subjective Patient states has been having diarrhea since has been here. Later, his pulled me aside and stated that he has been having vomiting and diarrhea for months. Had had this with Jevity and then subsequently with Osmolite. Objective Data Objective Data Vital Signs: Vital Signs Temp Pulse Resp BP Pulse Ox O2 Del Method O2 Flow Rate 36.9 C 85 16 101/60 96 Nasal Cannula 3 06/03/23 04:00 06/03/23 04:00 06/03/23 04:00 06/03/23 04:00 06/03/23 04:00 06/03/23 04:00 06/03/23 04:00 Oxygen Flow Rate (L/min) 3 Oxygen Delivery Method Nasal Cannula Weight: 53.6 kg Body Mass Index (BMI) 19.1 Intake & Output: Intake and Output for Last 24 Hours 06/01/23 06/02/23 06/03/23 23:59 23:59 23:59 Intake Total 4100 / 4340 2762.08 / 3362.08 650 / 650 Balance 4100 / 4340 2762.08 / 3362.08 650 / 650 Lab / Micro Data 06/03/23 06:15 06/03/23 06:15 Labs: Laboratory Results - last 24 hr 06/02/23 08:15: WBC 17.2 H, RBC 3.40 L, Hgb 10.9 L, Hct 34.2 L, MCV 100.6 H, MCH 32.1 H, MCHC 31.9 L, RDW Std Deviation 47.5 H, RDW Coeff of Livan 12.9, Plt Count 175, MPV 10.9, Immature Gran % (Auto) 0.500, Neut % (Auto) 84.2 H, Lymph % (Auto) 9.1 L, Moffat % (Auto) 5.9, Eos % (Auto) 0.1, Baso % (Auto) 0.2, Absolute Neuts (auto) 14.5 H, Absolute Lymphs (auto) 1.56, Nucleated RBC % 0 06/03/23 06:15: WBC 9.5, RBC 3.11 L, Hgb 9.8 L, Hct 30.6 L, MCV 98.4 H, MCH 31.5, MCHC 32.0, RDW Std Deviation 46.2 H, RDW Coeff of Livan 12.9, Plt Count 175, MPV 11.3, Immature Gran % (Auto) 0.500, Neut % (Auto) 83.6 H, Lymph % (Auto) 8.0 L, Moffat % (Auto) 7.5, Eos % (Auto) 0.3, Baso % (Auto) 0.1, Absolute Neuts (auto) 8.0 H, Absolute Lymphs (auto) 0.76 L, Nucleated RBC % 0, Sodium 139, Potassium 3.2 L, Chloride 105, Carbon Dioxide 30.0, Anion Gap 4 L, BUN 21 H, Creatinine 0.49 L, Estim Creat Clear Calc 57.69, Est GFR (MDRD) Af Amer 209, Est GFR (MDRD) Non-Af 173, BUN/Creatinine Ratio 42.5 H, Glucose 112 H, Calcium 8.9 Micro: Microbiology 06/02/23 08:00 Sputum, Expectorated/Coughed Gram Stain - Final 06/01/23 11:10 Mucosa - Nose SARS-CoV-2, Influenza & RSV (PCR) - Final Radiography Diagnostic Testing: Radiology Impression KUB X-Ray 06/02/23 12:05 IMPRESSION: Gastrostomy. Osteoarthritic changes. No acute abnormality. Electronically Signed: Solitario Vasques MD at 13:22 EST , Physical Exam Const alert and no apparent distress Constitutional Narrative: Cachectic. HEENT head/scalp atraumatic and moist oral mucous membranes Resp normal respiratory effort, no retractions, no use of accessory muscles and clear to auscultation bilaterally Cardio regular rate, regular rhythm, S1 normal heart sound and S2 normal heart sound GI normal to inspection, nondistended, normoactive bowel sounds, soft to palpation, non-tender and non-distended Assessment & Plan Assessment/Plan (1) Aspiration pneumonia: PLAN: Plan Aspiration pneumonia right lower lobe * on pip/tazo * BDs * PEP hypoxia * 2/2 aspiration * oxygen but will be weaned if possible, patient is on no home O2. Intractable N/V * abdominal xray unremarkable. * Still having diarrhea which she has had for months. was concerned this could be related with Osmolite. Discussed with the patient his that he may have a component of gastroparesis. I ordered a gastric emptying study but since he is not able to eat oatmeal, is unable to be performed. May be consideration to start him on scheduled metoclopramide. * They are concerned about the tube feeds being the culprit. Did discuss with nutrition who will evaluate to see if there is any other options could that could be provided. * Imodium. 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 except for small sips of water which she uses to moisten his mouth so he can talk, patient receives nutrition through his PEG tube and his medications for his PEG tube. * protein calorie malnutrition: BM 19.1. continue enteral nutrition. VTE prophylaxis: LMWH. Greater than 55 minutes of which greater than 50% of time was discussing with the patient and his at bedside about the infection, his nausea and vomiting and further evaluation. Charges/Coding Visit Charges Inpatient E&M: 72741 Subs Hosp L3
--- NOTE | 2023-06-03 09:44 | CASEMGMT ---
Addendum entered by Chelsey Putnam 06/03/23 14:52: [facility] at [facility] time. Addendum entered by Chelsey Putnam 06/03/23 13:46: Alena from the calls and states that she received all of the paperwork and that everything was filled out accordingly. Alena states that she faxed all of the paperwork to [facility] and that they will be delivering the oxygen equipment. TC to [facility] at this time and they state that they can deliver the equipment to the pt home or they could make arrangements to deliver a portable tank to the pt room prior to DC if the pt gets DC on Tuesday. CSS state that this cannot be done on Tuesday. Pt is agreeable to this plan. Pt states that if the equipment is delivered to the pt home the pt can have a family member bring the portable tank here prior to pt DC. Addendum entered by Chelsey Putnam 06/03/23 13:05: Pt qualifies for 2L of continuous home oxygen. [facility]. Paperwork faxed to the [facility] at this time. 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 Dr. Alejandro is OK with signing the [facility] orders today for home oxygen delivery incase of a weekend DC. The pt states he has family members that can receive the equipment at the pt home if needed. Original Note: RN CM to pt rooms at this time regarding possible O2 needs. Pt states that he refuses to go through any O2 company other than the [facility]. Pt educated on the process of obtaining home O2 through the [facility] and possible weekend DC. This RN CM will see if Dr. Alejandro is OK with signing [facility] orders today incase of a weekend DC during rounds.
[2023-06-03] MEDS: Loperamide 2 MG Capsule 4 MG PO (11:41)
[2023-06-03] MEDS: ENTERAL NUTRITION FORMULA 237 ML GT ×2 (11:41→15:58)
[2023-06-03] MEDS: Acetaminophen 650 MG/20 ML UDC GT (11:47)
[2023-06-03] MEDS: Heparin Injection (Vial) 5,000 UNIT/ML VIAL 5000 UNIT SC ×2 (11:51→20:24)
[2023-06-03] MEDS: Metoclopramide 10 MG/2 ML Vial 5 MG IV ×2 (15:57→21:10)
[2023-06-03] MEDS: Potassium Chloride Oral Soln 20 MEQ/15 ML UDC 40 MEQ GT (16:03)
[2023-06-03] MEDS: ENTERAL NUTRITION FORMULA 50 ML GT (21:09)
[2023-06-04] VITALS (7 sets, daily range): BP systolic 92–131; BP diastolic 60–84; PULSE 80–104; RESP 16–20; TEMP 36.4–36.7; O2SAT 94–98
[2023-06-04] MEDS: Piperacil/Tazobactam 3.375 GM in 0.9% Normal Saline (50mL MB+) 50 ML IV ×3 (04:43→21:02)
[2023-06-04] MEDS: Metoclopramide 10 MG/2 ML Vial 5 MG IV ×3 (04:43→17:35)
[2023-06-04] MEDS: Ipratropium/Albuterol Sulfate 3 ML AMPUL.NEB INHALATION ×3 (06:58→19:35)
[2023-06-04 07:54] LABS: Absolute Lymphocyte Count 0.62 X10^3/uL (0.83-4.51); Absolute Neutrophil Count 6.4 X10^3/uL (2.0-7.7); Basophil# 0.01 X10^3/uL; Basophil% 0.1 % (0-1); Eosinophil# 0.09 X10^3/uL; Eosinophils% 1.2 % (0-5); Hematocrit 33.4 % (40-54); Hemoglobin 10.9 g/dL (13.0-16.5); Lymphocyte # 0.62 X10^3/ul (0.83-4.51); Mean Corp Hgb Conc 32.6 g/dL (32-36); Mean Corpuscular Volume 97.9 fL (80-94); Mean Platelet Vol. 10.8 fl (6.2-12.0); Monocyte# 0.59 X10^3/uL; Monocyte% 7.7 % (0-10); NRBC Flagged by Analyzer 0 % (0-5); Neutrophil # 6.38 X10^3/uL (2.7-7.7); Neutrophil % 82.7 % (47-70); Platelet Count 205 K/mm3 (150-450); RBC Distribution Width CV 12.5 % (11.6-14.6); RBC Distribution Width SD 45.1 fl (35.1-43.9); Red Blood Count 3.41 M/mm3 (4.6-6.2); White Blood Count 7.7 K/mm3 (4.4-11.0)
--- NOTE | 2023-06-04 07:55 | PCM.PN.HOSP ---
Reason for Visit Reason for Visit: Diagnoses Pneumonitis due to inhalation of food and vomit (06/01/23) Subjective Subjective Still with diarrhea. Objective Data Objective Data Vital Signs: Vital Signs Temp Pulse Resp BP Pulse Ox O2 Del Method O2 Flow Rate 36.7 C 98 16 131/84 H 96 Nasal Cannula 2 06/04/23 04:00 06/04/23 04:00 06/04/23 04:00 06/04/23 04:00 06/04/23 04:00 06/04/23 04:00 06/04/23 04:00 Oxygen Flow Rate (L/min) [ 2 AMBULATING with Oxygen #1] Oxygen Flow Rate (L/min) 2 Oxygen Delivery Method Nasal Cannula Weight: 53.6 kg Body Mass Index (BMI) 19.1 Intake & Output: Intake and Output for Last 24 Hours 06/02/23 06/03/23 06/04/23 23:59 23:59 23:59 Intake Total 2762.08 / 3362.08 1230 / 1380 500 / 500 Balance 2762.08 / 3362.08 1230 / 1380 500 / 500 Lab / Micro Data 06/04/23 06:54 06/04/23 06:54 Labs: Laboratory Results - last 24 hr 06/04/23 06:54: WBC 7.7, RBC 3.41 L, Hgb 10.9 L, Hct 33.4 L, MCV 97.9 H, MCH 32.0, MCHC 32.6, RDW Std Deviation 45.1 H, RDW Coeff of Livan 12.5, Plt Count 205, MPV 10.8, Immature Gran % (Auto) 0.300, Neut % (Auto) 82.7 H, Lymph % (Auto) 8.0 L, [place] % (Auto) 7.7, Eos % (Auto) 1.2, Baso % (Auto) 0.1, Absolute Neuts (auto) 6.4, Absolute Lymphs (auto) 0.62 L, Nucleated RBC % 0 Micro: Microbiology 06/02/23 08:00 Sputum, Expectorated/Coughed Gram Stain - Final 06/02/23 08:00 Sputum, Expectorated/Coughed Respiratory Culture - Preliminary 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 06/03/23 00:45 Stool Enteric Bacteriology - Final 06/01/23 12:50 Blood Culture (Wb) - Anticubital Right Blood Culture - Preliminary No growth in 48 hours. 06/01/23 12:55 Blood Culture (Wb) - Anticubital Left Blood Culture - Preliminary No growth in 48 hours. 06/03/23 00:45 Stool Clostridioides difficile (PCR) - Final 06/01/23 11:10 Mucosa - Nose SARS-CoV-2, Influenza & RSV (PCR) - Final Physical Exam Const alert and no apparent distress Constitutional Narrative: No respiratory distress. No conversational dyspnea. HEENT head/scalp atraumatic and moist oral mucous membranes Resp normal respiratory effort, no retractions, no use of accessory muscles and clear to auscultation bilaterally Cardio regular rate, regular rhythm, S1 normal heart sound and S2 normal heart sound GI normal to inspection, nondistended, normoactive bowel sounds, soft to palpation, non-tender and non-distended Extremity normal to inspection Assessment & Plan Assessment/Plan (1) Aspiration pneumonia: PLAN: Plan Aspiration pneumonia right lower lobe on pip/tazo BDs PEP hypoxia 2/2 aspiration oxygen but will be weaned if possible, patient is on no home O2. Intractable N/V abdominal xray unremarkable. Patient has been having nausea and vomiting and diarrhea for months. Patient had been on Jevity and having these problems and then was subsequent switched over to Osmolite which patient subsidy developed the same symptoms. Is concerned the patient may have gastroparesis, however, since patient is n.p.o., cannot do a gastric emptying study as he gets his nutrition through his PEG tube. And a gastric emptying study would require him having semisolid food which would not be compatible with the PEG tube. So the meantime we are trying continuous tube feeds during the day to see if he tolerates that better. If he does tolerate that better then we can consider doing continuous infusion at night as the patient is still active and works in the community. Additionally, I have added metoclopramide to see if that helps. Will schedule the loperamide Diarrhea Chronic. C. difficile and enteric panel negative. May be related with tube feeds but we are trying continuous tube feeds to see if he tolerates that. Scheduled loperamide Chronic conditions: oropharyngeal dysphagia secondary to previous history of head and neck cancer-patient is n.p.o. except for small sips of water which she uses to moisten his mouth so he can talk, patient receives nutrition through his PEG tube and his medications for his PEG tube. protein calorie malnutrition: BM 19.1. continue enteral nutrition. VTE prophylaxis: LMWH. Greater than 55 minutes of which greater than 50% of time was counseling the patient about my goal for him is to get him home so he can be independent and resume his work as he was previously. This is a trial. To see how he tolerates tube feeds as he has not really responded with other treatments. Charges/Coding Visit Charges Inpatient E&M: 75111 Subs Hosp L3
[2023-06-04 08:14] LABS: Anion Gap 4 (5-15); BUN 18 mg/dL (7-18); BUN/Creat Ratio 39.4 RATIO (10-20); Calcium,Total 9.2 mg/dL (8.5-10.1); Chloride 105 mmol/L (98-107); Creatinine, Serum 0.46 mg/dL (0.70-1.30); EST Glomerular Filtration Rate 189 mL/min (>60); Est Glom Filt Rate - Afr Amer 229 mL/min (>60); Estimated Creatinine Clearance 57.69 ml/min; Glucose 143 mg/dL (74-106); Potassium 3.5 mmol/L (3.5-5.1); Sodium Level 139 mmol/L (136-145)
[2023-06-04] MEDS: Heparin Injection (Vial) 5,000 UNIT/ML VIAL 5000 UNIT SC ×2 (08:53→21:04)
[2023-06-04] MEDS: Loperamide 2 MG Capsule PO (13:10)
[2023-06-04] MEDS: 0.9% Saline Lock 10 ML Syringe IV ×2 (13:10→17:35)
[2023-06-04] MEDS: ENTERAL NUTRITION FORMULA 50 ML GT (15:20)
[2023-06-05 03:15] VITALS: BP 89/67; PULSE 93; RESP 17; TEMP 36.6; O2SAT 94
[2023-06-05 05:15] VITALS: BP 136/80; PULSE 93; RESP 18; TEMP 36.7; O2SAT 95
[2023-06-05] MEDS: Loperamide 2 MG Capsule PO (05:40)
[2023-06-05] MEDS: Metoclopramide 10 MG/2 ML Vial 5 MG IV ×2 (05:40→12:00)
[2023-06-05] MEDS: Piperacil/Tazobactam 3.375 GM in 0.9% Normal Saline (50mL MB+) 50 ML IV (05:40)
[2023-06-05 06:52] LABS: Absolute Lymphocyte Count 0.82 X10^3/uL (0.83-4.51); Basophil# 0.02 X10^3/uL; Basophil% 0.2 % (0-1); Eosinophil# 0.13 X10^3/uL; Eosinophils% 1.5 % (0-5); Hematocrit 31.7 % (40-54); Hemoglobin 10.3 g/dL (13.0-16.5); Lymphocyte # 0.82 X10^3/ul (0.83-4.51); Lymphocyte % 9.6 % (19-41); Mean Corp Hgb Conc 32.5 g/dL (32-36); Mean Corpuscular Hgb 31.3 pg (27.0-32.0); Mean Corpuscular Volume 96.4 fL (80-94); Mean Platelet Vol. 10.8 fl (6.2-12.0); Monocyte# 0.59 X10^3/uL; Monocyte% 6.9 % (0-10); NRBC Flagged by Analyzer 0 % (0-5); Neutrophil # 6.96 X10^3/uL (2.7-7.7); Neutrophil % 81.3 % (47-70); Platelet Count 224 K/mm3 (150-450); RBC Distribution Width CV 12.4 % (11.6-14.6); RBC Distribution Width SD 43.7 fl (35.1-43.9); Red Blood Count 3.29 M/mm3 (4.6-6.2); White Blood Count 8.6 K/mm3 (4.4-11.0)
[2023-06-05] MEDS: Ipratropium/Albuterol Sulfate 3 ML AMPUL.NEB INHALATION (07:02)
[2023-06-05 07:03] VITALS: PULSE 89; RESP 16; O2SAT 96
[2023-06-05 07:18] LABS: Anion Gap 4 (5-15); BUN 19 mg/dL (7-18); BUN/Creat Ratio 32.6 RATIO (10-20); Calcium,Total 9.2 mg/dL (8.5-10.1); Chloride 102 mmol/L (98-107); Creatinine, Serum 0.58 mg/dL (0.70-1.30); EST Glomerular Filtration Rate 143 mL/min (>60); Est Glom Filt Rate - Afr Amer 173 mL/min (>60); Estimated Creatinine Clearance 57.69 ml/min; Glucose 165 mg/dL (74-106); Potassium 3.6 mmol/L (3.5-5.1); Sodium Level 137 mmol/L (136-145)
--- NOTE | 2023-06-05 08:17 | PN.HOSP_ITS ---
Reason for Visit Reason for Visit: Diagnoses Pneumonitis due to inhalation of food and vomit (06/01/23) Subjective Subjective Feels well. Oxygen weaned off. Elidia more formed. No N/V. Objective Data Objective Data Vital Signs: Vital Signs Temp Pulse Resp BP Pulse Ox O2 Del Method O2 Flow Rate 36.7 C 89 16 136/80 H 96 Nasal Cannula 2 06/05/23 05:15 06/05/23 07:03 06/05/23 07:03 06/05/23 05:15 06/05/23 07:03 06/05/23 07:39 06/05/23 07:39 Oxygen Flow Rate (L/min) [ 2 AMBULATING with Oxygen #1] Oxygen Flow Rate (L/min) 2 Oxygen Delivery Method Nasal Cannula Weight: 53.6 kg Body Mass Index (BMI) 19.1 Intake & Output: Intake and Output for Last 24 Hours 06/03/23 06/04/23 06/05/23 23:59 23:59 23:59 Intake Total 1230 / 1380 1509.17 / 1509.17 50 / 50 Balance 1230 / 1380 1509.17 / 1509.17 50 / 50 Lab / Micro Data 06/05/23 06:18 06/05/23 06:18 Labs: Laboratory Results - last 24 hr 06/05/23 06:18: WBC 8.6, RBC 3.29 L, Hgb 10.3 L, Hct 31.7 L, MCV 96.4 H, MCH 31.3, MCHC 32.5, RDW Std Deviation 43.7, RDW Coeff of Livan 12.4, Plt Count 224, MPV 10.8, Immature Gran % (Auto) 0.500, Neut % (Auto) 81.3 H, Lymph % (Auto) 9.6 L, [place] % (Auto) 6.9, Eos % (Auto) 1.5, Baso % (Auto) 0.2, Absolute Neuts (auto) 7.0, Absolute Lymphs (auto) 0.82 L, Nucleated RBC % 0, Sodium 137, Potassium 3.6, Chloride 102, Carbon Dioxide 31.0, Anion Gap 4 L, BUN 19 H, Creatinine 0.58 L, Estim Creat Clear Calc 57.69, Est GFR (MDRD) Af Amer 173, Est GFR (MDRD) Non- Af 143, BUN/Creatinine Ratio 32.6 H, Glucose 165 H, Calcium 9.2 Micro: Microbiology 06/02/23 08:00 Sputum, Expectorated/Coughed Gram Stain - Final 06/02/23 08:00 Sputum, Expectorated/Coughed Respiratory Culture - Preliminary 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 06/03/23 00:45 Stool Enteric Bacteriology - Final 06/01/23 12:50 Blood Culture (Wb) - Anticubital Right Blood Culture - Preliminary No growth in 48 hours. 06/01/23 12:55 Blood Culture (Wb) - Anticubital Left Blood Culture - Preliminary No growth in 48 hours. 06/03/23 00:45 Stool Clostridioides difficile (PCR) - Final 06/01/23 11:10 Mucosa - Nose SARS-CoV-2, Influenza & RSV (PCR) - Final Physical Exam Const alert and no apparent distress HEENT head/scalp atraumatic Resp normal respiratory effort and no retractions Assessment & Plan Assessment/Plan (1) Aspiration pneumonia: PLAN: Plan Aspiration pneumonia right lower lobe * on pip/tazo. change to a * BDs * PEP hypoxia * 2/2 aspiration * oxygen but will be weaned if possible, patient is on no home O2. Intractable N/V * abdominal xray unremarkable. * Patient has been having nausea and vomiting and diarrhea for months. Patient had been on Jevity and having these problems and then was subsequent switched over to Osmolite which patient subsidy developed the same symptoms. * Is concerned the patient may have gastroparesis, however, since patient is n.p.o., cannot do a gastric emptying study as he gets his nutrition through his PEG tube. And a gastric emptying study would require him having semisolid food which would not be compatible with the PEG tube. * So the meantime we are trying continuous tube feeds during the day to see if he tolerates that better. If he does tolerate that better then we can consider doing continuous infusion at night as the patient is still active and works in the community. * Additionally, I have added metoclopramide to see if that helps. Will schedule the loperamide * Today, the patient states that only happens when he is in certain positions. 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 He states that he is n ot interested in having the continuous tube feeds at night and feels that he will do well at home. So discussed with him that the plan will be to utilize Reglan trial for 2 weeks. When doing this for 2 weeks just to try to minimize potential for tardive dyskinesia. He will also be on Imodium but to be scheduled and be cautious so he does not get constipated. Diarrhea * Appears to be improved with the scheduled loperamide. * Chronic. Unclear etiology but not infectious. C. difficile and enteric panel negative. * May be related with tube feeds but we are trying continuous tube feeds to see if he tolerates that. * Schedule loperamide Chronic conditions: * oropharyngeal dysphagia secondary to previous history of head and neck cancer- patient is n.p.o. except for small sips of water which she uses to moisten his mouth so he can talk, patient receives nutrition through his PEG tube and his medications for his PEG tube. * protein calorie malnutrition: BM 19.1. continue enteral nutrition. VTE prophylaxis: LMWH. Discharge home.
[2023-06-05 08:45] VITALS: BP 110/74; PULSE 98; RESP 18; TEMP 36.6; O2SAT 94
[2023-06-05] MEDS: Heparin Injection (Vial) 5,000 UNIT/ML VIAL 5000 UNIT SC (08:47)
--- NOTE | 2023-06-05 10:04 | DS.PCM_ITS ---
Providers Date of Admission: 06/01/23 Primary Care Physician: [facility] Reason For Visit: ASPIRATION PNEUMONIA Diagnosis Discharge Diagnosis (1) Aspiration pneumonia: Status: Acute Code(s): J69.0 - Pneumonitis due to inhalation of food and vomit Plan Aspiration pneumonia right lower lobe * on pip/tazo. change to a * BDs * PEP hypoxia * 2/2 aspiration * oxygen but will be weaned if possible, patient is on no home O2. Intractable N/V * abdominal xray unremarkable. * Patient has been having nausea and vomiting and diarrhea for months. Patient had been on Jevity and having these problems and then was subsequent switched over to Osmolite which patient subsidy developed the same symptoms. * Is concerned the patient may have gastroparesis, however, since patient is n.p.o., cannot do a gastric emptying study as he gets his nutrition through his PEG tube. And a gastric emptying study would require him having semisolid food which would not be compatible with the PEG tube. * So the meantime we are trying continuous tube feeds during the day to see if he tolerates that better. If he does tolerate that better then we can consider doing continuous infusion at night as the patient is still active and works in the community. * Additionally, I have added metoclopramide to see if that helps. Will schedule the loperamide * Today, the patient states that only happens when he is in certain positions. 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 He states that he is not interested in having the continuous tube feeds at night and feels that he will do well at home. So discussed with him that the plan will be to utilize Reglan trial for 2 weeks. When doing this for 2 weeks just to try to minimize potential for tardive dyskinesia. He will also be on Imodium but to be scheduled and be cautious so he does not get constipated. Diarrhea * Appears to be improved with the scheduled loperamide. * Chronic. Unclear etiology but not infectious. C. difficile and enteric panel negative. * May be related with tube feeds but we are trying continuous tube feeds to see if he tolerates that. * Schedule loperamide Chronic conditions: * oropharyngeal dysphagia secondary to previous history of head and neck cancer- patient is n.p.o. except for small sips of water which she uses to moisten his mouth so he can talk, patient receives nutrition through his PEG tube and his medications for his PEG tube. * protein calorie malnutrition: BM 19.1. continue enteral nutrition. VTE prophylaxis: LMWH. Discharge home. Medications at Discharge Home Medications tramadol 50 mg tablet 50 mg feeding tube Q8H PRN Pain 09/23/21 nutritional supplements 0.06 gram-1.5 kcal/mL oral liquid (Osmolite 1.5 Ray) 710 ml feeding tube TID nutrition 11/07/22 Lactobacillus acidophilus 10 billion cell capsule (Probiotic) 100 mmu cells (0.01 x 10 billion cell) feeding tube QODAY #30 caps 06/05/23 acetaminophen 650 mg/20.3 mL oral solution 1,000 mg (31.2308 mL) G-tube Q6H PRN PRN Pain 1-10 Or Fever #0 mL 06/05/23 amoxicillin 875 mg-potassium clavulanate 125 mg tablet 1 tab feeding tube BID #8 tabs 06/05/23 ibuprofen 100 mg/5 mL oral suspension (Children's Ibuprofen) 400 mg (20 mL) G-tube Q6H PRN PRN Pain Score 1-10 #0 mL 06/05/23 loperamide 2 mg capsule 2 mg feeding tube Q6 #30 caps 06/05/23 metoclopramide HCl 5 mg tablet (Reglan) 5 mg feeding tube Q6H #60 tabs 06/05/23 Hospital Course Operations None Procedures None Summary of Care Provided Minutes Spent on Discharge: 45 Hospital Course: Patient presents with recurrent aspiration pneumonia. Patient started on pip- tazo and did well. Patient did require oxygen temporarily but has been since weaned off. Patient has recurrent aspiration. Patient has had a history of laryngectomy with radiation. He had a history esophageal dilation and has had frequent bouts of aspiration pneumonia. 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 So in the hospital, we utilized a cont inuous infusion of Osmolite and started him on loperamide for his chronic diarrhea and metoclopramide for suspected gastroparesis. Since patient is n.p.o., could not do a gastric emptying study as he would not be able to take any oral. So the plan for home is for him to be on scheduled Imodium but to be cautious so he does not be constipated as well as a 2-week trial of metoclopramide through his PEG tube. If patient still has nausea vomiting despite that regimen then he may require continuous infusion of tube feeds at night. Patient was not interested in staying about getting a pump at night as he said there is a lot issues with his pump getting clogged up by air bubbles while he was here. Weight / BMI Weight Weight: 53.6 kg Body Mass Index (BMI) 19.1 ABG / Lab / Microbiology Data 06/05/23 06:18 06/05/23 06:18 Laboratory: Laboratory Results - last 24 hr 06/05/23 06:18: WBC 8.6, RBC 3.29 L, Hgb 10.3 L, Hct 31.7 L, MCV 96.4 H, MCH 31.3, MCHC 32.5, RDW Std Deviation 43.7, RDW Coeff of Livan 12.4, Plt Count 224, MPV 10.8, Immature Gran % (Auto) 0.500, Neut % (Auto) 81.3 H, Lymph % (Auto) 9.6 L, [place] % (Auto) 6.9, Eos % (Auto) 1.5, Baso % (Auto) 0.2, Absolute Neuts (auto) 7.0, Absolute Lymphs (auto) 0.82 L, Nucleated RBC % 0, Sodium 137, Potassium 3.6, Chloride 102, Carbon Dioxide 31.0, Anion Gap 4 L, BUN 19 H, Creatinine 0.58 L, Estim Creat Clear Calc 57.69, Est GFR (MDRD) Af Amer 173, Est GFR (MDRD) Non- Af 143, BUN/Creatinine Ratio 32.6 H, Glucose 165 H, Calcium 9.2 Microbiology: Microbiology 06/02/23 08:00 Sputum, Expectorated/Coughed Gram Stain - Final 06/02/23 08:00 Sputum, Expectorated/Coughed Respiratory Culture - Final Klebsiella pneumoniae sp pneum Pseudomonas aeruginosa Presumptive C albicans 06/01/23 13:05 Urine, Clean Catch Urine Culture - Final Culture exhibits no growth. 06/03/23 00:45 Stool Enteric Bacteriology - Final 06/01/23 12:50 Blood Culture (Wb) - Anticubital Right Blood Culture - Preliminary No growth in 48 hours. 06/01/23 12:55 Blood Culture (Wb) - Anticubital Left Blood Culture - Preliminary No growth in 48 hours. 06/03/23 00:45 Stool Clostridioides difficile (PCR) - Final 06/01/23 11:10 Mucosa - Nose SARS-CoV-2, Influenza & RSV (PCR) - Final Meaningful Use Info Meaningful Use Diagnoses (Choose all that apply): None applicable Discharge Plan Admission Admit Date/Time: 06/01/23 13:57 Primary Reason for Your Visit: Pneumonia Attending Provider: Hernan Alejandro Primary Care Provider: [facility] Consulting Providers: Hever Kimball Instructions Additional Instructions / Restrictions: Please complete the antibiotics for the pneumonia that you have. Is concerned you may have a syndrome called gastroparesis, which can be a disruption of the normal cycle of the digestive tract which can cause intractable nausea and vomiting. Sometimes Reglan (also known as metoclopramide) can help, however can cause neurologic condition called tardive dyskinesia. This is why I am only giving you a 2-week course to see if this actually works. The loperamide (name brand Imodium) take 4 times per day but hold if you are becoming constipated such as not having a bowel movement in 24 hours. If you are still having recurrent nausea and vomiting We may need to reconsider doing a continuous tube feed overnight if you are still having intractable nausea and vomiting. You mention to me that you get most of your symptoms of aspiration when you are bent over at work. As we discussed, try to delegate those duties to your grandson who is working along with you. Follow-up with your [place] doctor on June 07. Discharge Orders/Prescriptions Prescriptions: New loperamide 2 mg Capsule 2 mg feeding tube Q6 Qty: 30 0RF Rx Instructions: Hold if you are constipated. ibuprofen [Children's Ibuprofen] 100 mg/5 mL Suspension 400 mg G-tube Q6H PRN PRN (Reason: Pain Score 1-10) Qty: 0 0RF acetaminophen 650 mg/20.3 mL Solution 1,000 mg G-tube Q6H PRN PRN (Reason: Pain 1-10 Or Fever) Qty: 0 0RF metoclopramide HCl [Reglan] 5 mg tablet 5 mg feeding tube Q6H Qty: 60 0RF amoxicillin-pot clavulanate 875-125 mg tablet 1 tab feeding tube BID Qty: 8 0RF Continued tramadol 50 mg Tablet 50 mg feeding tube Q8H PRN (Reason: Pain) Osmolite 1.5 Ray 0.06 gram-1.5 kcal/mL liquid 710 ml feeding tube TID Rx Instructions: Pt takes 2 bottles per feed three times a day 355ml/ bottle Changed Probiotic 10 billion cell capsule 100 mmu cells feeding tube QODAY Qty: 30 0RF Referrals / Follow Up: [facility] [Primary Care Provider] - Disposition Disposition (needs filled in before D/C Order can be placed): Home, Self Care Charges/Coding Visit Charges Inpatient E&M: 09976 Disch Hosp >30min
[2023-06-05] MEDS: 0.9% Saline Lock 10 ML Syringe IV (12:01)
== END 2023-06-05 14:00 | disposition home or self-care (01) | DRG 177 ==
LOC: ED 13:50 → PCU 14:16
PROVIDERS: Admitting Provider Internal Medicine; Emergency Provider Emergency Medicine
DX: J69.0 Pneumonitis due to inhalation of food and vomit (principal); E43 Unspecified severe protein-calorie malnutrition; Z68.1 Body mass index [BMI] 19.9 or less, adult; J43.9 Emphysema, unspecified; Z93.1 Gastrostomy status; K52.9 Noninfective gastroenteritis and colitis, unspecified; K31.84 Gastroparesis; R13.10 Dysphagia, unspecified; Z87.891 Personal history of nicotine dependence; Z68.20 Body mass index [BMI] 20.0-20.9, adult; Z85.01 Personal history of malignant neoplasm of esophagus; Z85.810 Personal history of malignant neoplasm of tongue
CPT/HCPCS: 36415; 70450; 71046; 74018; 80048; 83605; 84484; 85025; 85379; 87040; 87070; 87077; 87086; 87177; 87184; 87186; 87205; 87209; 87493; 87506; 87631; 94640; 94668; 97802; 99252; 99285; J7030; J7040; A4216; G0463; J2405

== ENCOUNTER → 2023-06-21 | Outpatient (CLI) | payer OTHER, SELFPAY ==
--- NOTE | 2023-06-21 14:22 | CT_ITS ---
STUDY: LOW DOSE CT LUNG CANCER SCREENING REASON FOR EXAM: Male, 77 years old. SCREENING FOR MALIGNANT NEOPLASMS OF LUNG. Former smoker. Patient smoked 2 packs per day for 53 years. RADIATION DOSAGE (If Supplied By Facility): CTDIvol = ( 2.01 ) mGy, DLP = ( 72.48 ) mGycm TECHNIQUE: No contrast was administered. Low dose technique was utilized (average mAS-38 and kVp 120). 1.25 mm axial source images with a slice interval of 1.25-mm were reconstructed in lung windows. 2.5 mm axial source images with a slice interval of 2.5-mm were reconstructed in lung windows. 5.0 mm axial source images with a slice interval of 5.0-mm were reconstructed in soft tissue windows. COMPARISON: Comparison is made with prior CT of the chest dated February 03, 2023. NODULES: No suspicious nodules are seen. Emphysema: Emphysematous changes. Stable scarring with volume loss in the medial aspect of the left lung apex. Minimal increased markings are seen in the anterior lateral aspect of the right upper lobe as well as at the lung bases suggestive of scarring. Mild bronchiectasis is seen in the lower lobes. Endobronchial lesion: None Aorta: Atherosclerotic plaque formation of the aortic arch. CORONARY ARTERIES: Coronary artery calcification . Heart: Unremarkable Pulmonary artery: Unremarkable Mediastinal nodes: Small mediastinal lymph nodes. Other chest and abdominal findings: Partially imaged low-density mass in the upper pole of the left kidney. CT/Low Dose CT Lung Screening IMPRESSION: Lung-RADS category 2 - Continue annual screening with LDCT in 12 months. IMPORTANT NOTES FOR USE: ACR Lung-RADS Version 1.1 Assessment Categories Release Date: 2018 Category: Coded 0-4 bases on nodule(s) with highest degree of suspicion. Negative screen is defined as categories 1 and 2; a positive screen is defined as categories 3 and 4. Category 3 and 4A nodules that are unchanged on interval CT should be coded as category 2, and individuals returned to screening in 12 months. Category 4X: Category 3 or 4 nodules with additional imaging findings that increase the suspicion of lung cancer, such as spiculation, GGN that doubles in size in 1 year, enlarged lymph notes, etc. Category Modifiers: S (significant finding unrelated to lung cancer) Electronically Signed: Lazaro Freedman MD at 8:46 EDT ,
== END | disposition home or self-care (01) ==
LOC: CT 14:21
DX: Z12.2 Encounter for screening for malignant neoplasm of respiratory organs (principal); Z87.891 Personal history of nicotine dependence
CPT/HCPCS: 71271

== ENCOUNTER → 2023-09-22 | Outpatient (CLI) | payer OTHER, SELFPAY ==
--- NOTE | 2023-09-22 14:04 | CT_ITS ---
STUDY: CT SOFT TISSUE NECK WITH CONTRAST REASON FOR EXAM: Male, 77 years old. NECK MASS/PARALYZED VOCAL CORD. History recent pneumonia. Difficulty swallowing. History of throat cancer with radiation and chemotherapy. RADIATION DOSAGE (If Supplied By Facility): CTDIvol = ( 10.54 ) mGy, DLP = ( 318.59 ) mGycm TECHNIQUE: The patient was scanned in a multi-detector CT scanner. High resolution transaxial imaging was performed following intravenous administration of IV 100mL Isovue-300. Sagittal and coronal images were reconstructed. Individualized dose optimization techniques were used for this CT. COMPARISON: Comparison is made with prior study dated December 18, 2019 FINDINGS: Normal bilateral parotid glands. Normal bilateral receiving inspector spaces. Normal bilateral parapharyngeal spaces. Normal bilateral carotid spaces. Normal bilateral sublingual and submandibular glands and spaces. Normal visualized nasopharynx. Normal retropharyngeal space. Normal perivertebral space. Normal visualized bilateral faucial tonsils. The visualized tongue, tongue base and oropharynx are normal. The visualized cervical lymph nodes (levels I-) are within normal size limits, and maintain normal morphology. There is no demonstrated solid or cystic mass lesion. There is no abnormal contrast enhancement. Normal epiglottis, bilateral vallecula and hypopharynx. The pre-epiglottic and paraglottic adipose spaces are normal. Stable convexity of the right vocal cord with the nodular appearance as compared to prior study. Normal subglottic trachea. Normal bilateral lobes of the thyroid gland. 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 Normal visualized paranasal sinuses. There is multilevel degenerative changes of the cervical spine. CT/Soft Tissue Neck WITH Contrast IMPRESSION: Stable examination. Electronically Signed: Lazaro Freedman MD at 15:19 EDT ,
[2023-09-22 14:34] LABS: CREATININE FINGERSTICK < 1.0 mg/dL (0.70-1.30); EGFR FINGERSTICK > 60.0000 mL/min (>60)
== END | disposition home or self-care (01) ==
LOC: CT 13:59
PROVIDERS: Referring Provider Otolaryngology; Visit Provider Otolaryngology
DX: J38.01 Paralysis of vocal cords and larynx, unilateral (principal); R22.1 Localized swelling, mass and lump, neck
CPT/HCPCS: 70491; Q9967; A4216

== ENCOUNTER 2023-11-08 14:46 | Emergency (ER) | payer OTHER, SELFPAY ==
[2023-11-08 14:47] VITALS: BP 147/82; PULSE 93; RESP 18; TEMP 36.4; O2SAT 96; BMI 18.6
--- NOTE | 2023-11-08 15:18 | EKG12_ITS ---
Test Reason : SOB Blood Pressure : / mmHG Vent. Rate : 083 BPM Atrial Rate : 083 BPM P-R Int : 156 ms QRS Dur : 064 ms QT Int : 350 ms P-R-T Axes : 062 009 049 degrees QTc Int : 411 ms Normal sinus rhythm Normal ECG Confirmed by AURA CUNNINGHAM, PETAR ([id number]), newspaper managing editor DEANA DUPONT ([id number]) on 11/14/2023 8:36:14 AM Referred By: Confirmed By:KENNY CHAVARRIA MD
--- NOTE | 2023-11-08 15:20 | CT_ITS ---
STUDY: CT BRAIN WITHOUT CONTRAST REASON FOR EXAM: Male, 78 years old. multiple falls recently RADIATION DOSAGE (If Supplied By Facility): CTDIvol = ( 44.99 ) mGy, DLP = ( 812.98 ) mGycm TECHNIQUE: Transaxial CT imaging of the brain was performed without administration of intravenous contrast material. Individualized dose optimization techniques were used for this CT. COMPARISON: No relevant priors. FINDINGS: Normal soft tissue structures. Normal calvarium. Calcific plaquing of the cavernous carotids. Mild atrophy and periventricular white matter ischemic changes. Normal basal ganglia and thalami. Normal brainstem. Normal cerebellum. There is no intracranial hemorrhage. There are no findings of an acute ischemic infarction. Mild mucosal thickening of the right maxillary sinus. Bilateral choroid calcification CT/Brain/Head without Contrast IMPRESSION: Mild atrophy and periventricular white matter ischemic change. No acute intracranial hemorrhage. Electronically Signed: Aime Luo MD at 16:56 EDT ,
[2023-11-08] MEDS: 0.9% Normal Saline (1000mL) 1,000 ML 999 ML IV (15:34)
[2023-11-08 15:42] VITALS: O2SAT 93
--- NOTE | 2023-11-08 15:42 | EX.ED.DYSGE1 ---
HPI History of Present Illness Chief Complaint: Shortness of Breath Narrative Narrative: Patient is a 78-year-old male with a past medical history of throat cancer underwent multiple rounds of radiation and chemo approximately 13 years ago, emphysema, history of PEG tube who presented to the emergency department chief complaint of generalized fatigue and not feeling well and shortness of breath. According to the patient for the past month he is felt more fatigued and not feeling his normal self. He states that he is also becoming more and more short of breath he states that he has to pace himself. According to his at bedside she notes that he has at home as needed oxygen as well as Ventolin inhalers and nebulizer. Patient states that recently he has started declining significantly. According to his and himself they noted that he has had multiple falls recently. [facility] Medical History Wears hearing aid Wears glasses Wears dentures Cancer Difficulty swallowing Leg cramps History of throat cancer Rotator cuff arthropathy Former smoker Throat cancer History of head or neck cancer Tobacco dependence in remission Pulmonary emphysema History of pleural effusion Home Medications ?Medication ?Instructions ?Recorded ?Last Taken ?Type tramadol 50 mg tablet 50 mg feeding tube Q8H PRN Pain 09/23/21 05/24/23 History nutritional supplements 0.06 710 ml feeding tube TID nutrition 11/07/22 05/24/23 History gram-1.5 kcal/mL oral liquid (Osmolite 1.5 Ray) Lactobacillus acidophilus 10 100 mmu cells (0.01 x 10 billion 06/05/23 05/24/23 Rx billion cell capsule (Probiotic) cell) feeding tube QODAY #30 caps acetaminophen 650 mg/20.3 mL oral 1,000 mg (31.2308 mL) G-tube Q6H 06/05/23 Unknown Rx solution PRN PRN Pain 1-10 Or Fever #0 mL amoxicillin 875 mg-potassium 1 tab feeding tube BID #8 tabs 06/05/23 Unknown Rx clavulanate 125 mg tablet ibuprofen 100 mg/5 mL oral 400 mg (20 mL) G-tube Q6H PRN PRN 06/05/23 Unknown Rx suspension (Children's Ibuprofen) Pain Score 1-10 #0 mL loperamide 2 mg capsule 2 mg feeding tube Q6 #30 caps 06/05/23 Unknown Rx metoclopramide HCl 5 mg tablet 5 mg feeding tube Q6H #60 tabs 06/23/23 Unknown Rx (Reglan) Allergy/AdvReac Type Severity Reaction Status Date / Time No Known Allergies Allergy Verified 11/08/23 14:47 Family History Other Heart disease Surgical History History of rotator cuff surgery History of surgical procedure on mouth History of esophagogastroduodenoscopy (EGD) Status post insertion of percutaneous endoscopic gastrostomy (PEG) tube Social History Smoking Status: Former smoker ROS ROS ED ROS Narrative Constitutional: Denies any fevers, chills, headaches, lightheadedness, dizziness Eyes: Denies any change in vision double vision blurry vision Cardiovascular: Denies chest pain or palpitations Respiratory: Complains of shortness of breath as noted above denies coughing or wheezing. States that he has had pneumonia multiple times this year already Abdomen: Denies abdominal pain nausea vomiting diarrhea. States that he has PEG tube in place : Denies any pain findings, hematuria polyuria Neurological: Planes of multiple falls noted above Skin: Denies rashes or lesions EXAM Physical Exam Narrative Exam Narrative: General: Patient lying in bed rest comfortably did not appear to be in acute distress Head: Atraumatic, normocephalic Eyes: PERRL bilaterally, EOMI bilaterally, no conjunctival injection noted Neck: Soft, supple, trachea midline Cardiovascular: Regular rate and rhythm no murmurs gallops rubs noted Respiratory: Clear to auscultation bilaterally no rales rhonchi wheeze noted Abdomen: Soft, nondistended, nontender to palpation, bowel sounds present x 4 Extremities: +4/5 strength noted in the bilateral upper and lower extremities, radial pulses +2/4 in the bilateral upper extremities Neurological: Patient flank pain is new he is [facility] he is 2023 Skin: Warm, dry, intact Const Vital Signs: 11/08/23 14:47 11/08/23 15:40 11/08/23 15:42 Temperature 97.6 F L Temperature Source Temporal Pulse Rate 93 Respiratory Rate 18 Respiratory Effort Short of Breath Respiratory Depth Normal Respiratory Pattern Tachypnea Blood Pressure 147/82 H Blood Pressure Mean 103 Pulse Ox 96 Oxygen Delivery Method Room Air Room Air Room Air 11/08/23 16:46 11/08/23 18:00 Temperature Temperature Source Pulse Rate 89 86 Respiratory Rate 12 23 H Respiratory Effort Respiratory Depth Respiratory Pattern Blood Pressure 139/91 H 143/82 H Blood Pressure Mean 107 102 Pulse Ox 98 95 Oxygen Delivery Method Room Air Room Air MDM MDM MDM Narrative Medical decision making narrative: Patient is a 78-year-old male who presented to the emergency department chief complaint of generalized weakness and fatigue, shortness of breath and not feeling well. Patient will have a workup performed here on the differential diagnosis includes but not limited to ACS, pneumonia, hypothyroidism, electrolyte abnormality. Once workup is obtained and reviewed he will be reevaluated. Patient be given IV fluids for hydration. Patient CBC reviewed was largely unremarkable no leukocytosis noted white blood count normal 8.1, hemoglobin is 11.9, plate count normal at 262. Patient INR normal at 1, PT normal at 13.4, sodium normal 137, potassium normal 3.9, creatinine was 0.67. Patient's magnesium normal at 2.2, troponin normal at 5 with a delta troponin obtained at 6. Patient's EKG was reviewed by myself and showed sinus rhythm with a rate of 83 bpm. Patient proBNP was normal at 23.2, TSH normal at 1.65. Patient CT head without contrast showed mild atrophy and periventricular white matter ischemic changes no acute intracranial hemorrhage. Patient's chest x-ray reviewed showed probable chronic inflammatory scarring both lower lobes more severe on the right cannot definitively exclude recurrent disease. Patient does not have any respiratory symptoms at this point in time is not coughing up any sputum production. Patient was ambulated here in the emergency department tolerated this well without any evidence of hypoxia. Patient would like to go home at this point in time. He is encouraged to follow-up with his primary care physician outpatient setting. He is encouraged return with worsening symptoms or any other concerns. All question concerns answered he is discharged home in stable condition Lab Data Labs: Laboratory Results - last 24 hr 11/08/23 11/08/23 15:25 17:40 WBC 8.1 RBC 3.88 L Hgb 11.9 L Hct 36.6 L MCV 94.3 H MCH 30.7 MCHC 32.5 RDW Std Deviation 43.4 RDW Coeff of Livan 12.5 Plt Count 262 MPV 10.2 Immature Gran % (Auto) 0.400 Neut % (Auto) 73.9 H Lymph % (Auto) 15.3 L Glades % (Auto) 9.2 Eos % (Auto) 1.1 Baso % (Auto) 0.1 Absolute Neuts (auto) 6.0 Absolute Lymphs (auto) 1.24 Nucleated RBC % 0 PT 13.4 INR 1.0 APTT 24.7 Sodium 137 Potassium 3.9 Chloride 99 Carbon Dioxide 35.0 H Anion Gap 3 L BUN 27 H Creatinine 0.67 L Estim Creat Clear Calc 55.34 Est GFR (MDRD) Af Amer 147 Est GFR (MDRD) Non-Af 122 BUN/Creatinine Ratio 40.3 H Glucose 98 Calcium 9.0 Magnesium 2.2 Troponin I High Sens 5 6 B-Natriuretic Peptide 23.2 TSH 1.65 Radiography Diagnostic Testing: Clinical Impression(s) from Imaging Studies Brain CT 11/08/23 15:20 IMPRESSION: Mild atrophy and periventricular white matter ischemic change. No acute intracranial hemorrhage. Electronically Signed: Aime Luo MD at 16:56 EDT , Chest X-Ray 11/08/23 16:40 IMPRESSION: Probable chronic inflammatory scarring in both lower lobes more severe on the right.. Cannot definitively exclude recurrent disease. Electronically Signed: Aime Luo MD at 17:08 EDT , Discharge Plan Triage Chief Complaint: Shortness of Breath Other Complaint: Headache ED Provider: Morgan Bailey Dx/Rx/DC Orders Clinical Impression: Fatigue Prescriptions: No Action tramadol 50 mg Tablet 50 mg feeding tube Q8H PRN (Reason: Pain) Osmolite 1.5 Ray 0.06 gram-1.5 kcal/mL liquid 710 ml feeding tube TID Rx Instructions: Pt takes 2 bottles per feed three times a day 355ml/ bottle loperamide 2 mg Capsule 2 mg feeding tube Q6 Qty: 30 0RF Rx Instructions: Hold if you are constipated. ibuprofen [Children's Ibuprofen] 100 mg/5 mL Suspension 400 mg G-tube Q6H PRN PRN (Reason: Pain Score 1-10) Qty: 0 0RF acetaminophen 650 mg/20.3 mL Solution 1,000 mg G-tube Q6H PRN PRN (Reason: Pain 1-10 Or Fever) Qty: 0 0RF amoxicillin-pot clavulanate 875-125 mg tablet 1 tab feeding tube BID Qty: 8 0RF Probiotic 10 billion cell capsule 100 mmu cells feeding tube QODAY Qty: 30 0RF metoclopramide HCl [Reglan] 5 mg tablet 5 mg feeding tube Q6H Qty: 60 0RF Primary Care Provider[facility] [facility] [Primary Care Provider] - Activity Restrictions/Additional Instructions: Follow-up with your primary care physician in outpatient setting. Return if worsening symptoms or concerns. Print Language: Turkish Disposition Disposition: Home, Self Care
[2023-11-08 15:45] LABS: Absolute Lymphocyte Count 1.24 X10^3/uL (0.83-4.51); Basophil# 0.01 X10^3/uL; Basophil% 0.1 % (0-1); Eosinophil# 0.09 X10^3/uL; Eosinophils% 1.1 % (0-5); Hematocrit 36.6 % (40-54); Hemoglobin 11.9 g/dL (13.0-16.5); Lymphocyte # 1.24 X10^3/ul (0.83-4.51); Lymphocyte % 15.3 % (19-41); Mean Corp Hgb Conc 32.5 g/dL (32-36); Mean Corpuscular Hgb 30.7 pg (27.0-32.0); Mean Corpuscular Volume 94.3 fL (80-94); Mean Platelet Vol. 10.2 fl (6.2-12.0); Monocyte# 0.74 X10^3/uL; Monocyte% 9.2 % (0-10); NRBC Flagged by Analyzer 0 % (0-5); Neutrophil # 5.97 X10^3/uL (2.7-7.7); Neutrophil % 73.9 % (47-70); Platelet Count 262 K/mm3 (150-450); RBC Distribution Width CV 12.5 % (11.6-14.6); RBC Distribution Width SD 43.4 fl (35.1-43.9); Red Blood Count 3.88 M/mm3 (4.6-6.2); White Blood Count 8.1 K/mm3 (4.4-11.0)
[2023-11-08 16:02] LABS: BNP,B-Type NATRIURETIC PEPTIDE 23.2 pg/mL (0-100)
[2023-11-08 16:13] LABS: Anion Gap 3 (5-15); BUN 27 mg/dL (7-18); BUN/Creat Ratio 40.3 RATIO (10-20); Chloride 99 mmol/L (98-107); Creatinine, Serum 0.67 mg/dL (0.70-1.30); EST Glomerular Filtration Rate 122 mL/min (>60); Est Glom Filt Rate - Afr Amer 147 mL/min (>60); Estimated Creatinine Clearance 55.34 ml/min; Glucose 98 mg/dL (74-106); Magnesium 2.2 mg/dL (1.6-2.6); Potassium 3.9 mmol/L (3.5-5.1); Sodium Level 137 mmol/L (136-145); Thyroid Stim Hormone (TSH) 1.65 uIU/mL (0.358-3.74); Troponin-I HS (w/2H Reflex) 5 pg/mL (3.0-78.0)
[2023-11-08 16:26] LABS: Prothrombin Time (Protime)PT. 13.4 SECONDS (11.7-14.9)
[2023-11-08 16:27] LABS: Partial Thromboplast Time 24.7 Seconds (24.1-36.2)
--- NOTE | 2023-11-08 16:40 | RAD_ITS ---
STUDY: X-RAY CHEST REASON FOR EXAM: Male, 78 years old. chest pain TECHNIQUE: PA and lateral COMPARISON: June 01, 2023 FINDINGS: There is mild asymmetric interstitial thickening in both lower lobes more pronounced on the right possibly inflammatory however there is interval since previous exam. There is no demonstrated pleural abnormality. Normal size heart. Normal mediastinum and tevin. Normal visualized pulmonary arteries. Normal visualized aortic arch and descending thoracic aorta. Dorsal spine and shoulders demonstrate degenerative change. Normal visualized ribs, clavicles, and shoulders. There is no demonstrated abnormality of the visualized soft tissue structures of the upper abdomen. RAD/Chest PA and Lateral IMPRESSION: Probable chronic inflammatory scarring in both lower lobes more severe on the right.. Cannot definitively exclude recurrent disease. Electronically Signed: Aime Luo MD at 17:08 EDT ,
[2023-11-08 16:46] VITALS: BP 139/91; PULSE 89; RESP 12; O2SAT 98
[2023-11-08 17:31] VITALS: O2SAT 95
[2023-11-08 17:33] LABS: Reflex Troponin-HS? (from REC) Y
[2023-11-08 18:00] VITALS: BP 143/82; PULSE 86; RESP 23; O2SAT 95
[2023-11-08 18:38] LABS: Troponin-I HS 6 pg/mL (3.0-78.0)
[2023-11-08 19:27] VITALS: BP 140/79; PULSE 88; RESP 20; TEMP 36.6; O2SAT 95
== END 2023-11-08 19:40 | disposition home or self-care (01) ==
PROVIDERS: Emergency Provider Emergency Medicine; Visit Provider Emergency Medicine
DX: R53.83 Other fatigue (principal); R06.02 Shortness of breath; Z87.891 Personal history of nicotine dependence
CPT/HCPCS: 70450; 71046; 80048; 83735; 83880; 84443; 84484; 85025; 85610; 85730; 93005; 99285; A4216